=== PATIENT | male | born 1945 | race Caucasian/White ===

== ENCOUNTER 2018-03-02 17:46 | Emergency (ER) | payer OTHER ==
--- OUTSIDE RECORDS SUMMARY | 2018-03-02 17:54 | XMS REPORT | Clinical Summary ---
:1945 Author Organization [facility] Address [address] [place] [address] Care Team Providers Name Role Phone Neno Azar MD Primary Care Provider Allergies No Known Allergies Current Medications Prescription Sig. Disp. Refills Start Date End Date Status DENTA 5000 PLUS 1.1 APPLY THIN 0 04/02/2016 Active % cream RIBBON TO BRUSH AFTER BRUSHING BEFORE BEDTIME FOR 1 MIN. SPIT AND NO RINSING diazePAM (VALIUM) 5 TAKE 1 TABLET 1 04/02/2016 Active MG tablet BY MOUTH EVERY MORNING NEEDED aspirin (ECOTRIN) 81 Take 81 mg by Active MG enteric coated mouth daily. tablet meloxicam (MOBIC) Take 7.5 mg by 3 01/17/2017 Active 7.5 mg tablet mouth 2 (two) times a day with meals. montelukast Take 10 mg by 1 12/26/2016 Active (SINGULAIR) 10 mg mouth every tablet morning. metoprolol tartrate Take 1 tablet 180 tablet 3 03/26/2017 Active (LOPRESSOR) 25 mg (25 mg total) 8 tablet by mouth 2 (two) times a day. ELIQUIS 5 mg tablet Take 1 tablet 180 tablet 3 08/03/2017 Active (5 mg total) by mouth 2 (two) times a day. losartan-hydrochloro Take 1 tablet 90 tablet 3 10/26/2017 Active thiazide (HYZAAR) by mouth 9 50-12.5 mg per daily. tablet atorvastatin Take 1 tablet 90 tablet 3 12/24/2017 Active (LIPITOR) 10 MG (10 mg total) tabletIndications: by mouth Hyperlipidemia, daily. unspecified hyperlipidemia type ELIQUIS 5 mg tablet Take 5 mg by 3 04/15/2016 Discontinued mouth 2 (two) 8 times a day. atorvastatin Take 1 tablet 90 tablet 3 12/24/2016 Discontinued (LIPITOR) 10 MG (10 mg total) 8 tabletIndications: by mouth Hyperlipidemia, daily. unspecified hyperlipidemia type metoprolol tartrate Take 1 tablet 180 tablet 3 01/26/2017 Discontinued (LOPRESSOR) 25 mg (25 mg total) 7 tablet by mouth 2 (two) times a day. losartan-hydrochloro Take 1 tablet 90 tablet 3 01/26/2017 Discontinued thiazide (HYZAAR) by mouth 8 100-25 mg per tablet daily. ELIQUIS 5 mg tablet TAKE 1 TABLET 180 tablet 3 08/02/2017 Discontinued BY MOUTH TWICE 8 A DAY Active Problems Problem Noted Date Syncope and collapse 10/05/2017 Atrial fibrillation 08/03/2017 Coronary artery disease involving cheesh-na coronary artery of cheesh-na heart 08/03 without angina pectoris Claudication 08/03/2017 Bilateral carotid artery disease 01/26/2017 Essential hypertension 01/26/2017 Primary osteoarthritis of left hip 09/03/2016 Chronic midline low back pain without sciatica 09/03/2016 H/O total hip arthroplasty 09/03/2016 Transient cerebral ischemia 06/18/2016 Paroxysmal atrial fibrillation 06/18/2016 Encounters Date Type Specialty Care Team Description 12/23/2017 Refill Cardiology Jimmy Dudley, Med Refill 10/26/2017 Office Visit Cardiology Jimmy Dudley, Bilateral carotid artery disease (Primary Dx); Paroxysmal atrial fibrillation 10/19/2017 Orders Only Cardiology Cora Cerna, Atrial fibrillation, MA unspecified type (Primary Dx) 10/19/2017 Orders Only Cardiology Yareli Rebolledo Coronary artery disease involving cheesh-na coronary artery of cheesh-na heart without angina pectoris; Syncope and collapse; Bilateral carotid artery disease 10/13/2017 Telephone Cardiology Cora Cerna, Results MA 10/13/2017 Orders Only Procedural Cardiology Bruce Barnes, Coronary artery disease involving cheesh-na coronary artery of cheesh-na heart without angina pectoris; LUNA Syncope and collapse; Bilateral carotid artery disease 10/05/2017 Lab Lab Jimmy Dudley, Coronary artery disease involving cheesh-na coronary artery of cheesh-na heart without angina pectoris; Syncope and collapse; Bilateral carotid artery disease 10/05/2017 Office Visit Cardiology Jimmy Dudley, Syncope and collapse ( Primary Dx); Fainting spell; Coronary artery disease involving cheesh-na coronary artery of cheesh-na heart without angina pectoris; Bilateral carotid artery disease 08/03/2017 Office Visit Cardiology Jimmy Dudley, Atrial fibrillation, unspecified type (Primary Dx); CAD in cheesh-na artery; Claudication; PAD (peripheral artery disease); Bilateral carotid artery disease 08/02/2017 Refill Cardiology Jimmy Dudley, Med Refill 03/26/2017 Refill Cardiology Balwinder Boyer MA Med Refill after 03/01/2017 Family History Relation Name Status Comments Father Mother Social History Tobacco Use Types Packs/Day Years Used Date Never Smoker Smokeless Tobacco: Never Used Alcohol Use Drinks/Week oz/Week Comments No Sex Assigned at Date Recorded Not on file Last Filed Vital Signs Vital Sign Reading Time Taken Blood Pressure 116/70 10/26/2017 7:57 AM CDT Pulse 68 10/26/2017 7:57 AM CDT Temperature - - Respiratory Rate - - Oxygen Saturation - - Inhaled Oxygen Concentration - - Weight 93.9 kg (207 lb) 10/26/2017 7:57 AM CDT Height 172.7 cm (5' 8") 10/26/2017 7:57 AM CDT Body Mass Index 31.47 10/26/2017 7:57 AM CDT Plan of Treatment Date Type Specialty Care Team Description 04/12/2018 Appointment Procedural Cardiology Jimmy Dudley MD [address] [place] [address] [phone] 04/26/2018 Office Visit Cardiology Jimmy Dudley MD [address] [facility] [place] [address] [phone] Health Maintenance Due Date Last Done Comments COLON CANCER SCREENING 1996 SHINGRIX VACCINE (#1) 1996 ZOSTER VACCINE 2006 PNEUMOCOCCAL POLYSACCHARIDE VACCINE AGE 65 AND OVER 12/02/2011 PNEUMOCOCCAL-13 12/02/2011 INFLUENZA VACCINE 02/09/2018 Procedures Procedure Name Priority Date/Time Associated Diagnosis Comments ECHOCARDIOGRAM 2D Routine 10/21/2017 10:40 Atrial fibrillation, Results for this COMPLETE W MMODE AM CDT unspecified type procedure are in SPECTRAL COLOR DOPPLER the results (43645) section. CT HEAD W WO CONTRAST Routine 10/11/2017 8:52 Coronary artery Results for this AM CDT disease involving procedure are in cheesh-na coronary the results artery of cheesh-na section. heart without angina pectoris Syncope and collapse Bilateral carotid artery disease US CAROTID DUPLEX Routine 10/07/2017 4:55 Coronary artery Results for this BILATERAL PM CDT disease involving procedure are in cheesh-na coronary the results artery of cheesh-na section. heart without angina pectoris Syncope and collapse Bilateral carotid artery disease COPY RECEIVED FROM: Routine 10/05/2017 3:12 Results for this PM CDT procedure are in the results section. COPY(IES) SENT TO: Routine 10/05/2017 3:12 Results for this PM CDT procedure are in the results section. BASIC METABOLIC PANEL Routine 10/05/2017 3:12 Coronary artery Results for this PM CDT disease involving procedure are in cheesh-na coronary the results artery of cheesh-na section. heart without angina pectoris Syncope and collapse Bilateral carotid artery disease CV HOLTER MONITOR 48 Routine 10/05/2017 3:03 Coronary artery Results for this HOUR PM CDT disease involving procedure are in cheesh-na coronary the results artery of cheesh-na section. heart without angina pectoris Syncope and collapse Bilateral carotid artery disease ECG 12-LEAD Routine 10/05/2017 1:07 Fainting spell Results for this PM CDT procedure are in the results section. US DUPLEX ARTERIAL Routine 08/05/2017 1:52 Claudication Results for this LOWER EXTREMITY PM [facility] PAD (peripheral procedure are in BILATERAL artery disease) the results section. ECG 12-LEAD Routine 08/03/2017 11:19 Atrial fibrillation, Results for this AM [facility] unspecified type procedure are in CAD in cheesh-na artery the results section. US CAROTID DUPLEX Routine 06/22/2017 5:24 Bilateral carotid Results for this BILATERAL PM [facility] artery disease procedure are in Essential the results hypertension section. after 03/01/2017 Results Echocardiogram complete w contrast and 3D if needed (10/21/2017 10:40 AM) Narrative Performed At [facility] Echocardiography Report Pat.Name:ARTURO FORREST Yany.ID:[id number] St.Date: 10/21/2017 Refer.MD:JIMMY DUDLEY MD Exam Time: 10:56:00 AM Study Type:Routine Echo Height:68inWeight: 208lb BSA: 2.08 m2 DOBAge:1945,71Y Sex: MALEBP:133/73 HR:66 bpmSonogrphr: Minnie Carter RDCS, RVT Pat. Stat.:OutpatientRoom:[facility] Study Status:Final Echo Event ID:[id number] Order ID:[id number] Reason for Study:Atrial fibrillation History / Clinical:TIA, Atrial Fibrillation Procedures:2D Echo, Colorflow Doppler Race:Other SUMMARY: LV size is normal. LV EF is normal. FINDINGS: LV: LV size is normal. LV EF is normal. Overall wall motion is normal.Estimated EF is 55-59%. RV: RV size is normal. RV systolic function is normal. LA: LA size is normal. RA: RA size is normal. AO: Aortic root diameter is normal. ROSITA: No pericardial effusion. AV: No structural AV abnormalities noted. MV: No structural MV abnormalities noted. PV: No structural PV abnormalities noted. A trace of pulmonic regurgitation. TV: No structural TV abnormalities noted. A trace of tricuspid regurgitation Aragon: Hepatic vein pressure is normal, RA pressure < 5mmHg. Normal diastolicfunction. Other:Insufficient TR jet to estimate PA systolic pressure. MEASUREMENTS: 2D Parasternal Long [place]borne LVOT 1.8 cmLA Ds3.7 cm LVIDd4.2 cmIndex2 cm/m Ao An1.8 cm LVIDs2.7 cmAo Rtd 2.4 cm Index1.2 cm/m LV%fs 35.7 % LV Frog475.3 g(122-174) IVSd 1 cmRWT0.4 LVPWd0.9 cm LA Sng Plane LA Area 12.3 cm2(8.8-23.4) LA Vol25.3 ml Index12.2 ml/m LA LngAx 5 cm Signed 10/21/2017 10:45 AM Stefan Buckley MD Procedure Note Interface, Radiology Results In - 10/21/2017 10:46 AM CDT [facility] Echocardiography Report Pat.Name: ARTURO FORREST Pat.ID: [id number] St.Date: 10/21/2017 Refer.MD: JIMMY DUDLEY MD Exam Time: 10:56:00 AM Study Type:Routine Echo Height: 68in Weight: 208lb BSA: 2.08 m2 Age: 5 1945,71Y Sex: MALE BP: 133/73 HR: 66 bpm Sonogrphr: Minnie Carter RDCS, RVT Pat. Stat.:Outpatient Room: [facility] Study Status:Final Echo Event ID:[id number] Order ID: [id number] Reason for Study:Atrial fibrillation History / Clinical:TIA, Atrial Fibrillation Procedures:2D Echo, Colorflow Doppler Race: Other SUMMARY: LV size is normal. LV EF is normal. FINDINGS: LV: LV size is normal. LV EF is normal. Overall wall motion is normal. Estimated EF is 55-59%. RV: RV size is normal. RV systolic function is normal. LA: LA size is normal. RA: RA size is normal. AO: Aortic root diameter is normal. ROSITA: No pericardial effusion. AV: No structural AV abnormalities noted. MV: No structural MV abnormalities noted. PV: No structural PV abnormalities noted. A trace of pulmonic regurgitation. TV: No structural TV abnormalities noted. A trace of tricuspid regurgitation Aragon: Hepatic vein pressure is normal, RA pressure < 5mmHg. Normal diastolic function. Other: Insufficient TR jet to estimate PA systolic pressure. MEASUREMENTS: 2D Parasternal Long [place]borne LVOT 1.8 cm LA Ds 3.7 cm LVIDd 4.2 cm Index 2 cm/m Ao An 1.8 cm LVIDs 2.7 cm Ao Rtd 2.4 cm Index 1.2 cm/m LV%fs 35.7 % LV Mass 122.3 g (122-174) IVSd 1 cm RWT 0.4 LVPWd 0.9 cm LA Sng Plane LA Area 12.3 cm2 (8.8-23.4) LA Vol 25.3 ml Index 12.2 ml/m LA LngAx 5 cm Signed 10/21/2017 10:45 AM Stefan Buckley MD Performing Organization Address City/State/Zipcode Phone Number [facility] [address] [place] [address] CT Head W Wo Contrast (10/11/2017 8:52 AM) Narrative Performed At EXAMINATION:CT HEAD W WO CONTRAST [facility] CLINICAL HISTORY:I25.10 Atherosclerotic heart disease of cheesh-na coronary artery without angina pectoris, R55 Syncope and collapse, other COMPARISON:None. FINDINGS: Axial images were obtained before and after intravenous contrast infusion. CT scans are performed using radiation dose reduction techniques. Technical factors are evaluated and adjusted to ensure appropriate moderation of exposure. Automated dose management technology is applied to adjust radiation exposure while achieving a highly diagnostic quality image.. Nonenhanced images demonstrate mild ventricular and sulcal dilatation compatible with age-appropriate involutional changes. There is no definite acute edema or hemorrhage. There are no calcifications. After intravenous contrast infusion, there is visualization of a normal vascular enhancement pattern of the arterial and dural venous structures consistent with patency. There are no abnormal enhancing masses. Bone settings demonstrate the calvarium to be intact. IMPRESSION: Unremarkable examination. Mild age-appropriate involutional changes. [facility]-[id number] Procedure Note Interface, Radiology Results Incoming - 10/11/2017 10:24 AM CDT EXAMINATION: CT HEAD W WO CONTRAST CLINICAL HISTORY: I25.10 Atherosclerotic heart disease of cheesh-na coronary artery without angina pectoris, R55 Syncope and collapse, other COMPARISON: None. FINDINGS: Axial images were obtained before and after intravenous contrast infusion. CT scans are performed using radiation dose reduction techniques. Technical factors are evaluated and adjusted to ensure appropriate moderation of exposure. Automated dose management technology is applied to adjust radiation exposure while achieving a highly diagnostic quality image.. Nonenhanced images demonstrate mild ventricular and sulcal dilatation compatible with age-appropriate involutional changes. There is no definite acute edema or hemorrhage. There are no calcifications. After intravenous contrast infusion, there is visualization of a normal vascular enhancement pattern of the arterial and dural venous structures consistent with patency. There are no abnormal enhancing masses. Bone settings demonstrate the calvarium to be intact. IMPRESSION: Unremarkable examination. Mild age-appropriate involutional changes. [facility]-[id number] Performing Organization Address City/State/Zipcode Phone Number [facility] [address] [place] [address] carotid duplex (10/07/2017 4:55 PM)Only the most recent of2 resultswithin the time period is included. Narrative Performed At [facility] Carotid Artery Ultrasound Report Pat.Name:ARTURO FORREST Pat.ID:[id number] .Date: 10/07/2017 Refer.MD:JIMMY DUDLEY MD Exam Time: 4:05:00 PMStudy Type:Carotid Height:68inDOBAge: 1945,71Y Sex: MALE Sonogrphr: Minnie Carter RDMS, RDCS, RVT Pat. Stat.:OutpatientRoom:[facility] CPT - 4: 64112 Echo Event ID:[id number] Order ID:[id number] Reason for Study:Carotid artery stenosis History / Clinical:TIA, Atrial Fibrillation, Known carotid stenosis based on prior test Race:Other SUMMARY: CAROTID ARTERY SCAN RIGHT:There is smooth intimal lining in the common carotid artery. There is hard plaque noted in the bulb extending into the proximal internal and external carotid artery.A complex plaque of soft and hard plaque is visualized in the proximal internal carotid artery.A portion of the plaque appears to have a black echolucent core and a thin echogenic cap.Colorflow is disturbed with elevated velocities noted in the bulb and proximal internal carotid artery. Vertebral artery flow is antegrade. LEFT: There is smooth intimal lining in the common carotid artery. Velocities are elevated, but not hemodynamically significant. There is hard plaque noted in the bulb extending into the proximal internal and external carotid artery.Colorflow is mildly disturbed. Vertebral artery flow is antegrade. PHYSICIAN INTERPRETATION 1.50- 69% stenosis in the bulb and right internal carotid artery. Velocities have increased since the previous exam. 2.<50%stenosis in the bulb and left internal carotid artery. 3. <50% stenosis in the external carotid artery, bilaterally. 4. Non-hemodynamically significant stenosis left common carotid artery Carotid Findings:RightLeft Verteb.Flw AntegradeAntegrade Subclavian TriphasicTriphasic MEASUREMENTS: DOPPLER Right SCA Prox SCA Prox PSV 194 cm/s Right CCA Dist CCA Dist PSV 172 cm/sCCA Dist EDV35.3 cm/s Right CCA Mid CCA Mid CMX278 cm/sCCA Mid EDV 10.5 cm/s Right CCA Prox CCA Prox PSV 126 cm/sCCA Prox EDV19.6 cm/s Right Bulb Bulb PSV 122 cm/sBulb EDV27.5 cm/s Right ECA Prox ECA Prox PSV 142 cm/sECA Prox EDV15.2 cm/s Right ICA Dist ICA Dist PSV88.8 cm/Keira Dist EDV24.8 cm/s Right ICA Mid ICA Mid DPV795 cm/Keira Mid EDV 26.2 cm/s Right ICA Prox ICA Prox PSV 179 cm/Keira Prox EDV39.4 cm/s Right Vertebral Vertebral PSV 49 cm/sVertebral EDV0 cm/s Left SCA Prox SCA Prox PSV 198 cm/s Left CCA Dist CCA Dist PSV 116 cm/sCCA Dist EDV18.3 cm/s Left CCA Mid CCA Mid UCM448 cm/sCCA Mid EDV 20.6 cm/s Left CCA Prox CCA Prox PSV 152 cm/sCCA Prox EDV28.4 cm/s Left Bulb Bulb PSV 116 cm/sBulb EDV15.2 cm/s Left ECA Prox ECA Prox PSV 119 cm/sECA Prox EDV12.5 cm/s Left ICA Dist ICA Dist PSV82.9 cm/Keira Dist EDV26 cm/s Left ICA Mid ICA Mid OHI302 cm/Keira Mid EDV 19.2 cm/s Left ICA Prox ICA Prox PSV96.1 cm/Keira Prox EDV21.3 cm/s Left Vertebral Vertebral PSV 47.6 cm/sVertebral EDV 13.4 cm/s Right ICA/CCA Ratio ICA/CCA PSV1.7 Left ICA/CCA Ratio ICA/CCA PSV0.734 Signed 10/13/2017 03:39 PM Jimmy Dudley MD Procedure Note Interface, Radiology Results In - 10/13/2017 3:39 PM CDT [facility] Carotid Artery Ultrasound Report Pat.Name: ARTURO FORREST Pat.ID: [id number] .Date: 10/07/2017 Refer.MD: JIMMY DUDLEY MD Exam Time: 4:05:00 PM Study Type:Carotid Height: 68in Age: 5 1945,71Y Sex: MALE Sonogrphr: Minnie Carter RDMS, RDCS, RVT Pat. Stat.:Outpatient Room: [facility] CPT - 4: 80135 Echo Event ID:[id number] Order ID: [id number] Reason for Study:Carotid artery stenosis History / Clinical:TIA, Atrial Fibrillation, Known carotid stenosis based on prior test Race: Other SUMMARY: CAROTID ARTERY SCAN RIGHT: There is smooth intimal lining in the common carotid artery. There is hard plaque noted in the bulb extending into the proximal internal and external carotid artery. A complex plaque of soft and hard plaque is visualized in the proximal internal carotid artery. A portion of the plaque appears to have a black echolucent core and a thin echogenic cap. Colorflow is disturbed with elevated velocities noted in the bulb and proximal internal carotid artery. Vertebral artery flow is antegrade. LEFT: There is smooth intimal lining in the common carotid artery. Velocities are elevated, but not hemodynamically significant. There is hard plaque noted in the bulb extending into the proximal internal and external carotid artery. Colorflow is mildly disturbed. Vertebral artery flow is antegrade. PHYSICIAN INTERPRETATION 1. 50- 69% stenosis in the bulb and right internal carotid artery. Velocities have increased since the previous exam. 2. <50% stenosis in the bulb and left internal carotid artery. 3. <50% stenosis in the external carotid artery, bilaterally. 4. Non-hemodynamically significant stenosis left common carotid artery Carotid Findings: Right Left Verteb.Flw Antegrade Antegrade Subclavian Triphasic Triphasic MEASUREMENTS: DOPPLER Right SCA Prox SCA Prox PSV 194 cm/s Right CCA Dist CCA Dist PSV 172 cm/s CCA Dist EDV 35.3 cm/s Right CCA Mid CCA Mid PSV 105 cm/s CCA Mid EDV 10.5 cm/s Right CCA Prox CCA Prox PSV 126 cm/s CCA Prox EDV 19.6 cm/s Right Bulb Bulb PSV 122 cm/s Bulb EDV 27.5 cm/s Right ECA Prox ECA Prox PSV 142 cm/s ECA Prox EDV 15.2 cm/s Right ICA Dist ICA Dist PSV 88.8 cm/s ICA Dist EDV 24.8 cm/s Right ICA Mid ICA Mid PSV 147 cm/s ICA Mid EDV 26.2 cm/s Right ICA Prox ICA Prox PSV 179 cm/s ICA Prox EDV 39.4 cm/s Right Vertebral Vertebral PSV 49 cm/s Vertebral EDV 0 cm/s Left SCA Prox SCA Prox PSV 198 cm/s Left CCA Dist CCA Dist PSV 116 cm/s CCA Dist EDV 18.3 cm/s Left CCA Mid CCA Mid PSV 131 cm/s CCA Mid EDV 20.6 cm/s Left CCA Prox CCA Prox PSV 152 cm/s CCA Prox EDV 28.4 cm/s Left Bulb Bulb PSV 116 cm/s Bulb EDV 15.2 cm/s Left ECA Prox ECA Prox PSV 119 cm/s ECA Prox EDV 12.5 cm/s Left ICA Dist ICA Dist PSV 82.9 cm/s ICA Dist EDV 26 cm/s Left ICA Mid ICA Mid PSV 105 cm/s ICA Mid EDV 19.2 cm/s Left ICA Prox ICA Prox PSV 96.1 cm/s ICA Prox EDV 21.3 cm/s Left Vertebral Vertebral PSV 47.6 cm/s Vertebral EDV 13.4 cm/s Right ICA/CCA Ratio ICA/CCA PSV 1.7 Left ICA/CCA Ratio ICA/CCA PSV 0.734 Signed 10/13/2017 03:39 PM Jimmy Dudley MD Performing Organization Address City/[facility] Phone Number [facility] [address] [place] [address] COPY RECEIVED FROM: (10/05/2017 3:12 PM) Copy received from: [facility] Comment: [address] [facility] [address] [place] [address] Performing Organization Address City/[facility] Phone Number [facility] COPY(IES) SENT TO: (10/05/2017 3:12 PM) Copies/mL [facility] Comment: [address] [facility] [address] [place] [address] Performing Organization Address [facility] Phone Number [facility] Basic metabolic panel (10/05/2017 3:12 PM) Glucose 114 (H) 65 - 99 mg/dL [facility] Comment: [place] Fasting reference interval For someone without known diabetes, a glucose value between 100 and 125 mg/dL is consistent with prediabetes and should be confirmed with a follow-up test. BUN, whole blood 24 7 - 25 mg/dL [facility] [place] Creatinine 0.98 0.70 - 1.18 [facility] Comment: mg/dL [place] For patients >49 years of age, the reference limit for Creatinine is approximately 13% higher for people identified as -Albanian. EGFR Non-Afr. Albanian 78 > OR=60 [facility] mL/min/1.73m2 [place] EGFR 90 > OR=60 [facility] mL/min/1.73m2 [place] BUN/creatinine ratio NOT APPLICABLE 6 - 22 (calc) [facility] Sodium 139 135 - 146 mmol/L [facility] [place] Potassium 4.2 3.5 - 5.3 mmol/L [facility] [place] Chloride 101 98 - 110 mmol/L [facility] [place] CO2 26 20 - 31 mmol/L [facility] [place] Calcium 9.3 8.6 - 10.3 mg/dL [facility] [place] Specimen Blood Resulting Agency Comment Performing Organization Information: Site ID: [id number] Name: [facility] Address: [address] [place] [id number] Director: Martha Alonzo MD Performing Organization Address City/[facility] Phone Number [employer] [address] [address] Cv holter monitor 48 hour (10/05/2017 3:03 PM) Hookup Date [id number] [facility] MUSE Hookup Time [id number] [facility] MUSE Acquisition Duration [id number] [facility] MUSE # of Ventricular Beats in Runs 0 [facility] MUSE # OF LONGEST VENTRICULAR BEATS H MUSE # of Supraventricular Beats in 77 H MUSE Runs # of Longest Supraventricular 17 [facility] MUSE Beats Max Heart Rate 140 [facility] MUSE Min Heart Rate 51 [facility] MUSE Longest RR 1.703 [facility] MUSE Diagnosis -SInus rhythm with occasional H MUSE supraventricular beats.- Performing Organization Address City/[facility] Phone Number [facility] [address] [place] [address] ECG 12 lead (10/05/2017 1:07 PM)Only the most recent of2 resultswithin the time period is included. Ventricular rate 69 [facility]USE Atrial rate 69 [facility] GA interval 200 [facility] QRSD interval 84 [facility] QT interval 398 [facility] QTC interval 426 [facility] P axis 1 53 [facility] QRS axis 1 59 [facility] T wave axis 53 [facility] EKG impression Normal sinus rhythm-Normal ECG-In automated [facility] MUSE comparison with ECG of 03-AUG-2017 11:19,-Sinus rhythm has replaced Atrial fibrillation-QRS axis shifted right- Performing Organization Address City/State/Zipcode Phone Number [facility] MUSE [address] [place] [address] Pv duplex arterial lower extremity (08/05/2017 1:52 PM) Narrative Performed At [facility] Lower Extremity Arterial Report Pat.Name:ARTURO FORREST Pat.ID:[id number] .Date: 08/05/2017 Refer.MD:JIMMY DUDLEY MD Exam Time: 1:15:00 PMStudy Type:LE Arterial Height:68inDOBAge: 1945,71Y Sex: MALE Sonogrphr: Minnie Carter RDMS, EMANUELCS, RVT Pat. Stat.:Outpatient[facility] 4: [address] Echo Event ID:[id number] Order ID:[id number] Reason for Study:Claudication History / Clinical:TIA, Atrial Fibrillation, Known carotid stenosis based on prior test Procedures:Bilateral Race:Other SUMMARY: Duplex scan of the BILATERAL lower extremities was done. Color and pulse wave Doppler demonstrates no evidence of hemodynamically significant stenosis. FINDINGS:Duplex ultrasound was performed of the major arteries of the bilateral lower extremities.All vessels are patent and with triphasic Doppler flow and normal velocities.There are no areas of significantly increased velocity or luminal abnormalities. IMPRESSION:No evidence of hemodynamically significant arterial disease in the bilateral lower extremities. MEASUREMENTS: DOPPLER LONG LINE TEAMSTER Right LONG LINE TEAMSTER Angul56 deg Right Profunda Profunda PSV78.5 cm/sProfunda EDV 0 cm/s Profunda Right Profunda 60 deg Right SFA Dist SFA Dist PSV74.2 cm/sSFA Dist EDV1.35 cm/s Right SFA Mid SFA Mid PSV 72.2 cm/sSFA Mid EDV0 cm/s Right SFA Prox SFA Prox PSV81.6 cm/sSFA Prox EDV 0 cm/s Right Pop Dist Pop Dist PSV44 cm/sPop Dist EDV1.79 cm/s Right Pop Prox Pop Prox PSV50.1 cm/sPop Prox EDV1.22 cm/s Right SET AND EXHIBIT DESIGNER Prox SET AND EXHIBIT DESIGNER Prox PSV30.1 cm/sPTA Prox EDV 0.684 cm/s Right SET AND EXHIBIT DESIGNER Dist SET AND EXHIBIT DESIGNER Dist PSV46.4 cm/s Tibial Post Right Tibial Po1.22 cm/s Left Tibial Pos 0 cm/s Left Tibial Pos 0 cm/s Right SET AND EXHIBIT DESIGNER Mid SET AND EXHIBIT DESIGNER Mid PSV 51.3 cm/sPTA Mid EDV0 cm/s Right Peroneal Prox Peroneal Prox P35.4 cm/s Peroneal Right Peroneal0 cm/s Dors Pedis Right Dors Pedi42.8 cm/s Left Dors Pedis31.7 cm/s Right Dors Pedi 0 cm/s Left Dors Pedis 0 cm/s Right Dors Pedi60 degLeft Dors Pedis54 deg Left Profunda Profunda PSV89.4 cm/sProfunda EDV 0 cm/s Left SFA Dist SFA Dist PSV73.2 cm/sSFA Dist EDV2.99 cm/s Left SFA Mid SFA Mid PSV 68.8 cm/sSFA Mid EDV0 cm/s Left SFA Prox SFA Prox PSV86.7 cm/sSFA Prox EDV1.49 cm/s Left Pop Dist Pop Dist PSV42.4 cm/s Popliteal Left Popliteal 4.84 cm/s Left Popliteal0 cm/s Left Pop Prox Pop Prox PSV40.3 cm/s Left MELANIE Prox MELANIE Prox PSV23 cm/s Tibial Art Left Tibial Art 0 cm/s Left SET AND EXHIBIT DESIGNER Dist SET AND EXHIBIT DESIGNER Dist PSV60.2 cm/s Left SET AND EXHIBIT DESIGNER Mid SET AND EXHIBIT DESIGNER Mid PSV 60.8 cm/sPTA Mid EDV0 cm/s Left SET AND EXHIBIT DESIGNER Prox SET AND EXHIBIT DESIGNER Prox PSV55.9 cm/s Left Peroneal Dist Peroneal Dist P61.9 cm/s Peroneal Dist E 0 cm/s Signed 08/05/2017 04:21 PM Jimmy Dudley MD Procedure Note Interface, Radiology Results In - 08/05/2017 4:22 PM PCMH SPECIALIST [facility] Lower Extremity Arterial Report Pat.Name: ARTURO FORREST Pat.ID: [id number] St.Date: 08/05/2017 Refer.MD: JIMMY DUDLEY MD Exam Time: 1:15:00 PM Study Type:LE Arterial Height: 68in Age: 5 1945,71Y Sex: MALE Sonogrphr: Minnie Carter RDMS, RDCS, RVT Pat. Stat.:Outpatient Room: [facility] - 4: [id number] Echo Event ID:[id number] Order ID: [id number] Reason for Study:Claudication History / Clinical:TIA, Atrial Fibrillation, Known carotid stenosis based on prior test Procedures:Bilateral Race: Other SUMMARY: Duplex scan of the BILATERAL lower extremities was done. Color and pulse wave Doppler demonstrates no evidence of hemodynamically significant stenosis. FINDINGS: Duplex ultrasound was performed of the major arteries of the bilateral lower extremities. All vessels are patent and with triphasic Doppler flow and normal velocities. There are no areas of significantly increased velocity or luminal abnormalities. IMPRESSION: No evidence of hemodynamically significant arterial disease in the bilateral lower extremities. MEASUREMENTS: DOPPLER LONG LINE TEAMSTER Right LONG LINE TEAMSTER Angul 56 deg Right Profunda Profunda PSV 78.5 cm/s Profunda EDV 0 cm/s Profunda Right Profunda 60 deg Right SFA Dist SFA Dist PSV 74.2 cm/s SFA Dist EDV 1.35 cm/s Right SFA Mid SFA Mid PSV 72.2 cm/s SFA Mid EDV 0 cm/s Right SFA Prox SFA Prox PSV 81.6 cm/s SFA Prox EDV 0 cm/s Right Pop Dist Pop Dist PSV 44 cm/s Pop Dist EDV 1.79 cm/s Right Pop Prox Pop Prox PSV 50.1 cm/s Pop Prox EDV 1.22 cm/s Right SET AND EXHIBIT DESIGNER Prox SET AND EXHIBIT DESIGNER Prox PSV 30.1 cm/s SET AND EXHIBIT DESIGNER Prox EDV 0.684 cm/s Right SET AND EXHIBIT DESIGNER Dist SET AND EXHIBIT DESIGNER Dist PSV 46.4 cm/s Tibial Post Right Tibial Po 1.22 cm/s Left Tibial Pos 0 cm/s Left Tibial Pos 0 cm/s Right SET AND EXHIBIT DESIGNER Mid SET AND EXHIBIT DESIGNER Mid PSV 51.3 cm/s SET AND EXHIBIT DESIGNER Mid EDV 0 cm/s Right Peroneal Prox Peroneal Prox P 35.4 cm/s Peroneal Right Peroneal 0 cm/s Dors Pedis Right Dors Pedi 42.8 cm/s Left Dors Pedis 31.7 cm/s Right Dors Pedi 0 cm/s Left Dors Pedis 0 cm/s Right Dors Pedi 60 deg Left Dors Pedis 54 deg Left Profunda Profunda PSV 89.4 cm/s Profunda EDV 0 cm/s Left SFA Dist SFA Dist PSV 73.2 cm/s SFA Dist EDV 2.99 cm/s Left SFA Mid SFA Mid PSV 68.8 cm/s SFA Mid EDV 0 cm/s Left SFA Prox SFA Prox PSV 86.7 cm/s SFA Prox EDV 1.49 cm/s Left Pop Dist Pop Dist PSV 42.4 cm/s Popliteal Left Popliteal 4.84 cm/s Left Popliteal 0 cm/s Left Pop Prox Pop Prox PSV 40.3 cm/s Left MELANIE Prox MELANIE Prox PSV 23 cm/s Tibial Art Left Tibial Art 0 cm/s Left SET AND EXHIBIT DESIGNER Dist SET AND EXHIBIT DESIGNER Dist PSV 60.2 cm/s Left SET AND EXHIBIT DESIGNER Mid SET AND EXHIBIT DESIGNER Mid PSV 60.8 cm/s SET AND EXHIBIT DESIGNER Mid EDV 0 cm/s Left SET AND EXHIBIT DESIGNER Prox SET AND EXHIBIT DESIGNER Prox PSV 55.9 cm/s Left Peroneal Dist Peroneal Dist P 61.9 cm/s Peroneal Dist E 0 cm/s Signed 08/05/2017 04:21 PM Jimmy Dudley MD Performing Organization Address City/State[facility] Phone Number [facility] [id number] [place] [address] after 03/01/2017 Insurance Payer Benefit Plan / Group Subscriber ID Type Phone Address AETNA MEDICARE AETNA MEDICARE HMO/PPO [facility] xxxxxxxx HMO
[2018-03-02] MEDS ORDERED: LIDOCAINE 1% MPF 5 ML VIAL ONE (18:16)
[2018-03-02] MEDS ORDERED: TETANUS & DIPHTHERIA TOX,ADULT 0.5 ML VIAL ONE (18:17)
--- NOTE | 2018-03-02 18:46 | ER ---
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 Small laceration noted with small amount of controlled bleeding. Transition of care: patient was not received from another setting of care. Onset of symptoms. Risk Assessment: Do you want to hurt yourself or someone else? Patient reports no desire to harm self or others. Initial Sepsis Screen: Does the patient meet any 2 criteria? No. Patient's initial sepsis screen is negative. Does the patient have a suspected source of infection? No. Patient's initial sepsis screen is negative. Care prior to arrival: None. 17:53 Method Of Arrival: Ambulatory 17:53 Acuity: ESE 4 aj Triage Assessment: 17:56 General: Appears in no apparent distress. comfortable, Behavior is calm, cooperative, aj appropriate for age. Pain: Complains of pain in left thumbnail. Neuro: Level of Consciousness is awake, alert, obeys commands, Oriented to person, place, time, situation, Appropriate for age. Respiratory: Airway is patent Respiratory effort is even, unlabored, Respiratory pattern is regular, symmetrical. Derm: Skin is intact, is healthy with good turgor, Skin is pink, warm \T\ dry. normal. Injury Description: Laceration sustained to left thumbnail is clean, 0.5 to 2.5 cm long, was sustained 30-60 minutes ago. a small amount of bleeding noted at this time. Historical: - Allergies: 17:56 No Known Allergies; aj - Home Meds: 17:56 metoprolol tartrate 25 mg Oral tab 1 tab 2 times per day [Active]; atorvastatin 10 mg aj oral tab 1 tab once daily [Active]; Eliquis 5 mg oral tab 1 tab 2 times per day [Active]; losartan-hydrochlorothiazide 50-12.5 mg oral tab 1 tab once daily [Active]; montelukast 10 mg oral tab 1 tab once daily [Active]; aspirin 81 mg Oral TbEC 1 tab once daily [Active]; - PMHx: 17:56 Hypertension; Hyperlipidemia; Cancer; Atrial Fib; aj - PSHx: 17:56 hip; aj - Immunization history:: Adult Immunizations up to date. - Social history:: Smoking status: Patient/guardian denies using tobacco. - Ebola Screening: : Patient negative for fever greater than or equal to 101.5 degrees Fahrenheit, and additional compatible Ebola Virus Disease symptoms Patient denies exposure to infectious person Patient denies travel to an Ebola-affected area in the 21 days before illness onset No symptoms or risks identified at this time. Screenin:07 Abuse screen: Denies threats or abuse. Denies injuries from another. Nutritional hj screening: No deficits noted. Tuberculosis screening: No symptoms or risk factors identified. Fall Risk None identified. Assessment: 18:08 General: Appears in no apparent distress. uncomfortable, Behavior is calm, cooperative, hj appropriate for age. Pain: Complains of pain in left thumbnail. Neuro: Level of Consciousness is awake, alert, obeys commands, Oriented to person, place, time, situation, Appropriate for age. Cardiovascular: Capillary refill < 3 seconds Patient's skin is warm and dry. Respiratory: Airway is patent Respiratory effort is even, unlabored. GI: No signs and/or symptoms were reported involving the gastrointestinal system. : No signs and/or symptoms were reported regarding the genitourinary system. EENT: No signs and/or symptoms were reported regarding the EENT system. Derm: Wound noted left thumbnail. Musculoskeletal: No signs and/or symptoms reported regarding the musculoskeletal system. Injury Description: Laceration sustained to left thumbnail is clean, 0.5 to 2.5 cm long, not bleeding, was sustained 30-60 minutes ago. a small amount of bleeding noted at this time. Vital Signs: 17:56 BP 134 / 87; Pulse 85; Resp 16; Temp 97.4; Pulse Ox 95% on R/A; Weight 93.89 kg; Height aj 5 ft. 8 in. (172.72 cm); 18:45 BP 130 / 89; Pulse 84; Resp 17; Pulse Ox 95% on R/A; Pain 0/10; cc3 17:56 Body Mass Index 31.47 (93.89 kg, 172.72 cm) ED Course: 17:48 Patient arrived in ED. mr 17:48 Neno Azar MD is Private Physician. mr 17:54 Triage completed. aj 17:56 Arm band placed on left wrist. Patient placed in an exam room. aj 17:59 Kan Rivers NP is PHCP. pm1 17:59 Prem Mota MD is Attending Physician. pm1 18:02 Neptali Figueroa, DARA is Primary Nurse. hj 18:07 Patient has correct armband on for positive identification. Bed in low position. Call light in reach. Side rails up X 1. 18:45 Neno Azar MD is Referral Physician. pm1 19:00 No provider procedures requiring assistance completed. Patient did not have IV access cc3 during this emergency room visit. Administered Medications: 18:08 Drug: Tetanus-Diphtheria Toxoid Adult 0.5 ml {Case Coordinator: [employer]. Exp: 03/31/2019. Lot #: [id number]. } Route: IM; Site: right deltoid; 18:41 Drug: Lidocaine (1 %) 5 ml Volume: 5 ml; Route: Infiltration; Outcome: 18:46 Discharge ordered by MD. pm1 19:00 Discharged to home ambulatory, with family. cc3 19:00 Condition: stable 19:00 Discharge instructions given to patient, family, Instructed on discharge instructions, follow up and referral plans. wound care, Demonstrated understanding of instructions, follow-up care, wound care. 19:20 Patient left the ED. iw Signatures: Flores Juarez RN RN aj Rivera, Maria Kaylan Pascal RN RN Neptali Figueroa RN RN hj Marinas, Patrick, NP ROUSTABOUT SUPERVISOR pm1 Erin Hidalgo cc3
--- NOTE | 2018-03-02 18:46 | EDPHYS ---
Physician Documentation [facility] Name: Arturo Forrest Age: 72 yrs Sex: Male : 1945 Arrival Date: 03/02/2018 Time: 17:48 Bed 8 Private MD: Neno Azar T ED Physician Prem Mota HPI: 03/02 18:10 This 72 yrs old Male presents to ER via Ambulatory with complaints of Thumb pm1 laceration. 18:10 The patient has a laceration related to: cooking, from a knife, occurred at home, and pm1 patient takes eliquis The injury was accidental. The laceration(s) is(are) located on the tip of distal phalanx of left thumb. Onset: The symptoms/episode began/occurred just prior to arrival. Associated signs and symptoms: Pertinent positives: Patient unable to stop the bleeding, Pertinent negatives: numbness distal to injury, suspected foreign body. The patient has not recently seen a physician, the patient's primary care provider is Dr. Azar. Patient was cutting bread and accidentally cut tip of his left thumb. Patient takes eliquis and was unable to stop the bleeding with pressure and OTC adhesive skin repair. Historical: - Allergies: 17:56 No Known Allergies; aj - Home Meds: 17:56 metoprolol tartrate 25 mg Oral tab 1 tab 2 times per day [Active]; atorvastatin 10 mg aj oral tab 1 tab once daily [Active]; Eliquis 5 mg oral tab 1 tab 2 times per day [Active]; losartan-hydrochlorothiazide 50-12.5 mg oral tab 1 tab once daily [Active]; montelukast 10 mg oral tab 1 tab once daily [Active]; aspirin 81 mg Oral TbEC 1 tab once daily [Active]; - PMHx: 17:56 Hypertension; Hyperlipidemia; Cancer; Atrial Fib; aj - PSHx: 17:56 hip; aj - Immunization history:: Adult Immunizations up to date. - Social history:: Smoking status: Patient/guardian denies using tobacco. - Ebola Screening: : Patient negative for fever greater than or equal to 101.5 degrees Fahrenheit, and additional compatible Ebola Virus Disease symptoms Patient denies exposure to infectious person Patient denies travel to an Ebola-affected area in the 21 days before illness onset No symptoms or risks identified at this time. ROS: 18:10 Constitutional: Negative for fever, chills, and weight loss, Eyes: Negative for injury, pm1 pain, redness, and discharge, ENT: Negative for injury, pain, and discharge, Neck: Negative for injury, pain, and swelling, Cardiovascular: Negative for chest pain, palpitations, and edema, Respiratory: Negative for shortness of breath, cough, wheezing, and pleuritic chest pain, Abdomen/GI: Negative for abdominal pain, nausea, vomiting, diarrhea, and constipation, Back: Negative for injury and pain. 18:10 MS/extremity: Positive for of the left thumb, Negative for decreased range of motion, deformity. 18:10 Skin: Positive for laceration(s). Exam: 18:10 Constitutional: This is a well developed, well nourished patient who is awake, alert, pm1 and in no acute distress. Head/Face: Normocephalic, atraumatic. Eyes: Pupils equal round and reactive to light, extra-ocular motions intact. Lids and lashes normal. Conjunctiva and sclera are non-icteric and not injected. Cornea within normal limits. Periorbital areas with no swelling, redness, or edema. ENT: Nares patent. No nasal discharge, no septal abnormalities noted. Tympanic membranes are normal and external auditory canals are clear. Oropharynx with no redness, swelling, or masses, exudates, or evidence of obstruction, uvula midline. Mucous membranes moist. Neck: Trachea midline, no thyromegaly or masses palpated, and no cervical lymphadenopathy. Supple, full range of motion without nuchal rigidity, or vertebral point tenderness. No Meningismus. Chest/axilla: Normal chest wall appearance and motion. Nontender with no deformity. No lesions are appreciated. Cardiovascular: Regular rate and rhythm with a normal S1 and S2. No gallops, murmurs, or rubs. Normal PMI, no JVD. No pulse deficits. Respiratory: Lungs have equal breath sounds bilaterally, clear to auscultation and percussion. No rales, rhonchi or wheezes noted. No increased work of breathing, no retractions or nasal flaring. Abdomen/GI: Soft, non-tender, with normal bowel sounds. No distension or tympany. No guarding or rebound. No evidence of tenderness throughout. Back: No spinal tenderness. No costovertebral tenderness. Full range of motion. 18:10 Skin: Appearance: normal except for affected area, injury, laceration(s), the wound is pm1 approximately 1.5 cm(s), with a depth of 0.5 cm(s), of the left thumb. Vital Signs: 17:56 BP 134 / 87; Pulse 85; Resp 16; Temp 97.4; Pulse Ox 95% on R/A; Weight 93.89 kg; Height aj 5 ft. 8 in. (172.72 cm); 18:45 BP 130 / 89; Pulse 84; Resp 17; Pulse Ox 95% on R/A; Pain 0/10; cc3 17:56 Body Mass Index 31.47 (93.89 kg, 172.72 cm) aj Laceration: 18:45 Wound Repair of 1.5cm ( 0.6in ) subcutaneous laceration to left thumb. Linear shaped.. pm1 Distal neuro/vascular/tendon intact. Anesthesia: Digital block administered with 2 mls of 1% lidocaine. Wound prep: Extensive cleansing with betadine by nurse, Wound irrigation with saline by me, Wound explored extensively, Copious irrigation. Skin closed with 4 5-0 Prolene using simple sutures and sterile technique. Dressed with 4x4's. Patient tolerated well. MDM: 17:59 Patient medically screened. pm1 18:45 Data reviewed: vital signs. Data interpreted: Pulse oximetry: on room air is 95 %. pm1 Interpretation: normal. Counseling: I had a detailed discussion with the patient and/or guardian regarding: the historical points, exam findings, and any diagnostic results supporting the discharge/admit diagnosis, the need for outpatient follow up, to return to the emergency department if symptoms worsen or persist or if there are any questions or concerns that arise at home. 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 Exp: [employer] 03/31/2019. Lot #: [id number]. } Route: IM; Site: right deltoid; 18:41 Drug: Lidocaine (1 %) 5 ml Volume: 5 ml; Route: Infiltration; hj Disposition: 03/02/18 18:46 Discharged to Home. Impression: Laceration without foreign body of left thumb without damage to nail. - Condition is Stable. - Discharge Instructions: Laceration Care, Adult. - Medication Reconciliation Form, Thank You Letter, Antibiotic Education, Prescription Opioid Use form. - Follow up: Emergency Department; When: As needed; Reason: Worsening of condition. Follow up: Neno Azar MD; When: 10 - 14 days; Reason: Recheck today's complaints, Continuance of care, Re-evaluation by your physician. - Problem is new. - Symptoms have improved. Addendum: 03/06/2018 01:32 Co-signature as Attending Physician, Prem Mota MD. r n Signatures: Flores Juarez RN Kaylan Pineda RN RN iw Nieto, Roman, MD MD rn Joaquin, Henry, RN RN hj Marinas, Patrick, SOLITARIO MERCHANDISE PLANNING MANAGER pm1 Corrections: (The following items were deleted from the chart) 03/02 19:20 18:46 03/02/2018 18:46 Discharged to Home. Impression: Laceration without foreign body iw of left thumb without damage to nail. Condition is Stable. Forms are Medication Reconciliation Form, Thank You Letter, Antibiotic Education, Prescription Opioid Use. Follow up: Emergency Department; When: As needed; Reason: Worsening of condition. Follow up: Neno Azar; When: 10 - 14 days; Reason: Recheck today's complaints, Continuance of care, Re-evaluation by your physician. Problem is new. Symptoms have improved. pm1
[2018-03-02 19:25] VITALS: BP 134/87; TEMP 97.4; O2SAT 95
== END 2018-03-02 19:20 | disposition home or self-care (01) ==
LOC: ER 17:46
PROC: 0JQK0ZZ Repair Left Hand Subcutaneous Tissue and Fascia, Open Approach (ICD-10-PCS; principal; 2018-03-02)
DX: S61.012A Laceration without foreign body of left thumb without damage to nail, initial encounter (principal); W26.0XXA Contact with knife, initial encounter; Y93.G3 Activity, cooking and baking; Y92.009 Unspecified place in unspecified non-institutional (private) residence as the place of occurrence of the external cause; Z23 Encounter for immunization; Z79.01 Long term (current) use of anticoagulants; Z79.82 Long term (current) use of aspirin; I10 Essential (primary) hypertension; E78.5 Hyperlipidemia, unspecified; I48.91 Unspecified atrial fibrillation
CPT/HCPCS: 90714; 99283

== ENCOUNTER 2018-04-15 13:53 | Emergency (ER) | payer OTHER ==
--- OUTSIDE RECORDS SUMMARY | 2018-04-15 13:55 | XMS REPORT | Clinical Summary ---
:1945 Author Organization [facility] Address [address] [place] [address] Care Team Providers Name Role Phone Neno [...] (SINGULAIR) 10 mg mouth every tablet morning. ELIQUIS 5 mg tablet Take 1 tablet [...] by mouth Hyperlipidemia, daily. unspecified hyperlipidemia type losartan-hydrochloro Take 1 tablet 90 tablet 3 01/26/2017 Discontinued thiazide (HYZAAR) by mouth 8 100-25 mg per tablet daily. metoprolol tartrate Take 1 tablet 180 tablet 3 03/26/2017 (LOPRESSOR) 25 mg (25 mg total) 8 tablet by mouth 2 (two) times a day. ELIQUIS 5 mg tablet TAKE 1 TABLET 180 tablet 3 08/02/2017 Discontinued BY MOUTH TWICE 8 A DAY Active Problems Problem Noted Date Syncope and collapse 10/05/2017 Atrial fibrillation (HCC) 08/03/2017 Coronary artery disease involving [place] coronary artery of [place] heart 08/03 without angina pectoris Claudication (HCC) 08/03/2017 Bilateral carotid artery disease ([facility]) 01/26/2017 Essential hypertension 01/26/2017 Primary osteoarthritis of left hip 09/03/2016 Chronic midline low back pain without sciatica 09/03/2016 H/O total hip arthroplasty 09/03/2016 Transient cerebral ischemia 06/18/2016 Paroxysmal atrial fibrillation (HCC) 06/18/2016 Encounters Date Type Specialty Care Team Description 12/23/2017 Refill Cardiology Jimmy Dudley Med Refill 10/26/2017 Office Visit Cardiology Jimmy Dudley, Bilateral carotid artery disease (Primary Dx); Paroxysmal atrial fibrillation 10/19/2017 Orders Only Cardiology Cora Cerna, Atrial fibrillation, MA unspecified type (Primary Dx) 10/19/2017 Orders Only Cardiology Yareli Rebolledo Coronary artery disease involving [place] coronary artery of [place] heart without angina pectoris; Syncope and collapse; Bilateral carotid artery disease 10/13/2017 Telephone Cardiology Cora Cerna, Results MA 10/13/2017 Orders Only Procedural Cardiology Bruce Barnes, Coronary artery disease involving [place] coronary artery of [place] heart without angina pectoris; LUNA Syncope and collapse; Bilateral carotid artery disease 10/05/2017 Lab Lab Jimmy Dudley, Coronary artery disease involving [place] coronary artery of [place] heart without angina pectoris; Syncope and collapse; Bilateral carotid artery disease 10/05/2017 Office Visit Cardiology Jimmy Dudley, Syncope and collapse ( Primary Dx); Fainting spell; Coronary artery disease involving [place] coronary artery of [place] heart without angina pectoris; Bilateral carotid artery disease 08/03/2017 Office Visit Cardiology Jimmy Dudley, Atrial fibrillation, unspecified type (Primary Dx); CAD in [place] artery; Claudication; PAD (peripheral artery disease); Bilateral carotid artery disease 08/02/2017 Refill Cardiology Jimmy Dudley, Med Refill MD after 04/14/2017 Family History Relation Name Status Comments Father [...] Treatment Date Type Specialty Care Team Description 04/26/2018 Office Visit Cardiology Jimmy Dudley MD [address] [facility] [address] [place] [address] Health Maintenance Due Date Last Done Comments COLON CANCER SCREENING 1996 SHINGRIX VACCINE (#1) 1996 ZOSTER VACCINE 2006 PNEUMOCOCCAL POLYSACCHARIDE VACCINE AGE 65 AND OVER 12/02/2011 PNEUMOCOCCAL-13 12/02/2011 INFLUENZA VACCINE 02/09/2018 Procedures Procedure Name Priority Date/Time Associated Diagnosis Comments US CAROTID DUPLEX Routine 04/12/2018 10:06 Bilateral carotid Results for this BILATERAL AM CDT artery disease (HCC) procedure are in Paroxysmal atrial the results fibrillation (HCC) section. ECHOCARDIOGRAM 2D Routine 10/21/2017 10:40 Atrial fibrillation, Results for this COMPLETE W MMODE AM CDT unspecified type procedure are in SPECTRAL COLOR DOPPLER the results (57516) section. CT HEAD W WO CONTRAST Routine 10/11/2017 8:52 Coronary artery Results for this AM CDT disease involving procedure are in [place] coronary the results artery of [place] section. heart without angina pectoris Syncope and collapse Bilateral carotid artery disease US CAROTID DUPLEX Routine 10/07/2017 4:55 Coronary artery Results for this BILATERAL PM CDT disease involving procedure are in [place] coronary the results artery of [place] section. heart without angina pectoris Syncope and [...] PM CDT disease involving procedure are in [place] coronary the results artery of [place] section. heart without angina pectoris Syncope and collapse Bilateral carotid artery disease CV HOLTER MONITOR 48 Routine 10/05/2017 3:03 Coronary artery Results for this HOUR PM CDT disease involving procedure are in [place] coronary the results artery of [place] section. heart without angina pectoris Syncope and collapse Bilateral carotid artery disease ECG 12-LEAD Routine 10/05/2017 1:07 Fainting spell Results for this PM CDT procedure are in the results section. US DUPLEX ARTERIAL Routine 08/05/2017 1:52 Claudication Results for this LOWER EXTREMITY PM BOOKBINDER CHIEF PAD (peripheral procedure are in BILATERAL artery disease) the results section. ECG 12-LEAD Routine 08/03/2017 11:19 Atrial fibrillation, Results for this AM BOOKBINDER CHIEF unspecified type procedure are in CAD in [place] artery the results section. US CAROTID DUPLEX Routine 06/22/2017 5:24 Bilateral carotid Results for this BILATERAL PM BOOKBINDER CHIEF artery disease procedure are in Essential the results hypertension section. after 04/14/2017 Results Pv carotid duplex (04/12/2018 10:06 AM)Only the most recent of3 resultswithin the time period is included. Narrative Performed At [facility] Carotid Artery Ultrasound Report Pat.Name:ARTURO FORREST Pat.ID:[id number] St.Date: 04/12/2018 Refer.MD:JIMMY DUDLEY MD Exam Time: 10:06:00 AM Study Type:Carotid Height:68inDOBAge: 1945,72Y Sex: MALESonogrphr: Lawrence Sarah RVT Pat. Stat.:OutpatientRoom:[facility] TapeVol: Cn, CPT - 4: 74128 Echo Event ID:[id number] Order ID:[id number] Reason for Study:Yearly followup evaluation known history of moderate right and mild left carotid artery disease.Syncope in 09/2017. TIA in 2016 with transient left amaourosis fugax.History of AFIB and coronary artery disease. Procedures:Colorflow, Grayscale/2D, Pulsed wave Doppler Race: SUMMARY: PHYSICAL ASSESSMENT BloodPulsesCarotid Pressure Carotid TemporalBruit Right 148/80 +++ Left 144/78 ++0 CAROTID ARTERY SCAN RIGHT:Laminating soft plaque throughout the common carotid artery extending into the bulb, ostium of the internal and external carotid arteries with moderately elevated velocities in the bulb.Sonolucent soft plaque filling the lumen of the vertebral artery with absent Doppler signals. LEFT: Laminating soft plaque throughout the common carotid artery extending into the bulb and proximal external carotid artery.Soft and calcified plaque at the ostium of the internal carotid artery. Antegrade vertebral arterial flow. PRELIMINARY FINDINGS Persistent 50-69% stenosis in the right bulb and ostium of the internal carotid artery. Occlusion of the right vertebral artery. Less than 50% stenosis in the left bulb and ostium of the internal carotid artery. Less than 50% stenosis in the right distal common carotid artery, and bilateral external carotid artery. PHYSICIAN INTERPRETATION Bilateral carotid arterial Duplex exam demonstrates moderate (50-59%) right carotid artery disease and mild (<50%) left carotid artery disease with isolated occlusion of the right vertebral artery. Carotid Findings:RightLeft Verteb.Flw Absent Antegrade Subclavian TriphasicTriphasic MEASUREMENTS: DOPPLER Right CCA Dist CCA Dist PSV 104 cm/sCCA Dist EDV23.6 cm/s Right CCA Prox CCA Prox PSV98.3 cm/sCCA Prox EDV27.4 cm/s Right ICA Dist ICA Dist PSV92.6 cm/Keira Dist EDV36 cm/s Right ICA Mid ICA Mid PSV 98.3 cm/Keira Mid EDV 27.4 cm/s Right ICA Prox ICA Prox PSV 120 cm/Keira Prox EDV34.6 cm/s Bulb Bulb PSV 132 cm/sBulb EDV40.4 cm/s Right ECA Prox ECA Prox PSV 116 cm/sECA Prox EDV23.7 cm/s Left CCA Dist CCA Dist PSV93.3 cm/sCCA Dist EDV24.9 cm/s Left CCA Mid CCA Mid PSV 82.4 cm/sCCA Mid EDV 24.9 cm/s Left CCA Prox CCA Prox PSV 0 cm/sCCA Prox EDV 0 cm/s Left ICA Dist ICA Dist PSV82.3 cm/Keira Dist EDV23.4 cm/s Left ICA Mid ICA Mid PSV 89.5 cm/Keira Mid EDV 28.6 cm/s Left ICA Prox ICA Prox PSV72.1 cm/Keira Prox EDV18.7 cm/s Left Bulb Bulb PSV84.6 cm/sBulb EDV27.4 cm/s Left ECA Prox ECA Prox PSV88.3 cm/sECA Prox EDV18.7 cm/s Left Vertebral Vertebral PSV 50.3 cm/sVertebral EDV 13.4 cm/s Left SCA Mid SCA Mid NKV697 cm/sSCA Mid EDV0 cm/s Right CCA Mid CCA Mid PSV 98.2 cm/sCCA Mid EDV 27.4 cm/s Right SCA Prox SCA Prox PSV 187 cm/s Right ICA/CCA Ratio ICA/CCA PSV 1.22 Left ICA/CCA Ratio ICA/CCA PSV0.875 Right Vertebral Vertebral PSV0 cm/s Signed 04/13/2018 03:40 PM Jimmy Dudley MD Procedure Note Interface, Radiology Results In - 04/13/2018 3:50 PM CDT [facility] Carotid Artery Ultrasound Report Pat.Name: ARTURO FORREST Pat.ID: [id number] St.Date: 04/12/2018 Refer.MD: JIMMY DUDLEY MD Exam Time: 10:06:00 AM Study Type:Carotid Height: 68in Age: 5 1945,72Y Sex: MALE Sonogrphr: Lawrence Sarah, RVT Pat. Stat.:Outpatient Room: [facility] Vol: Cn, CPT - 4: 96344 Echo Event ID:[id number] Order ID: [id number] Reason for Study:Yearly followup evaluation known history of moderate right and mild left carotid artery disease. Syncope in 09/2017. TIA in 2016 with transient left amaourosis fugax. History of AFIB and coronary artery disease. Procedures:Colorflow, Grayscale/2D, Pulsed wave Doppler Race: SUMMARY: PHYSICAL ASSESSMENT Blood Pulses Carotid Pressure Carotid Temporal Bruit Right 148/80 + + + Left 144/78 + + 0 CAROTID ARTERY SCAN RIGHT: Laminating soft plaque throughout the common carotid artery extending into the bulb, ostium of the internal and external carotid arteries with moderately elevated velocities in the bulb. Sonolucent soft plaque filling the lumen of the vertebral artery with absent Doppler signals. LEFT: Laminating soft plaque throughout the common carotid artery extending into the bulb and proximal external carotid artery. Soft and calcified plaque at the ostium of the internal carotid artery. Antegrade vertebral arterial flow. PRELIMINARY FINDINGS Persistent 50-69% stenosis in the right bulb and ostium of the internal carotid artery. Occlusion of the right vertebral artery. Less than 50% stenosis in the left bulb and ostium of the internal carotid artery. Less than 50% stenosis in the right distal common carotid artery, and bilateral external carotid artery. PHYSICIAN INTERPRETATION Bilateral carotid arterial Duplex exam demonstrates moderate (50-59%) right carotid artery disease and mild (<50%) left carotid artery disease with isolated occlusion of the right vertebral artery. Carotid Findings: Right Left Verteb.Flw Absent Antegrade Subclavian Triphasic Triphasic MEASUREMENTS: DOPPLER Right CCA Dist CCA Dist PSV 104 cm/s CCA Dist EDV 23.6 cm/s Right CCA Prox CCA Prox PSV 98.3 cm/s CCA Prox EDV 27.4 cm/s Right ICA Dist ICA Dist PSV 92.6 cm/s ICA Dist EDV 36 cm/s Right ICA Mid ICA Mid PSV 98.3 cm/s ICA Mid EDV 27.4 cm/s Right ICA Prox ICA Prox PSV 120 cm/s ICA Prox EDV 34.6 cm/s Bulb Bulb PSV 132 cm/s Bulb EDV 40.4 cm/s Right ECA Prox ECA Prox PSV 116 cm/s ECA Prox EDV 23.7 cm/s Left CCA Dist CCA Dist PSV 93.3 cm/s CCA Dist EDV 24.9 cm/s Left CCA Mid CCA Mid PSV 82.4 cm/s CCA Mid EDV 24.9 cm/s Left CCA Prox CCA Prox PSV 0 cm/s CCA Prox EDV 0 cm/s Left ICA Dist ICA Dist PSV 82.3 cm/s ICA Dist EDV 23.4 cm/s Left ICA Mid ICA Mid PSV 89.5 cm/s ICA Mid EDV 28.6 cm/s Left ICA Prox ICA Prox PSV 72.1 cm/s ICA Prox EDV 18.7 cm/s Left Bulb Bulb PSV 84.6 cm/s Bulb EDV 27.4 cm/s Left ECA Prox ECA Prox PSV 88.3 cm/s ECA Prox EDV 18.7 cm/s Left Vertebral Vertebral PSV 50.3 cm/s Vertebral EDV 13.4 cm/s Left SCA Mid SCA Mid PSV 109 cm/s SCA Mid EDV 0 cm/s Right CCA Mid CCA Mid PSV 98.2 cm/s CCA Mid EDV 27.4 cm/s Right SCA Prox SCA Prox PSV 187 cm/s Right ICA/CCA Ratio ICA/CCA PSV 1.22 Left ICA/CCA Ratio ICA/CCA PSV 0.875 Right Vertebral Vertebral PSV 0 cm/s Signed 04/13/2018 03:40 PM Jimmy Dudley MD Performing Organization Address City/State/Zipcode Phone Number [facility] [address] [place] [address] Echocardiogram complete w contrast and 3D if needed (10/21/2017 10:40 AM) Narrative Performed At [facility] Echocardiography Report Pat.Name:ARTURO FORREST Pat.ID:[id number] .Date: 10/21/2017 Refer.MD:JIMMY DUDLEY MD Exam Time: 10:56:00 AM Study Type:Routine Echo Height:68inWeight: 208lb BSA: 2.08 m2 DOBAge:1945,71Y Sex: MALEBP:133/73 HR:66 bpmSonogrphr: Minnie Carter RDCS, RVT Pat. Stat.:OutpatientRoom:[facility] Study Status:Final Echo Event ID:[id number] Order ID:[id number] Reason for Study:Atrial fibrillation History / Clinical:TIA, [...] PA systolic pressure. MEASUREMENTS: 2D Parasternal [place] LVOT 1.8 cmLA Ds3.7 cm LVIDd4.2 cmIndex2 cm/m Ao An1.8 cm LVIDs2.7 cmAo Rtd 2.4 cm Index1.2 cm/m LV%fs 35.7 % LV Xcng619.3 g(122-174) IVSd 1 cmRWT0.4 LVPWd0.9 cm LA Sng Plane LA Area 12.3 cm2(8.8-23.4) LA Vol25.3 ml Index12.2 ml/m LA LngAx 5 cm Signed 10/21/2017 10:45 AM Stefan Buckley MD Procedure Note Interface, Radiology Results In - 10/21/2017 10:46 AM CDT [facility] Echocardiography Report Pat.Name: ARTURO FORREST Pat.ID: [id number] St.Date: 10/21/2017 Refer.MD: JIMMY DUDLEY MD Exam Time: 10:56:00 AM Study Type:Routine Echo Height: 68in Weight: 208lb BSA: 2.08 m2 Age: 5 1945,71Y Sex: MALE BP: 133/73 HR: 66 bpm Sonogrphr: Minnie Carter [facility], RVT Pat. Stat.:Outpatient Room: [facility] Study Status:Final Echo Event ID:[id number] Order ID: [id number] Reason for Study:Atrial fibrillation History / Clinical:TIA, [...] PA systolic pressure. MEASUREMENTS: 2D Parasternal [place] LVOT 1.8 cm LA Ds 3.7 cm [...] Performing Organization Address City/State/Zipcode Phone Number [facility] [address] [place] [address] CT Head W Wo Contrast (10/11/2017 8:52 AM) Narrative Performed At EXAMINATION:CT HEAD W WO CONTRAST [facility] CLINICAL HISTORY:I25.10 Atherosclerotic heart disease of [place] coronary artery without angina pectoris, R55 Syncope [...] IMPRESSION: Unremarkable examination. Mild age-appropriate involutional changes. [facility]-[id number] Procedure Note Hm Interface, Radiology Results Incoming - 10/11/2017 10:24 AM CDT EXAMINATION: CT HEAD W WO CONTRAST CLINICAL HISTORY: I25.10 Atherosclerotic heart disease of [place] coronary artery without angina pectoris, R55 Syncope [...] IMPRESSION: Unremarkable examination. Mild age-appropriate involutional changes. [facility]-[id number] Performing Organization Address City/[facility] Facilitycode Phone Number [facility] [address] [facility] [place] [address] COPY RECEIVED FROM: (10/05/2017 3:12 PM) Copy received from: [facility] Comment: [facility] [address] [address] [place] [address] Performing Organization Address City/State/Zipcode Phone Number [facility] COPY(IES) SENT TO: (10/05/2017 3:12 PM) Copies/mL [facility] Comment: [facility] [address] [facility] [address] [place] [address] Performing Organization Address [facility]/Zipcode Phone Number [facility] Basic metabolic panel (10/05/2017 3:12 PM) Glucose 114 (H) 65 - 99 mg/dL [facility] Comment: OUTLOOK Fasting reference interval For someone without known diabetes, a glucose value between 100 and 125 mg/dL is consistent with prediabetes and should be confirmed with a follow-up test. BUN, whole blood 24 7 - 25 mg/dL [facility] OUTLOOK Creatinine 0.98 0.70 - 1.18 [facility] Comment: mg/dL OUTLOOK For patients >49 years of age, the reference limit for Creatinine is approximately 13% higher for people identified as -Georgian. EGFR Non-Afr. Georgian 78 > OR=60 [facility] mL/min/1.73m2 OUTLOOK EGFR 90 > OR=60 [facility] mL/min/1.73m2 OUTLOOK BUN/creatinine ratio NOT APPLICABLE 6 - 22 (calc) [facility] OUTLOOK Sodium 139 135 - 146 mmol/L [facility] OUTLOOK Potassium 4.2 3.5 - 5.3 mmol/L [facility]LOOK Chloride 101 98 - 110 mmol/L [facility] OUTLOOK CO2 26 20 - 31 mmol/L [facility]LOOK Calcium 9.3 8.6 - 10.3 mg/dL [facility] OUTLOOK Specimen Blood Other Results Text Performing Organization Information: Site ID: [id number] Name: [facility] Address: [address] [place] [id number] Director: Martha Alonzo MD Performing Organization Address [facility] Facilitycode Phone Number [facility] [place] [phone] Cv holter monitor 48 hour (10/05/2017 3:03 PM) Hookup Date [id number] [facility] MUSE Hookup Time [id number] [facility] MUSE Acquisition Duration 203195 [facility] MUSE # of Ventricular Beats in Runs 0 [facility] MUSE # OF LONGEST VENTRICULAR BEATS [facility] MUSE # of Supraventricular Beats in 77 [facility] MUSE Runs # of Longest Supraventricular 17 [facility] MUSE Beats Max Heart Rate 140 [facility] MUSE Min Heart Rate 51 [facility] MUSE Longest RR 1.703 HM MUSE Diagnosis -SInus rhythm with occasional H MUSE supraventricular beats.- Performing Organization Address [facility] Facilitycofl Phone Number [facility] MUSE [address] [place] [address] ECG 12 lead (10/05/2017 1:07 PM)Only the most recent of2 resultswithin the time period is included. Ventricular rate 69 [facility]USE Atrial rate 69 [facility] MI interval 200 [facility] QRSD interval 84 [facility] QT interval 398 [facility] QTC interval 426 [facility] P axis 1 53 [facility] QRS axis 1 59 [facility] T wave axis 53 [facility]USE EKG impression Normal sinus rhythm-Normal ECG-In automated [facility] MUSE comparison with ECG of 03-AUG-2017 11:19,-Sinus rhythm has replaced Atrial fibrillation-QRS axis shifted right- Performing Organization Address [facility] Facilitycofl Phone Number [facility] MUSE [address] [place] [address] Pv duplex arterial lower extremity (08/05/2017 1:52 PM) Narrative Performed At [facility] Lower Extremity Arterial Report Pat.Name:ARTURO FORREST Pat.ID:[id number] St.Date: 08/05/2017 Refer.MD:JIMMY DUDLEY MD Exam Time: 1:15:00 PMStudy Type:LE Arterial Height:68inDOBAge: 1945,71Y Sex: MALE Sonogrphr: Minnie Carter RDMS, RDCS, RVT Pat. Stat.:OutpatientRoom:[facility] CPT - 4: 46524 Echo Event ID:[id number] Order ID:[id number] Reason for Study:Claudication History / Clinical:TIA, Atrial [...] in the bilateral lower extremities. MEASUREMENTS: DOPPLER NURSE HEAD Right NURSE HEAD Angul56 deg Right Profunda Profunda PSV78.5 cm/sProfunda [...] Prox PSV50.1 cm/sPop Prox EDV1.22 cm/s Right RENAL SOCIAL WORKER Prox RENAL SOCIAL WORKER Prox PSV30.1 cm/sPTA Prox EDV 0.684 cm/s Right RENAL SOCIAL WORKER Dist RENAL SOCIAL WORKER Dist PSV46.4 cm/s Tibial Post Right Tibial Po1.22 cm/s Left Tibial Pos 0 cm/s Left Tibial Pos 0 cm/s Right RENAL SOCIAL WORKER Mid RENAL SOCIAL WORKER Mid PSV 51.3 cm/sPTA Mid EDV0 cm/s [...] Art Left Tibial Art 0 cm/s Left RENAL SOCIAL WORKER Dist RENAL SOCIAL WORKER Dist PSV60.2 cm/s Left RENAL SOCIAL WORKER Mid RENAL SOCIAL WORKER Mid PSV 60.8 cm/sPTA Mid EDV0 cm/s Left RENAL SOCIAL WORKER Prox RENAL SOCIAL WORKER Prox PSV55.9 cm/s Left Peroneal Dist Peroneal Dist P61.9 cm/s Peroneal Dist E 0 cm/s Signed 08/05/2017 04:21 PM Jimmy Dudley MD Procedure Note Interface, Radiology Results In - 08/05/2017 4:22 PM BOOKBINDER CHIEF [facility] Lower Extremity Arterial Report Pat.Name: ARTURO FORREST Pat.ID: [id number] St.Date: 08/05/2017 Refer.MD: JIMMY DUDLEY MD Exam Time: 1:15:00 PM Study Type:LE Arterial Height: 68in Age: 5 1945,71Y Sex: MALE Sonogrphr: Minnie Carter RDMS, RDCS, RVT Pat. Stat.:Outpatient Room: [facility] CPT - 4: 31459 Echo Event ID:[id number] Order ID: [id number] Reason for Study:Claudication History / Clinical:TIA, Atrial [...] in the bilateral lower extremities. MEASUREMENTS: DOPPLER NURSE HEAD Right NURSE HEAD Angul 56 deg Right Profunda Profunda PSV [...] cm/s Pop Prox EDV 1.22 cm/s Right RENAL SOCIAL WORKER Prox RENAL SOCIAL WORKER Prox PSV 30.1 cm/s RENAL SOCIAL WORKER Prox EDV 0.684 cm/s Right RENAL SOCIAL WORKER Dist RENAL SOCIAL WORKER Dist PSV 46.4 cm/s Tibial Post Right Tibial Po 1.22 cm/s Left Tibial Pos 0 cm/s Left Tibial Pos 0 cm/s Right RENAL SOCIAL WORKER Mid RENAL SOCIAL WORKER Mid PSV 51.3 cm/s RENAL SOCIAL WORKER Mid EDV 0 cm/s Right Peroneal Prox [...] Art Left Tibial Art 0 cm/s Left RENAL SOCIAL WORKER Dist RENAL SOCIAL WORKER Dist PSV 60.2 cm/s Left RENAL SOCIAL WORKER Mid RENAL SOCIAL WORKER Mid PSV 60.8 cm/s RENAL SOCIAL WORKER Mid EDV 0 cm/s Left RENAL SOCIAL WORKER Prox RENAL SOCIAL WORKER Prox PSV 55.9 cm/s Left Peroneal Dist Peroneal Dist P 61.9 cm/s Peroneal Dist E 0 cm/s Signed 08/05/2017 04:21 PM Jimmy Dudley MD Performing Organization Address City/State/Zipcode Phone Number [facility] [address] [place] [address] after 04/14/2017 Insurance Payer Benefit Plan / Group Subscriber ID Type Phone Address [employer]ETNA MEDICARE AETNA MEDICARE HMO/PPO [facility] xxxxxxxx HMO
[2018-04-15] MEDS ORDERED: NA CHLORIDE 0.9% 500 ML ONE (14:42)
[2018-04-15 14:45] LABS: Absolute Lymphocytes (CBC) 1.4 K/uL (0.7-4.9); Absolute Monocytes 0.5 K/uL (0.1-1.3); Absolute Neutrophil 6.1 K/uL (1.8-8.0); Basophils % 0.7 % (0-1.3); Eosinophils % 0.8 % (0-4.4); Hematocrit 43.3 % (39.6-49.0); Lymphocytes % 17.2 % (15.3-44.8); MCH 32.6 pg (27.0-35.0); MCV 95.5 fL (80-100); MPV 8.6 fL (7.6-11.3); Monocytes % 6.6 % (3.3-12.3); RBC Red Blood Cell Count 4.53 M/uL (4.33-5.43)
--- NOTE | 2018-04-15 14:56 | RAD REPORT ---
EXAM DESCRIPTION: [place] Single View04/15/2018 2:47 pm CLINICAL HISTORY: Atrial fibrillation/palpitations COMPARISON: Not available FINDINGS: A 1 centimeter nodular opacity overlies the mid right lung The left lung appears clear of acute infiltrate. The heart is normal size IMPRESSION: A 1 centimeter nodular opacity overlying the right lung may represent a pulmonary nodule , less likely a bone island within the rib. An unenhanced CT chest is recommended
[2018-04-15 15:02] LABS: BUN Blood Urea Nitrogen 16 mg/dL (7-18); Bicarbonate 29 mmol/L (21-32); Glucose Level 127 mg/dL (74-106); Magnesium 2.4 mg/dL (1.8-2.4); NT PRO-BNP 2776 pg/mL (<125); Potassium 4.2 mmol/L (3.5-5.1); Sodium Level 141 mmol/L (136-145); Troponin (Emerg Dept Use Only) < 0.02 ng/mL (0.0-0.045)
--- NOTE | 2018-04-15 15:30 | EDPHYS ---
Physician Documentation [facility] Name: Arturo Forrest Age: 72 yrs Sex: Male : 1945 Arrival Date: 04/15/2018 Time: 13:57 Bed 25 Private MD: ED Physician Prem Mota HPI: 04/15 14:12 This 72 yrs old Male presents to ER via EMS with complaints of Near Syncope. rn 14:12 The patient has experienced near-syncope. Onset: The symptoms/episode began/occurred rn just prior to arrival. Duration: This was a single episode. Associated injury: The patient did not suffer any apparent associated injury. Current symptoms: Currently, the patient is not experiencing any symptoms. The patient has experienced similar episodes in the past. Reports hx of afib, on eliquis, has felt dizzy and weak for 2 days now, no chest pain, mild sob with exertion, stood up, had near syncopal episode, not sure if fully passed out, no injury, feels fine right now. States hasn't eaten anything today.. Historical: - Allergies: 14:02 No Known Allergies; kr2 - Home Meds: 14:02 aspirin 81 mg Oral TbEC 1 tab once daily [Active]; atorvastatin 10 mg Oral tab 1 tab kr2 once daily [Active]; Eliquis 5 mg Oral tab 1 tab 2 times per day [Active]; losartan-hydrochlorothiazide 50-12.5 mg Oral tab 1 tab once daily [Active]; metoprolol tartrate 25 mg Oral tab 1 tab 2 times per day [Active]; montelukast 10 mg Oral tab 1 tab once daily [Active]; - PMHx: 14:02 Atrial Fib; Cancer; Hyperlipidemia; Hypertension; kr2 - PSHx: 14:02 hip; kr2 - Immunization history:: Adult Immunizations up to date. - Social history:: Smoking status: Patient/guardian denies using tobacco. - Ebola Screening: : No symptoms or risks identified at this time. - Family history:: not pertinent. - Hospitalizations: : No recent hospitalization is reported. ROS: 14:12 Constitutional: Negative for fever, chills, and weight loss, Eyes: Negative for injury, rn pain, redness, and discharge, Neck: Negative for injury, pain, and swelling, Cardiovascular: Negative for chest pain, and edema, Respiratory: Negative for shortness of breath, cough, wheezing, and pleuritic chest pain, Abdomen/GI: Negative for abdominal pain, nausea, vomiting, diarrhea, and constipation, MS/Extremity: Negative for injury and deformity, Skin: Negative for injury, rash, and discoloration, Neuro: Negative for headache,numbness, tingling, and seizure. Exam: 14:12 Constitutional: This is a well developed, well nourished patient who is awake, alert, rn and in no acute distress. Head/Face: Normocephalic, atraumatic. Eyes: Pupils equal round and reactive to light, extra-ocular motions intact. Lids and lashes normal. Conjunctiva and sclera are non-icteric and not injected. Cornea within normal limits. Periorbital areas with no swelling, redness, or edema. Cardiovascular: regular rate, irregular rhythm, no murmur Respiratory: Lungs have equal breath sounds bilaterally, clear to auscultation and percussion. No rales, rhonchi or wheezes noted. No increased work of breathing, no retractions or nasal flaring. Abdomen/GI: soft, non-tender MS/ Extremity: Pulses equal, no cyanosis. Neurovascular intact. Full, normal range of motion. Equal circumference. Neuro: Awake and alert, GCS 15, oriented to person, place, time, and situation. Cranial nerves II-XII grossly intact. Motor strength 5/5 in all extremities. Sensory grossly intact. Cerebellar exam normal Vital Signs: 14:04 BP 123 / 76; Pulse 91; Resp 18; Temp 97.9; Pulse Ox 95% on R/A; Weight 93.89 kg; Height kr2 5 ft. 8 in. (172.72 cm); Pain 0/10; 14:40 BP 116 / 70; Pulse 86; Resp 17; Pulse Ox 96% on R/A; kr2 15:02 BP 125 / 76; Pulse 86; Resp 18; Pulse Ox 96% on R/A; mg2 14:04 Body Mass Index 31.47 (93.89 kg, 172.72 cm) kr2 MDM: 13:58 Patient medically screened. rn 15:25 Differential Diagnosis: cardiac arrhythmia, vasovagal episode, dehydration. Data rn reviewed: vital signs, nurses notes. 15:26 Counseling: I had a detailed discussion with the patient and/or guardian regarding: the rn historical points, exam findings, and any diagnostic results supporting the discharge/admit diagnosis, lab results, radiology results, the need for outpatient follow up, to return to the emergency department if symptoms worsen or persist or if there are any questions or concerns that arise at home. Response to treatment: the patient's symptoms have resolved after treatment, the patient's condition has returned to base line, the patient is now symptom free, patient is well hydrated. and as a result, I will discharge patient. Special discussion: I discussed with the patient/guardian in detail that at this point there is no indication for admission to the hospital. It is understood, however, that if the symptoms persist or worsen the patient needs to return immediately for re-evaluation. Based on the history and exam findings, there is no indication for further emergent testing or inpatient evaluation. I discussed with the patient/guardian the need to see the felt hat steamer for further evaluation of the symptoms. ED course: Pt back to baseline, did not require any medication for rate control while here, normal vitals, elevated BNP but no pulmonary edema on CXR, trop neg, no ischemia on ecg, will give small dose of lasix given mild GERARDO, and patient already called for appt with Dr. Rashid in 1 week. REturn precautions given and understood. Will defer lasix prescription to Dr. Rashid if needed.. 04/15 14:00 Order name: Basic Metabolic Panel; Complete Time: : rn 04/15 14:00 Order name: CBC with Diff; Complete Time: : rn 04/15 14:00 Order name: Magnesium; Complete Time: : rn 04/15 14:00 Order name: NT PRO-BNP; Complete Time: : rn 04/15 14:00 Order name: Troponin (emerg Dept Use Only); Complete Time: 15: rn 04/15 14:00 Order name: XRAY Chest (1 view); Complete Time: : rn 04/15 14:00 Order name: EKG; Complete Time: : rn 04/15 14:00 Order name: Cardiac monitoring; Complete Time: : rn 04/15 14:00 Order name: EKG - Nurse/Tech; Complete Time: : rn 04/15 14:00 Order name: IV Saline Lock; Complete Time: :04/15 14:00 Order name: Labs collected and sent; Complete Time: 14: rn 04/15 14:00 Order name: O2 Per Protocol; Complete Time: 14: rn 04/15 14:00 Order name: O2 Sat Monitoring; Complete Time: 14: rn Administered Medications: 14:39 Drug: NS 0.9% 500 ml Route: IV; Rate: bolus; Site: right antecubital; kr2 15:30 Follow up: Response: No adverse reaction; IV Status: Completed infusion kr2 15:35 Drug: Lasix 20 mg Route: IVP; Site: right antecubital; kr2 15:48 Follow up: Response: No adverse reaction kr2 Disposition: 04/15/18 15:30 Discharged to Home. Impression: Syncope and collapse, Unspecified atrial fibrillation. - Condition is Stable. - Discharge Instructions: Atrial Fibrillation, Near-Syncope. - Medication Reconciliation Form, Thank You Letter, Antibiotic Education, Prescription Opioid Use form. - Follow up: Private Physician; When: As needed; Reason: Recheck today's complaints, Re-evaluation by your physician. - Problem is new. - Symptoms have improved. Signatures: Dispatcher [employer] EDMS Prem Mota MD MD rn Reaves, Karey, RN RN kr2 Corrections: (The following items were deleted from the chart) 15:49 15:30 04/15/2018 15:30 Discharged to Home. Impression: Syncope and collapse; kr2 Unspecified atrial fibrillation. Condition is Stable. Forms are Medication Reconciliation Form, Thank You Letter, Antibiotic Education, Prescription Opioid Use. Follow up: Private Physician; When: As needed; Reason: Recheck today's complaints, Re-evaluation by your physician. Problem is new. Symptoms have improved. rn
--- NOTE | 2018-04-15 15:30 | ER ---
Nurse's Notes [facility] Name: Arturo Forrest Age: 72 yrs Sex: Male : 1945 Arrival Date: 04/15/2018 Time: 13:57 Bed 25 Private MD: Diagnosis: Syncope and collapse;Unspecified atrial fibrillation Presentation: 04/15 13:58 Presenting complaint: EMS states: patient complains of not feeling right all day, light kr2 headed and almost passed out today. History of Afib, currently taking Eliquis. Transition of care: patient was not received from another setting of care. Onset of symptoms was April 15, 2018. Risk Assessment: Do you want to hurt yourself or someone else? Patient reports no desire to harm self or others. Initial Sepsis Screen: Does the patient meet any 2 criteria? No. Patient's initial sepsis screen is negative. Does the patient have a suspected source of infection? No. Patient's initial sepsis screen is negative. Care prior to arrival: None. 13:58 Method Of Arrival: EMS: [facility] kr2 13:58 Acuity: ESE 3 kr2 Triage Assessment: 14:03 General: Appears in no apparent distress. comfortable, well groomed, well developed, kr2 well nourished, Behavior is calm, cooperative, appropriate for age. Pain: Denies pain. Cardiovascular: Heart tones S1 S2 Patient's skin is warm and dry. Rhythm is regular. Cardiovascular: Reports lightheadedness, Denies chest pain, palpitations. Respiratory: Airway is patent Respiratory effort is even, unlabored, Respiratory pattern is regular, symmetrical. 14:06 EENT: Oral mucosa is moist. Neuro: Level of Consciousness is awake, alert, obeys kr2 commands, Oriented to person, place, time, situation, Appropriate for age. GI: Abdomen is round non-distended. : Denies burning with urination. Derm: Skin is intact, with poor turgor Skin is dry, Skin is pale, pink, Skin temperature is warm. Musculoskeletal: Circulation, motion, and sensation intact. Historical: - Allergies: 14:02 No Known Allergies; kr2 - Home Meds: 14:02 aspirin 81 mg Oral TbEC 1 tab once daily [Active]; atorvastatin 10 mg Oral tab 1 tab kr2 once daily [Active]; Eliquis 5 mg Oral tab 1 tab 2 times per day [Active]; losartan-hydrochlorothiazide 50-12.5 mg Oral tab 1 tab once daily [Active]; metoprolol tartrate 25 mg Oral tab 1 tab 2 times per day [Active]; montelukast 10 mg Oral tab 1 tab once daily [Active]; - PMHx: 14:02 Atrial Fib; Cancer; Hyperlipidemia; Hypertension; kr2 - PSHx: 14:02 hip; kr2 - Immunization history:: Adult Immunizations up to date. - Social history:: Smoking status: Patient/guardian denies using tobacco. - Ebola Screening: : No symptoms or risks identified at this time. - Family history:: not pertinent. - Hospitalizations: : No recent hospitalization is reported. Screenin:05 Abuse screen: Denies threats or abuse. Denies injuries from another. Nutritional kr2 screening: No deficits noted. Tuberculosis screening: No symptoms or risk factors identified. Fall Risk Gait- Weak (10 pts.). Assessment: 14:00 Reassessment: See triage assessment. kr2 14:40 Reassessment: Patient appears in no apparent distress at this time. Patient and/or kr2 family updated on plan of care and expected duration. Pain level reassessed. Patient is alert, oriented x 3, equal unlabored respirations, skin warm/dry/pink. Patient denies pain at this time. Vital Signs: 14:04 BP 123 / 76; Pulse 91; Resp 18; Temp 97.9; Pulse Ox 95% on R/A; Weight 93.89 kg; Height kr2 5 ft. 8 in. (172.72 cm); Pain 0/10; 14:40 BP 116 / 70; Pulse 86; Resp 17; Pulse Ox 96% on R/A; kr2 15:02 BP 125 / 76; Pulse 86; Resp 18; Pulse Ox 96% on R/A; mg2 14:04 Body Mass Index 31.47 (93.89 kg, 172.72 cm) kr2 ED Course: 13:57 Patient arrived in ED. kr2 13:58 Prem Mota MD is Attending Physician. rn 14:00 Triage completed. kr2 14:02 EKG done, by echocardiograph technician. reviewed by Prem Mota MD. dt2 14:06 Arm band placed on left wrist. kr2 14:06 Patient has correct armband on for positive identification. Bed in low position. Call kr2 light in reach. Side rails up X2. Adult w/ patient. front desk monitor on. Pulse ox on. NIBP on. Door closed. Warm blanket given. Head of bed elevated. 14:09 Camille Contreras, RN is Primary Nurse. kr2 14:22 Initial lab(s) drawn, by me, sent to lab. Inserted saline lock: 22 gauge in right jb1 antecubital area, using aseptic technique. Blood collected. 14:47 XRAY Chest (1 view) In Process Unspecified. EDMS 15:49 No provider procedures requiring assistance completed. IV discontinued, intact, kr2 bleeding controlled, No redness/swelling at site. Pressure dressing applied. Administered Medications: 14:39 Drug: NS 0.9% 500 ml Route: IV; Rate: bolus; Site: right antecubital; kr2 15:30 Follow up: Response: No adverse reaction; IV Status: Completed infusion kr2 15:35 Drug: Lasix 20 mg Route: IVP; Site: right antecubital; kr2 15:48 Follow up: Response: No adverse reaction kr2 Outcome: 15:30 Discharge ordered by . rn 15:49 Discharged to home via wheelchair, with family. kr2 15:49 Condition: good 15:49 Discharge instructions given to patient, family, Instructed on discharge instructions, follow up and referral plans. Demonstrated understanding of instructions, follow-up care. 15:49 Patient left the ED. kr2 Signatures: Dispatcher [employer] EDMS MianMich [email or web address] Prem Mota MD MD rn Reaves, Karey RN RN kr2 Lanre Mendoza RN RN mg2 Torie Smith2 Corrections: (The following items were deleted from the chart) 15:04 15:02 Pulse 86bpm; Resp 18bpm; Pulse Ox 96% RA; mg2 mg2
[2018-04-15] MEDS ORDERED: FUROSEMIDE 20 MG/ 2ML VIAL ONE (15:35)
[2018-04-15 16:01] VITALS: TEMP 97.9
[2018-04-15 16:02] VITALS: O2SAT 96
[2018-04-15 16:03] VITALS: BP 125/76
--- NOTE | 2018-04-16 07:51 | EKG ---
Test Date: 2018-04-15 Test Time: 13:59:16 Plant Science Professor: SANDRA MEASUREMENT RESULTS: Intervals: Rate: 95 LA: QRSD: 82 QT: 364 QTc: 457 [place]: P: LA: QRS: 3 T: 63 INTERPRETIVE STATEMENTS: Atrial fibrillation Abnormal ECG Compared to ECG 03/06/2013 11:51:05 Sinus rhythm no longer present Left-axis deviation no longer present Electronically Signed On 04-16-18 07:48:53 CDT by Kuldeep Bolanos
== END 2018-04-15 15:49 | disposition home or self-care (01) ==
LOC: ER 13:53
DX: I48.91 Unspecified atrial fibrillation (principal); I10 Essential (primary) hypertension; E78.5 Hyperlipidemia, unspecified; Z79.01 Long term (current) use of anticoagulants; Z79.82 Long term (current) use of aspirin
CPT/HCPCS: 36415; 71045; 80048; 83735; 83880; 84484; 85025; 93005; 96361; 96374; 99285; J1940

== ENCOUNTER 2022-03-17 10:20 | Emergency (ER) | payer OTHER ==
--- OUTSIDE RECORDS SUMMARY | 2022-03-17 10:26 | XMS REPORT | Continuity of Care Document ---
:1945 Author Organization [facility] t Address [address] [place] [address] Care Team Providers Name Role Phone Neno Azar MD Primary Care Physician [phone] Jimmy Dudley MD Attending Clinician Provider, Unknown Attending Clinician Unavailable Cora Cerna MA Attending Clinician Unavailable Elizabeth Gonzales MD Attending Clinician Destinee Mederos RN Attending Clinician Unavailable Cece Alas NP Attending Clinician Emely Machado MD Attending Clinician Adelso GOODMAN, Zain HowellHJabari Attending Clinician Alexis Mandujano MD Attending Clinician Nia Mcdermott Attending Clinician Nicky Drake MA Attending Clinician Unavailable MD ZAIN DARDEN Attending Clinician Unavailable Scarlet Land RN Attending Clinician Unavailable Nia Lopez NP Attending Clinician Maricruz Serrato MD Attending Clinician JIMMY DUDLEY Admitting Clinician Unavailable ZAIN DARDEN Admitting Clinician Unavailable MD ZAIN DARDEN Admitting Clinician Unavailable Payers Payer Name Policy Type Policy Number Effective Date Expiration Date S ource Problems Condition Condition Condition Status Onset Resolution Last Treating Co mments Source Name Details Category Date Date Treatment Clinician Date Angina Angina Disease Active Overview: Method i pectoris pectoris [address] 00:00: g of this Hospita 00 note l might be different from the original. Added automatic ally from request for surgery [id number] SOB SOB Disease Active Methodi (shortness (shortness 8- st of breath) of breath) 00:00: Ho spita 00 l Edema of Edema of Disease Active Metho di both lower both lower 2 st extremitie extremitie 00:00: Ho spita s s 00 l Seizure 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M ethodi late late 08-07 st effect of effect of 00:00: Hosp lila cerebrovas cerebrovas 00 l cular cular accident accident (CVA) (CVA) S/P S/P Disease Active 2019-07 [facility]i [address] 2 [address] py py 00:00: Hospita 00 l Coronary Coronary Disease Active 2018-07 Metho di stent stent 2-10 st occlusion occlusion 00:00: Hosp lila 00 l Seizure Seizure Disease Active Methodi 724 st 00:00: Hospita 00 l Lung Lung Disease Active Methodi nodules nodules 7 st 00:00: Hospita 00 l Stented Stented Disease Active Methodi coronary coronary 5- st artery artery 00:00: Hospita 00 l Hyperlipid Hyperlipid Disease Active 2017-07 M ethodi emia LDL emia LDL 0-12 st goal <70 goal <70 00:00: Hospit a 00 l Syncope Syncope Disease Active Methodi [address] st 00:00: Hospita 00 l Atrial Atrial Disease Active Methodi fibrillati fibrillati 1 st on on 00:00: Hospita 00 l CAD in CAD in Disease Active [facility] [place] [facility] artery artery 00:00: Hospita 00 l Claudicati Claudicati Disease Active M ethodi on on 08-03 st 00:00: Hospita 00 l Bilateral Bilateral Disease Active [facility] carotid carotid 718 st artery artery 00:00: Hospita disease disease 00 l Essential Essential Disease Active [facility] hypertensi hypertensi 718 st on on 00:00: Hospita 00 l Primary Primary Disease Active Methodi osteoarthr osteoarthr 2-23 st itis of itis of 00:00: Hospita left hip left hip 00 l Chronic Chronic Disease Active Methodi midline midline 2-23 st low back low back 00:00: Hospit a pain pain 00 l without without sciatica sciatica H/O total H/O total Disease Active Met [facility] hip hip 2-23 st arthroplas arthroplas 00:00: Ho spita ty ty 00 l TIA TIA Disease Active 2015-07 Method[facility] (transient (transient 2-08 st ischemic ischemic 00:00: Hospit a attack) attack) 00 l Paroxysmal Paroxysmal Disease Active 2015-07 M ethodi atrial atrial 2-08 st fibrillati fibrillati 00:00: Ho spita on on 00 l Keratosis Keratosis Disease Active 2015-07 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 Family History Family Member Diagnosis Comments Start Date Stop Date Source Natural father Heart attack [facility] Natural father Stroke [facility] mother [facility] Paternal grandfather Heart attack [facility] Social History Social Habit Start Date Stop Date Quantity Comments Source Sex Assigned At [facility] Co ege of Medicine History of tobacco Current smoker [facility] use [facility] Alcohol intake 2022-03-13 2022-03-13 Current [facility] 00:00:00 00:00:00 non-drinker of Hospital alcohol (finding) Cigarettes smoked 2022-03-12 2022-03-[address] current (pack per 00:00:00 00:00:00 Hospita l day) - Reported Cigarette 2022-03-12 2022-03-12 Hindu pack-years 00:00:00 00:00:00 Hospital Tobacco use and 2022-03-12 2022-03-12 Smokeless tobacco [facility] exposure 00:00:00 00:00:00 non-user Hospital Tobacco Comment 2022-03-12 2022-03-12 quit 12 years ago [facility] 00:00:00 00:00:00 Hospital Alcohol Comment 2013-11-08 2013-11-08 socially [facility] Co llelidiae 00:00:00 00:00:00 of Medicine Smoking Status Start Date Stop Date Source Ex-smoker 2022-03-12 00:00:00 2022-03-12 00:00:00 [facility] Medications Ordered Filled Start Stop Current Ordering Indication Dosage Frequency Signature Comments Components Source Medication Medication Date Date Medication? Clinician (SIG) Name Name vit Yes 1{tbl} Q.5D Take 1 Methodi C/E/Zn/billie 9-[address] r/lutein/ze 10:42: mouth 2 Hos mook axan 24 (two) l (PRESERVISI times a ON AREDS-2 day. ORAL) diazePAM Yes 5mg Q6H Take 5 mg Meth vanessa (VALIUM) 5 -[address] MG tablet 10:42: every 6 Hospi ta 24 (six) l hours as needed for anxiety. albuterol Yes 2{puff} Q4H Inhale 2 M ethodi (PROAIR 9-[address] HFA) 90 10:42: every 4 Hospita mcg/actuati 24 (four) l on inhaler hours as needed for wheezing. acetaminoph Yes 800mg Take 800 M ethodi en (TYLENOL 9-[address] ORAL) 10:42: mouth as Hospita 24 needed. l dorzolamide Yes 1[drp] Q.5D Administer Methodi (TRUSOPT) 2 03-[address] % 10:42: both eyes Hospita ophthalmic 24 2 (two) l solution times a day. fluticasone Yes QD Inhale 1 Me th[facility] -umeclidin- 03-[address] vilanter 10:42: s once Hospita (Trelegy 24 daily. l Ellipta) 100-62.5-25 mcg blister with device powder for inhalation apixaban Yes 5mg Q.5D Take 1 Methodi (Eliquis) 5 9-02 tablet (5 st mg tablet 00:00: mg total) Hos mook 00 by mouth 2 l (two) times a day. furosemide Yes [id number] 40mg Q.5D Take 1 Method[facility] (LASIX) 40 03-13 tablet (40 st mg tablet 00:00: mg total) Hos mook 00 by mouth 2 l (two) times a day. aspirin 2021- No 81mg QD Take 1 [facility] (ECOTRIN) 03-13 tablet (81 st 81 MG 00:00: 00:00 mg total) Hospit a enteric 00 :00 by mouth l coated daily for tablet 120 doses. ticagrelor 2021- Yes 90mg Q.5D Take 1 Meth vanessa (BRILINTA) 03-12 tablet (90 st 90 mg 00:00: 05:59 mg total) Hospit a tablet 00 :00 by mouth 2 l (two) times a day for 240 doses. bevacizumab 2021- No Infuse Met hodi (AVASTIN) 03-[address] 25 mg/mL 10:53: 00:00 venous Hospit a chemo 05 :00 catheter. l injection metoprolol Yes TAKE 1 Metho di succinate 03-[address] XL 00:00: MOUTH Hospita (TOPROL-XL) 00 EVERY DAY l 50 mg 24 hr tablet losartan-hy 2022- Yes 1{tbl} QD Take 1 M ethodi drochloroth 02-[address] iazide 00:00: 04:59 mouth Hospita (Hyzaar) 00 :00 daily. l 100-12.5 mg per tablet Eliquis 5 2021- No TAKE 1 Metho di mg tablet 12-[address] 00:00: 00:00 MOUTH Hospita 00 :00 TWICE A l DAY levETIRAcet Yes TAKE 1 Meth vanessa am (KEPPRA) - TABLET BY st 500 MG 00:00: MOUTH Hospita tablet 00 TWICE A l DAY metoprolol 2021- No TAKE 1 Meth vanessa succinate 10-28- TABLET BY st XL 00:00: 00:00 MOUTH Hospita (TOPROL-XL) 00 :00 EVERY DAY l 50 mg 24 hr tablet potassium 2022- No [id number] 10meq QD Take 1 Methodi chloride 07-3020 tablet (10 st (KLOR-CON) 00:00: 05:59 mEq total) Hospita 10 MEQ CR 00 :00 by mouth l tablet daily. furosemide 2021- No [id number] 40mg QD Take 1 Methodi (LASIX) 40 07-30 tablet (40 st mg tablet 00:00: 00:00 mg total) Ho spita 00 :00 by mouth l daily. metoprolol 2021- No TAKE 1 Meth vanessa succinate 07-[address] XL 00:00: 00:00 MOUTH Hospita (TOPROL-XL) 00 :00 EVERY DAY l 50 mg 24 hr tablet metoprolol 2021- No TAKE 1 Meth vanessa succinate 07-[address] XL 00:00: 00:00 MOUTH Hospita (TOPROL-XL) 00 :00 EVERY DAY l 50 mg 24 hr tablet ezetimibe 2020-07 Yes [id number] TAKE 1 Me thodi (ZETIA) 10 2-[address] mg tablet 00:00: MOUTH Hospita 00 EVERY DAY l torsemide 2020-07- No 20mg Take 20 mg M ethodi (DEMADEX) 07-[address] 20 MG 10:37: 00:00 as needed. Hospi ta tablet 04 :00 l DULoxetine 2020-07- No 30mg QD Take 30 mg Methodi (CYMBALTA) 07-14- by mouth st 30 MG 14:48: 00:00 daily. Hospita capsule 36 :00 l metoprolol 2020-07- No TAKE 1 Meth vanessa succinate 014 -[address] XL 00:00: 00:00 MOUTH Hospita (TOPROL-XL) 00 :00 EVERY DAY l 50 mg 24 hr tablet penicillin 2020- No Method i v potassium 04-03 st (VEETID) 00:00: 00:00 Hospita 500 MG 00 :00 l tablet atorvastati Yes [id number] TAKE 1 Methodi n (LIPITOR) 9-[address] 80 MG 00:00: MOUTH Hospita tablet 00 EVERY DAY l baclofen No Methodi (LIORESAL) 03-[address] 10 MG 00:00: 00:00 Hospita tablet 00 :00 l apixaban 2021- No 5mg Q.5D Take 1 Method i (Eliquis) 5 02-06 05-23 tablet (5 st mg tablet 00:00: 00:00 mg total) Ho spita 00 :00 by mouth 2 l (two) times a day. metoprolol 2020- No TAKE 1 Meth vanessa succinate 01-27 10-[address] XL 00:00: 00:00 MOUTH Hospita (TOPROL-XL) 00 :00 EVERY DAY l 50 mg 24 hr tablet levETIRAcet 2021- No TAKE 1 Met hodi am (KEPPRA) 01-[address] 500 MG 00:00: 00:00 MOUTH Hospita tablet 00 :00 TWICE A l DAY clopidogreL 2020- No 75mg QD Take 1 Met hodi (PLAVIX) 75 08-12 tablet (75 s t mg tablet 00:00: 00:00 mg total) Ho spita 00 :00 by mouth l daily. ezetimibe 2019-07- No [id number] TAKE 1 M ethodi (ZETIA) 10 06-[address] mg tablet 00:00: 00:00 MOUTH Hospit a 00 :00 EVERY DAY l atorvastati 2020- No [id number] TAKE 1 Methodi n (LIPITOR) 04-[address] 80 MG 00:00: 00:00 MOUTH Hospita tablet 00 :00 EVERY DAY l mupirocin Yes [id number] Apply to [facility] (BACTROBAN) 03-17 aa [facility]ID [facility] 2 % 00:00: -TID for of ointment 00 4weeks. Medicin e montelukast Yes 10mg QD Take 10 mg Methodi (SINGULAIR) 6-[address] 10 mg 00:00: every Hospita tablet 00 morning. l No known No [facility] of Medicin e Immunizations Ordered Immunization Filled Immunization Date Status Commen ts Source Name Name MITCHEL GARCIAID-19 2020-07-24 Completed [facility] MRNA VACCINATION 00:00:00 Hospital Vital Signs Vital Name Observation Time Observation Value Comments Source Systolic blood 2019-03-17 13:57:00 143 mm[Hg] [facility] pressure Medicine Diastolic blood 2019-03-17 13:57:00 80 mm[Hg] [facility] pressure Medicine Heart rate 2019-03-17 13:57:00 77 /min [facility] Medicine Systolic blood 2019-03-17 13:57:00 143 mm[Hg] [facility] pressure Medicine Diastolic blood 2019-03-17 13:57:00 80 mm[Hg] [facility] pressure Medicine Heart rate 2019-03-17 13:57:00 77 /min [facility] Systolic blood 2019-03-08 14:16:00 135 mm[Hg] [facility] pressure Medicine Diastolic blood 2019-03-08 14:16:00 89 mm[Hg] [facility] pressure Medicine Heart rate 2019-03-08 14:16:00 76 /min [facility] Medicine Systolic blood 2019-03-08 14:16:00 135 mm[Hg] [facility] pressure Medicine Diastolic blood 2019-03-08 14:16:00 89 mm[Hg] [facility] pressure Medicine Heart rate 2019-03-08 14:16:00 76 /min [facility] Systolic blood 2022-03-13 13:09:00 170 mm[Hg] [facility] pressure Diastolic blood 2022-03-13 13:09:00 96 mm[Hg] [facility] pressure Heart rate 2022-03-13 13:08:00 87 /min [facility] Body temperature 2022-03-13 12:50:46 36.17 Hilda [facility] Oxygen saturation in 2022-03-13 12:50:46 97 /min [facility] Arterial blood by Pulse oximetry Body weight 2022-03-13 10:41:33 96.163 kg [facility] BMI 2022-03-13 10:41:33 32.23 kg/m2 [facility] Respiratory rate 2022-03-13 02:16:19 20 /min [facility] Body height 2022-03-12 15:11:00 172.7 cm [facility] Procedures Procedure Date / Time Performing Clinician Source Performed BASIC METABOLIC PANEL 2022-03-13 10:16:00 Douglas Rubio [facility] HC COMPLETE BLD COUNT 2022-03-13 10:16:00 Douglas Rubio [facility] W/AUTO DIFF ESTIMATED GFR 2022-03-13 10:16:00 Jimmy Dudley spital ECG 12-LEAD 2022-03-12 20:33:37 Jimmy Dudley spital CV SELECTIVE CORONARY 2022-03-12 20:15:53 Jimmy Dudley [facility] ANGIOGRAPHY ACTIVATED CLOTTING TIME 2022-03-12 19:10:00 [facility] WITH PLATELET AND 2022-03-06 17:43:00 Octavia Jimmy R. [facility] DIFFERENTIAL PROTHROMBIN TIME WITH INR 2022-03-06 17:43:00 Jimmy Dudley [facility] COMPREHENSIVE METABOLIC 2022-03-06 17:43:00 [facility] PANEL ECG 12-LEAD 2022-03-06 16:51:[address] CHEST W CONTRAST 2022-02-23 17:00:14 Elizabeth Gonzales [facility] POC CREATININE 2022-02-23 16:24:00 [facility] J[facility] ESTIMATED GFR 2022-02-23 16:24:00 Elizabeth Gonzales [facility] LIPID PANEL 2022-02-17 18:24:00 Jimmy Dudley spital AST (SGOT) 2022-02-17 18:24:00 [facility] spital THYROID STIMULATING 2022-02-17 18:24:00 [facility] HORMONE CT CHEST W CONTRAST 2021-09-03 17:27:51 Elizabeth Gonzales [facility] POC CREATININE 2021-09-03 17:14:00 Elizabeth Gonzales [facility] ESTIMATED GFR 2021-09-03 17:14:00 Elizabeth Gonzales [facility] US DUPLEX VENOUS LOWER 2021-08-13 20:44:50 [facility] EXTREMITY BILATERAL ECG 12-LEAD 2021-08-12 [facility]:45[facility] TTE COMPLETE, W CONTRAST, 2021-08-04 22:17:43 Jimmy Dudley [facility] W DOPPLER ([id number]) US CAROTID DUPLEX 2021-07-29 19:57:38 [facility] BILATERAL NM LUNG PERFUSION QUANT W 2021-06-24 19:12:07 Elizabeth Gonzales [facility] IMG FUNGUS CULTURE 2021-06-09 20:42:00 Zain Darden [facility] AFB CULTURE 2021-06-09 20:42:00 Zain Darden [facility] FUNGUS SMEAR 2021-06-09 20:42:00 Zain Darden [facility] AFB STAIN 2021-06-09 20:42:00 Zain Darden [facility] RESPIRATORY CULTURE 2021-06-09 20:42:00 Zain Darden [facility] CYTOLOGY 2021-06-09 20:36:00 Zain Darden [facility] (NON-GYNECOLOGICAL) REQUEST RI AN ELECTIVE 2021-06-09 20:15:09 Jony Ybarra [facility] ENDOTRACHEAL AIRWAY [place] CYTOLOGY 2021-06-09 20:15:00 Zain Darden [facility] (NON-GYNECOLOGICAL) REQUEST BRONCHOSCOPY, USING 2021-06-09 19:58:00 Zain Darden [facility] ELECTROMAGNETIC NAVIGATION ABO AND RH CONFIRMATION BY 2021-06-09 17:48:00 Zain Darden [facility] PROTOCOL SURGICAL PATHOLOGY REQUEST 2021-06-09 14:26:00 Zain Darden [facility] CT CHEST WO CONTRAST 2021-06-04 16:55:02 Zain Darden [facility] TYPE AND SCREEN 2021-06-04 16:28:00 Zain Darden [facility] PROTHROMBIN TIME WITH INR 2021-06-04 16:28:00 Zain Darden [facility] PARTIAL THROMBOPLASTIN 2021-06-04 16:28:00 Zain Darden [facility] TIME (PTT) COMPREHENSIVE METABOLIC 2021-06-04 16:28:00 Zain Darden [facility] PANEL HC COMPLETE BLD COUNT 2021-06-04 16:28:00 Zain Darden [facility] W/AUTO DIFF ESTIMATED GFR 2021-06-04 16:28:00 Zain Darden [facility] COVID-19 QUALITATIVE 2021-06-04 16:14:00 Zain Darden [facility] RT-PCR ECG 12-LEAD 2021-05-20 19:32:48 Jimmy Dudley [facility] spital PET CT SKULL BASE TO MID 2021-05-02 19:05:30 [facility] THIGH POC GLUCOSE 2021-05-02 15:51:00 [facility] CT CHEST W CONTRAST 2021-04-30 15:53:42 [facility] POC CREATININE 2021-04-30 15:39:00 [facility] ESTIMATED GFR 2021-04-30 15:39:00 [facility] Plan of Care Planned Activity Planned Date Details Comments Source Future Scheduled 2022-03-17 HEPATITIS B VACCINES [facility] Test 08:03:43 (1 of 3 - 3-dose Hospital series) [code = HEPATITIS B VACCINES (1 of 3 - 3-dose series)] Future Scheduled 2022-03-17 65+ PNEUMOCOCCAL Methodi st Test 08:03:43 VACCINE (1 - PCV) Hospital [code = 65+ PNEUMOCOCCAL VACCINE (1 - PCV)] Future Scheduled 2022-03-17 Hepatitis C [facility] Test 08:03:43 screening Hospital (procedure) [code = 432039948] Future Scheduled 2022-03-17 COLONOSCOPY [facility] Test 08:03:43 SCREENING [code = Hospital COLONOSCOPY SCREENING] Future Scheduled 2022-03-17 COVID-19 VACCINE (3 Meth odist Test 08:03:43 - Booster for Hospital Moderna series) [code = COVID-19 VACCINE (3 - Booster for Moderna series)] Future Scheduled 2022-03-17 INFLUENZA VACCINE Method ist Test 08:03:43 [code = INFLUENZA Hospital VACCINE] Future Scheduled 2022-03-17 SHINGLES VACCINES (2 [facility] Test 08:03:43 of 2) [code = Hospital SHINGLES VACCINES (2 of 2)] Future Scheduled RI TANGENTIAL BIOPSY Ordered: [facility] of Test SKIN SINGLE LESION 03/08/2019 Medicine [code = 93814] Future Scheduled RI DESTRUC Ordered: [facility] Bhakti ege of Test PREMALIGNANT,15+ 03/08/2019 Medicine LESIONS(05529) [code = 18684] Future Scheduled COLON CANCER [facility] ege of Test SCREENING: Medicine COLONOSCOPY [code = COLON CANCER SCREENING: COLONOSCOPY] Future Scheduled MEDICARE AWV [code = [facility] of Test MEDICARE AWV] Medicine Future Scheduled TETANUS SHOT (ADULT) [facility] of Test [code = TETANUS SHOT Medicin e (ADULT)] Future Scheduled HEPATITIS C [facility] Bhakti ege of Test SCREENING [code = Medicine HEPATITIS C SCREENING] Future Scheduled AAA Screen [code = [facility] of Test AAA Screen] Medicine Future Scheduled FALL SCREEN [code = [facility] of Test FALL SCREEN] Medicine Future Scheduled PNEUMOVAX >=65 [facility] Co llege of Test (PPSV23) [code = Medicine PNEUMOVAX >=65 (PPSV23)] Future Scheduled PREVNAR >= 65 [facility] Col lege of Test (PCV13) [code = Medicine PREVNAR >= 65 (PCV13)] Future Scheduled FLU VACCINE > 6 [facility] C ollege of Test MONTHS [code = FLU Medicine VACCINE > 6 MONTHS] Future Scheduled RI DESTRUC Ordered: [facility] Bhakti ege of Test PREMALIGNANT, FIRST 03/17/2019 Medicine LESION(05273) [code = 24111] Future Scheduled RI DESTR MALIG Ordered: [facility] Co llege of Test TRUNK,EXTREM 2.1-3 03/17/2019 Medicine CM [code = 62087] Future Scheduled COLON CANCER [facility] Bhakti ege of Test SCREENING: Medicine COLONOSCOPY [code = COLON CANCER SCREENING: COLONOSCOPY] Future Scheduled MEDICARE AWV [code = [facility] of Test MEDICARE AWV] Medicine Future Scheduled TETANUS SHOT (ADULT) [facility] of Test [code = TETANUS SHOT Medicin e (ADULT)] Future Scheduled HEPATITIS C [facility] Bhakti ege of Test SCREENING [code = Medicine HEPATITIS C SCREENING] Future Scheduled AAA Screen [code = [facility] of Test AAA Screen] Medicine Future Scheduled FALL SCREEN [code = [facility] of Test FALL SCREEN] Medicine Future Scheduled PNEUMOVAX >=65 [facility] Co llege of Test (PPSV23) [code = Medicine PNEUMOVAX >=65 (PPSV23)] Future Scheduled PREVNAR >= 65 [facility] Col lege of Test (PCV13) [code = Medicine PREVNAR >= 65 (PCV13)] Future Scheduled FLU VACCINE > 6 [facility] C ollege of Test MONTHS [code = FLU Medicine VACCINE > 6 MONTHS] Encounters Start End Encounter Admission Attending Care Care Encounter Source Date/Time Date/Time Type Type Clinicians Facility Department ID 2022-03-12 2022-03-13 Hospital Octavia, 1.2.840.1 [id number] Methodi 09:14:00 10:42:00 Encounter Jimmy Pena [id number] 3.430.2.7 Hospit a .3.476044 l .8 2022-03-12 2022-03-13 Outpatient [facility] [id number] [address] [place] 00:00:00 00:00:00 JIMMY [address] 2022-03-12 2022-03-12 Surgery Octavia, 1.2.840.1 [id number] Methodi 11:30:00 12:30:00 Jimmy Pena 63666.1.[address] 3.430.2.7 Hospit a .3.285080 l .8 2022-03-12 2022-03-12 Travel 1.2.840.1 1.2.211.203 [id number] Methodi 00:00:00 00:00:[address] 3.430.2.7 0.2.7.3.698 Ho spita .3.729409 084.8 l .8 2022-03-11 2022-03-11 Documentat Provider, 1.2.840.1 [id number] Methodi 00:00:00 00:00:00 ion Unknown [id number] 3.430.2.7 Hospit a .3.343501 l .8 2022-03-09 2022-03-09 Travel 1.2.840.1 1.2.007.641 [id number] Methodi 00:00:00 00:00:[address] 3.430.2.7 0.2.7.3.698 Ho spita .3.659922 084.8 l .8 2022-03-07 2022-03-07 Refill Octavia, 1.2.840.1 [id number] Methodi 00:00:00 00:00:00 [address].1.[address] 3.430.2.7 Hospit a .3.827053 l .8 2022-03-06 2022-03-06 Lab Octavia, 1.2.840.1 [id number] Methodi 13:10:00 13:15:00 [address]204.1.[address] 3.430.2.7 Hospit a .3.703490 l .8 2022-03-06 2022-03-06 Office Octavia, 1.2.840.1 [id number] Methodi 11:45:00 12:00:00 Visit Jimmy Pena 40190.1.[address] 3.430.2.7 Hospit a .3.058059 l .8 2022-03-06 2022-03-06 Orders Nehemiah, 1.2.840.1 [id number] Methodi 00:00:00 00:00:00 Only Cora 63351.1.[address] 3.430.2.7 Hospit a .3.891972 l .8 2022-03-06 2022-03-06 Travel 1.2.840.1 1.2.558.586 [id number] Methodi 00:00:00 00:00:[address] 3.430.2.7 0.2.7.3.698 Ho spita .3.593289 084.8 l .8 2022-03-06 2022-03-06 Outpatient [facility] [id number] [address] [place] 00:00:00 00:00:00 JIMMY [address] 2022-03-06 2022-03-06 Outpatient [facility] [id number] [address] [place] 00:00:00 00:00:00 JIMMY [address] 2022-02-24 [facility] Kala[facility] 1.2.840.1 [id number] Methodi 15:41:37 15:41:37 Encounter Destinee Mederos 30508.1.[address] 3.430.2.7 Hospit a .3.789486 l .8 2022-02-24 2022-02-24 Outpatient [facility] [id number] [address] [place] 00:00:00 00:00:00 ELIZABETH [address] 2022-02-23 2022-02-23 [facility], 1.2.840.1 [id number] Methodi 11:00:08 23:59:00 Encounter Elizabeth Bond 73949.1.[address] 3.430.2.7 Hospit a .3.503630 l .8 2022-02-23 2022-02-23 [facility] 1.2.840.1 1.2.365.478 [id number] Methodi 00:00:00 00:00:[address] 3.430.2.7 0.2.7.3.698 spita .3.803029 084.8 l .8 2022-02-23 2022-02-23 Outpatient [facility] [id number] [address] [place] 00:00:00 00:00:00 ELIZABETH [address] 2022-02-17 2022-02-17 [facility] Octavia, 1.2.840.1 [id number] Methodi 10:30:00 15:15:02 Visit Jimmy Pena 67512.1.[address] 3.430.2.7 Hospit a .3.337507 l .8 2022-02-17 2022-02-17 [facility], 1.2.840.1 [id number] Methodi 00:00:00 00:00:00 Only Jimmy BuschJabari 93186.1.[address] 3.430.2.7 Hospit a .3.725943 l .8 2022-02-17 2022-02-17 Travel 1.2.840.1 1.2.414.903 4043 168293 Methodi 00:00:00 00:00:[address] 3.430.2.7 0.2.7.3.698 Ho spita .3.425007 084.8 l .8 2022-02-17 2022-02-17 Outpatient [facility] [id number] [address] [place] 00:00:00 00:00:00 JIMMY [address] 2022-02-11 2022-02-11 Travel 1.2.840.1 1.2.603.329 0811 603361 Methodi 00:00:00 00:00:[address] 3.430.2.7 0.2.7.3.698 Ho spita .3.126600 084.8 l .8 2022-02-09 2022-02-10 [facility] 1.2.840.1 [id number] 21010 57772 Methodi 01:00:00 10:38:48 Encounter Elizabeth Bond 37771.1.[address] 3.430.2.7 Hospit a .3.805237 l .8 2022-02-09 2022-02-10 Outpatient [facility] [id number] [address] [place] 00:00:00 00:00:00 ELIZABETH [address] 2022-02-05 2022-02-05 Travel 1.2.840.1 1.2.451.945 3574 861793 Methodi 00:00:00 00:00:[address] 3.430.2.7 0.2.7.3.698 Ho spita .3.477921 084.8 l .8 2022-01-20 2022-01-20 Travel 1.2.840.1 1.2.723.309 5332 573209 Methodi 00:00:00 00:00:[address] 3.430.2.7 0.2.7.3.698 Ho spita .3.581585 084.8 l .8 2021-12-29 2021-12-29 Travel 1.2.840.1 1.2.205.103 4360 135137 Methodi 00:00:00 00:00:[address] 3.430.2.7 0.2.7.3.698 Ho spita .3.414467 084.8 l .8 2021-12-24 2021-12-24 Kai Alas, 1.2.840.1 [id number] 2099243 Methodi 00:00:00 00:00:00 Only Cece Ziegler 23150.1.[address] 3.430.2.7 Hospit a .3.124048 l .8 2021 2021 Naye Dudley 1.2.840.1 [id number] 650559 2034 Methodi 00:00:00 00:00:[address]ena [address]331.1.[address] 3.430.2.7 Hospit a .3.649266 l .8 2021-10-28 2021-10-28 Naye Dudley 1.2.840.1 [id number] 858184 3888 Methodi 00:00:00 00:00:00 Jimmy Pena [address]6471.1.[address] 3.430.2.7 Hospit a .3.440412 l .8 2021-10-28 2021-10-28 Emely Robin 1.2.840.1 [id number] Methodi 00:00:00 00:00:[address] 3.430.2.7 Hospit a .3.241295 l .8 2021-09-03 2021-09-03 [facility] 1.2.840.1 [id number] 60894 13206 Methodi 10:57:15 23:59:00 Encounter Elizabeth KalaJabari 69825.1.[address] 3.430.2.7 Hospit a .3.756683 l .8 2021-09-03 2021-09-03 Travel 1.2.840.1 1.2.935.894 7077 851765 Methodi 00:00:00 00:00:[address] 3.430.2.7 0.2.7.3.698 Ho spita .3.649557 084.8 l .8 2021-09-03 2021-09-03 [facility] [id number] [address] [place] 00:00:00 00:00:00 ELIZABETH Chavez1 [facility] 2021-08-13 2021-08-13 [facility] [id number] [address] [place] 00:00:00 00:00:00 JIMMY Wellington [facility] 2021-08-12 2021-08-12 Office Octavia, 1.2.840.1 [id number] 6394 Methodi 13:30:00 16:33:41 Visit Jimmy Pena 80153.1.[address] 3.430.2.7 Hospit a .3.506588 l .8 2021-08-12 2021-08-12 Travel 1.2.840.1 1.2.312.055 5941 061861 Methodi 00:00:00 00:00:[address] 3.430.2.7 0.2.7.3.698 Ho spita .3.969431 084.8 l .8 2021-08-12 2021-08-12 [facility] [id number] [address] [place] 00:00:00 00:00:00 JIMMY Vasquez [facility] 2021-08-04 2021-08-04 Travel 1.2.840.1 1.2.026.483 9183 132213 Methodi 00:00:00 00:00:[address] 3.430.2.7 0.2.7.3.698 Ho spita .3.651492 084.8 l .8 2021-08-04 2021-08-04 Outpatient [facility] [id number] [address] [place] 00:00:00 00:00:00 JIMMY [address] 2021-07-30 2021-07-30 Orders Nehemiah, 1.2.840.1 [id number] 906 [id number] Methodi 00:00:00 00:00:00 Only Cora 13597.1.[address] 3.430.2.7 Hospit a .3.079227 l .8 2021-07-29 2021-07-29 Travel 1.2.840.1 1.2.823.783 7903 496522 Methodi 00:00:00 00:00:[address] 3.430.2.7 0.2.7.3.698 Ho spita .3.884763 084.8 l .8 2021-07-29 2021-07-29 Outpatient [facility] [id number] [address] [place] 00:00:00 00:00:00 JIMMY [address] 2021-07-23 2021-07-23 Refill Octavia, 1.2.840.1 [id number] 230682 6838 Methodi 00:00:00 00:00:[address] 14567.1.[address] 3.430.2.7 Hospit a .3.199239 l .8 2021-07-21 2021-07-21 Refill Octavia, 1.2.840.1 [id number] 492539 8466 Methodi 00:00:00 00:00:[address]1.[address] 3.430.2.7 Hospit a .3.253628 l .8 2021-07-01 2021-07-01 Orders Bishop, 1.2.840.1 [id number] 2099 350297 Methodi 00:00:00 00:00:00 Only Cece Magañay 06175.1.[address] 3.430.2.7 Hospit a .3.081064 l .8 2021-06-26 2021-06-26 Travel 1.2.840.1 1.2.653.054 3047 243970 Methodi 00:00:00 00:00:[address] 3.430.2.7 0.2.7.3.698 Ho spita .3.712754 084.8 l .8 2021-06-24 2021-06-24 [facility], 1.2.840.1 [id number] 43718 31994 Methodi 12:03:19 23:59:00 Encounter Elizabeth Bond 24787.1.[address] 3.430.2.7 Hospit a .3.808989 l .8 2021-06-24 2021-06-24 [facility], 1.2.840.1 [id number] 90541 63526 Methodi 08:12:30 09:40:40 Encounter Elizabeth Bond 96034.1.[address] 3.430.2.7 Hospit a .3.502474 l .8 2021-06-24 2021-06-24 Travel 1.2.840.1 1.2.019.936 4949 714214 Methodi 00:00:00 00:00:[address] 3.430.2.7 0.2.7.3.698 Ho spita .3.817022 084.8 l .8 2021-06-24 2021-06-24 Outpatient [facility] [id number] [address] [place] 00:00:00 00:00:00 ELIZABETH [address] 2021-06-24 2021-06-24 Outpatient [facility] [id number] 9[address] [place] 00:00:00 00:00:00 ELIZABETH [address] 2021-06-17 2021-06-17 Telephone Darden, 1.2.840.1 [id number] 2100 051400 Methodi 00:00:00 00:00:[address] Zain [place] [address] 3.430.2.7 Hospit a .3.386412 l .8 2021-06-13 2021-06-13 Refill Emely Machado 1.2.840.1 [id number] 21 [id number] Methodi 00:00:00 00:00:[address] 3.430.2.7 Hospit a .3.722695 l .8 2021-06-11 2021-06-11 [facility] 1.2.840.1 [id number] 37940 98743 Methodi 01:00:00 23:59:00 Encounter Elizabeth Bond 80942.1.[address] 3.430.2.7 Hospit a .3.142291 l .8 2021-06-11 2021-06-11 [facility] [id number] [address] [place] 00:00:00 00:00:00 ELIZABETH Conteh [facility] 2021-06-09 2021-06-09 [facility], 1.2.840.1 [id number] 63414 48572 Methodi 10:20:00 16:45:00 Encounter Zain [place] [address]9650.1.[address] 3.430.2.7 Hospit a .3.806507 l .8 2021-06-09 2021-06-09 Surgery [facility] 1.2.840.1 [id number] 057512 2387 Methodi 13:40:00 15:55:00 Zain [place] [address]13.[address] 3.430.2.7 Hospit a .3.629681 l .8 2021-06-09 2021-06-09 Anesthesia Alexis Mandujano 1.2.840.1 [id number] 8 [id number] Methodi 13:57:00 15:03:00 Event Nia Mcdermott 51469.1.[address] 3.430.2.7 Hospit a .3.258576 l .8 2021-06-09 2021-06-09 Telephone Vidal 1.2.840.1 [id number] 949 [id number] Methodi 00:00:00 00:00:[address] 3.430.2.7 Hospit a .3.258618 l .8 2021-06-09 2021-06-09 Travel 1.2.840.1 1.2.177.308 1053 172233 Methodi 00:00:00 00:00:[address] 3.430.2.7 0.2.7.3.698 Ho spita .3.499498 084.8 l .8 2021-06-09 2021-06-09 Outpatient [facility] 433 [id number] [address] [place] 00:00:00 00:00:00 ZAIN [address] 2021-06-04 2021-06-04 [facility], 1.2.840.1 [id number] 41762 44652 Methodi 09:36:20 23:59:00 Encounter Ednick Y.H. 66310.1.[address] 3.430.2.7 Hospit a .3.861534 l .8 2021-06-04 2021-06-04 [facility], 1.2.840.1 [id number] 138642 9188 Methodi 11:00:00 11:05:00 Ednick Y[facility] 00205.1.[address] 3.430.2.7 Hospit a .3.488107 l .8 2021-06-04 2021-06-04 Travel 1.2.840.1 1.2.303.396 0848 011246 Methodi 00:00:00 00:00:[address] 3.430.2.7 0.2.7.3.698 Ho spita .3.167839 084.8 l .8 2021-06-04 2021-06-04 Outpatient [facility] [id number] [address] [place] 00:00:00 00:00:[address] ZAIN [address] 2021-06-04 2021-06-04 Outpatient [facility] [id number] [address] [place] 00:00:00 00:00:00 ZAIN [address] 2021-06-03 2021-06-03 [facility] Elizabeth Gonzales 1.2.840.1 86841 1011 [id number] Methodi 09:53:26 10:12:42 Encounter Scarlet Land 20082.1.[address] 3.430.2.7 Hospit a .3.574050 l .8 2021-06-03 2021-06-03 Hospital [facility], 1.2.840.1 [id number] 12554 50572 Methodi 01:00:00 09:52:00 Encounter Elizabeth Bond 04102.1.[address] 3.430.2.7 Hospit a .3.905844 l .8 2021-06-03 2021-06-03 Telephone [place], 1.2.840.1 [id number] 2100 225257 Methodi 00:00:00 00:00:[address] Beata 3.430.2.7 Hospit a .3.926948 l .8 2021-06-03 2021-06-03 Outpatient [facility] [id number] [address] [place] [address] 00:00:00 00:00:00 ELIZABETH [address] 2021-06-03 2021-06-03 Outpatient [facility] [id number] [address] [place] [address] 00:00:00 00:00:00 ELIZABETH [address] 2021-06-02 2021-06-02 Telephone [facility], 1.2.840.1 [id number] 2100 245046 Methodi 00:00:00 00:00:00 Elizabeth Bond 39267.1.[address] 3.430.2.7 Hospit a .3.196998 l .8 2021-05-23 2021-05-23 Travel 1.2.840.1 1.2.773.683 9635 864492 Methodi 00:00:00 00:00:[address] 3.430.2.7 0.2.7.3.698 Ho spita .3.147163 084.8 l .8 2021-05-20 2021-05-20 Office Dudley, 1.2.840.1 [id number] 214689 5239 Methodi 13:30:00 15:49:14 Visit Jimmy BuschJabari 32439.1.[address] 3.430.2.7 Hospit a .3.712709 l .8 2021-05-20 2021-05-20 Travel 1.2.840.1 1.2.253.409 8982 455449 Methodi 00:00:00 00:00:[address] 3.430.2.7 0.2.7.3.698 Ho spita .3.136965 084.8 l .8 2021-05-20 2021-05-20 Outpatient [facility] [id number] [address] [place] [address] 00:00:00 00:00:00 JIMMY [address] 2021-05-16 2021-05-16 Telephone Vidal, 1.2.840.1 [id number] 230 [id number] Methodi 00:00:00 00:00:[address] 3.430.2.7 Hospit a .3.559370 l .8 2021-05-15 2021-05-15 Office Darden, 1.2.840.1 [id number] 140479 2569 Methodi 10:15:00 11:50:54 Visit Zain HowellHJabari 82688.1.[address] 3.430.2.7 Hospit a .3.556472 l .8 2021-05-15 2021-05-15 Telephone Adelso, 1.2.840.0 [id number] 064 [id number] Methodi 00:00:00 00:00:00 Zain HowellHJabari [address]5769.1.[address] 3.430.2.7 Hospit a .3.312593 l .8 2021-05-15 2021-05-15 Travel 1.2.840.1 1.2.011.837 4475 732954 Methodi 00:00:00 00:00:[address] 3.430.2.7 0.2.7.3.698 Ho spita .3.374464 084.8 l .8 2021-05-15 2021-05-15 Outpatient [facility] [id number] [address] [place] 00:00:00 00:00:00 ZAIN [address] 2021-05-14 2021-05-14 Abstract Vidal, 1.2.840.1 [id number] 2099 484347 Methodi 00:00:00 00:00:[address] 3.430.2.7 Hospit a .3.066794 l .8 2021-05-02 2021-05-02 [facility] 1.2.840.1 [id number] 00093 Methodi 10:29:34 23:59:00 Encounter Elizabeth ArmendarizJabari 74956.1.[address] 3.430.2.7 Hospit a .3.419972 l .8 2021-05-02 2021-05-02 Travel 1.2.840.1 1.2.745.860 8195 982991 Methodi 00:00:00 00:00:[address] 3.430.2.7 0.2.7.3.698 Ho spita .3.133062 084.8 l .8 2021-05-02 2021-05-02 Outpatient [facility] [id number] [address] [place] 00:00:00 00:00:00 ELIZABETH [address] 2021-04-30 2021-04-30 [facility], 1.2.840.1 [id number] Methodi 10:22:18 23:59:00 Encounter Elizabeth ArmendarizJabari 86824.1.[address] 3.430.2.7 Hospit a .3.889919 l .8 2021-04-30 2021-04-30 Orders Bishop, 1.2.840.1 [id number] 2100 448952 Methodi 00:00:00 00:00:00 Only Cece Karlie 62440.1.[address] 3.430.2.7 Hospit a .3.085898 l .8 2021-04-30 2021-04-30 Travel 1.2.840.1 1.2.016.046 6754 845332 Methodi 00:00:00 00:00:[address] 3.430.2.7 0.2.7.3.698 Ho spita .3.495379 084.8 l .8 2021-04-30 2021-04-30 Outpatient RIYA, [facility] [id number] [address] [place] 00:00:00 00:00:00 ELIZABETH [address] 2021-04-24 2021-04-24 Refill Octavia 1.2.840.1 [id number] 411900 7998 Methodi 00:00:00 00:00:00 Jimmy Pena 69817.1.[address] 3.430.2.7 Hospit a .3.522033 l .8 2021-03-24 2021-03-24 Refill Emely Machado 1.2.840.1 [id number] 21 [id number] Methodi 00:00:00 00:00:[address] 3.430.2.7 Hospit a .3.573819 l .8 2020-11-05 2020-11-05 Outpatient RIYA, [facility] [id number] [address] [place] 00:00:00 00:00:00 ELIZABETH [address] 2020-11-05 2020-11-05 Outpatient RIYA, [facility] [id number] 137 [place] 00:00:00 00:00:00 ELIZABETH [address] 2020-10-21 2020-10-21 Outpatient RIYA, [facility] [id number] 7[address] [place] 00:00:00 00:00:00 ELIZABETH [address] 2020-08-07 2020-08-07 Outpatient EMELY MACHADO [facility] 917 [id number] [place] 00:00:00 00:00:[address] 2020-06-25 2020-06-25 [facility] [id number] 9[address] [place] 00:00:00 00:00:00 JIMMY [address] 2020-06-18 2020-06-18 [facility] [id number] 7[address] [place] 00:00:00 00:00:00 JIMMY [address] 2020-06-18 2020-06-18 Outpatient DUDLEY, [facility] [id number] [address] [place] 00:00:00 00:00:00 JIMMY [address] 2020-06-12 2020-06-12 Outpatient FARACH, [facility] [id number] [address] [place] 00:00:00 00:00:00 ELIZABETH [address] 2020-06-12 2020-06-12 Outpatient FARACH, [facility] [id number] [address] [place] 00:00:00 00:00:00 ELIZABETH [address] 2020-05-20 2020-05-20 Outpatient FARACH, [facility] [id number] 190 [place] 00:00:00 00:00:00 ELIZABETH [address] 2020-01-23 2020-01-23 Outpatient FARACH, [facility] [id number] [address] [place] 00:00:00 00:00:00 ELIZABETH [address] 2020-01-15 2020-01-15 Outpatient FARACH, [facility] [id number] 8[address] [place] 00:00:00 00:00:00 ELIZABETH [address] 2020-01-15 2020-01-15 Outpatient FARACH, [facility] [id number] 8[address] [place] 00:00:00 00:00:00 ELIZABETH [address] 2019-12-19 2019-12-19 Outpatient DUDLEY, [facility] [id number] [address] [place] 00:00:00 00:00:00 JIMMY [address] 2019-12-12 2019-12-12 Outpatient DUDLEY, [facility] [id number] [address] [place] 00:00:00 00:00:00 JIMMY [address] 2019-09-13 2019-09-13 Outpatient FARACH, [facility] [id number] 887 [place] 00:00:00 00:00:00 ELIZABETH [address] 2019-09-13 2019-09-13 Outpatient FARACH, [facility] [id number] [address] [place] 00:00:00 00:00:00 ELIZABETH [address] 2019-08-28 2019-08-28 Outpatient FARACH, [facility] [id number] 213 [place] 00:00:00 00:00:00 ELIZABETH [address] 2019-08-28 2019-08-28 Outpatient FARACH, [facility] [id number] [address] [place] 00:00:00 00:00:00 ELIZABETH 635 Method i 2019-05-17 2019-05-17 Outpatient RIYA [facility] [id number] [address] [place] 00:00:00 00:00:00 ELIZABETH 246 Method i 2019-05-17 2019-05-17 Outpatient RIYA [facility] [id number] 9[address] [place] 00:00:00 00:00:00 ELIZABETH 675 Method i 2019-05-17 2019-05-17 Outpatient RIYA [facility] [id number] [address] [place] 00:00:00 00:00:00 ELIZABETH 632 Method i 2019-03-17 2019-03-17 Office Maricruz Serrato 1.2.840.114 89512 [facility] 08:40:24 08:55:24 Visit Mandujano AMBULATOR 350.1.13.21 Y 0.2.7.2.686 [id number] [facility] 2019-03-17 2019-03-17 Office Maricruz Serrato 1.2.840.114 [id number] 145 [facility] 08:40:24 08:55:24 Visit Mandujano AMBULATOR 350.1.13.21 College Y 0.2.7.2.686 of [id number] Medi eb 300 e 2019-03-08 2019-03-08 Office AmaJagrutioneida DAVIS 1.2.840.114 [id number] 09:12:14 10:13:48 Visit Mandujano AMBULATOR 350.1.13.21 Y 0.2.7.2.686 [id number] [facility] 2019-03-08 2019-03-08 Office AmaJagrutioneida DAVIS 1.2.840.114 [id number] 699 [facility] 09:12:14 10:13:48 Visit Mandujano AMBULATOR 350.1.13.21 College Y 0.2.7.2.[id number] [facility] eb 300 e Results Test Description Test Time Test Comments Results Result Comments Source ECG 12 lead 2022-03-13 23:42:28 Test Item Value Reference Range Interpretation Comme nts Ventricular rate (test code = 253) Atrial rate (test code = 255) QRSD interval (test code = 260) QT interval (test code = 264) QTC interval (test code = 265) QRS axis 1 (test code = 268) T wave axis (test code = 270) EKG impression (test code = 273) Atrial fibrillation-Left axis deviation-Pulmonary disease pattern-Septal infarct , age undetermined-Abnormal ECG-In automated comparison with ECG of 06-MAR-2022 11:51,-No significant change was found- [facility] [id number] 19:18:00 Test Item Value Reference Range Interpretation Comments Activated clotting time See_Comment H Oper ator Name: (test code = 5298) Audie lawrence~Device ID: [id number] [Automated mess age] The system Vertical [employer] generated this result transmitted ref erence range: 96 - 152 sec. The reference r amalia was not used to interpret this result as normal/abnor mal. Lab Interpretation (test Abnormal code = 02141-3) [facility] [id number] 10:58:00 Test Item Value Reference Range Interpretation Comments Glucose (test code = 196 mg/dL 65-99 H Fastin g 2345-7) reference interval For someone without known diabetes, a glucosevalue >1 25 mg/dL indicates that they may havediabetes an d this should be confirmed with afollow-up test . BUN (test code = 27 mg/dL 7-25 H 3094-0) Creatinine (test 1.03 mg/dL 0.7-1.28 code = 2160-0) eGFR (test code = See_Comment The eGFR i s based 8257) on the CKD-EPI 2020 equation. To calculate the n ew eGFR from a previous Creatinine or Cystatin Cresul t, go to https://www.kid ne y.org/profderrickio na ls/kdoqi/gfr%5F ca lculator [Automated message] The system which generated this result transmitted reference range : > OR = 60 mL/min/1.73m2. The reference range was not used to interpr et this result as normal/abnormal . BUN/creatinine ratio See_Comment H [Autom ated (test code = 3097-3) message ] The system which generated this result transmitted reference range : 6 - 22 (calc). The reference range was not used to interpr et this result as normal/abnormal . Sodium (test code = 142 mmol/L 939-595 9891-2) Potassium (test code 4.1 mmol/L 3.5-5.3 = 2823-3) Chloride (test code 104 mmol/L 98-110 = 2075-0) CO2 (test code = 32 mmol/L 20-32 8-9) Calcium (test code = 8.8 mg/dL 8.6-10.3 76404-2) Protein (test code = 6.5 g/dL 6.1-8.1 2885-2) Albumin, S (test 3.9 g/dL 3.6-5.1 code = 1751-7) Globulin, total See_Comment [Automated (test code = message] The 80765-4) system which generated this result transmitted reference range : 1.9 - 3.7 g/dL (calc). The reference range was not used to interpret this result as normal/abnormal . Albumin/globulin See_Comment [Automated ratio (test code = message] The ) system which generated this result transmitted reference range : 1.0 - 2.5 (calc ). The reference range was not used to interpr et this result as normal/abnormal . Total bilirubin 0.7 mg/dL 0.2-1.2 (test code = 1974-) Alkaline phosphatase 124 U/L 35-144 (test code = 6768-6) AST (test code = 37 U/L 10-35 H 1920-8) ALT (test code = 41 U/L 9-46 1742-6) RAC (test code = Performing RAC) Organization Information: Site ID: RGA Name: [facility] Address: [address] [place] [id number] Director: Papa Hearn Lab Interpretation Abnormal (test code = 13343-9) [facility] with [id number] 10:58:00 Test Item Value Reference Range Interpretation Comments INR (test code = Reference R amalia 6301-6) 0.9-1.1Moderate -i ntensity Warfar in Therapy 2.0-3.0Higher-i nt ensity Warfarin Therapy 3.0-4. 0 Prothrombin time See_Comment For additio nal (test code = information, 5902-2) please refer tohttp://educat io n.[facility]/faq/FAQ10 4( This link is being provided for informational/e du cational purpos es only.) [Automat ed message] The system which generated this result transmitted reference range : 9.0 - 11.5 sec. The reference range was not used to interpr et this result as normal/abnormal . RAC (test code = Performing RAC) Organization Information: Site ID: RGA Name: [facility] Address: [address] [place] [id number] Director: Papa Hearn [facility] [id number] 16:28:00 Test Item Value Reference Range Interpretation Comments POC creatinine (test 1.0 mg/dl 0.7-1.2 Operato r Name: Zay code = 03034-7) Breannfranklyn ce ID: [id number] [facility] [id number] 11:03:00 Test Item Value Reference Range Interpretation Comments Cholesterol, total 125 mg/dL See_Comment [Automat ed (test code = 2093-3) message ] The system which generated this result transmitted reference range : <=200. The reference range was not used to interpret this result as normal/abnormal . HDL cholesterol 34 mg/dL See_Comment L [Automated (test code = 2085-9) message ] The system which generated this result transmitted reference range : > OR = 40. The reference range was not used to interpret this result as normal/abnormal . Triglycerides (test 126 mg/dL See_Comment [Automa rachel code = 2571-8) message] The system which generated this result transmitted reference range : <=150. The reference range was not used to interpret this result as normal/abnormal . LDL cholesterol mg/dL (calc) Reference ra nge: calculated (test <100 Desira ble code = 28047-1) range <100 m g/dL for primary prevention; <70 mg/dL for patients with C HD or diabetic patients with > or = 2 CHD risk factors. LDL-C is now calculated using the Perez calculation, which is a validated novel method providin g better accuracy than the Friedewald equation in the estimation of LDL-C. Rao S S et al. GREGORY. 2013;310(19): 6678-0326 (http://educati on .[employer] .com/faq/GBT307 ) Cholesterol/HDL See_Comment [Automated ratio (test code = message] The 9830-1) system which generated this result transmitted reference range : <5.0 (calc). Th e reference range was not used to interpret this result as normal/abnormal . Non-HDL cholesterol See_Comment For conchis ents with (test code = diabetes plus 1 97727-2) major ASCVD ris k factor, treatin g to a non-HDL-C goal of <100 mg/dL (LDL-C of <70 mg/dL) is considered a therapeutic option. [Automated message] The system which generated this result transmitted reference range : <130 mg/dL (calc). The reference range was not used to interpret this result as normal/abnormal . LOREN (test code = FASTING:NO LOREN) FASTING: NO RAC (test code = Performing RAC) Organization Information: Site ID: [facility] Name: [facility] Address: [address] [place] [address] Director: Papa Hearn [facility] Interpretation Abnormal (test code = 63997-7) [facility] AreaThyroid stimulating [id number] 11:03:00 Test Item Value Reference Range Interpretation Comments TSH (test See_Comment [Automated mes clarence] code = The system ic h 3016-3) generated this result transmit rachel reference range : 0.40 - 4.50 mIU /L. The reference r amalia was not used to interpret this result as normal/abnormal . LOREN (test FASTING:NO FASTING: code = LOREN) NO RAC (test Performing code = RAC) Organization Information: Site ID: [facility]: [facility] Address: [address] [place] [phone] Director: Papa Hearn [facility] AreaAST (SGOT)2022-02-18 11:03:00 Test Item Value Reference Range Interpretation Comments AST (test code = 27 U/L 1920-02) LOREN (test code = FASTING:NO FASTING: NO LOREN) RAC (test code = Performing Organization RAC) Information: Site ID: [facility] Address: [address] [place] [phone] Director: Papa Hearn [facility]AF[facility] [id number] 06:13:29 Test Item Value Reference Range Interpretation Comments AFB culture No growth Specimen isolate (test after 6 weeks InformationSp ecimen code = 543-9) of Source: Bronch ial alveolar incubation. lavageSpecimen Site: Lung: RIGHT UPPER LOB E BRONCHOALVEOLAR LAVAGE - Please add: Belen erobic and Aerobic Culture [facility] [id number] 06:15:29 Test Item Value Reference Range Interpretation Comments Fungus culture No growth Specimen isolate (test after 4 weeks InformationSp ecimen code = 1441) of Source: Bronchi al alveolar incubation. lavageSpecimen Site: Lung: RIGHT UPPER LOB E BRONCHOALVEOLAR LAVAGE - Please add: Belen erobic and Aerobic Culture [facility] [id number] 16:28:06 Test Item Value Reference Range Interpretation Comments Respiratory No growth Specimen culture isolate after 2 InformationS pecimen (test code = days. [place]: [place] [address]-5) alveolar lavage Specimen Site: Lung: RIG HT UPPER LOBE BRONCHOALV EOLAR LAVAGE - Please add: Anaerobic and A erobic Culture [facility] [id number] 00:07:40 Test Item Value Reference Range Interpretation Comments Case number (test code = [id number]) Surgical pathology See link below for report (test code = PDF Lab Report [id number]) Result status (test code This is Final Report = [id number]) for [id number] [facility] [id number] 21:00:30 Test Item Value Reference Range Interpretation Comments Fungus smear No fungi Specimen (test code = observed. InformationSpec imen Source: 1443) Bronchial alveo lar lavageSpecimen Site: Lung: RIGHT UPPER LOB E BRONCHOALVEOLAR LAVAGE - Please add: Belen erobic and Aerobic Culture [facility] (non-gynecological) [id number] 20:58:41 Test Item Value Reference Range Interpretation Comments Case number (test code = [id number]) Cytology See link below for (non-gynecological) PDF Lab Report report (test code = 1178) Result status (test code This is Final Report = [id number]) for [id number] [facility]AF[facility] [id number] 12:06:44 Test Item Value Reference Range Interpretation Comments AFB stain No acid fast Specimen (test code = bacilli (AFB) InformationSpe bin 676-7) seen. Source: Bronchi al alveolar lavageSpecimen Site: Lung: RIGHT UPPER LOB E BRONCHOALVEOLAR LAVAGE - Please add: Belen erobic and Aerobic Culture [facility] HospitalGram [id number] 17:31:26 Test Item Value Reference Range Interpretation Comments Gram stain No WBC's or Specimen isolate (test organisms seen. Information Specimen code = 1469) Source: Bronchi al alveolar lavage Specimen Site: Lung: RIG HT UPPER LOBE BRONCHOALV EOLAR LAVAGE - Please add: Anaerobic and A erobic Culture [facility] HospitalABO and Rh [id number] 18:40:00 Test Item Value Reference Range Interpretation Comments ABO grouping (test code = 883-9) O Rh type (test code = 15277-5) [facility]G [facility] [id number] 19:19:41 Test Item Value Reference Range Interpretation Comments Interpretation (test Negative results do code = 2825718) not preclude 2019-nCoV infection and should not be used as the sole basis for treatment or other patient management decisions. Negative results must be combined with clinical observations, patient history, and epidemiological information. COVID-19 qualitative Not-Detected Not-Detected RT-PCR result (test code = 09782-4) COVID-19 qualitative See link below for C ase Number: RT-PCR (test code = PDF Lab Report [id number]) [facility] HospitalType and [id number] 17:30:00 Test Item Value Reference Range Interpretation Comments ABO grouping (test code = 883-9) O Rh type (test code = 09409-6) NEG Antibody screen (gel) (test code = NEG 890-4) [facility] [Presence] in Respiratory specimen by RUDI with probe [id number] 13:19:30 Test Item Value Reference Range Interpretation Comments SARS-CoV-2 (COVID-19) RNA Not detected Not-Detected [Presence] in Respiratory specimen by RUDI with probe detection (test code = 96760-2) Whether patient is employed in a healthcare setting (test code = 83484-9) Whether the patient has symptoms related to condition of interest (test code = 77387-5) Patient was hospitalized because of this condition (test code = 70024-6) Whether the patient was admitted to intensive care unit (ICU) for condition of interest (test code = 07160-2) Whether patient resides in a congregate care setting (test code = 23470-0) POC [id number] 15:52:47 Test Item Value Reference Range Interpretation Comments POC glucose (test code = 115 mg/dL 65-99 H Ope rator Name: Anupam 43164-4) CarriDevice ID: [id number] able: No Action Neede d Lab Interpretation (test Abnormal code = 95983-5) [facility]
[2022-03-17 11:54] LABS: Absolute Lymphocytes (CBC) 1.3 K/uL (0.7-4.9); Hematocrit 46.3 % (39.6-49.0); MCV 94.8 fL (80-100); MPV 8.4 fL (7.6-11.3); RBC Red Blood Cell Count 4.88 M/uL (4.33-5.43)
[2022-03-17 12:04] LABS: Troponin High Sensitivity 25.6 pg/mL (<58.9)
--- NOTE | 2022-03-17 12:09 | RAD REPORT ---
EXAM DESCRIPTION: RAD - Chest Single View - 03/17/2022 11:54 am CLINICAL HISTORY: Syncope COMPARISON: Single-view chest November 2018, CT chest December 2018 TECHNIQUE: AP portable chest image was obtained 03/17/2022 11:54 am . FINDINGS: No failure or volume overload findings. Interstitial pattern is similar or less prominent than the 2019 study. Nodular focus in the mid right lung field detailed on the prior examinations is not identified. There is some focal scarring. It is possible the mass has been resected. No new or en larging lung parenchymal mass identifiable. Heart and vasculature are normal. No measurable pleural effusion and no pneumothorax. No acute bony abnormality seen. No acute aortic findings suspected. IMPRESSION: No acute cardiopulmonary process. The mass in the right mid lung field seen on the prior imaging may have been resected. The mass is no t identifiable on the current study.
[2022-03-17] MEDS ORDERED: NA CHLORIDE 0.9% 500 ML ONE ×2 (13:02→13:58)
--- NOTE | 2022-03-17 15:27 | ER ---
Nurse's Notes [facility] Name: Arturo Forrest Age: 76 yrs Sex: Male : 1945 Arrival Date: 03/17/2022 Time: 10:23 Bed 6 Private MD: Neno Azar T Diagnosis: Syncope;Dehydration Presentation: 03/17 10:50 Chief complaint: Patient states: I was sitting on the bathroom toilet and I felt short bm7 of breath and passed out and fell off the toilet. Coronavirus screen: At this time, the client does not indicate any symptoms associated with coronavirus-19. Ebola Screen: No symptoms or risks identified at this time. Initial Sepsis Screen: Does the patient meet any 2 criteria? No. Patient's initial sepsis screen is negative. Does the patient have a suspected source of infection? No. Patient's initial sepsis screen is negative. Risk Assessment: Do you want to hurt yourself or someone else? Patient reports no desire to harm self or others. Onset of symptoms was March 17, 2022. 10:50 Method Of Arrival: Ambulatory bm7 10:50 Acuity: ESE 2 bm7 Triage Assessment: 10:53 General: Appears in no apparent distress. comfortable, Behavior is calm, cooperative, bm7 appropriate for age. Pain: Denies pain. EENT: No deficits noted. No signs and/or symptoms were reported regarding the EENT system. Neuro: No deficits noted. Level of Consciousness is awake, alert, obeys commands, Speech is normal, Reports weakness. Cardiovascular: Chest pain is denied. Respiratory: Reports shortness of breath on exertion Breath sounds are clear bilaterally. Onset: The symptoms/episode began/occurred suddenly, the patient has mild shortness of breath. GI: No deficits noted. No signs and/or symptoms were reported involving the gastrointestinal system. : No deficits noted. No signs and/or symptoms were reported regarding the genitourinary system. Derm: No deficits noted. No signs and/or symptoms reported regarding the dermatologic system. Musculoskeletal: No deficits noted. No signs and/or symptoms reported regarding the musculoskeletal system. Historical: - Allergies: 10:53 No Known Allergies; bm7 - Home Meds: 10:53 aspirin 81 mg Oral TbEC 1 tab once daily [Active]; atorvastatin 10 mg Oral tab 1 tab bm7 once daily [Active]; Eliquis 5 mg Oral tab 1 tab 2 times per day [Active]; losartan-hydrochlorothiazide 50-12.5 mg Oral tab 1 tab once daily [Active]; metoprolol tartrate 25 mg Oral tab 1 tab 2 times per day [Active]; montelukast 10 mg Oral tab 1 tab once daily [Active]; - PMHx: 10:53 Atrial Fib; Cancer; Hyperlipidemia; Hypertension; bm7 - PSHx: 10:53 None; bm7 - Immunization history:: Adult Immunizations up to date. - Social history:: Smoking status: Patient denies any tobacco usage or history of. - Family history:: not pertinent. - Hospitalizations: : Patient was recently seen at. Screenin:30 Abuse screen: Denies threats or abuse. Denies injuries from another. Nutritional bp screening: No deficits noted. Tuberculosis screening: No symptoms or risk factors identified. Fall Risk None identified. Assessment: 11:30 General: SEE TRIAGE NOTE. bp 11:30 Respiratory: Airway is patent Respiratory effort is even, unlabored. iw 13:00 Reassessment: No changes from previously documented assessment. Patient and/or family bp updated on plan of care and expected duration. Pain level reassessed. Cardiovascular: Rhythm is sinus rhythm. 15:38 Reassessment: PT D/C AMBULATORY WITH FAMILY. bp Vital Signs: 10:50 BP 115 / 59; Pulse 88; Resp 16; Temp 97.7(TE); Pulse Ox 100% on R/A; Weight 92.53 kg bm7 (R); Height 5 ft. 8 in. (172.72 cm); Pain 0/10; 12:30 BP 91 / 70; Pulse 87; Resp 19; Pulse Ox 95% ; bp 13:24 BP 100 / 70; Pulse 84; Resp 17; Pulse Ox 100% ; bp 15:38 BP 107 / 68; Pulse 85; Resp 16; Pulse Ox 96% ; bp 10:50 Body Mass Index 31.02 (92.53 kg, 172.72 cm) bm7 ED Course: 10:23 Patient arrived in ED. mr 10:23 Neno Azar MD is Private Physician. mr 10:46 Prem Mota MD is Attending Physician. rn 10:53 Triage completed. bm7 10:53 Arm band placed on right wrist. EKG completed in triage. Results shown to MD. bm7 11:25 Kaylan Pascal, RN is Primary Nurse. iw 11:38 Initial lab(s) drawn, by me, sent to lab. Inserted saline lock: 20 gauge in right iw antecubital area, using aseptic technique. Blood collected. 12:30 Patient has correct armband on for positive identification. Bed in low position. Call bp light in reach. Side rails up X2. 15:38 No provider procedures requiring assistance completed. IV discontinued, intact, bp bleeding controlled, No redness/swelling at site. Pressure dressing applied. Administered Medications: 13:00 Drug: NS 0.9% 250 ml Route: IV; Rate: bolus; Site: right antecubital; bp 13:45 Follow up: IV Status: Completed infusion iw 13:53 Drug: NS 0.9% 250 ml Route: IV; Rate: calculated rate; Site: right antecubital; bp 14:40 Follow up: IV Status: Completed infusion iw Medication: 15:38 VIS not applicable for this client. bp Outcome: 15:26 Discharge ordered by . rn 15:38 Discharged to home ambulatory, with family. bp 15:38 Condition: stable 15:38 Discharge instructions given to patient, Instructed on discharge instructions, follow up and referral plans. 15:39 Patient left the ED. bp Signatures: Denisse Akers mr Kaylan Pascal, RN RN iw Prem Mota MD MD rn Peltier, Brian RN Shayla Stevenson RN RN bm7
--- NOTE | 2022-03-17 15:27 | EDPHYS ---
Physician Documentation [facility] Name: Arturo Forrest Age: 76 yrs Sex: Male : 1945 Arrival Date: 03/17/2022 Time: : Bed 6 Private MD: Neno Azar T ED Physician Prem Mota HPI: 03/17 11:21 This 76 yrs old Male presents to ER via Ambulatory with complaints of Passed Out Prior rn To Arrival, Breathing Difficulty. 11:21 The patient has experienced syncope. Onset: The symptoms/episode began/occurred just rn prior to arrival. Duration: This was a single episode. Context: occurred at home, occurred while the patient was standing. Associated injury: The patient did not suffer any apparent associated injury. Current symptoms: Currently, the patient is not experiencing any symptoms. The patient has not experienced similar symptoms in the past. The patient has been recently seen by a physician:. Pt reports got up from bed, used bathroom, finished, stood up and passed out. No preceding chest pain. Reports mild sob, but not new, "always sob". No current chest pain. No injuries from fall. Denies head injury. Reports did get cardiac stent placed last , but has been doing fine. + medication changes recently after stent, and states ahs been having to take half of his BP med because blood pressure already running low. . Historical: - Allergies: 10:53 No Known Allergies; bm7 - Home Meds: 10:53 aspirin 81 mg Oral TbEC 1 tab once daily [Active]; atorvastatin 10 mg Oral tab 1 tab bm7 once daily [Active]; Eliquis 5 mg Oral tab 1 tab 2 times per day [Active]; losartan-hydrochlorothiazide 50-12.5 mg Oral tab 1 tab once daily [Active]; metoprolol tartrate 25 mg Oral tab 1 tab 2 times per day [Active]; montelukast 10 mg Oral tab 1 tab once daily [Active]; - PMHx: 10:53 Atrial Fib; Cancer; Hyperlipidemia; Hypertension; bm7 - PSHx: 10:53 None; bm7 - Immunization history:: Adult Immunizations up to date. - Social history:: Smoking status: Patient denies any tobacco usage or history of. - Family history:: not pertinent. - Hospitalizations: : Patient was recently seen at. ROS: 11:21 Constitutional: Negative for fever, chills, and weight loss, Eyes: Negative for injury, rn pain, redness, and discharge, Neck: Negative for injury, pain, and swelling, Cardiovascular: Negative for chest pain, palpitations, and edema, Respiratory: Negative for cough, wheezing, and pleuritic chest pain, Abdomen/GI: Negative for abdominal pain, nausea, vomiting, diarrhea, and constipation, Back: Negative for injury and pain, MS/Extremity: Negative for injury and deformity, Skin: Negative for injury, rash, and discoloration, Neuro: Negative for headache, numbness, tingling, and seizure. Exam: 11:04 ECG was reviewed by the Attending Physician. rn 11:21 Constitutional: This is a well developed, well nourished patient who is awake, alert, rn and in no acute distress. Ambulatory to triage with walker, no assistance. Head/Face: Normocephalic, atraumatic. Eyes: Pupils equal round and reactive to light, extra-ocular motions intact. Lids and lashes normal. Conjunctiva and sclera are non-icteric and not injected. Cornea within normal limits. Periorbital areas with no swelling, redness, or edema. ENT: dry MM Neck: Trachea midline, no masses palpated, and no cervical lymphadenopathy. Supple, full range of motion without nuchal rigidity, or vertebral point tenderness. No Meningismus. Cardiovascular: Irregularly irregular, regular rate Respiratory: No increased work of breathing, no retractions or nasal flaring. Abdomen/GI: Soft, non-tender Back: No spinal tenderness. No costovertebral tenderness. Full range of motion. Skin: Warm, dry MS/ Extremity: Pulses equal, no cyanosis. Neurovascular intact. Full, normal range of motion. Equal circumference. Neuro: Awake and alert, GCS 15, oriented to person, place, time, and situation. Cranial nerves II-XII grossly intact. Motor strength 5/5 in all extremities. Sensory grossly intact. Cerebellar exam normal. Normal gait. Vital Signs: 10:50 BP 115 / 59; Pulse 88; Resp 16; Temp 97.7(TE); Pulse Ox 100% on R/A; Weight 92.53 kg bm7 (R); Height 5 ft. 8 in. (172.72 cm); Pain 0/10; 12:30 BP 91 / 70; Pulse 87; Resp 19; Pulse Ox 95% ; bp 13:24 BP 100 / 70; Pulse 84; Resp 17; Pulse Ox 100% ; bp 15:38 BP 107 / 68; Pulse 85; Resp 16; Pulse Ox 96% ; bp 10:50 Body Mass Index 31.02 (92.53 kg, 172.72 cm) bm7 MDM: 10:46 Patient medically screened. rn 15:24 Differential Diagnosis: cardiac arrhythmia, emotional response, idiopathic syncope, rn vasovagal episode, PE, COVID. Data reviewed: vital signs, nurses notes, lab test result(s), EKG, radiologic studies, plain films, and as a result, I will discharge patient. Counseling: I had a detailed discussion with the patient and/or guardian regarding: the historical points, exam findings, and any diagnostic results supporting the discharge/admit diagnosis, lab results, radiology results, the need for outpatient follow up, to return to the emergency department if symptoms worsen or persist or if there are any questions or concerns that arise at home. Response to treatment: the patient's symptoms have markedly improved after treatment, and as a result, I will discharge patient. Special discussion: I discussed with the patient/guardian in detail that at this point there is no indication for admission to the hospital. It is understood, however, that if the symptoms persist or worsen the patient needs to return immediately for re-evaluation. Based on the history and exam findings, there is no indication for further emergent testing or inpatient evaluation. I discussed with the patient/guardian the need to see the military pay clerk for further evaluation of the symptoms. I discussed with the patient/guardian the need to see the primary care provider for further evaluation of the symptoms. ED course: Pt back to baseline, ambulatory, stable vitals, might have viral/COVID illness, clear CXR, states prefers to get home test and does not want to be tested here. Trop neg, and never had chest pain. Will dc home with military pay clerk f/u and given return precautions. . 03/17 11:56 Order name: CBC with Automated Diff; Complete Time: 12:42 EDMS 03/17 10:59 Order name: XRAY Chest (1 view) rn 03/17 11:57 Order name: D-Dimer; Complete Time: 12:42 EDMT 03/17 12:04 Order name: Basic Metabolic Panel; Complete Time: 12:42 EDMS 03/17 12:04 Order name: Troponin High Sensitivity; Complete Time: 12:42 EDMS 03/17 12:09 Order name: RAD; Complete Time: 12:42 EDMS 03/17 10:59 Order name: EKG; Complete Time: 20:07 rn 03/17 10:59 Order name: Cardiac monitoring; Complete Time: 11:41 rn 03/17 10:59 Order name: EKG - Nurse/Tech; Complete Time: 11:41 rn 03/17 10:59 Order name: IV Saline Lock; Complete Time: 11:41 rn 03/17 10:59 Order name: Labs collected and sent; Complete Time: 11:41 rn 03/17 10:59 Order name: O2 Per Protocol; Complete Time: 11: rn 03/17 10:59 Order name: O2 Sat Monitoring; Complete Time: 11:40 rn EC:04 Rate is 82 beats/min. Rhythm is irregularly irregular. QRS [place] is Normal. QRS interval rn is normal. QT interval is normal. No Q waves. T waves are Normal. No ST changes noted. Clinical impression: Atrial Fibrillation. Interpreted by me. Reviewed by me. Administered Medications: 13:00 Drug: NS 0.9% 250 ml Route: IV; Rate: bolus; Site: right antecubital; bp 13:45 Follow up: IV Status: Completed infusion iw 13:53 Drug: NS 0.9% 250 ml Route: IV; Rate: calculated rate; Site: right antecubital; bp 14:40 Follow up: IV Status: Completed infusion iw Disposition Summary: 03/17/22 15:26 Discharge Ordered Location: Home rn Problem: new rn Symptoms: have improved rn Condition: Stable rn Diagnosis - Syncope rn - Dehydration rn Followup: rn - With: Private Physician - When: As needed - Reason: Recheck today's complaints, Re-evaluation by your physician Discharge Instructions: - Discharge Summary Sheet rn - Dehydration, Adult rn - Syncope rn Forms: - Medication Reconciliation Form rn - Thank You Letter rn - Antibiotic criminal defense attorney - Prescription Opioid Use rn Signatures: Dispatcher [employer] Prem Bhat MD MD rn Peltier, Brian, RN RN bp Shayla Steele, RN RN [id number] Kaylan Pascal RN iw
[2022-03-17 16:13] VITALS: TEMP 97.7
[2022-03-17 16:19] VITALS: BP 107/68; O2SAT 96
--- NOTE | 2022-03-18 12:50 | EKG ---
Test Date: 2022-03-17 Test Time: 10:56:47 Satellite Installer: [place] MEASUREMENT RESULTS: Intervals: Rate: 82 DC: QRSD: 90 QT: 392 QTc: 457 [place]: P: DC: QRS: 121 T: 58 INTERPRETIVE STATEMENTS: Atrial fibrillation Right axis deviation Anterior infarct, age undetermined Abnormal ECG Compared to ECG 04/15/2018 13:59:16 Right-axis deviation now present Myocardial infarct finding now present Electronically Signed On 03-18-22 12:49:30 CDT by Graham Betancourt
== END 2022-03-17 15:39 | disposition home or self-care (01) ==
LOC: ER 10:20
DX: R55 Syncope and collapse (principal); E86.0 Dehydration; I10 Essential (primary) hypertension; I48.91 Unspecified atrial fibrillation; Z79.01 Long term (current) use of anticoagulants; Z79.82 Long term (current) use of aspirin
CPT/HCPCS: 96365; 93005; 85025; 80048; 36415; 85379; 84484; 71045; 99284; 96366; J7040 ×2

== ENCOUNTER 2022-11-03 11:50 | Emergency (ER) | payer OTHER ==
--- OUTSIDE RECORDS SUMMARY | 2022-11-03 11:57 | XMS REPORT | Continuity of Care Document ---
:[address] [facility] t Address [address] [facility] [address] [place] [address] Care Team Providers Name Role Phone Neno Azar MD Primary Care Physician [phone] Mehran Dudley MD Attending Clinician Emely Machado MD Attending Clinician Elizabeth Gonzales MD Attending Clinician Ira Scott RN Attending Clinician Unavailable Provider, Unknown Attending Clinician Unavailable Cora Cerna MA Attending Clinician Unavailable Destinee Mederos RN Attending Clinician Unavailable Cece Alas NP Attending Clinician Adelso GOODMAN, Zain HowellH. Attending Clinician Alexis Mandujano MD Attending Clinician Nia Mcdermott Attending Clinician Nicky Drake MA Attending Clinician Unavailable MD ZAIN DARDENHJabari Attending Clinician Unavailable Scarlet Land RN Attending Clinician Unavailable Nia Lopez NP Attending Clinician Maricruz Serrato MD Attending Clinician MEHRAN DUDLEY Admitting Clinician Unavailable ZAIN DARDEN Admitting [...] Added automatic ally from request for surgery [id number] SOB SOB Disease Active [facility] (shortness (shortness 8-09 st of breath) of breath) 00:00: Ho spita 00 l Edema of Edema of Disease Active Metho di both lower both lower 2 st extremitie extremitie 00:00: Ho spita s s 00 l Seizure 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[facility] 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 00:00: Hosp lila cerebrovas cerebrovas 00 l cular cular accident accident (CVA) (CVA) S/P S/P Disease Active 2019-07 [facility] radiothera radiothera 2- st py py 00:00: Hospita 00 l [...] CAD in CAD in Disease Active [facility] [place] 1-23 st artery artery 00:00: Hospita 00 l [...] 00 l Keratosis Keratosis Disease Active 2015-07 [facility] seborrheic seborrheic 2-06 Co llege a a 00:00: of 00 Medicin e 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 Family History Family Member Diagnosis Comments Start Date Stop Date Source Natural father Heart attack [facility] Natural father Stroke [facility] mother [facility] Paternal grandfather Heart attack [facility] Social History Social Habit Start Date Stop Date Quantity Comments Source Gender identity 2020-08-07 Identifies as male M ethodist 09:16:27 gender (finding) Hospital Sexual orientation 2020-08-07 Heterosexual Meth odist 09:16:27 (finding) Hospital Sex Assigned At [facility] of Medicine History of tobacco Cigarette Smoker [facility] use Hospital Alcohol intake 2022-07-07 2022-07-07 Current non-drinker M ethodist 00:00:00 00:00:00 of alcohol Hospital (finding) History of Social 2022-07-07 2022-07-[address] function 00:00:00 00:00:00 Hospital Cigarettes smoked 2022-03-12 2022-03-[address] current (pack per 00:00:00 00:00:00 Hospita l day) - Reported Cigarette 2022-03-12 2022-03-12 [facility] pack-years 00:00:00 00:00:00 Hospital Tobacco Comment 2022-03-12 2022-03-12 quit 12 years ago [facility] 00:00:00 00:00:00 Hospital Tobacco use and 2022-03-12 2022-03-12 Smokeless tobacco [facility] exposure 00:00:00 00:00:00 non-user Hospital Alcohol Comment 2013-11-08 2013-11-08 socially [facility] llege 00:00:00 00:00:00 of Medicine Smoking Status Start Date Stop Date Source Ex-smoker 2022-03-12 00:00:00 2022-03-12 00:00:00 [facility] Medications Ordered Filled Start Stop Current Ordering Indication Dosage Frequency Signature Comments Components Source Medication Medication Date Date Medication? Clinician (SIG) Name Name metoprolol Yes TAKE 1 Metho di succinate 3-[address] XL 00:00: MOUTH [facility]ospita (TOPROL-XL) 00 EVERY DAY l 50 mg 24 hr tablet Klor-Con 10 Yes [id number] TAKE 1 [facility] 10 mEq CR 1-[address] tablet 00:00: MOUTH Hospita 00 EVERY DAY l Klor-Con 10 Yes [id number] TAKE 1 [facility] 10 mEq CR 1-[address] tablet 00:00: MOUTH Hospita 00 EVERY DAY l vit 2021-07 Yes 1{tbl} Q.5D Take 1 [facility] C/E/Zn/billie 2-[address] r/lutein/ze 08:38: mouth 2 Hos mook axan 15 (two) l (PRESERVISI times a ON AREDS-2 day. ORAL) diazePAM 2021-07 Yes 5mg Q6H Take 5 mg Meth vanessa (VALIUM) 5 2-[address] MG tablet 08:38: every 6 Hospi ta 15 (six) l hours as needed for anxiety. albuterol 2021-07 Yes 2{puff} Q4H Inhale 2 M ethodi (PROAIR 2-[address] HFA) 90 08:38: every 4 Hospita mcg/actuati 15 (four) l on inhaler hours as needed for wheezing. acetaminoph 2021-07 Yes 800mg Take 800 M ethodi en (TYLENOL 2-[address] ORAL) 08:38: mouth as Hospita 15 needed. l dorzolamide 2021-07 Yes 1[drp] Q.5D Administer [facility] (TRUSOPT) 2 2-[address] % 08:38: both eyes Hospita ophthalmic 15 2 (two) l solution times a day. fluticasone 2021-07 Yes QD Inhale 1 Me thodi -umeclidin- 2-[address] vilanter 08:38: s once Hospita (Trelegy 15 daily. l Ellipta) 100-62.5-25 mcg blister with device powder for inhalation vit 2021-07 Yes 1{tbl} Q.5D Take 1 [facility] C/E/Zn/billie 2-[address] r/lutein/ze 08:38: mouth 2 Hos mook axan 15 (two) l (PRESERVISI times a ON AREDS-2 day. ORAL) diazePAM 2021-07 Yes 5mg Q6H Take 5 mg Meth vanessa (VALIUM) 5 2-[address] MG tablet 08:38: every 6 Hospi ta 15 (six) l hours as needed for anxiety. albuterol 2021-07 Yes 2{puff} Q4H Inhale 2 M ethodi (PROAIR 2-[address] HFA) 90 08:38: every 4 Hospita mcg/actuati 15 (four) l on inhaler hours as needed for wheezing. acetaminoph 2021-07 Yes 800mg Take 800 M ethodi en (TYLENOL 2-[address] ORAL) 08:38: mouth as Hospita 15 needed. l dorzolamide 2021-07 Yes 1[drp] Q.5D Administer [facility] (TRUSOPT) 2 2-[address] % 08:38: both eyes Hospita ophthalmic 15 2 (two) l solution times a day. fluticasone 2021-07 Yes QD Inhale 1 Me thodi -umeclidin- 2-[address] vilanter 08:38: s once Hospita (Trelegy 15 daily. l Ellipta) 100-62.5-25 mcg blister with device powder for inhalation vit 2021-07 Yes 1{tbl} Q.5D Take 1 [facility] C/E/Zn/billie 2-[address] r/lutein/ze 08:38: mouth 2 Hos mook axan 15 (two) l (PRESERVISI times a ON AREDS-2 day. ORAL) diazePAM 2021-07 Yes 5mg Q6H Take 5 mg Meth vanessa (VALIUM) 5 2-[address] MG tablet 08:38: every 6 Hospi ta 15 (six) l hours as needed for anxiety. albuterol 2021-07 Yes 2{puff} Q4H Inhale 2 M ethodi (PROAIR 2-[address] HFA) 90 08:38: every 4 Hospita mcg/actuati 15 (four) l on inhaler hours as needed for wheezing. acetaminoph 2021-07 Yes 800mg Take 800 M ethodi en (TYLENOL 2-[address] ORAL) 08:38: mouth as Hospita 15 needed. l dorzolamide 2021-07 Yes 1[drp] Q.5D Administer [facility] (TRUSOPT) 2 2-[address] % 08:38: both eyes Hospita ophthalmic 15 2 (two) l solution times a day. fluticasone 2021-07 Yes QD Inhale 1 Me thodi -umeclidin- 2-[address] vilanter 08:38: s once Hospita (Trelegy 15 daily. l Ellipta) 100-62.5-25 mcg blister with device powder for inhalation vit 2021-07 Yes 1{tbl} Q.5D Take 1 [facility] C/E/Zn/billie 2-[address] r/lutein/ze 08:38: mouth 2 Hos mook axan 15 (two) l (PRESERVISI times a ON AREDS-2 day. ORAL) diazePAM 2021-07 Yes 5mg Q6H Take 5 mg Meth vanessa (VALIUM) 5 2-[address] MG tablet 08:38: every 6 Hospi ta 15 (six) l hours as needed for anxiety. albuterol 2021-07 Yes 2{puff} Q4H Inhale 2 M ethodi (PROAIR 2-[address] HFA) 90 08:38: every 4 Hospita mcg/actuati 15 (four) l on inhaler hours as needed for wheezing. acetaminoph 2021-07 Yes 800mg Take 800 M ethodi en (TYLENOL 2-[address] ORAL) 08:38: mouth as Hospita 15 needed. l dorzolamide 2021-07 Yes 1[drp] Q.5D Administer [facility] (TRUSOPT) 2 2-[address] % 08:38: both eyes Hospita ophthalmic 15 2 (two) l solution times a day. fluticasone 2021-07 Yes QD Inhale 1 Me thodi -umeclidin- 2-[address] vilanter 08:38: s once Hospita (Trelegy 15 daily. l Ellipta) 100-62.5-25 mcg blister with device powder for inhalation vit 2021-07 Yes 1{tbl} Q.5D Take 1 [facility] C/E/Zn/billie 2-[address] r/lutein/ze 08:38: mouth 2 Hos mook axan 15 (two) l (PRESERVISI times a ON AREDS-2 day. ORAL) diazePAM 2021-07 Yes 5mg Q6H Take 5 mg Meth vanessa (VALIUM) 5 2-[address] MG tablet 08:38: every 6 Hospi ta 15 (six) l hours as needed for anxiety. albuterol 2021-07 Yes 2{puff} Q4H Inhale 2 M [facility]i (PROAIR 2-[address] HFA) 90 08:38: every 4 Hospita mcg/actuati 15 (four) l on inhaler hours as needed for wheezing. acetaminoph 2021-07 Yes 800mg Take 800 M ethodi en (TYLENOL 2-[address] ORAL) 08:38: mouth as Hospita 15 needed. l dorzolamide 2021-07 Yes 1[drp] Q.5D Administer [facility] (TRUSOPT) 2 2-[address] % 08:38: both eyes Hospita ophthalmic 15 2 (two) l solution times a day. fluticasone 2021-07 Yes QD Inhale 1 Me thodi -umeclidin- 2-[address] vilanter 08:38: s once Hospita (Trelegy 15 daily. l Ellipta) 100-62.5-25 mcg blister with device powder for inhalation vit 2021-07 Yes 1{tbl} Q.5D Take 1 [facility] C/E/Zn/billie 2-[address] r/lutein/ze 08:38: mouth 2 Hos mook axan 15 (two) l (PRESERVISI times a ON AREDS-2 day. ORAL) diazePAM 2021-07 Yes 5mg Q6H Take 5 mg Meth vanessa (VALIUM) 5 2-[address] MG tablet 08:38: every 6 Hospi ta 15 (six) l hours as needed for anxiety. albuterol 2021-07 Yes 2{puff} Q4H Inhale 2 M ethodi (PROAIR 2-[address] HFA) 90 08:38: every 4 Hospita mcg/actuati 15 (four) l on inhaler hours as needed for wheezing. acetaminoph 2021-07 Yes 800mg Take 800 M ethodi en (TYLENOL 2-[address] ORAL) 08:38: mouth as Hospita 15 needed. l dorzolamide 2021-07 Yes 1[drp] Q.5D Administer [facility] (TRUSOPT) 2 2-[address] % 08:38: both eyes Hospita ophthalmic 15 2 (two) l solution times a day. fluticasone 2021-07 Yes QD Inhale 1 Me thodi -umeclidin- 2-[address] vilanter 08:38: s once Hospita (Trelegy 15 daily. l Ellipta) 100-62.5-25 mcg blister with device powder for inhalation ezetimibe 2021-07 Yes [id number] TAKE 1 [facility] (ZETIA) 10 2-[address] mg tablet 00:00: MOUTH Hospita 00 EVERY DAY l ezetimibe 2021-07 Yes [id number] TAKE 1 [facility] (ZETIA) 10 2-[address] mg tablet 00:00: MOUTH [facility]ospita 00 EVERY DAY l ezetimibe 2021-07 Yes [id number] TAKE 1 [facility] (ZETIA) 10 2-[address] mg tablet 00:00: MOUTH Hospita 00 EVERY DAY l ezetimibe 2021-07 Yes [id number] TAKE 1 [facility] (ZETIA) 10 2-[address] mg tablet 00:00: MOUTH Hospita 00 EVERY DAY l ezetimibe 2021-07 Yes [id number] TAKE 1 [facility] (ZETIA) 10 2-[address] mg tablet 00:00: MOUTH Hospita 00 EVERY DAY l ezetimibe 2021-07 Yes [id number] TAKE 1 [facility] (ZETIA) 10 2-[address] mg tablet 00:00: MOUTH Hospita 00 EVERY DAY l metoprolol 2021-07 Yes TAKE 1 Metho di succinate 1-[address] XL 00:00: MOUTH Hospita (TOPROL-XL) 00 EVERY DAY l 50 mg 24 hr tablet metoprolol 2021-07 Yes TAKE 1 Metho di succinate 1-[address] XL 00:00: MOUTH Hospita (TOPROL-XL) 00 EVERY DAY l 50 mg 24 hr tablet metoprolol 2021-07 Yes TAKE 1 Metho di succinate 1-[address] XL 00:00: MOUTH Hospita (TOPROL-XL) 00 EVERY DAY l 50 mg 24 hr tablet metoprolol 2021-07 Yes TAKE 1 Metho di succinate 1-[address] XL 00:00: MOUTH Hospita (TOPROL-XL) 00 EVERY DAY l 50 mg 24 hr tablet metoprolol 2021-07 Yes TAKE 1 Metho di succinate 1-[address] XL 00:00: MOUTH Hospita (TOPROL-XL) 00 EVERY DAY l 50 mg 24 hr tablet metoprolol 2021-07- No TAKE 1 Meth vanessa succinate 1-29 03-[address] XL 00:00: 00:00 MOUTH Hospita (TOPROL-XL) 00 :00 EVERY DAY l 50 mg 24 hr tablet atorvastati 0 Yes [id number] TAKE 1 [facility] n (LIPITOR) 9-[address] 80 MG 00:00: MOUTH Hospita tablet 00 EVERY DAY l atorvastati 2021-0 Yes [id number] TAKE 1 [facility] n (LIPITOR) 9-[address] 80 MG 00:00: MOUTH Hospita tablet 00 EVERY DAY l atorvastati 2021-0 Yes [id number] TAKE 1 [facility] n (LIPITOR) 9-[address] 80 MG 00:00: MOUTH [facility]ospita tablet 00 EVERY DAY l atorvastati Yes [id number] TAKE 1 [facility] n (LIPITOR) 9-[address] 80 MG 00:00: MOUTH [facility]ospita tablet 00 EVERY DAY l atorvastati Yes [id number] TAKE 1 [facility] n (LIPITOR) 9-[address] 80 MG 00:00: MOUTH Hospita tablet 00 EVERY DAY l atorvastati Yes [id number] TAKE 1 [facility] n (LIPITOR) 9-[address] 80 MG 00:00: MOUTH Hospita tablet 00 EVERY DAY l vit 0 Yes 1{tbl} Q.5D Take 1 [facility] C/E/Zn/billie 9-[address] r/lutein/ze 10:42: mouth 2 Hos mook axan 24 (two) l (PRESERVISI times a ON AREDS-2 day. ORAL) diazePAM Yes 5mg Q6H Take 5 mg Meth vanessa (VALIUM) [address] MG tablet 10:42: every [...] Yes QD Inhale 1 [facility] -umeclidin- [address] vilanter 10:42: s once Hospita (Trelegy 24 daily. l Ellipta) 100-62.5-25 mcg blister with device powder for inhalation apixaban Yes 5mg Q.5D Take 1 [facility] (Eliquis) 5 -02 tablet (5 st mg tablet 00:00: mg total) Hos mook 00 by mouth 2 l (two) times a day. furosemide 2022-0 Yes [id number] 40mg Q.5D Take 1 [facility] (LASIX) 40 9-02 tablet (40 st mg tablet 00:00: mg total) Hos mook 00 by mouth 2 l (two) times a day. apixaban 2022-0 Yes 5mg Q.5D Take 1 [facility] (Eliquis) 5 9-02 tablet (5 st mg tablet 00:00: mg total) Hos mook 00 by mouth 2 l (two) times a day. furosemide 2022-0 Yes [id number] 40mg Q.5D Take 1 [facility] (LASIX) 40 9-02 tablet (40 st mg tablet 00:00: mg total) Hos mook 00 by mouth 2 l (two) times a day. apixaban 2022-0 Yes 5mg Q.5D Take 1 [facility] (Eliquis) 5 9-02 tablet (5 st mg tablet 00:00: mg total) Hos mook 00 by mouth 2 l (two) times a day. furosemide 2022-0 Yes [id number] 40mg Q.5D Take 1 [facility] (LASIX) 40 9-02 tablet (40 st mg tablet 00:00: mg total) Hos mook 00 by mouth 2 l (two) times a day. apixaban 2022-0 Yes 5mg Q.5D Take 1 [facility] (Eliquis) 5 9-02 tablet (5 st mg tablet 00:00: mg total) Hos mook 00 by mouth 2 l (two) times a day. furosemide 2022-0 Yes [id number] 40mg Q.5D Take 1 [facility] (LASIX) 40 9-02 tablet (40 st mg tablet 00:00: mg total) Hos mook 00 by mouth 2 l (two) times a day. apixaban 2022-0 Yes 5mg Q.5D Take 1 [facility] (Eliquis) 5 9-02 tablet (5 st mg tablet 00:00: mg total) Hos mook 00 by mouth 2 l (two) times a day. furosemide 2022-0 Yes [id number] 40mg Q.5D Take 1 [facility] (LASIX) 40 9-02 tablet (40 st mg tablet 00:00: mg total) Hos mook 00 by mouth 2 l (two) times a day. apixaban 2022-0 Yes 5mg Q.5D Take 1 [facility] (Eliquis) 5 - tablet (5 st mg tablet 00:00: mg total) Hos mook 00 by mouth 2 l (two) times a day. furosemide 2022-0 Yes [id number] 40mg Q.5D Take 1 [facility] (LASIX) 40 03-13 tablet (40 st mg tablet 00:00: mg total) Hos mook 00 by mouth 2 l (two) times a day. apixaban 2022-0 Yes 5mg Q.5D Take 1 [facility] (Eliquis) 5 03-13 tablet (5 st mg tablet 00:00: mg total) Hos mook 00 by mouth 2 l (two) times a day. furosemide 2022-0 Yes [id number] 40mg Q.5D Take 1 [facility] (LASIX) 40 03-13 tablet (40 st mg tablet 00:00: mg total) Hos mook 00 by mouth 2 l (two) times a day. aspirin 2021-0 2022- No 81mg QD Take 1 [facility] (ECOTRIN) 03-13 tablet (81 st 81 MG 00:00: 00:00 mg total) Hospit [facility] enter[facility] 00 :00 by mouth l coated daily for tablet 120 doses. aspirin 2021-0 2022- No 81mg QD Take 1 [facility] (ECOTRIN) 03-13 tablet (81 st 81 MG 00:00: 00:00 mg total) Hospit a enteric 00 :00 by mouth l coated daily for tablet 120 doses. aspirin 2021-0 2- No 81mg QD Take 1 [facility] (ECOTRIN) 03-13 tablet (81 st 81 MG 00:00: 00:00 mg total) Hospit a enteric 00 :00 by mouth l coated daily for tablet 120 doses. aspirin 2021-0 2022- No 81mg QD Take 1 [facility] (ECOTRIN) 03-13 tablet (81 st 81 MG 00:00: 00:00 mg total) Hospit a enteric 00 :00 by mouth l coated daily for tablet 120 doses. aspirin 2021-0 2022- No 81mg QD Take 1 [facility] (ECOTRIN) 03-13 tablet (81 st 81 MG 00:00: 00:00 mg total) Hospit a enteric 00 :00 by mouth l coated daily for tablet 120 doses. aspirin 2-0 2022- No 81mg QD Take 1 [facility] (ECOTRIN) 03-13 tablet (81 st 81 MG 00:00: 00:00 mg total) Hospit a enteric 00 :00 by mouth l coated daily for tablet 120 doses. aspirin 2022-0 2022- No 81mg QD Take 1 [facility] (ECOTRIN) 03-13 tablet (81 st 81 MG 00:00: 00:00 mg total) Hospit a enteric 00 :00 by mouth l coated daily for tablet 120 doses. ticagrelor 2022-0 2022- No 90mg Q.5D Take 1 Meth vanessa (BRILINTA) 03-12 tablet (90 st 90 mg 00:00: 05:59 mg total) Hospit a tablet 00 :00 by mouth 2 l (two) times a day for 240 doses. ticagrelor 2022-0 2022- No 90mg Q.5D Take 1 Meth vanessa (BRILINTA) 03-12 tablet (90 st 90 mg 00:00: 05:59 mg total) Hospit a tablet 00 :00 by mouth 2 l (two) times a day for 240 doses. ticagrelor 2-0 2022- No 90mg Q.5D Take 1 Meth vanessa (BRILINTA) 03-12 tablet (90 st 90 mg 00:00: 05:59 mg total) Hospit a tablet 00 :00 by mouth 2 l (two) times a day for 240 doses. ticagrelor 2022-0 2022- No 90mg Q.5D Take 1 Meth vanessa (BRILINTA) 03-12 tablet (90 st 90 mg 00:00: 05:59 mg total) Hospit a tablet 00 :00 by mouth 2 l (two) times a day for 240 doses. ticagrelor 2022-0 2022- No 90mg Q.5D Take 1 Meth vanessa (BRILINTA) 03-12 tablet (90 st 90 mg 00:00: 05:59 mg total) Hospit a tablet 00 :00 by mouth 2 l (two) times a day for 240 doses. ticagrelor 2022-0 2022- No 90mg Q.5D Take 1 Meth vanessa (BRILINTA) 03-12 tablet (90 st 90 mg 00:00: 05:59 mg total) Hospit a tablet 00 :00 by mouth 2 l (two) times a day for 240 doses. ticagrelor 2021- No 90mg Q.5D Take 1 Meth vanessa (BRILINTA) 03-12 tablet (90 st 90 mg 00:00: 05:59 mg total) Hospit a tablet 00 :00 by mouth 2 l (two) times a day for 240 doses. bevacizumab 2021- No Infuse [facility] (AVASTIN) 03-[address] 25 mg/mL 10:53: 00:00 venous Hospit a chemo 05 :00 catheter. l injection bevacizumab 2021- No Infuse [facility] (AVASTIN) 03-[address] 25 mg/mL 10:53: 00:00 venous Hospit a chemo 05 :00 catheter. l injection bevacizumab 2021- No Infuse [facility] (AVASTIN) 03-[address] 25 mg/mL 10:53: 00:00 venous Hospit a chemo 05 :00 catheter. l injection bevacizumab 2021- No Infuse [facility] (AVASTIN) 03-[address] 25 mg/mL 10:53: 00:00 venous Hospit a chemo 05 :00 catheter. l injection bevacizumab 2021- No Infuse [facility] (AVASTIN) 03-[address] 25 mg/mL 10:53: 00:00 venous Hospit a chemo 05 :00 catheter. l injection bevacizumab 2021- No Infuse [facility] (AVASTIN) 03-[address] 25 mg/mL 10:53: 00:00 venous Hospit a chemo 05 :00 catheter. l injection bevacizumab 2021- No Infuse [facility] (AVASTIN) 03-[address] 25 mg/mL 10:53: 00:00 venous Hospit a chemo 05 :00 catheter. l injection metoprolol Yes TAKE 1 [facility]o di succinate 03-[address] XL 00:00: MOUTH [facility]ospita (TOPROL-XL) 00 EVERY DAY l 50 mg 24 hr tablet metoprolol 2021- No TAKE 1 Meth vanessa succinate 03-[address] XL 00:00: 00:00 MOUTH [facility]ospita (TOPROL-XL) 00 :00 EVERY DAY l 50 mg 24 hr tablet metoprolol 2021- No TAKE 1 Meth vanessa succinate 03-[address] XL 00:00: 00:00 MOUTH [facility]ospita (TOPROL-XL) 00 :00 EVERY DAY l 50 mg 24 hr tablet metoprolol 2021- No TAKE 1 Meth vanessa succinate 03-[address] XL 00:00: 00:00 MOUTH [facility]ospita (TOPROL-XL) 00 :00 EVERY DAY l 50 mg 24 hr tablet metoprolol 2021- No TAKE 1 Meth vanessa succinate 03-[address] XL 00:00: 00:00 MOUTH [facility]ospita (TOPROL-XL) 00 :00 EVERY DAY l 50 mg 24 hr tablet metoprolol 2021- No TAKE 1 Meth vanessa succinate 03-[address] XL 00:00: 00:00 MOUTH [facility]ospita (TOPROL-XL) 00 :00 EVERY DAY l 50 mg 24 hr tablet metoprolol 2021- No TAKE 1 Meth vanessa succinate 03-[address] XL 00:00: 00:00 MOUTH [facility]ospita (TOPROL-XL) 00 :00 EVERY DAY l 50 mg 24 hr tablet losartan-hy 0 2022- No 1{tbl} QD Take 1 M [facility]i drochloroth 02-[address] iazide 00:00: 04:59 mouth Hospita (Hyzaar) 00 :00 daily. l 100-12.5 mg per tablet losartan-hy 2021- No 1{tbl} QD Take 1 M [facility]i drochloroth 02-[address] iazide 00:00: 00:00 mouth Hospita (Hyzaar) 00 :00 daily. l 100-12.5 mg per tablet losartan-hy 2021-2021- No 1{tbl} QD Take 1 M [facility]i drochloroth 02-[address] iazide 00:00: 00:00 mouth Hospita (Hyzaar) 00 :00 daily. l 100-12.5 mg per tablet losartan-2021- No 1{tbl} QD Take 1 [facility] (Hyzaar) 00 :00 daily. l 100-12.5 mg per tablet losartan-2021- No 1{tbl} QD Take 1 M [facility]i drochloroth 02-17 tablet by [facility] 00:00: 00:00 mouth Hospita (Hyzaar) 00 :00 daily. l 100-12.5 mg per tablet losartan-2021- No 1{tbl} QD Take 1 M [facility]i drochloroth 02-17 tablet by [facility] 00:00: 00:00 mouth Hospita (Hyzaar) 00 :00 daily. l 100-12.5 mg per tablet losartan-2021- No 1{tbl} QD Take 1 M [facility]i drochloroth 02-17 tablet by [facility] 00:00: 00:00 mouth Hospita (Hyzaar) 00 :00 daily. l 100-12.5 mg per tablet Eliquis 5 2021- No TAKE 1 [facility] di mg tablet 12-[address] 00:00: 00:00 MOUTH [facility]ospita 00 :00 TWICE A l DAY Eliquis 5 2021-2021- No TAKE 1 [facility] di mg tablet 12-[address] 00:00: 00:00 MOUTH [facility] 00 :00 TWICE A l DAY Eliquis 5 2021-2021- No TAKE 1 [facility] di mg tablet 12-[address] 00:00: 00:00 MOUTH [facility]ospita 00 :00 TWICE A l DAY Eliquis 5 2021-2021- No TAKE 1 [facility] di mg tablet 12-[address] 00:00: 00:00 MOUTH [facility]ospita 00 :00 TWICE A l DAY Eliquis 5 2021-2021- No TAKE 1 [facility] di mg tablet 12-[address] 00:00: 00:00 MOUTH [facility]ospita 00 :00 TWICE A l DAY Eliquis 5 0 2021- No TAKE 1 [facility] di mg tablet 12-[address] 00:00: 00:00 MOUTH [facility]ospita 00 :00 TWICE A l DAY Eliquis 5 2021-0 2021- No TAKE 1 [facility] di mg tablet 12-[address] 00:00: 00:00 MOUTH [facility]ospita 00 :00 TWICE A l DAY levETIRAcet 0 Yes TAKE 1 Meth vanessa am (KEPPRA) 4-[address] 500 MG 00:00: MOUTH [facility]ospita tablet 00 TWICE A l DAY levETIRAcet 0 Yes TAKE 1 Meth vanessa am (KEPPRA) 4-[address] 500 MG 00:00: MOUTH [facility]ospita tablet 00 TWICE A l DAY levETIRAcet 0 Yes TAKE 1 Meth vanessa am (KEPPRA) 4-[address] 500 MG 00:00: MOUTH [facility]ospita tablet 00 TWICE A l DAY levETIRAcet 0 Yes TAKE 1 Meth vanessa am (KEPPRA) 4-[address] 500 MG 00:00: MOUTH [facility]ospita tablet 00 TWICE A l DAY levETIRAcet 0 Yes TAKE 1 Meth vanessa am (KEPPRA) 4-[address] 500 MG 00:00: MOUTH [facility]ospita tablet 00 TWICE A l DAY levETIRAcet 0 Yes TAKE 1 Meth vanessa am (KEPPRA) 4-[address] 500 MG 00:00: MOUTH [facility]ospita tablet 00 TWICE A l DAY levETIRAcet 0 Yes TAKE 1 Meth vanessa am (KEPPRA) 4-[address] 500 MG 00:00: MOUTH [facility]ospita tablet 00 TWICE A l DAY metoprolol 0 2021- No TAKE 1 Meth vanessa succinate -03-[address] XL 00:00: 00:00 MOUTH [facility]ospita (TOPROL-XL) 00 :00 EVERY DAY l 50 mg 24 hr tablet metoprolol 0 2021- No TAKE 1 Meth vanessa succinate 10-28- TABLET BY st XL 00:00: 00:00 MOUTH [facility]ospita (TOPROL-XL) 00 :00 EVERY DAY l 50 mg 24 hr tablet metoprolol 2021- No TAKE 1 Meth vanessa succinate 10-[address] XL 00:00: 00:00 MOUTH [facility]ospita (TOPROL-XL) 00 :00 EVERY DAY l 50 mg 24 hr tablet metoprolol 2021- No TAKE 1 Meth vanessa succinate 10-[address] XL 00:00: 00:00 MOUTH [facility]ospita (TOPROL-XL) 00 :00 EVERY DAY l 50 mg 24 hr tablet metoprolol 2021- No TAKE 1 Meth vanessa succinate 10-[address] [facility] 00:00: 00:[facility] (TOPROL-[facility]) 00 :00 EVERY DAY l 50 mg 24 hr tablet metoprolol 2021- No TAKE 1 Meth vanessa succinate 10-[address] [facility] 00:00: 00:[facility] (TOPROL-[facility]) 00 :00 EVERY DAY l 50 mg 24 hr tablet metoprolol 2021- No TAKE 1 Meth vanessa succinate 10-[address] [facility] 00:00: 00:00 [facility] (TOPROL-XL) 00 :00 EVERY DAY l 50 mg 24 hr tablet potassium 2022- No [id number] 10meq QD Take 1 [facility] chloride 07-30 tablet (10 st (KLOR-CON) 00:00: 05:59 mEq total) [facility] 10 MEQ CR 00 :00 by mouth l tablet daily. potassium 2022- No [id number] 10meq QD Take 1 [facility] chloride 07-30 tablet (10 st (KLOR-CON) 00:00: 05:59 mEq total) [facility] 10 MEQ CR 00 :00 by mouth l tablet daily. potassium 2021-2022- No [id number] 10meq QD Take 1 [facility] chloride 07-30- tablet (10 st (KLOR-CON) 00:00: 05:59 mEq total) [facility] 10 MEQ CR 00 :00 by mouth l tablet daily. potassium 2021-2022- No [id number] 10meq QD Take 1 [facility] chloride 07-30- tablet (10 st (KLOR-CON) 00:00: 05:59 mEq total) Hospita 10 MEQ CR 00 :00 by mouth l tablet daily. potassium No [id number] 10meq QD Take 1 [facility] chloride 07-30 tablet (10 st (KLOR-CON) 00:00: 05:59 mEq total) Hospita 10 MEQ CR 00 :00 by mouth l tablet daily. potassium No [id number] 10meq QD Take 1 [facility] chloride 07-30 tablet (10 st (KLOR-CON) 00:00: 00:00 mEq total) Hospita 10 MEQ CR 00 :00 by mouth l tablet daily. potassium No [id number] 10meq QD Take 1 [facility] chloride 07-30 tablet (10 st (KLOR-CON) 00:00: 00:00 mEq total) Hospita 10 MEQ CR 00 :00 by mouth l tablet daily. furosemide No [id number] 40mg QD Take 1 [facility] (LASIX) 40 07-30 tablet (40 st mg tablet 00:00: 00:00 mg total) Ho spita 00 :00 by mouth l daily. furosemide No [id number] 40mg QD Take 1 [facility] (LASIX) 40 07-30 tablet (40 st mg tablet 00:00: 00:00 mg total) Ho spita 00 :00 by mouth l daily. furosemide No [id number] 40mg QD Take 1 [facility] (LASIX) 40 07-30 tablet (40 st mg tablet 00:00: 00:00 mg total) Ho spita 00 :00 by mouth l daily. furosemide No [id number] 40mg QD Take 1 [facility] (LASIX) 40 07-30 tablet (40 st mg tablet 00:00: 00:00 mg total) Ho spita 00 :00 by mouth l daily. furosemide No [id number] 40mg QD Take 1 [facility] (LASIX) 40 07-30 tablet (40 st mg tablet 00:00: 00:00 mg total) Ho spita 00 :00 by mouth l daily. furosemide 2021- No [id number] 40mg QD Take 1 [facility] (LASIX) 40 07-30 tablet (40 st mg tablet 00:00: 00:00 mg total) Ho spita 00 :00 by mouth l daily. furosemide 2021- No [id number] 40mg QD Take 1 [facility] (LASIX) 40 [...] mg 24 hr tablet ezetimibe 2020-07 Yes [id number] TAKE 1 Me thodi (ZETIA) 10 2-[address] mg tablet 00:00: MOUTH Hospita 00 EVERY DAY l ezetimibe 2020-07- No [id number] TAKE 1 M ethodi (ZETIA) 10 2 12-[address] mg tablet 00:00: 00:00 MOUTH Hospit a 00 :00 EVERY DAY l ezetimibe 2020-07- No [id number] TAKE 1 M ethodi (ZETIA) 10 2 12-[address] mg tablet 00:00: 00:00 MOUTH Hospit a 00 :00 EVERY DAY l ezetimibe 2020-07- No [id number] TAKE 1 M ethodi (ZETIA) 10 2- 12-[address] mg tablet 00:00: 00:00 MOUTH Hospit a 00 :00 EVERY DAY l ezetimibe 2020-07- No [id number] TAKE 1 M ethodi (ZETIA) 10 2- 12-[address] mg tablet 00:00: 00:00 MOUTH Hospit a 00 :00 EVERY DAY l ezetimibe 2020-07- No [id number] TAKE 1 M ethodi (ZETIA) 10 2- 12-[address] mg tablet 00:00: 00:00 MOUTH Hospit a 00 :00 EVERY DAY l ezetimibe 2020-07- No [id number] TAKE 1 M ethodi (ZETIA) 10 2- 12-[address] mg tablet 00:00: 00:00 MOUTH Hospit a 00 :00 EVERY DAY l torsemide 2020-07- No 20mg Take 20 mg M ethodi (DEMADEX) 07-[address] 20 MG 10:37: 00:00 as needed. Hospi ta tablet 04 :00 l DULoxetine 2020-07- No 30mg QD Take 30 mg [facility] (CYMBALTA) 07-[address] 30 MG 14:48: 00:00 daily. Hospita capsule 36 :00 l metoprolol 2020-07- No TAKE 1 Meth vanessa succinate 0-14 -[address] XL 00:00: 00:00 MOUTH [facility]ospita (TOPROL-XL) 00 :00 EVERY DAY l 50 mg 24 hr tablet metoprolol 2020-07- No TAKE 1 Meth vanessa succinate 0-14 -[address] XL 00:00: 00:00 MOUTH [facility]ospita (TOPROL-XL) 00 :00 EVERY DAY l 50 mg 24 hr tablet metoprolol 2020-07- No TAKE 1 Meth vanessa succinate 0-14 -[address] XL 00:00: 00:00 MOUTH [facility]ospita (TOPROL-XL) 00 :00 EVERY DAY l 50 mg 24 hr tablet metoprolol 2020-07- No TAKE 1 Meth vanessa succinate 0-14 -[address] XL 00:00: 00:00 MOUTH [facility]ospita (TOPROL-XL) 00 :00 EVERY DAY l 50 mg 24 hr tablet penicillin 2020- No Method i v potassium 04-03 st (VEETID) 00:00: 00:00 Hospita 500 MG 00 :00 l tablet atorvastati Yes [id number] TAKE 1 [facility] n (LIPITOR) 03-[address] 80 MG 00:00: MOUTH [facility]ospita tablet 00 EVERY DAY l atorvastati 2021- No [id number] TAKE 1 [facility] (LIPITOR) 03-24 09-[address] 80 MG 00:00: 00:00 MOUTH [facility]ospita tablet 00 :00 EVERY DAY l atorvastati 2021- No [id number] TAKE 1 [facility] n (LIPITOR) 03-[address] 80 MG 00:00: 00:00 MOUTH [facility]ospita tablet 00 :00 EVERY DAY l atorvastati 2021- No [id number] TAKE 1 [facility] n (LIPITOR) 03-[address] 80 MG 00:00: 00:00 MOUTH [facility]ospita tablet 00 :00 EVERY DAY l atorvastati 2020-2021- No [id number] TAKE 1 [facility] n (LIPITOR) 03-[address] 80 MG 00:00: 00:00 MOUTH [facility]ospita tablet 00 :00 EVERY DAY l atorvastati 2021- No [id number] TAKE 1 [facility] n (LIPITOR) 03-[address] 80 MG 00:00: 00:00 MOUTH [facility]ospita tablet 00 :00 EVERY DAY l atorvastati 2021- No [id number] TAKE 1 [facility] n (LIPITOR) 03-[address] 80 MG 00:00: 00:00 MOUTH [facility]ospita tablet 00 :00 EVERY DAY l baclofen 2020- No [facility] (LIORESAL) 03-[address] 10 MG 00:00: 00:00 Hospita tablet 00 :00 l apixaban 2021- No 5mg Q.5D Take 1 Method i (Eliquis) 5 02-06 05-23 tablet (5 st mg tablet 00:00: 00:00 mg total) Ho spita 00 :00 by mouth 2 l (two) times a day. apixaban 2021- No 5mg Q.5D Take 1 [facility] (Eliquis) 5 02-06 05-23 tablet (5 st mg tablet 00:00: 00:00 mg total) Ho spita 00 :00 by mouth 2 l (two) times a day. apixaban 2021- No 5mg Q.5D Take 1 [facility] (Eliquis) 5 02-06 05-23 tablet (5 st mg tablet 00:00: 00:00 mg total) Ho spita 00 :00 by mouth 2 l (two) times a day. apixaban 2021- No 5mg Q.5D Take 1 Method [facility] (Eliquis) 5 02-06 05-23 tablet (5 st mg tablet 00:00: 00:00 mg total) Ho spita 00 :00 by mouth 2 l (two) times a day. apixaban 2021- No 5mg Q.5D Take 1 [facility] (Eliquis) 5 02-06 05-23 tablet (5 st mg tablet 00:00: 00:00 mg total) Ho spita 00 :00 by mouth 2 l (two) times a day. apixaban 2021- No 5mg Q.5D Take 1 [facility] (Eliquis) 5 02-06 05- tablet (5 st mg tablet 00:00: 00:00 mg total) Ho spita 00 :00 by mouth 2 l (two) times a day. apixaban 2021- No 5mg Q.5D Take 1 [facility] (Eliquis) 5 02-06 tablet (5 st mg tablet 00:00: 00:00 [...] tablet 00 :00 TWICE A l DAY levETIRAcet 2021- No TAKE 1 Met hodi am (KEPPRA) 01-[address] 500 MG 00:00: 00:00 MOUTH Hospita tablet 00 :00 TWICE A l DAY levETIRAcet 2021- No TAKE 1 Met hodi am (KEPPRA) 01-[address] 500 MG 00:00: 00:00 MOUTH Hospita tablet 00 :00 TWICE A l DAY levETIRAcet 2021- No TAKE 1 Met hodi am (KEPPRA) 01-[address] 500 MG 00:00: 00:00 MOUTH Hospita tablet 00 :00 TWICE A l DAY levETIRAcet 2021- No TAKE 1 Met hodi am (KEPPRA) 01-[address] 500 MG 00:00: 00:00 MOUTH Hospita tablet 00 :00 TWICE A l DAY levETIRAcet 2021- No TAKE 1 Met [facility]odi am (KEPPRA) 01-[address] 500 MG 00:00: 00:00 MOUTH Hospita tablet 00 :00 TWICE A l DAY clopidogreL 2020- No 75mg QD Take 1 Met hodi (PLAVIX) 75 08-12 tablet (75 s t mg tablet 00:00: 00:00 mg total) Ho spita 00 :00 by mouth l daily. ezetimibe 2019-07- No [id number] TAKE 1 M ethodi (ZETIA) 10 0-[address] mg tablet 00:00: 00:00 MOUTH Hospit a 00 :00 EVERY DAY l atorvastati 2020- No [id number] TAKE 1 [facility] n (LIPITOR) 04-[address] 80 MG 00:00: 00:00 MOUTH Hospita tablet 00 :00 EVERY DAY l mupirocin Yes [id number] Apply to [facility] (BACTROBAN) 03-17 aa [facility] 2 % 00:00: -TID for of ointment 00 4weeks. Medicin e montelukast 2016- Yes 10mg QD Take 10 mg [facility] (SINGULAIR) 6-[address] 10 mg 00:00: every Hospita tablet 00 morning. l montelukast 2016- Yes 10mg QD Take 10 mg [facility] (SINGULAIR) 6-[address] 10 mg 00:00: every Hospita tablet 00 morning. l montelukast 2017-0 Yes 10mg QD Take 10 mg [facility] (SINGULAIR) 6-[address] 10 mg 00:00: every Hospita tablet 00 morning. l montelukast 2016- Yes 10mg QD Take 10 mg [facility] (SINGULAIR) 6-[address] 10 mg 00:00: every Hospita tablet 00 morning. l montelukast 2017-0 Yes 10mg QD Take 10 mg [facility] (SINGULAIR) 6-[address] 10 mg 00:00: every Hospita tablet 00 morning. l montelukast 2017-0 Yes 10mg QD Take 10 mg [facility] (SINGULAIR) 6-[address] 10 mg 00:00: every Hospita tablet 00 morning. l montelukast 2017-0 Yes 10mg QD Take 10 mg [facility] (SINGULAIR) 6-[address] 10 mg 00:00: every Hospita tablet 00 morning. l No known No [facility] Medicin e Immunizations Ordered Immunization Filled Immunization Date Status Commen ts Source Name Name [facility] PATRICKJudah 2020-07-24 Completed [facility] 00:00:00 [facility] PATRICKJudah 2020-07-24 Completed Method[facility] t MRNA VACCINATION 00:00:00 [facility] PATRICKJudah 2020-07-24 Completed Method[facility] t MRNA VACCINATION 00:00:00 [facility] PATRICKJudah 2020-07-24 Completed Method[facility] t MRNA VACCINATION 00:00:00 [facility] PATRICKJudha 2020-07-24 Completed [facility] M[facility] VACCIN[facility] 00:00:00 Hospital Vital Signs Vital Name Observation Time Observation Value Comments Source Systolic blood 2019-03-17 13:57:00 143 mm[Hg] [facility] pressure Medicine Diastolic blood 2019-03-17 13:57:00 80 mm[Hg] [facility] Medicine Heart rate 2019-03-17 13:57:00 77 /min [facility] Systolic blood 2019-03-17 13:57:00 143 mm[Hg] [facility] Medicine Diastolic blood 2019-03-17 13:57:00 80 mm[Hg] [facility] Medicine Heart rate 2019-03-17 13:57:00 77 /min [facility] Systolic blood 2019-03-08 14:16:00 135 mm[Hg] [facility] pressure Medicine Diastolic blood 2019-03-08 14:16:00 89 mm[Hg] [facility] Medicine Heart rate 2019-03-08 14:16:00 76 /min [facility] Systolic blood 2019-03-08 14:16:00 135 mm[Hg] [facility] Medicine Diastolic blood 2019-03-08 14:16:00 89 mm[Hg] [facility] Medicine Heart rate 2019-03-08 14:16:00 76 /min [facility] Systolic blood 2022-06-23 17:22:00 140 mm[Hg] [facility] pressure Diastolic blood 2022-06-23 17:22:00 78 mm[Hg] [facility] pressure Heart rate 2022-06-23 17:22:00 86 /min [facility] Body height 2022-06-23 17:22:00 172.7 cm [facility] Body weight 2022-06-23 17:22:00 94.802 kg [facility] BMI 2022-06-23 17:22:00 31.78 kg/m2 [facility] Systolic blood 2022-03-13 13:09:00 170 mm[Hg] [facility] pressure Diastolic blood 2022-03-13 13:09:00 96 mm[Hg] [facility] pressure Heart rate 2022-03-13 13:08:00 87 /min [facility] Body temperature 2022-03-13 12:50:46 36.17 Hilda [facility] Oxygen saturation in 2022-03-13 12:50:46 97 /min [facility] Arterial blood by Pulse oximetry Body weight 2022-03-13 10:41:33 96.163 kg [facility] BMI 2022-03-13 10:41:33 32.23 kg/m2 [facility] Respiratory rate 2022-03-13 02:16:19 20 /min [facility] Body height 2022-03-12 15:11:00 172.7 cm [facility] Procedures Procedure Date / Time Performing Clinician Source Performed PET CT SKULL BASE TO MID 2022-06-10 19:25:40 Elizabeth Gonzales [facility] THIGH POC GLUCOSE 2022-06-10 [facility] BASIC METABOLIC PANEL 2022-03-13 10:16:00 Joanne, Douglas [facility] CBC WITH PLATELET AND 2022-03-13 10:16:00 Douglas Rubio [facility] DIFFERENTIAL ESTIMATED GFR 2022-03-13 10:16:00 Mehran Dudley Ho spital ECG 12-LEAD 2022-03-12 20:33:37 Mehran Dudley spital CV PCI STENT 2022-03-12 20:15:53 Mehran Dudley spital ACTIVATED CLOTTING TIME 2022-03-12 19:10:00 Mehran Dudley [facility] CBC WITH PLATELET AND 2022-03-06 17:43:00 Mehran Dudley [facility] DIFFERENTIAL CBC WITH PLATELET AND 2022-03-06 17:43:00 Mehran Dudley [facility] DIFFERENTIAL PROTHROMBIN TIME WITH INR 2022-03-06 17:43:00 Mehran Dudley [facility] COMPREHENSIVE METABOLIC 2022-03-06 17:43:00 Mehran Dudley [facility] PANEL ECG 12-LEAD 2022-03-06 16:51:[address] CHEST W CONTRAST 2022-02-23 17:00:14 Elizabeth Gonzales [facility] POC CREATININE 2022-02-23 16:24:00 Elizabeth Gonzales [facility] ESTIMATED GFR 2022-02-23 16:24:00 Elizabeth Gonzales [facility] LIPID PANEL 2022-02-17 18:24:00 Mehran Dudley spital AST (SGOT) 2022-02-17 18:24:00 Mehran Dudley spital THYROID STIMULATING 2022-02-17 18:24:00 Mehran Dudley [facility] HORMONE CT CHEST W CONTRAST 2021-09-03 17:27:51 Elizabeth Gonzales [facility] POC CREATININE 2021-09-03 17:14:00 Elizabeth Gonzales [facility] ESTIMATED GFR 2021-09-03 17:14:00 Elizabeth Gonzales [facility] US DUPLEX VENOUS LOWER 2021-08-13 20:44:50 Dudley, Mehran [facility] EXTREMITY BILATERAL ECG 12-LEAD 2021-08-12 19:45:28 [facility] spital TTE COMPLETE, W CONTRAST, 2021-08-04 22:17:43 Mehran Dudley [facility] W DOPPLER ([id number]) US CAROTID DUPLEX 2021-07-29 19:57:38 [facility] BILATERAL NM LUNG PERFUSION QUANT W 2021-06-24 19:12:07 Elizabeth Gonzales [facility] IMG FUNGUS CULTURE 2021-06-09 20:42:00 Zain Darden [facility] AFB CULTURE 2021-06-09 20:42:00 Zain Darden [facility] GRAM STAIN 2021-06-09 20:42:00 Zain Darden [facility] AFB STAIN 2021-06-09 20:42:00 Zain Darden [facility] RESPIRATORY CULTURE 2021-06-09 20:42:00 Zain Darden [facility] CYTOLOGY 2021-06-09 20:36:00 Zain Darden [facility] (NON-GYNECOLOGICAL) REQUEST [place] AN ELECTIVE 2021-06-09 20:15:09 Jony Ybarra [facility] ENDOTRACHEAL AIRWAY [place] CYTOLOGY 2021-06-09 20:15:00 Zain Darden [facility] (NON-GYNECOLOGICAL) REQUEST BRONCHOSCOPY, USING 2021-06-09 19:58:00 Zain Darden [facility] ELECTROMAGNETIC NAVIGATION ABO AND RH CONFIRMATION BY 2021-06-09 17:48:00 Zain Darden [facility] PROTOCOL SURGICAL PATHOLOGY REQUEST 2021-06-09 14:26:00 Zain Darden [facility] CT CHEST WO CONTRAST 2021-06-04 16:55:02 Zain Darden [facility] TYPE AND SCREEN 2021-06-04 16:28:00 Zain Darden [facility] PROTHROMBIN TIME WITH INR 2021-06-04 16:28:00 Zain Darden [facility] PARTIAL THROMBOPLASTIN 2021-06-04 16:28:00 Zain Darden [facility] TIME (PTT) COMPREHENSIVE METABOLIC 2021-06-04 16:28:00 Zain Darden [facility] PANEL HC COMPLETE BLD COUNT 2021-06-04 16:28:00 Zain Darden [facility] W/AUTO DIFF ESTIMATED GFR 2021-06-04 16:28:00 Zain Darden [facility] COVID-19 QUALITATIVE 2021-06-04 16:14:00 Zain Darden [facility] RT-PCR ECG 12-LEAD 2021-05-20 19:32:48 Mehran Dudley [facility] spital PET CT SKULL BASE TO MID 2021-05-02 19:05:30 [facility] THIGH POC GLUCOSE 2021-05-02 15:51:00 [facility] CHEST W CONTRAST 2021-04-30 [facility]53[facility] POC CREATININE 2021-04-30 15:39:00 [facility] ESTIMATED GFR 2021-04-30 15:39:00 [facility] Plan of Care Planned Activity Planned Date Details Comments Source Future Scheduled 2022-11-03 65+ PNEUMOCOCCAL [facility] Test 11:16:05 VACCINE (1 - PCV) [facility] [code = 65+ PNEUMOCOCCAL VACCINE (1 - PCV)] Future Scheduled 2022-11-03 Hepatitis C [facility] 11:16:05 screening Hospital (procedure) [code = 626976275] Future Scheduled 2022-11-03 COLONOSCOPY [facility] 11:16:05 SCREENING [code = Hospital COLONOSCOPY SCREENING] Future Scheduled 2022-11-03 SHINGLES VACCINES (2 [facility] Test 11:16:05 of 2) [code = Hospital SHINGLES VACCINES (2 of 2)] Future Scheduled 2022-11-03 INFLUENZA VACCINE Method ist Test 11:16:05 [code = INFLUENZA Hospital VACCINE] Future Scheduled 2022-07-27 65+ PNEUMOCOCCAL [facility] Test 15:04:48 VACCINE (1 - PCV) Hospital [code = 65+ PNEUMOCOCCAL VACCINE (1 - PCV)] Future Scheduled 2022-07-27 Hepatitis C [facility] 15:04:48 screening Hospital (procedure) [code = [id number]] Future Scheduled 2022-07-27 COLONOSCOPY [facility] 15:04:48 SCREENING [code = Hospital COLONOSCOPY SCREENING] Future Scheduled 2022-07-27 SHINGLES VACCINES (2 Met [facility] Test 15:04:48 of 2) [code = Hospital SHINGLES VACCINES (2 of 2)] Future Scheduled 2022-07-22 65+ PNEUMOCOCCAL [facility] Test 11:25:44 VACCINE (1 - PCV) Hospital [code = 65+ PNEUMOCOCCAL VACCINE (1 - PCV)] Future Scheduled 2022-07-22 Hepatitis C [facility] 11:25:44 screening Hospital (procedure) [code = 980886600] Future Scheduled 2022-07-22 COLONOSCOPY [facility] 11:25:44 SCREENING [code = Hospital COLONOSCOPY SCREENING] Future Scheduled 2022-07-22 SHINGLES VACCINES (2 [facility] Test 11:25:44 of 2) [code = Hospital SHINGLES VACCINES (2 of 2)] Future Scheduled 2022-07-14 65+ PNEUMOCOCCAL [facility] Test 10:56:47 VACCINE (1 - PCV) Hospital [code = 65+ PNEUMOCOCCAL VACCINE (1 - PCV)] Future Scheduled 2022-07-14 Hepatitis C [facility] 10:56:47 screening Hospital (procedure) [code = 871841651] Future Scheduled 2022-07-14 COLONOSCOPY [facility] 10:56:47 SCREENING [code = Hospital COLONOSCOPY SCREENING] Future Scheduled 2022-07-14 SHINGLES VACCINES (2 [facility] Test 10:56:47 of 2) [code = Hospital SHINGLES VACCINES (2 of 2)] Future Scheduled 2022-07-14 65+ PNEUMOCOCCAL [facility] Test 10:56:47 VACCINE (1 - PCV) Hospital [code = 65+ PNEUMOCOCCAL VACCINE (1 - PCV)] Future Scheduled 2022-07-14 Hepatitis C [facility] 10:56:47 screening Hospital (procedure) [code = 296935871] Future Scheduled 2022-07-14 COLONOSCOPY [facility] 10:56:47 SCREENING [code = Hospital COLONOSCOPY SCREENING] Future Scheduled 2022-07-14 SHINGLES VACCINES (2 [facility] Test 10:56:47 of 2) [code = Hospital SHINGLES VACCINES (2 of 2)] Future Scheduled 2022-07-14 65+ PNEUMOCOCCAL [facility] Test 10:56:47 VACCINE (1 - PCV) Hospital [code = 65+ PNEUMOCOCCAL VACCINE (1 - PCV)] Future Scheduled 2022-07-14 Hepatitis C [facility] 10:56:47 screening Hospital (procedure) [code = [id number]] Future Scheduled 2022-07-14 COLONOSCOPY [facility] 10:56:47 SCREENING [code = Hospital COLONOSCOPY SCREENING] Future Scheduled 2022-07-14 SHINGLES VACCINES (2 [facility] Test 10:56:47 of 2) [code = Hospital SHINGLES VACCINES (2 of 2)] Future Scheduled 2022-03-17 HEPATITIS B VACCINES [facility] Test 08:03:43 (1 of 3 - 3-dose Hospital series) [code = HEPATITIS B VACCINES (1 of 3 - 3-dose series)] Future Scheduled 2022-03-17 65+ PNEUMOCOCCAL [facility] Test 08:03:43 VACCINE (1 - PCV) Hospital [code = 65+ PNEUMOCOCCAL VACCINE (1 - PCV)] Future Scheduled 2022-03-17 Hepatitis C [facility] 08:03:43 screening Hospital (procedure) [code = [id number]] Future Scheduled 2022-03-17 COLONOSCOPY [facility] 08:03:43 SCREENING [code = Hospital COLONOSCOPY [...] SHINGLES VACCINES (2 of 2)] Future Scheduled [place] TANGENTIAL BIOPSY Ordered: [facility] SKIN SINGLE LESION 03/08/2019 Medicine [code = 50993] Future Scheduled [place] DESTRUC Ordered: [facility] ege of Test PREMALIGNANT,15+ 03/08/2019 Medicine LESIONS(35819) [code = 28493] Future Scheduled COLON CANCER [facility] ege of Test SCREENING: Medicine COLONOSCOPY [code = COLON CANCER SCREENING: COLONOSCOPY] Future Scheduled MEDICARE AWV [code = [facility] MEDICARE AWV] Medicine Future Scheduled TETANUS SHOT (ADULT) [facility] of Test [code = TETANUS SHOT Medicin e (ADULT)] Future Scheduled HEPATITIS C [facility] Bhakti ege of Test SCREENING [code = Medicine HEPATITIS C SCREENING] Future Scheduled AAA Screen [code = [facility] College of Test AAA Screen] Medicine Future Scheduled FALL SCREEN [code = [facility] or College of Test FALL SCREEN] Medicine Future Scheduled PNEUMOVAX >=65 [facility] Co llege of Test (PPSV23) [code = Medicine PNEUMOVAX >=65 (PPSV23)] Future Scheduled PREVNAR >= 65 [facility] Col lege of Test (PCV13) [code = Medicine PREVNAR >= 65 (PCV13)] Future Scheduled FLU VACCINE > 6 [facility] C ollege of Test MONTHS [code = FLU Medicine VACCINE > 6 MONTHS] Future Scheduled [place] DESTRUC Ordered: [facility] ege of Test PREMALIGNANT, FIRST 03/17/2019 Medicine LESION(80112) [code = 49852] Future Scheduled [place] DESTR MALIG Ordered: [facility] llege of Test TRUNK,EXTREM 2.1-3 03/17/2019 Medicine CM [code = 96685] Future Scheduled COLON CANCER [facility] ege of Test SCREENING: Medicine COLONOSCOPY [code = COLON CANCER SCREENING: COLONOSCOPY] Future Scheduled MEDICARE AWV [code = [facility] of Test MEDICARE AWV] Medicine Future Scheduled TETANUS SHOT (ADULT) [facility] of Test [code = TETANUS SHOT Medicin e (ADULT)] Future Scheduled HEPATITIS C [facility] Bhakti ege of Test SCREENING [code = Medicine HEPATITIS C SCREENING] Future Scheduled AAA Screen [code = [facility] College of Test AAA Screen] Medicine Future Scheduled FALL SCREEN [code = [facility] or College of Test FALL SCREEN] Medicine Future Scheduled PNEUMOVAX >=65 [facility] Co llege of Test (PPSV23) [code = Medicine PNEUMOVAX >=65 (PPSV23)] Future Scheduled PREVNAR >= 65 [facility] Col lege of Test (PCV13) [code = Medicine PREVNAR >= 65 (PCV13)] Future Scheduled FLU VACCINE > 6 [facility] C ollege of Test MONTHS [code = FLU Medicine VACCINE > 6 MONTHS] Encounters Start End Encounter Admission Attending Care Care Encounter Source Date/Time Date/Time Type Type Clinicians Facility Department ID 2022-09-07 2022-09-07 Naye Dudley 1.2.840.1 [id number] Methodi 00:00:00 00:00:[address] Meh[address] 3.430.2.7 Hospit a .3.682681 l .8 2022-08-28 2022-08-28 Refill Octavia, 1.2.840.1 [id number] Methodi 00:00:00 00:00:00 Meh[address] 3.430.2.7 Hospit a .3.048880 l .8 2022-08-21 2022-08-21 Refill Cj Emely 1.2.840.1 [id number] Methodi 00:00:00 00:00:[address] 3.430.2.7 Hospit a .3.654242 l .8 2022-08-21 2022-08-21 Refill CjEmely 1.2.840.1 [id number] Methodi 00:00:00 00:00:[address] 3.430.2.7 Hospit a .3.642354 l .8 2022-08-06 2022-08-06 Travel 1.2.840.1 [id number] Methodi 00:00:00 00:00:[address] 3.430.2.7 0.2.7.3.698 Ho spita .3.770000 084.8 l .8 2022-07-27 2022-07-27 Refill Octavia, 1.2.840.1 [id number] Methodi 00:00:00 00:00:00 Mehran [address] 3.430.2.7 Hospit a .3.605131 l .8 2022-07-27 2022-07-27 Refill Octavia, 1.2.840.1 [id number] Methodi 00:00:00 00:00:00 Meh[address] 3.430.2.7 Hospit a .3.749596 l .8 2022-07-07 2022-07-07 Hospital Elizabeth Gonzales 1.2.840.1 [id number] Methodi 08:30:00 09:32:33 Encounter Ira Scott 19089.1.[address] 3.430.2.7 Hospit a .3.241876 l .8 2022-07-07 2022-07-07 Hospital [facility], 1.2.840.1 [id number] [place] 00:00:00 00:00:00 Encounter ELIZABETH 58911.1.1 [address] .3.758089 .8 2022-06-23 2022-06-23 Office Octavia, 1.2.840.1 [id number] Methodi 11:20:00 15:49:15 Visit Mehran NarayanJabari 09334.1.[address] 3.430.2.7 Hospit a .3.254547 l .8 2022-06-23 2022-06-23 Office Octavia, 1.2.840.1 [id number] 726010 3840 Methodi 11:20:00 15:49:15 Visit Mehran R. 17501.1.[address] 3.430.2.7 Hospit a .3.571825 l .8 2022-06-23 2022-06-23 Travel 1.2.840.1 1.2.210.769 8660 235001 Methodi 00:00:00 00:00:[address] 3.430.2.7 0.2.7.3.698 Ho spita .3.917689 084.8 l .8 2022-06-23 2022-06-23 Travel 1.2.840.1 1.2.450.100 5127 796173 Methodi 00:00:00 00:00:[address] 3.430.2.7 0.2.7.3.698 Ho spita .3.285780 084.8 l .8 2022-06-21 2022-06-21 Emely Robin 1.2.840.1 [id number] Methodi 00:00:00 00:00:[address] 3.430.2.7 Hospit a .3.509275 l .8 2022-06-21 2022-06-21 [facility] Emely Machado 1.2.840.1 [id number] Methodi 00:00:00 00:00:[address] 3.430.2.7 Hospit a .3.716380 l .8 2022-06-16 2022-06-17 [facility] 1.2.840.1 [id number] 82873 61429 Methodi 14:59:42 08:32:05 Encounter Elizabeth ArmendarizJabari 66148.1.[address] 3.430.2.7 Hospit a .3.369640 l .8 2022-06-16 2022-06-17 [facility] 1.2.840.1 [id number] 60370 90502 [place] 00:00:00 00:00:00 Encounter ELIZABETH 78088.1.1 [address].7 [address] .3.323634 .8 2022-06-16 2022-06-16 Travel 1.2.840.1 1.2.923.749 0992 308699 Methodi 00:00:00 00:00:[address] 3.430.2.7 0.2.7.3.698 Ho spita .3.432471 084.8 l .8 2022-06-16 2022-06-16 Travel 1.2.840.1 1.2.963.953 6069 670854 Methodi 00:00:00 00:00:[address] 3.430.2.7 0.2.7.3.698 Ho spita .3.849728 084.8 l .8 2022-06-10 2022-06-10 [facility], 1.2.840.1 [id number] 91133 71218 Methodi 10:43:14 23:59:00 Encounter Elizabeth Bond 06176.1.[address] 3.430.2.7 Hospit a .3.553988 l .8 2022-06-10 2022-06-10 [facility], 1.2.840.1 [id number] 21185 Methodi 10:43:14 23:59:00 Encounter Elizabeth Bond 13524.1.[address] 3.430.2.7 Hospit a .3.374320 l .8 2022-06-10 2022-06-10 Travel 1.2.840.1 1.2.865.755 5145 237668 Methodi 00:00:00 00:00:[address] 3.430.2.7 0.2.7.3.698 Ho spita .3.329346 084.8 l .8 2022-06-10 2022-06-10 Travel 1.2.840.1 1.2.815.341 8836 970622 Methodi 00:00:00 00:00:[address] 3.430.2.7 0.2.7.3.698 Ho spita .3.175797 084.8 l .8 2022-06-04 2022-06-04 Naye Dudley, 1.2.840.1 [id number] 323014 4462 Methodi 00:00:00 00:00:00 [address] 3.430.2.7 Hospit a .3.877489 l .8 2022-06-04 2022-06-04 Naye Dudley, 1.2.840.1 [id number] 673577 7527 Methodi 00:00:00 00:00:[address]013[address] 3.430.2.7 Hospit a .3.479903 l .8 2022-03-24 2022-03-24 Office Dudley, 1.2.840.1 [id number] 373575 8809 Methodi 11:00:00 11:10:00 Visit Mehran Pena 40435.1.[address] 3.430.2.7 Hospit a .3.163408 l .8 2022-03-24 2022-03-24 Office [place], 1.2.840.1 [id number] 932781 7996 Methodi 11:00:00 11:10:00 Visit Mehran Pena 22065.1.[address] 3.430.2.7 Hospit a .3.217912 l .8 2022-03-24 2022-03-24 Travel 1.2.840.1 1.2.308.674 2098 869089 Methodi 00:00:00 00:00:[address] 3.430.2.7 0.2.7.3.698 Ho spita .3.309105 084.8 l .8 2022-03-24 2022-03-24 Travel 1.2.840.1 1.2.071.124 1617 444716 Methodi 00:00:00 00:00:[address] 3.430.2.7 0.2.7.3.698 Ho spita .3.345088 084.8 l .8 2022-03-23 2022-03-23 Emely Robin 1.2.840.1 [id number] Methodi 00:00:00 00:00:[address] 3.430.2.7 Hospit a .3.975021 l .8 2022-03-23 2022-03-23 Emely Robin 1.2.840.1 [id number] Methodi 00:00:00 00:00:[address] 3.430.2.7 Hospit a .3.458995 l .8 2022-03-12 2022-03-13 [facility], 1.2.840.1 [id number] 62 Methodi 09:14:00 10:42:00 Encounter Mehran R. 40255.1.[address] 3.430.2.7 Hospit a .3.881524 l .8 2022-03-12 2022-03-13 [facility], 1.2.840.1 [id number] 62 Methodi 09:14:00 10:42:00 Encounter Mehran R. 93806.1.[address] 3.430.2.7 Hospit a .3.266249 l .8 2022-03-12 2022-03-12 Surgery [facility], 1.2.840.1 [id number] 614695 1894 Methodi 11:30:00 12:30:[address] 3.430.2.7 Hospit a .3.455649 l .8 2022-03-12 2022-03-12 [facility], 1.2.840.1 [id number] 213043 7438 Methodi 11:30:00 12:30:[address] 3.430.2.7 Hospit a .3.868569 l .8 2022-03-12 2022-03-12 Travel 1.2.840.1 1.2.418.104 5487 060498 Methodi 00:00:00 00:00:[address] 3.430.2.7 0.2.7.3.698 Ho spita .3.748094 084.8 l .8 2022-03-12 2022-03-12 Travel 1.2.840.1 1.2.319.127 1545 360140 Methodi 00:00:00 00:00:[address] 3.430.2.7 0.2.7.3.698 Ho spita .3.557684 084.8 l .8 2022-03-11 2022-03-11 Documentat Provider, 1.2.840.1 [id number] 2 [id number] Methodi 00:00:00 00:00:00 ion Unknown 19613.1.[address] 3.430.2.7 Hospit a .3.284156 l .8 2022-03-11 2022-03-11 Documentat Provider, 1.2.840.1 [id number] 2 [id number] Methodi 00:00:00 00:00:00 ion Unknown 50210.1.[address] 3.430.2.7 Hospit a .3.931836 l .8 2022-03-09 2022-03-09 Travel 1.2.840.1 1.2.092.098 7111 585947 Methodi 00:00:00 00:00:[address] 3.430.2.7 0.2.7.3.698 Ho spita .3.768316 084.8 l .8 2022-03-09 2022-03-09 Travel 1.2.840.1 1.2.833.166 3861 124838 Methodi 00:00:00 00:00:[address] 3.430.2.7 0.2.7.3.698 Ho spita .3.539307 084.8 l .8 2022-03-07 2022-03-07 Refill Octavia, 1.2.840.1 [id number] 471315 4897 Methodi 00:00:00 00:00:00 Meh[address] Pena [address]32.1.[address] 3.430.2.7 Hospit a .3.562379 l .8 2022-03-07 2022-03-07 Naye Dudley, 1.2.840.1 [id number] 216422 6114 Methodi 00:00:00 00:00:00 [address] Pena [address]18.1.[address] 3.430.2.7 Hospit a .3.181446 l .8 2022-03-06 2022-03-06 Paul Dudley 1.2.840.1 [id number] 686858 5364 Methodi 13:10:00 13:15:[address] 3.430.2.7 Hospit a .3.189133 l .8 2022-03-06 2022-03-06 Lab [place], 1.2.840.1 [id number] 710539 9837 Methodi 13:10:00 13:15:00 [address] 3.430.2.7 Hospit a .3.620891 l .8 2022-03-06 2022-03-06 Office Dudley, 1.2.840.1 [id number] 689479 3869 Methodi 11:45:00 12:00:00 Visit Mehran R. 87378.1.[address] 3.430.2.7 Hospit a .3.246344 l .8 2022-03-06 2022-03-06 Office [place], 1.2.840.1 [id number] 990922 9874 Methodi 11:45:00 12:00:00 Visit Mehran R. 41184.1.[address] 3.430.2.7 Hospit a .3.604899 l .8 2022-03-06 2022-03-06 Orders Nehemiah, 1.2.840.1 [id number] 480 2201377 Methodi 00:00:00 00:00:00 Only Cora 76731.1.[address] 3.430.2.7 Hospit a .3.604218 l .8 2022-03-06 2022-03-06 Travel 1.2.840.1 1.2.684.873 1824 986113 Methodi 00:00:00 00:00:[address] 3.430.2.7 0.2.7.3.698 Ho spita .3.878305 084.8 l .8 2022-03-06 2022-03-06 Orders Nehemiah, 1.2.840.1 489719434 691 3957897 Methodi 00:00:00 00:00:00 Only Cora 04886.1.[address] 3.430.2.7 Hospit a .3.399677 l .8 2022-03-06 2022-03-06 Travel 1.2.840.1 1.2.014.185 1673 965168 Methodi 00:00:00 00:00:[address] 3.430.2.7 0.2.7.3.698 Ho spita .3.580483 084.8 l .8 2022-02-24 2022-02-24 [facility] 1.2.840.1 59856 1011 [id number] Methodi 15:41:37 16:23:27 Encounter Destinee Mederos 58768.1.[address] 3.430.2.7 Hospit a .3.401156 l .8 2022-02-24 [facility]22-02-24 [facility] 40676 1011 3832532034 Methodi 15:41:37 16:23:27 Encounter Destinee Mederos 40618.1.[address] 3.430.2.7 Hospit a .3.242077 l .8 2022-02-23 2022-02-23 [facility], 1.2.840.1 [id number] 50013 Methodi 11:00:08 23:59:00 Encounter Elizabeth Bond 19571.1.[address] 3.430.2.7 Hospit a .3.241409 l .8 2022-02-23 2022-02-23 [facility], 1.2.840.1 423151354 21001 16734 Methodi 11:00:08 23:59:00 Encounter Elizabeth Bond 04057.1.[address] 3.430.2.7 Hospit a .3.251486 l .8 2022-02-23 2022-02-23 Travel 1.2.840.1 1.2.008.560 9401 418798 Methodi 00:00:00 00:00:[address] 3.430.2.7 0.2.7.3.698 Ho spita .3.025544 084.8 l .8 2022-02-23 2022-02-23 Travel 1.2.840.1 1.2.705.417 6828 820897 Methodi 00:00:00 00:00:[address] 3.430.2.7 0.2.7.3.698 Ho spita .3.255763 084.8 l .8 2022-02-17 2022-02-17 Office [place], 1.2.840.1 091219591 615133 7322 Methodi 10:30:00 15:15:02 Visit Mehran Pena 18487.1.[address] 3.430.2.7 Hospit a .3.445714 l .8 2022-02-17 2022-02-17 Office [place], 1.2.840.1 [id number] 270139 9826 Methodi 10:30:00 15:15:02 Visit Mehran Pena 15339.1.[address] 3.430.2.7 Hospit a .3.018268 l .8 2022-02-17 2022-02-17 [facility] [place], 1.2.840.1 [id number] 825001 6742 Methodi 00:00:00 00:00:00 Only Mehran Busch. 41192.1.[address] 3.430.2.7 Hospit a .3.530602 l .8 2022-02-17 2022-02-17 Travel 1.2.840.1 1.2.280.972 2836 712306 Methodi 00:00:00 00:00:[address] 3.430.2.7 0.2.7.3.698 Ho spita .3.753162 084.8 l .8 2022-02-17 2022-02-17 [facility] [place], 1.2.840.1 [id number] 424162 9163 Methodi 00:00:00 00:00:00 Only Mehran R. 43857.1.[address] 3.430.2.7 Hospit a .3.359751 l .8 2022-02-17 2022-02-17 Travel 1.2.840.1 1.2.327.860 4342 406032 Methodi 00:00:00 00:00:[address] 3.430.2.7 0.2.7.3.698 Ho spita .3.025123 084.8 l .8 2022-02-11 2022-02-11 Travel 1.2.840.1 1.2.920.631 5681 027641 Methodi 00:00:00 00:00:[address] 3.430.2.7 0.2.7.3.698 Ho spita .3.960107 084.8 l .8 2022-02-11 2022-02-11 Travel 1.2.840.1 1.2.177.474 4571 184093 Methodi 00:00:00 00:00:[address] 3.430.2.7 0.2.7.3.698 Ho spita .3.326905 084.8 l .8 2022-02-09 2022-02-10 [facility] 1.2.840.1 [id number] 63 Methodi 01:00:00 10:38:48 Encounter Elizabeth Armendariz. 19303.1.[address] 3.430.2.7 Hospit a .3.947386 l .8 2022-02-09 2022-02-10 [facility] 1.2.840.1 96100899963 Methodi 01:00:00 10:38:48 Encounter Elizabeth M. 78541.1.[address] 3.430.2.7 Hospit a .3.829124 l .8 2022-02-05 2022-02-05 Travel 1.2.840.1 1.2.907.155 6456 761504 Methodi 00:00:00 00:00:[address] 3.430.2.7 0.2.7.3.698 Ho spita .3.640821 084.8 l .8 2022-02-05 2022-02-05 Travel 1.2.840.1 1.2.279.592 3513 621434 Methodi 00:00:00 00:00:[address] 3.430.2.7 0.2.7.3.698 Ho spita .3.904861 084.8 l .8 2022-01-20 2022-01-20 Travel 1.2.840.1 1.2.195.013 1746 663910 Methodi 00:00:00 00:00:[address] 3.430.2.7 0.2.7.3.698 Ho spita .3.586433 084.8 l .8 2022-01-20 2022-01-20 Travel 1.2.840.1 1.2.662.021 5972 413919 Methodi 00:00:00 00:00:[address] 3.430.2.7 0.2.7.3.698 Ho spita .3.273195 084.8 l .8 2021-12-29 2021-12-29 Travel 1.2.840.1 1.2.178.245 5422 216770 Methodi 00:00:00 00:00:[address] 3.430.2.7 0.2.7.3.698 Ho spita .3.175705 084.8 l .8 2021-12-29 2021-12-29 Travel 1.2.840.1 1.2.898.533 0063 327977 Methodi 00:00:00 00:00:[address] 3.430.2.7 0.2.7.3.698 Ho spita .3.463514 084.8 l .8 2021-12-24 2021-12-24 Orders Bishop, 1.2.840.1 [id number] 2100 276783 Methodi 00:00:00 00:00:00 Only Cece Ziegler 69793.1.[address] 3.430.2.7 Hospit a .3.711979 l .8 2021-12-24 2021-12-24 Kai Alas, 1.2.840.1 [id number] 2099 563022 Methodi 00:00:00 00:00:00 Only Cece Ziegler 33726.1.[address] 3.430.2.7 Hospit a .3.747618 l .8 2021 2021 Naye Dudley 1.2.840.1 [id number] 035071 9576 Methodi 00:00:00 00:00:00 [address]ena [address]179.1.[address] 3.430.2.7 Hospit a .3.691907 l .8 2021 2021 Naye Dudley 1.2.840.1 [id number] 477128 9231 Methodi 00:00:00 00:00:00 Mehran Pena 00569.1.[address] 3.430.2.7 Hospit a .3.334654 l .8 2021-10-28 2021-10-28 Naye Dudley 1.2.840.1 [id number] 512423 7496 Methodi 00:00:00 00:00:00 [address]ena [address].1.[address] 3.430.2.7 Hospit a .3.354398 l .8 2021-10-28 2021-10-28 Emely Robin 1.2.840.1 [id number] 21 82812048 Methodi 00:00:00 00:00:[address] 3.430.2.7 Hospit a .3.143172 l .8 2021-09-03 2021-09-03 [facility] Riya 1.2.840.1 [id number] 88212 65354 Methodi 10:57:15 23:59:00 China Bond 78161.1.[address] 3.430.2.7 Hospit a .3.556277 l .8 2021-09-03 2021-09-03 Travel 1.2.840.1 1.2.343.761 0161 124416 Methodi 00:00:00 00:00:[address] 3.430.2.7 0.2.7.3.698 Ho spita .3.691742 084.8 l .8 2021-08-13 2021-08-13 Outpatient [facility] [id number] 224 [place] 00:00:00 00:00:00 MEHRAN [address] 2021-08-12 2021-08-12 Shaggy Dud[place], 1.2.840.1 [id number] 196266 3513 Methodi 13:30:00 16:33:41 Visit Mehran Pena 31554.1.[address] 3.430.2.7 Hospit a .3.860537 l .8 2021-08-12 2021-08-12 Travel 1.2.840.1 1.2.509.230 4939 974046 Methodi 00:00:00 00:00:[address] 3.430.2.7 0.2.7.3.698 Ho spita .3.305688 084.8 l .8 2021-08-04 2021-08-04 Travel 1.2.840.1 1.2.295.238 9432 072144 Methodi 00:00:00 00:00:[address] 3.430.2.7 0.2.7.3.698 Ho spita .3.970539 084.8 l .8 2021-08-04 2021-08-04 Outpatient [facility] [id number] 286 [place] 00:00:00 00:00:[address] MEHRAN [address] 2021-07-30 2021-07-30 Kai Cerna, 1.2.840.1 [id number] 254 4128220 Methodi 00:00:00 00:00:00 Only Cora 28764.1.[address] 3.430.2.7 Hospit a .3.698243 l .8 2021-07-29 2021-07-29 Travel 1.2.840.1 1.2.994.951 2948 892608 Methodi 00:00:00 00:00:[address] 3.430.2.7 0.2.7.3.698 Ho spita .3.147185 084.8 l .8 2021-07-29 2021-07-29 [facility] [id number] 547 [place] 00:00:00 00:00:00 MEHRAN [address] 2021-07-23 2021-07-23 Naye Dudley, 1.2.840.1 [id number] 651284 3523 Methodi 00:00:00 00:00:00 Mehran Pena [address]48.1.[address] 3.430.2.7 Hospit a .3.733330 l .8 2021-07-21 2021-07-21 Naye Dudley, 1.2.840.1 [id number] 907723 7766 Methodi 00:00:00 00:00:00 Mehran Pena 60162.1.[address] 3.430.2.7 Hospit a .3.002415 l .8 2021-07-01 2021-07-01 [facility], 1.2.840.1 [id number] 2099 485282 Methodi 00:00:00 00:00:00 Only Cece Ziegler 42978.1.[address] 3.430.2.7 Hospit a .3.513145 l .8 2021-06-26 2021-06-26 Travel 1.2.840.1 1.2.506.039 8152 969550 Methodi 00:00:00 00:00:[address] 3.430.2.7 0.2.7.3.698 Ho spita .3.048124 084.8 l .8 2021-06-24 2021-06-24 [facility], 1.2.840.1 [id number] 08081 Methodi 12:03:19 23:59:00 Encounter Elizabeth ArmendarizJabari 09187.1.[address] 3.430.2.7 Hospit a .3.232058 l .8 2021-06-24 2021-06-24 [facility], 1.2.840.1 [id number] 97101 63244 Methodi 08:12:30 09:40:40 Encounter Elizabeth KalaJabari 45015.1.[address] 3.430.2.7 Hospit a .3.792004 l .8 2021-06-24 2021-06-24 Travel 1.2.840.1 1.2.596.427 9057 928563 Methodi 00:00:00 00:00:[address] 3.430.2.7 0.2.7.3.698 Ho spita .3.583151 084.8 l .8 2021-06-17 2021-06-17 [facility] 1.2.840.1 [id number] 2100 000340 Methodi 00:00:00 00:00:00 Zain West 83264.1.[address] 3.430.2.7 Hospit a .3.438117 l .8 2021-06-13 2021[facility]06-[facility] Machado 1.2.840.1 [id number] 21 [id number] Methodi 00:00:00 00:00:[address] 3.430.2.7 Hospit a .3.305008 l .8 2021-06-11 2021-06-11 [facility], 1.2.840.1 [id number] 66900 95376 Methodi 01:00:00 23:59:00 Encounter Elizabeth KalaJabari 56170.1.[address] 3.430.2.7 Hospit a .3.280002 l .8 2021-06-09 2021-06-09 [facility], 1.2.840.1 [id number] 89555 78326 Methodi 10:20:00 16:45:00 Encounter Zain West 02790.1.[address] 3.430.2.7 Hospit a .3.599520 l .8 2021-06-09 2021-06-09 Surgery [facility], 1.2.840.1 [id number] 160234 3180 Methodi 13:40:00 15:55:00 Zain West [address]72.1.[address] 3.430.2.7 Hospit a .3.670005 l .8 2021-06-09 2021-06-09 Anesthesia [facility] [place] 1.2.840.1 [id number] 8 [id number] Methodi 13:57:00 15:03:00 Event Nia Mcdermott 10340.1.[address] 3.430.2.7 Hospit a .3.808258 l .8 2021-06-09 2021-06-09 Telephone Vidal, 1.2.840.1 [id number] 522 5070351 Methodi 00:00:00 00:00:[address] 3.430.2.7 Hospit a .3.095163 l .8 2021-06-09 2021-06-09 Travel 1.2.840.1 1.2.612.539 6493 577715 Methodi 00:00:00 00:00:[address] 3.430.2.7 0.2.7.3.698 spita .3.125412 084.8 l .8 2021-06-04 2021-06-04 [facility], 1.2.840.1 [id number] 89916 12286 Methodi 09:36:20 23:59:00 Encounter Zain West 56656.1.[address] 3.430.2.7 Hospit a .3.377042 l .8 2021-06-04 2021-06-04 [facility], 1.2.840.1 [id number] 086359 8308 Methodi 11:00:00 11:05:00 Zain West 53769.1.[address] 3.430.2.7 Hospit a .3.423253 l .8 2021-06-04 2021-06-04 Travel 1.2.840.1 1.2.592.900 6900 088508 Methodi 00:00:00 00:00:[address] 3.430.2.7 0.2.7.3.698 Ho spita .3.397114 084.8 l .8 2021-06-03 2021-06-03 [facility] Elizabeth Gonzales 1.2.840.1 61347 1011 [id number] Methodi 09:53:26 10:12:42 Encounter [place] 67689.1.[address] 3.430.2.7 Hospit a .3.813051 l .8 2021-06-03 2021-06-03 [facility], 1.2.840.1 [id number] 04925 57849 Methodi 01:00:00 09:52:00 Encounter Elizabeth Bond 04388.1.[address] 3.430.2.7 Hospit a .3.451863 l .8 2021-06-03 2021-06-03 Telephone [place], 1.2.840.1 [id number] 2099 366093 Methodi 00:00:00 00:00:[address] Beata 3.430.2.7 Hospit a .3.868411 l .8 2021-06-02 2021-06-02 Telephone [facility], 1.2.840.1 [id number] 2099438 Methodi 00:00:00 00:00:00 Elizabeth Bond 34933.1.[address] 3.430.2.7 Hospit a .3.696620 l .8 2021-05-23 2021-05-23 Travel 1.2.840.1 1.2.878.372 8962 754514 Methodi 00:00:00 00:00:[address] 3.430.2.7 0.2.7.3.698 Ho spita .3.665210 084.8 l .8 2021-05-20 2021-05-20 Office [place], 1.2.840.1 [id number] 384369 9551 Methodi 13:30:00 15:49:14 Visit Mehran Pena 58464.1.[address] 3.430.2.7 Hospit a .3.460094 l .8 2021-05-20 2021-05-20 Travel 1.2.840.1 1.2.984.396 6710 123646 Methodi 00:00:00 00:00:[address] 3.430.2.7 0.2.7.3.698 Ho spita .3.443018 084.8 l .8 2021-05-16 2021-05-16 Telephone Vidal, 1.2.840.1 [id number] 102 [id number] Methodi 00:00:00 00:00:[address] 3.430.2.7 Hospit a .3.219716 l .8 2021-05-15 2021-05-15 Office Adelso, 1.2.840.1 [id number] 3682 Methodi 10:15:00 11:50:54 Visit Zain West 76369.1.[address] 3.430.2.7 Hospit a .3.663297 l .8 2021-05-15 2021-05-15 Telephone Adelso, 1.2.840.6 [id number] 692 [id number] Methodi 00:00:00 00:00:00 Zain West [address].1.[address] 3.430.2.7 Hospit a .3.721952 l .8 2021-05-15 2021-05-15 Travel 1.2.840.1 1.2.576.327 6376 230512 Methodi 00:00:00 00:00:[address] 3.430.2.7 0.2.7.3.698 Ho spita .3.809205 084.8 l .8 2021-05-14 2021-05-14 Abstract Vidal, 1.2.840.1 [id number] 2099 236695 Methodi 00:00:00 00:00:[address] 3.430.2.7 Hospit a .3.424646 l .8 2021-05-02 2021-05-02 [facility], 1.2.840.1 [id number] Methodi 10:29:34 23:59:00 Encounter Elizabeth Bond 60233.1.[address] 3.430.2.7 Hospit a .3.999878 l .8 2021-05-02 2021-05-02 Travel 1.2.840.1 1.2.346.822 0951 345465 Methodi 00:00:00 00:00:[address] 3.430.2.7 0.2.7.3.698 Ho spita .3.048496 084.8 l .8 2021-04-30 2021-04-30 [facility], 1.2.840.1 [id number] 450 Methodi 10:22:18 23:59:00 China Bond 15535.1.[address] 3.430.2.7 Hospit a .3.877186 l .8 2021-04-30 2021-04-30 [facility], 1.2.840.1 [id number] 2100 471884 Methodi 00:00:00 00:00:00 Only Cece Ziegler 73821.1.[address] 3.430.2.7 Hospit a .3.420802 l .8 2021-04-30 2021-04-30 Travel 1.2.840.1 1.2.833.261 9478 319175 Methodi 00:00:00 00:00:[address] 3.430.2.7 0.2.7.3.698 Ho spita .3.270409 084.8 l .8 2021-04-24 2021-04-24 Naye Dudley, 1.2.840.1 [id number] 3227 Methodi 00:00:00 00:00:00 Mehran Pena 90623.1.[address] 3.430.2.7 Hospit a .3.626842 l .8 2021-03-24 2021-03-24 RefEmely Etienne 1.2.840.1 [id number] 21 [id number] Methodi 00:00:00 00:00:[address] 3.430.2.7 Hospit a .3.268474 l .8 2020-11-05 2020-11-05 Outpatient RIYA, [facility] [id number] [address] [place] 00:00:00 00:00:00 ELIZABETH [address] 2020-11-05 2020-11-05 Outpatient RIYA, [facility] [id number] 137 [place] 00:00:00 00:00:00 ELIZABETH [address] 2020-10-21 2020-10-21 Outpatient RIYA, [facility] [id number] 752 [place] 00:00:00 00:00:00 ELIZABETH [address] 2020-08-07 2020-08-07 Outpatient EMELY MACHADO [facility] 032 [id number] [place] 00:00:00 00:00:[address] 2020-06-25 2020-06-25 Outpatient DUDLEY, [facility] [id number] 994 [place] 00:00:00 00:00:00 MEHRAN [address] 2020-06-18 2020-06-18 Outpatient DUDLEY, [facility] [id number] 765 [place] 00:00:00 00:00:00 MEHRAN [address] 2020-06-18 2020-06-18 Outpatient DUDLEY, [facility] [id number] 528 [place] 00:00:00 00:00:00 MEHRAN [address] 2020-06-12 2020-06-12 Outpatient RIYA, [facility] [id number] 179 [place] 00:00:00 00:00:00 ELIZABETH [address] 2020-06-12 2020-06-12 Outpatient RIYA, [facility] [id number] 179 [place] 00:00:00 00:00:00 ELIZABETH [address] 2020-05-20 2020-05-20 Outpatient FARACH, [facility] [id number] 190 [place] 00:00:00 00:00:00 ELIZABETH [address] 2020-01-23 2020-01-23 Outpatient FARACH, [facility] [id number] 190 [place] 00:00:00 00:00:00 ELIZABETH [address] 2020-01-15 2020-01-15 Outpatient FARACH, [facility] [id number] 897 [place] 00:00:00 00:00:00 ELIZABETH [address] 2020-01-15 2020-01-15 Outpatient FARACH, [facility] [id number] 894 [place] 00:00:00 00:00:00 ELIZABETH [address] 2019-12-19 2019-12-19 Outpatient DUDLEY, [facility] [id number] 608 [place] 00:00:00 00:00:00 MEHRAN [address] 2019-12-12 2019-12-12 Outpatient DUDLEY, [facility] [id number] 467 [place] 00:00:00 00:00:00 MEHRAN [address] 2019-09-13 2019-09-13 Outpatient FARACH, [facility] [id number] 887 [place] 00:00:00 00:00:00 ELIZABETH [address] 2019-09-13 2019-09-13 Outpatient FARACH, [facility] [id number] 497 [place] 00:00:00 00:00:00 ELIZABETH [address] 2019-08-28 2019-08-28 Outpatient FARACH, [facility] [id number] 213 [place] 00:00:00 00:00:00 ELIZABETH [address] 2019-08-28 2019-08-28 Outpatient FARACH, [facility] [id number] 212 [place] 00:00:00 00:00:00 ELIZABETH [address] 2019-05-17 2019-05-17 Outpatient FARACH, [facility] [id number] 065 [place] 00:00:00 00:00:00 ELIZABETH [address] 2019-05-17 2019-05-17 Outpatient FARACH, [facility] [id number] 993 [place] 00:00:00 00:00:00 ELIZABETH [address] 2019-05-17 2019-05-17 Outpatient FARACH, [facility] [id number] 993 [place] 00:00:00 00:00:00 ELIZABETH [address] 2019-03-17 2019-03-17 Office Mraicruz Serrato BCM 1.2.840.114 91141 [facility] 08:40:24 08:55:24 Visit Mand[place]ano AMBULATOR 350.1.13.21 Y 0.2.7.2.686 [id number] 300 2019-03-17 2019-03-17 Office Maricruz Serrato BCM 1.2.840.[address] [place] [address] 08:40:24 08:55:24 Visit Mandujano AMBULATOR 350.1.13.21 College Y 0.2.7.2.686 of [id number] Medi eb 300 e 2019-03-08 2019-03-08 Office Maricruz Serrato 1.2.840.114 24148 699 09:12:14 10:13:48 Visit Mandujano AMBULATOR 350.1.13.21 Y 0.2.7.2.686 [id number] 300 2019-03-08 2019-03-08 Office Maricruz Serrato BCM 1.2.840.[address] [place] [address] 09:12:14 10:13:48 Visit Mandujano AMBULATOR 350.1.13.21 College Y 0.2.7.2.686 of [id number] [facility] eb 300 e Results Test Description Test Time Test Comments Results Result Comments Source POC glucose 2022-06-10 16:52:00 Test Item Value Reference Range Interpretation Comme nts POC glucose (test code = 142 mg/dL 65-99 H Ope rator Name: Rigoberto Ailin [id number]) ID: [id number] hartable: No Action Needed Lab Interpretation (test code = Abnormal 20648-3) [facility] [id number] 16:52:00 Test Item Value Reference Range Interpretation Comments POC glucose (test code 142 mg/dL 65-99 H Opera tor Name: Rigoberto = [id number]) Ailin ID : [id number] able: No Action Neede d Lab Interpretation Abnormal (test code = 67971-7) [facility] [id number] 16:52:00 Test Item Value Reference Range Interpretation Comments POC glucose (test code 142 mg/dL 65-99 H Opera tor Name: [facility] = [id number]) BlaineDevice ID : [id number] able: No Action Neede d Lab Interpretation Abnormal (test code = 53545-2) [facility]2022-[facility]-30 16:52:00 Test Item Value Reference Range Interpretation Comments POC glucose (test code 142 mg/dL 65-99 H Opera tor Name: [facility] = [id number]) BlaineDevice ID : [id number] able: No Action Neede d Lab Interpretation Abnormal (test code = 75151-9) [facility]2022-11-30 16:52:00 Test Item Value Reference Range Interpretation Comments POC glucose (test code 142 mg/dL 65-99 H Opera tor Name: [facility] = [id number]) BlaineDevice ID : [id number] able: No Action Neede d Lab Interpretation Abnormal (test code = 96890-9) [facility]2022-11-30 16:52:00 Test Item Value Reference Range Interpretation Comments POC glucose (test code 142 mg/dL 65-99 H Opera tor Name: [facility] = 31256-3) BlaineDevice ID : [id number] able: No Action Neede d Lab Interpretation Abnormal (test code = 70393-2) [address]2022-09-02 23:42:28 Test Item Value Reference Range Interpretation Comments Ventricular rate (test code = 253) Atrial rate (test code = 255) QRSD interval (test code = 260) QT interval (test code = 264) QTC interval (test code = 265) QRS axis 1 (test code = 268) T wave axis (test code = 270) EKG impression (test Atrial code = 273) fibrillation-Left axis deviation-Pulmonary disease pattern-Septal infarct , age undetermined-Abnormal ECG-In automated comparison with ECG of 06-MAR-2022 11:51,-No significant change was found- [address]2022-09-02 23:42:28 Test Item Value Reference Range Interpretation Comments Ventricular rate (test code = 253) Atrial rate (test code = 255) QRSD interval (test code = 260) QT interval (test code = 264) QTC interval (test code = 265) QRS axis 1 (test code = 268) T wave axis (test code = 270) EKG impression (test Atrial code = 273) fibrillation-Left axis deviation-Pulmonary disease pattern-Septal infarct , age undetermined-Abnormal ECG-In automated comparison with ECG of 06-MAR-2022 11:51,-No significant change was found- [address]2022-09-02 23:42:28 Test Item Value Reference Range Interpretation Comments Ventricular rate (test code = 253) Atrial rate (test code = 255) QRSD interval (test code = 260) QT interval (test code = 264) QTC interval (test code = 265) QRS axis 1 (test code = 268) T wave axis (test code = 270) EKG impression (test Atrial code = 273) fibrillation-Left axis deviation-Pulmonary disease pattern-Septal infarct , age undetermined-Abnormal ECG-In automated comparison with ECG of 06-MAR-2022 11:51,-No significant change was found- [address]2022-09-02 23:42:28 Test Item Value Reference Range Interpretation Comments Ventricular rate (test code = 253) Atrial rate (test code = 255) QRSD interval (test code = 260) QT interval (test code = 264) QTC interval (test code = 265) QRS axis 1 (test code = 268) T wave axis (test code = 270) EKG impression (test Atrial code = 273) fibrillation-Left axis deviation-Pulmonary disease pattern-Septal infarct , age undetermined-Abnormal ECG-In automated comparison with ECG of 06-MAR-2022 11:51,-No significant change was found- [address]2022-09-02 23:42:28 Test Item Value Reference Range Interpretation Comments Ventricular rate (test code = 253) Atrial rate (test code = 255) QRSD interval (test code = 260) QT interval (test code = 264) QTC interval (test code = 265) QRS axis 1 (test code = 268) T wave axis (test code = 270) EKG impression (test Atrial code = 273) fibrillation-Left axis deviation-Pulmonary disease pattern-Septal infarct , age undetermined-Abnormal ECG-In automated comparison with ECG of 06-MAR-2022 11:51,-No significant change was found- [place] [address] [id number] 23:42:28 Test Item Value Reference Range Interpretation Comments Ventricular rate (test code = 253) Atrial rate (test code = 255) QRSD interval (test code = 260) QT interval (test code = 264) QTC interval (test code = 265) QRS axis 1 (test code = 268) T wave axis (test code = 270) EKG impression (test Atrial code = 273) fibrillation-Left axis deviation-Pulmonary disease pattern-Septal infarct , age undetermined-Abnormal ECG-In automated comparison with ECG of 06-MAR-2022 11:51,-No significant change was found- [address]2022-09-02 23:42:28 Test Item Value Reference Range Interpretation Comments Ventricular rate (test 80 code = 253) Atrial rate (test code 35 = 255) QRSD interval (test 84 code = 260) QT interval (test code 398 = 264) QTC interval (test 459 code = 265) QRS axis 1 (test code -60 = 268) T wave axis (test code 52 = 270) EKG impression (test Atrial code = 273) fibrillation-Left axis deviation-Pulmonary disease pattern-Septal infarct , age undetermined-Abnormal ECG-In automated comparison with ECG of 06-MAR-2022 11:51,-No significant change was found- [facility] [id number] 19:18:00 Test Item Value Reference Range Interpretation Comments Activated clotting time See_Comment H Oper ator Name: (test code = 5298) Badescu B ianca~Device ID: [id number] [Automated mess age] The system ParaEngine h generated this result transmitted ref erence range: 96 - 152 sec. The reference r amalia was not used to interpret this result as normal/abnor mal. Lab Interpretation (test Abnormal code = 12885-2) [facility] [id number] 19:18:00 Test Item Value Reference Range Interpretation Comments Activated clotting time See_Comment H Oper ator Name: (test code = 5298) Badescu B ianca~Device ID: [id number] [Automated mess age] The system Quartics generated this result transmitted ref erence range: 96 - 152 sec. The reference r amalia was not used to interpret this result as normal/abnor mal. Lab Interpretation (test Abnormal code = 05956-0) [facility] [id number] 19:18:00 Test Item Value Reference Range Interpretation Comments Activated clotting time See_Comment H Oper ator Name: (test code = 5298) Badescu B ianca~Device ID: [id number] [Automated mess age] The system Quartics generated this result transmitted ref erence range: 96 - 152 sec. The reference r amalia was not used to interpret this result as normal/abnor mal. Lab Interpretation (test Abnormal code = 85944-0) [facility] [id number] 19:18:00 Test Item Value Reference Range Interpretation Comments Activated clotting time See_Comment H Oper ator Name: (test code = 5298) Badescu B ianca~Device ID: [id number] [Automated mess age] The system Quartics generated this result transmitted ref erence range: 96 - 152 sec. The reference r amalia was not used to interpret this result as normal/abnor mal. Lab Interpretation (test Abnormal code = 40959-6) [facility] [id number] 19:18:00 Test Item Value Reference Range Interpretation Comments Activated clotting time See_Comment H Oper ator Name: (test code = 5298) Badescu B ianca~Device ID: [id number] [Automated mess age] The system ParaEngine h generated this result transmitted ref erence range: 96 - 152 sec. The reference r amalia was not used to interpret this result as normal/abnor mal. Lab Interpretation (test Abnormal code = 59056-8) [facility] [id number] 19:18:00 Test Item Value Reference Range Interpretation Comments Activated clotting time See_Comment H Oper ator Name: (test code = 5298) Audie Manjarrez ianca~Device ID: [id number] [Automated mess age] The system Quartics generated this result transmitted ref erence range: 96 - 152 sec. The reference r amalia was not used to interpret this result as normal/abnor mal. Lab Interpretation (test Abnormal code = 39261-4) [facility] [id number] 19:18:00 Test Item Value Reference Range Interpretation Comments Activated clotting time 475 See_Comment H Oper ator Name: (test code = 5298) Audie Manjarrez ianca~Device ID: [id number] [Automated mess age] The system Quartics generated this result transmitted ref erence range: 96 - 152 sec. The reference r amalia was not used to interpret this result as normal/abnor mal. Lab Interpretation (test Abnormal code = 36696-2) [facility] [id number] 10:58:00 Test Item Value Reference Range Interpretation [...] Cystatin Cresul t, go to https://www.kid ne y.org/gaby schmidt/kdoqi/gfr%5F ca lculator [Automated message] The system which [...] . Sodium (test code = 142 mmol/L 257-833 5884-2) Potassium (test code 4.1 mmol/L 3.5-5.3 = 2823-3) Chloride (test code 104 mmol/L 98-110 = 2075-0) CO2 (test code = 32 mmol/L 20-32 8-9) Calcium (test code = 8.8 mg/dL 8.6-10.3 83465-8) Protein (test code = 6.5 g/dL 6.1-8.1 2885-2) Albumin, S (test 3.9 g/dL 3.6-5.1 code = 1751-7) Globulin, total See_Comment [Automated (test code = message] The 74696-9) system which generated this result transmitted reference range : 1.9 - 3.7 g/dL (calc). The reference range was not used to interpret this result as normal/abnormal . Albumin/globulin See_Comment [Automated ratio (test code = message] The 1759-0) system which generated this result transmitted reference range : 1.0 - 2.5 (calc ). The reference range was not used to interpr et this result as normal/abnormal . Total bilirubin 0.7 mg/dL 0.2-1.2 (test code = 1974-2) Alkaline phosphatase 124 U/L 35-144 (test code = 6768-6) AST (test code = 37 U/L 10-35 H 1920-8) ALT (test code = 41 U/L 9-46 1742-6) RAC (test code = Performing RAC) Organization Information: Site ID: RGA Name: [facility] Lab Address: [address] [place] [phone] Director: Papa Hearn Lab Interpretation Abnormal (test code = 29852-6) [facility] with [id number] 10:58:00 Test Item Value Reference Range Interpretation Comments INR (test code = Reference R amalia 6301-6) 0.9-1.1Moderate -i ntensity Warfar in Therapy 2.0-3.0Higher-i nt ensity Warfarin Therapy 3.0-4.0 Prothrombin time See_Comment For additio nal (test code = information, 5902-2) please refer tohttp://educat io n.Cynnydiagnost ecomom/faq/FAQ10 4( This link is being provided for informational/e du cational purpos es only.) [Automat ed message] The system which generated this result transmitted reference range : 9.0 - 11.5 sec. The reference range was not used to interpr et this result as normal/abnormal . RAC (test code = Performing RAC) Organization Information: Site ID: RGA [facility] Address: [address] [place] [phone] Director: Papa Hearn [facility] [id number] 10:58:00 Test Item Value Reference Range Interpretation Comments Glucose (test code = 196 mg/dL 65-99 H Fastin g 2345-7) reference interval For someone without known diabetes, a glucosevalue >1 25 mg/dL indicates that they may havediabetes an d this should be confirmed with afollow-up test . BUN (test code = 27 mg/dL 7-25 H 3094-0) Creatinine (test 1.03 mg/dL 0.70-1.28 code = 2160-0) eGFR (test code = See_Comment The eGFR i s based 8257) on the CKD-EPI 2020 equation. To calculate the n ew eGFR from a previous Creatinine or Cystatin Cresul t, go to https://www.kid ne y.org/professio na ls/kdoqi/gfr%5F ca lculator [Automated message] The [...] . Sodium (test code = 142 mmol/L 867-537 5698-2) Potassium (test code 4.1 mmol/L 3.5-5.3 = 2823-3) Chloride (test code 104 mmol/L 98-110 = 2075-0) CO2 (test code = 32 mmol/L 20-32 2027-9) Calcium (test code = 8.8 mg/dL 8.6-10.3 68794-3) Protein (test code = 6.5 g/dL 6.1-8.1 2885-2) Albumin, S (test 3.9 g/dL 3.6-5.1 code = 1751-7) Globulin, total See_Comment [Automated (test code = message] The 66741-9) system which generated this result transmitted reference [...] RAC) Organization Information: Site ID: RGA Name: [facility] Lab Address: [address] [place] [phone] Director: Papa Hearn Lab Interpretation Abnormal (test code = 72530-9) [facility] with [id number] 10:58:00 Test Item Value Reference Range Interpretation Comments INR (test code = Reference Narayan holland 6301-6) 0.9-1.1Moderate -i ntensity Warfar in Therapy 2.0-3.0Higher-i nt ensity Warfarin Therapy 3.0-4.0 Prothrombin time See_Comment For additio nal (test code = information, 5902-2) please refer tohttp://educat io n.questdiagnost Catarizm.com/faq/FAQ10 4( This link is being provided for informational/e du cational purpos es only.) [Automat ed message] The system which generated this result transmitted reference range : 9.0 - 11.5 sec. The reference range was not used to interpr et this result as normal/abnormal . RAC (test code = Performing RAC) Organization Information: Site ID: HARDY [facility] Address: [address] [place] [phone] Director: Papa Hearn [facility] [id number] 10:58:00 Test Item Value Reference Range Interpretation Comments Glucose (test code = 196 mg/dL 65-99 H Fastin g 2345-7) reference interval For someone without known diabetes, a glucosevalue >1 25 mg/dL indicates that they may havediabetes an d this should be confirmed with afollow-up test . BUN (test code = 27 mg/dL 7-25 H 3094-0) Creatinine (test 1.03 mg/dL 0.70-1.28 code = 2160-0) eGFR (test code = See_Comment The eGFR i s based 8257) on the CKD-EPI 2020 equation. To calculate the n ew eGFR from a previous Creatinine or Cystatin Cresul t, go to https://www.kid ne y.org/professio na ls/kdoqi/gfr%5F ca lculator [Automated message] The [...] . Sodium (test code = 142 mmol/L 975-363 0865-2) Potassium (test code 4.1 mmol/L 3.5-5.3 = 2823-3) Chloride (test code 104 mmol/L 98-110 = 2075-0) CO2 (test code = 32 mmol/L 20-32 2027-9) Calcium (test code = 8.8 mg/dL 8.6-10.3 81427-4) Protein (test code = 6.5 g/dL 6.1-8.1 2885-2) Albumin, S (test 3.9 g/dL 3.6-5.1 code = 1751-7) Globulin, total See_Comment [Automated (test code = message] The 47025-3) system which generated this result transmitted reference [...] ALT (test code = 41 U/L 9-46 1741-6) RAC (test code = Performing RAC) Organization Information: Site ID: RGA Name: [facility] Lab Address: [address] [place] [phone] Director: Papa Hearn Lab Interpretation Abnormal (test code = 65682-7) [facility] with [id number] 10:58:00 Test Item Value Reference Range Interpretation Comments INR (test code = Reference R amalia 6301-6) 0.9-1.1Moderate -i ntensity Warfar in Therapy 2.0-3.0Higher-i nt ensity Warfarin Therapy 3.0-4.0 Prothrombin time See_Comment For additio nal (test code = information, 5902-2) please refer tohttp://educat io n.Cynnydiagnost ecomom/faq/FAQ10 4( This link is being provided for informational/e du cational purpos es only.) [Automat ed message] The system which generated this result transmitted reference range : 9.0 - 11.5 sec. The reference range was not used to interpr et this result as normal/abnormal . RAC (test code = Performing RAC) Organization Information: Site ID: HARDY [facility] Address: [address] [place] [phone] Director: Papa Hearn [facility] [id number] 10:58:00 Test Item Value Reference Range Interpretation Comments Glucose (test code = 196 mg/dL 65-99 H Fastin g 2345-7) reference interval For someone without known diabetes, a glucosevalue >1 25 mg/dL indicates that they may havediabetes an d this should be confirmed with afollow-up test . BUN (test code = 27 mg/dL 7-25 H 3094-0) Creatinine (test 1.03 mg/dL 0.70-1.28 code = 2160-0) eGFR (test code = See_Comment The eGFR i s based 8257) on the CKD-EPI 2020 equation. To calculate the n ew eGFR from a previous Creatinine or Cystatin Cresul t, go to https://www.kid ne y.org/professio na ls/kdoqi/gfr%5F ca lculator [Automated message] The [...] . Sodium (test code = 142 mmol/L 451-626 4301-2) Potassium (test code 4.1 mmol/L 3.5-5.3 = 2823-3) Chloride (test code 104 mmol/L 98-110 = 2075-0) CO2 (test code = 32 mmol/L 20-32 2027-) Calcium (test code = 8.8 mg/dL 8.6-10.3 67781-9) Protein (test code = 6.5 g/dL 6.1-8.1 2885-2) Albumin, S (test 3.9 g/dL 3.6-5.1 code = 1751-7) Globulin, total See_Comment [Automated (test code = message] The 74780-7) system which generated this result transmitted reference range : 1.9 - 3.7 g/dL (calc). The reference range was not used to interpret this result as normal/abnormal . Albumin/globulin See_Comment [Automated ratio (test code = message] The 1759-0) system which generated this result transmitted reference range : 1.0 - 2.5 (calc ). The reference range was not used to interpr et this result as normal/abnormal . Total bilirubin 0.7 mg/dL 0.2-1.2 (test code = 1974-2) Alkaline phosphatase 124 U/L 35-144 (test code = 6768-6) AST (test code = 37 U/L 10-35 H 1920-8) ALT (test code = 41 U/L 9-46 1742-6) RAC (test code = Performing RAC) Organization Information: Site ID: [facility] Name: [facility] Lab Address: [address] [place] [phone] Director: Papa Hearn Lab Interpretation Abnormal (test code = 83696-0) [facility] with [id number] 10:58:00 Test Item Value Reference Range Interpretation Comments INR (test code = Reference R amalia 6301-6) 0.9-1.1Moderate -i ntensity Warfar in Therapy 2.0-3.0Higher-i nt ensity Warfarin Therapy 3.0-4.0 Prothrombin time See_Comment For additio nal (test code = information, 5902-2) please refer tohttp://educat io n.[employer]/faq/FAQ10 4( This link is being provided for informational/e du cational purpos es only.) [Automat ed message] The system which generated this result transmitted reference range : 9.0 - 11.5 sec. The reference range was not used to interpr et this result as normal/abnormal . RAC (test code = Performing RAC) Organization Information: Site ID: [facility] Name[facility] Address: [address] [place] [phone] Director: Papa Hearn [facility] [id number] 10:58:00 Test Item Value Reference Range Interpretation Comments Glucose (test code = 196 mg/dL 65-99 H Fastin g 2345-7) reference interval For someone without known diabetes, a glucosevalue >1 25 mg/dL indicates that they may havediabetes an d this should be confirmed with afollow-up test . BUN (test code = 27 mg/dL 7-25 H 3094-0) Creatinine (test 1.03 mg/dL 0.70-1.28 code = 2160-0) eGFR (test code = See_Comment The eGFR i s based 8257) on the CKD-EPI 2020 equation. To calculate the n ew eGFR from a previous Creatinine or Cystatin Cresul t, go to https://www.kid ne y.org/professio na brayan/kdoqi/gfr%5F ca lculator [Automated message] The system which [...] . Sodium (test code = 142 mmol/L 288-317 9198-2) Potassium (test code 4.1 mmol/L 3.5-5.3 = 2823-3) Chloride (test code 104 mmol/L 98-110 = 2075-0) CO2 (test code = 32 mmol/L 20-32 2027-9) Calcium (test code = 8.8 mg/dL 8.6-10.3 32682-8) Protein (test code = 6.5 g/dL 6.1-8.1 2885-2) Albumin, S (test 3.9 g/dL 3.6-5.1 code = 1751-7) Globulin, total See_Comment [Automated (test code = message] The 30533-6) system which generated this result transmitted reference range : 1.9 - 3.7 g/dL (calc). The reference range was not used to interpret this result as normal/abnormal . Albumin/globulin See_Comment [Automated ratio (test code = message] The 1759-0) system which generated this result transmitted reference range : 1.0 - 2.5 (calc ). The reference range was not used to interpr et this result as normal/abnormal . Total bilirubin 0.7 mg/dL 0.2-1.2 (test code = 1975-2) Alkaline phosphatase 124 U/L 35-144 (test code = 6768-6) AST (test code = 37 U/L 10-35 H 1920-8) ALT (test code = 41 U/L 9-46 1742-6) RAC (test code = Performing RAC) Organization Information: Site ID: MADANA Name[facility] Lab Address: [address] [place] [phone] Director: Papa Hearn Lab Interpretation Abnormal (test code = 74031-1) [facility] with [id number] 10:58:00 Test Item Value Reference Range Interpretation Comments INR (test code = Reference R amalia 6301-6) 0.9-1.1Moderate -i ntensity Warfar in Therapy 2.0-3.0Higher-i nt ensity Warfarin Therapy 3.0-4.0 Prothrombin time See_Comment For additio nal (test code = information, 5902-2) please refer tohttp://educat io n.[employer]/faq/FAQ10 4( This link is being provided for informational/e du cational purpos es only.) [Automat ed message] The system which generated this result transmitted reference range : 9.0 - 11.5 sec. The reference range was not used to interpr et this result as normal/abnormal . RAC (test code = Performing RAC) Organization Information: Site ID: RGA [facility] Address: [address] [place] [phone] Director: Papa Hearn [facility] [id number] 10:58:00 Test Item Value Reference Range Interpretation Comments Glucose (test code = 196 mg/dL 65-99 H Fastin g 2345-7) reference interval For someone without known diabetes, a glucosevalue >1 25 mg/dL indicates that they may havediabetes an d this should be confirmed with afollow-up test . BUN (test code = 27 mg/dL 7-25 H 3094-0) Creatinine (test 1.03 mg/dL 0.70-1.28 code = 2160-0) eGFR (test code = See_Comment The eGFR i s based 8257) on the CKD-EPI 2020 equation. To calculate the n ew eGFR from a previous Creatinine or Cystatin Cresul t, go to https://www.kid ne y.org/professio na ls/kdoqi/gfr%5F ca lculator [Automated message] The [...] . Sodium (test code = 142 mmol/L 452-777 1039-2) Potassium (test code 4.1 mmol/L 3.5-5.3 = 2823-3) Chloride (test code 104 mmol/L 98-110 = 2075-0) CO2 (test code = 32 mmol/L 20-32 2027-9) Calcium (test code = 8.8 mg/dL 8.6-10.3 33806-8) Protein (test code = 6.5 g/dL 6.1-8.1 2885-2) Albumin, S (test 3.9 g/dL 3.6-5.1 code = 1751-7) Globulin, total See_Comment [Automated (test code = message] The 49426-2) system which generated this result transmitted reference range : 1.9 - 3.7 g/dL (calc). The reference range was not used to interpret this result as normal/abnormal . Albumin/globulin See_Comment [Automated ratio (test code = message] The 277-0) system which generated this result transmitted reference range : 1.0 - 2.5 (calc ). The reference range was not used to interpr et this result as normal/abnormal . Total bilirubin 0.7 mg/dL 0.2-1.2 (test code = 1975-2) Alkaline phosphatase 124 U/L 35-144 (test code = 6768-6) AST (test code = 37 U/L 10-35 H 1920-8) ALT (test code = 41 U/L 9-46 1742-6) RAC (test code = Performing RAC) Organization Information: Site ID: [facility] Name[facility] Lab Address: [address] [place] [address] Director: Papa Hearn Lab Interpretation Abnormal (test code = 64774-9) [facility] with [id number] 10:58:00 Test Item Value Reference Range Interpretation Comments INR (test code = Reference R amalia 6301-6) 0.9-1.1Moderate -i ntensity Warfar in Therapy 2.0-3.0Higher-i nt ensity Warfarin Therapy 3.0-4.0 Prothrombin time See_Comment For additio nal (test code = information, 5902-2) please refer tohttp://educat io n.[employer]/faq/FAQ10 4( This link is being provided for informational/e du cational purpos es only.) [Automat ed message] The system which generated this result transmitted reference range : 9.0 - 11.5 sec. The reference range was not used to interpr et this result as normal/abnormal . RAC (test code = Performing RAC) Organization Information: Site ID: [facility] Address: [address] [place] [address] Director: Papa Hearn [facility] [id number] 10:58:00 Test Item Value Reference Range Interpretation Comments Glucose (test code = 196 mg/dL 65-99 H Fastin g 9310-7) reference interval For someone without known diabetes, a glucosevalue >1 25 mg/dL indicates that they may havediabetes an d this should be confirmed with afollow-up test . BUN (test code = 27 mg/dL 7-25 H 3094-0) Creatinine (test 1.03 mg/dL 0.70-1.28 code = 2160-0) eGFR (test code = 76 See_Comment The eGFR i s based 8257) on the CKD-EPI 2020 equation. To calculate the n ew eGFR from a previous Creatinine or Cystatin Cresul t, go to https://www.kid ne y.org/professio na ls/kdoqi/gfr%5F ca lculator [Automated message] The system which generated this result transmitted reference range : > OR = 60 mL/min/1.73m2. The reference range was not used to interpr et this result as normal/abnormal . BUN/creatinine ratio 26 See_Comment H [Autom ated (test code = 3097-3) message ] The system which generated this result transmitted reference range : 6 - 22 (calc). The reference range was not used to interpr et this result as normal/abnormal . Sodium (test code = 142 mmol/L 288-862 8753-2) Potassium (test code 4.1 mmol/L 3.5-5.3 = 2823-3) Chloride (test code 104 mmol/L 98-110 = 2075-0) CO2 (test code = 32 mmol/L 20-32 2027-) Calcium (test code = 8.8 mg/dL 8.6-10.3 33141-7) Protein (test code = 6.5 g/dL 6.1-8.1 2885-2) Albumin, S (test 3.9 g/dL 3.6-5.1 code = 1751-7) Globulin, total 2.6 See_Comment [Automated (test code = message] The 10108-8) system which generated this result transmitted reference range : 1.9 - 3.7 g/dL (calc). The reference range was not used to interpret this result as normal/abnormal . Albumin/globulin 1.5 See_Comment [Automated ratio (test code = message] The ) system which generated this result transmitted reference range : 1.0 - 2.5 (calc ). The reference range was not used to interpr et this result as normal/abnormal . Total bilirubin 0.7 mg/dL 0.2-1.2 (test code = 1974-2) Alkaline phosphatase 124 U/L 35-144 (test code = 6768-6) AST (test code = 37 U/L 10-35 H 1920-8) ALT (test code = 41 U/L 9-46 1742-6) RAC (test code = Performing RAC) Organization Information: Site ID: A [facility]: [facility] Address: [address] [place] [address] Director: Papa Hearn Lab Interpretation Abnormal (test code = 23427-1) [facility] with [id number] 10:58:00 Test Item Value Reference Range Interpretation Comments INR (test code = 1.1 Reference R amalia 6301-6) 0.9-1.1Moderate -i ntensity Warfar in Therapy 2.0-3.0Higher-i nt ensity Warfarin Therapy 3.0-4.0 Prothrombin time 11.5 See_Comment For additio nal (test code = information, 5902-2) please refer tohttp://educat io n.Cynnydiagnost ecomom/faq/FAQ10 4( This link is being provided for informational/e du cational purpos es only.) [Automat ed message] The system which generated this result transmitted reference range : 9.0 - 11.5 sec. The reference range was not used to interpr et this result as normal/abnormal . RAC (test code = Performing RAC) Organization Information: Site ID: [facility] Name: [facility] Address: [address] [place] [address] Director: Papa Hearn [facility] grpcujcmuu1161-90-35 16:28:00 Test Item Value Reference Range Interpretation Comments POC creatinine (test 1.0 mg/dl 0.7-1.2 Operato r Name: Collazo code = 19789-8) Annie ce ID: [id number] [facility] eessxhuvdz8875-32-35 16:28:00 Test Item Value Reference Range Interpretation Comments POC creatinine (test 1.0 mg/dl 0.7-1.2 Operato r Name: Collazo code = 09933-3) Annie ce ID: [id number] [facility] eqycezzjcs6877-42-65 16:28:00 Test Item Value Reference Range Interpretation Comments POC creatinine (test 1.0 mg/dl 0.7-1.2 Operato r Name: Collazo code = 29471-4) Annie ce ID: [id number] [facility] ueqkdnwuop3510-83-86 16:28:00 Test Item Value Reference Range Interpretation Comments POC creatinine (test 1.0 mg/dl 0.7-1.2 Operato r Name: Collazo code = 00309-1) Annie ce ID: [id number] [facility]2022-08-15 16:28:00 Test Item Value Reference Range Interpretation Comments POC creatinine (test 1.0 mg/dl 0.7-1.2 Operato r Name: Collazo code = 37053-1) Annie ce ID: [id number] [facility] rmvbbsugmz6508-24-12 16:28:00 Test Item Value Reference Range Interpretation Comments POC creatinine (test 1.0 mg/dl 0.7-1.2 Operato r Name: Collazo code = 72870-7) Annie ce ID: [id number] [facility] ioaagmyjla4783-90-69 16:28:00 Test Item Value Reference Range Interpretation Comments POC creatinine (test 1.0 mg/dl 0.7-1.2 Operato r Name: Collazo code = 12440-2) Annie ce ID: [id number] [facility] [id number] 11:03:00 Test Item Value Reference Range Interpretation [...] calculated (test <100 Desira ble code = 26369-1) range <100 m g/dL for primary prevention; <70 mg/dL for patients with C HD or diabetic patients with > or = 2 CHD risk factors. LDL-C is now calculated using the Perez calculation, which is a validated novel method providin g better accuracy than the Friedewald equation in the estimation of LDL-C. Rao S S et al. GREGORY. 2013;310(19): 8827-8915 (http://educati on .Socialware .com/faq/OPR336 ) Cholesterol/HDL See_Comment [Automated ratio (test code = message] The 9830-1) system which generated this result transmitted reference range : <5.0 (calc). Th e reference range was not used to interpret this result as normal/abnormal . Non-HDL cholesterol See_Comment For conchis ents with (test code = diabetes plus 1 14031-1) major ASCVD ris k factor, treatin g [...] = Performing RAC) Organization Information: Site ID: [facility] Name: [facility] Lab Address: [address] [place] [address] Director: Papa Hearn Lab Interpretation Abnormal (test code = 45348-6) [facility] HospitalThy[facility] stimulating [id number] 11:03:00 Test Item Value Reference Range Interpretation [...] code = RAC) Organization Information: Site ID: [facility] Name: [facility] Address: [address] [place], [place] [id number] Director: [facility]AST [facility]2022-02-18 11:03:00 Test Item Value Reference Range Interpretation Comments AST (test code = 27 U/L 1919-8) LOREN (test code = FASTING:NO FASTING: NO LOREN) RAC (test code = Performing Organization RAC) Information: Site ID: RGA Name: [facility] Lab Address: [address] [place] [address] Director: Gary Candice [facility]Lipid bblry7552-78-79 11:03:00 Test Item Value Reference Range Interpretation [...] calculated (test <100 Desira ble code = 20216-6) range <100 m g/dL for primary prevention; <70 mg/dL for patients with C HD or diabetic patients with > or = 2 CHD risk factors. LDL-C is now calculated using the Rao-Tg calculation, which is a validated novel method providin g better accuracy than the Friedewald equation in the estimation of LDL-C. Rao S S et al. GREGORY. 2013;310(19): 5209-2865 (http://educati on .QuestDiagnosti QuVIS .com/faq/BAH143 ) Cholesterol/HDL See_Comment [Automated ratio (test code = message] The 9830-1) system which generated this result transmitted reference range : <5.0 (calc). Th e reference range was not used to interpret this result as normal/abnormal . Non-HDL cholesterol See_Comment For conchis ents with (test code = diabetes plus 1 56331-2) major ASCVD ris k factor, treatin g [...] = Performing RAC) Organization Information: Site ID: [facility] Name: [facility] Lab Address: [address] [place] [address] Director: Papa Hearn Lab Interpretation Abnormal (test code = 34963-3) [facility] HospitalThy[facility] stimulating ourfkgl8803-40-14 11:03:00 Test Item Value Reference Range Interpretation Comments TSH (test See_Comment [Automated mes clarence] code = The system [facility] h 3016-3) generated this result transmit rachel reference range : 0.40 - 4.50 mIU /L. The reference r amalia was not used to interpret this result as normal/abnormal . LOREN (test FASTING:NO FASTING: code = LOREN) NO RAC (test Performing code = RAC) Organization Information: Site ID: [facility] Name[facility] Address: [address] [place] [address] Director: Papa Hearn [facility]2022-02-18 11:03:00 Test Item Value Reference Range Interpretation Comments AST (test code = 27 U/L 1920-02) LOREN (test code = FASTING:NO FASTING: NO LOREN) RAC (test code = Performing Organization RAC) Information: Site ID: [facility] Name: [facility] Address: [address] [place] [address] Director: Papa Hearn [facility] Hospital[facility] [id number] 11:03:00 Test Item Value Reference Range Interpretation [...] calculated (test <100 Desira ble code = 43773-6) range <100 m g/dL for primary prevention; <70 mg/dL for patients with C HD or diabetic patients with > or = 2 CHD risk factors. LDL-C is now calculated using the Perez calculation, which is a validated novel method providin g better accuracy than the Friedewald equation in the estimation of LDL-C. Rao S S et al. GREGORY. 2013;310(19): 9230-8424 (http://educati on .EvedDiagnosti QuVIS .com/faq/PYB362 ) Cholesterol/HDL See_Comment [Automated ratio (test code = message] The 9830-1) system which generated this result transmitted reference range : <5.0 (calc). Th e reference range was not used to interpret this result as normal/abnormal . Non-HDL cholesterol See_Comment For conchis ents with (test code = diabetes plus 1 84236-0) major ASCVD ris k factor, treatin g [...] RAC) Organization Information: Site ID: RGA [facility]: [facility] Address: [address] [place] [address] Director: Papa Hearn Lab Interpretation Abnormal (test code = 05073-6) [facility] edybovy9561-31-22 11:03:00 Test Item Value Reference Range Interpretation [...] code = RAC) Organization Information: Site ID: RGA [facility] Address: [address] [place] [address] Director: [facility]2022-02-18 11:03:00 Test Item Value Reference Range Interpretation Comments AST (test code = 27 U/L 1920-02) LOREN (test code = FASTING:NO FASTING: NO LOREN) RAC (test code = Performing Organization RAC) Information: Site ID: RGA [facility] Address: [address] [place] [address] Director: [facility] CenterLipid xeiop2858-66-02 11:03:00 Test Item Value Reference Range Interpretation [...] calculated (test <100 Desira ble code = 63553-3) range <100 m g/dL for primary prevention; <70 mg/dL for patients with C HD or diabetic patients with > or = 2 CHD risk factors. LDL-C is now calculated using the Rao-Mas calculation, which is a validated novel method providin g better accuracy than the Friedewald equation in the estimation of LDL-C. Rao S S et al. GREGORY. 2013;310(19): 6285-2494 (http://educati on .EvedDiagnosti QuVIS .com/faq/LCC518 ) Cholesterol/HDL See_Comment [Automated ratio (test code = message] The 9830-1) system which generated this result transmitted reference range : <5.0 (calc). Th e reference range was not used to interpret this result as normal/abnormal . Non-HDL cholesterol See_Comment For conchis ents with (test code = diabetes plus 1 93598-8) major ASCVD ris k factor, treatin g [...] = Performing RAC) Organization Information: Site ID: [facility] Name: [facility] Address: [address] [place] [address] Director: Papa Hearn Lab Interpretation Abnormal (test code = 88273-6) [facility] HospitalThy[facility] stimulating [id number] 11:03:00 Test Item Value Reference Range Interpretation [...] code = RAC) Organization Information: Site ID: [facility] Name: [facility] Address: [address] [place] [address] Director: Papa Hearn [facility]2022-02-18 11:03:00 Test Item Value Reference Range Interpretation Comments AST (test code = 27 U/L 1920-02) LOREN (test code = FASTING:NO FASTING: NO LOREN) RAC (test code = Performing Organization RAC) Information: Site ID: RGA [facility] Address: [address] [place] [phone] Director: Papa Scott [facility] CenterLipid [id number] 11:03:00 Test Item Value Reference Range Interpretation [...] calculated (test <100 Desira ble code = 98044-9) range <100 m g/dL for primary prevention; <70 mg/dL for patients with C HD or diabetic patients with > or = 2 CHD risk factors. LDL-C is now calculated using the Rao-Tg calculation, which is a validated novel method providin g better accuracy than the Friedewald equation in the estimation of LDL-C. Rao S S et al. GREGORY. 2013;310(19): 3296-2761 (http://educati on .QuestDiagnosti QuVIS .com/faq/LOD921 ) Cholesterol/HDL See_Comment [Automated ratio (test code = message] The 9830-1) system which generated this result transmitted reference range : <5.0 (calc). Th e reference range was not used to interpret this result as normal/abnormal . Non-HDL cholesterol See_Comment For conchis ents with (test code = diabetes plus 1 30590-9) major ASCVD ris k factor, treatin g [...] = Performing RAC) Organization Information: Site ID: [facility] Name: [facility] Address: [address] [place] [address] Director: Papa Hearn Lab Interpretation Abnormal (test code = 76950-5) [facility] HospitalTh[facility] stimulating sazrvnu3837-07-22 11:03:00 Test Item Value Reference Range Interpretation [...] code = RAC) Organization Information: Site ID: [facility] Name: [facility] Address: [address] [place] [address] Director: Papa Hearn [facility]2022-[facility]-18 11:03:00 Test Item Value Reference Range Interpretation Comments AST (test code = 27 U/L 1920-02) LOREN (test code = FASTING:NO FASTING: NO LOREN) RAC (test code = Performing Organization RAC) Information: Site ID: [facility] Name: [facility] Address: [address] [place] [address] Director: [facility]Val[facility] CenterLipid [id number] 11:03:00 Test Item Value Reference Range Interpretation Comments Cholesterol, total 125 mg/dL See_Comment [Automat ed (test code = 2092-) message ] The system which generated this result transmitted reference range : <=200. The reference range was not used to interpret this result as normal/abnormal . HDL cholesterol 34 mg/dL See_Comment L [Automated (test code = 2084-9) message ] The system which generated this [...] calculated (test <100 Desira ble code = 73259-9) range <100 m g/dL for primary prevention; <70 mg/dL for patients with C HD or diabetic patients with > or = 2 CHD risk factors. LDL-C is now calculated using the Perez calculation, which is a validated novel method providin g better accuracy than the Friedewald equation in the estimation of LDL-C. Rao S S et al. GREGORY. 2013;310(19): 4867-7307 (http://educati on .EvedDiagnosti QuVIS .com/faq/WSW830 ) Cholesterol/HDL See_Comment [Automated ratio (test code = message] The 9830-1) system which generated this result transmitted reference range : <5.0 (calc). Th e reference range was not used to interpret this result as normal/abnormal . Non-HDL cholesterol See_Comment For conchis ents with (test code = diabetes plus 1 18831-6) major ASCVD ris k factor, treatin g [...] RAC) Organization Information: Site ID: RGA Name: [facility] Address: [address] [place] [address] Director: Papa Hearn Lab Interpretation Abnormal (test code = 05124-1) [facility] HospitalTh[facility] stimulating szzpjra2457-22-38 11:03:00 Test Item Value Reference Range Interpretation [...] code = RAC) Organization Information: Site ID: [facility] Address: [address] [place] [address] Director: [facility]2022-[facility]-18 11:03:00 Test Item Value Reference Range Interpretation Comments AST (test code = 27 U/L 1920-02) LOREN (test code = FASTING:NO FASTING: NO LOREN) RAC (test code = Performing Organization RAC) Information: Site ID: [facility] Name: [facility] Address: [address] [place] [address] Director: [facility] CenterLipid [id number] 11:03:00 Test Item Value Reference Range Interpretation Comments Cholesterol, total 125 mg/dL <=200 (test code = 2093-3) HDL cholesterol 34 mg/dL See_Comment L [Automated (test code = 2084-9) message ] The system which generated this result transmitted reference range : > OR = 40. The reference range was not used to interpret this result as normal/abnormal . Triglycerides (test 126 mg/dL <=150 code = 2571-8) LDL cholesterol 70 mg/dL (calc) Reference ra nge: calculated (test <100 Desira ble code = 67093-3) range <100 m g/dL for primary prevention; <70 mg/dL for patients with C HD or diabetic patients with > or = 2 CHD risk factors. LDL-C is now calculated using the Rao-Tg calculation, which is a validated novel method providin g better accuracy than the Friedewald equation in the estimation of LDL-C. Rao S S et al. GREGORY. 2013;310(19): 6052-3245 (http://educati on .EvedDiagnosti QuVIS .com/faq/URY754 ) Cholesterol/HDL 3.7 See_Comment [Automated ratio (test code = message] The 9830-1) system which generated this result transmitted reference range : <5.0 (calc). Th e reference range was not used to interpret this result as normal/abnormal . Non-HDL cholesterol 91 See_Comment For conchis ents with (test code = diabetes plus 1 80404-9) major ASCVD ris k factor, treatin g [...] = Performing RAC) Organization Information: Site ID: [facility] Address: [address] [place] [address] Director: Papa Hearn Lab Interpretation Abnormal (test code = 65707-4) [facility]Th[facility] stimulating tvbwsqn0692-00-93 11:03:00 Test Item Value Reference Range Interpretation Comments TSH (test 2.81 See_Comment [Automated mes clarence] code = The system ic h 3016-3) generated this result transmit rachel reference range : 0.40 - 4.50 mIU /L. The reference r amalia was not used to interpret this result as normal/abnormal . LOREN (test FASTING:NO FASTING: code = LOREN) NO RAC (test Performing code = RAC) Organization Information: Site ID: [facility] Address: [address] [place] [address] Director: Papa Hearn [facility]2022-02-18 11:03:00 Test Item Value Reference Range Interpretation Comments AST (test code = 27 U/L 1920-02) LOREN (test code = FASTING:NO FASTING: NO LOREN) RAC (test code = Performing Organization RAC) Information: Site ID: [facility] Address: [address] [place] [address] Director: Papa Hearn [facility] HospitalAFB qsjwysq3056-28-68 06:13:29 Test Item Value Reference Range Interpretation Comments AFB culture No growth Specimen isolate (test after 6 weeks InformationSp ecimen code = 543-9) of Source: Bronch ial alveolar incubation. lavageSpecimen Site: Lung: RIGHT UPPER LOB E BRONCHOALVEOLAR LAVAGE - Please add: Belen erobic and Aerobic Culture [facility] gyjbbtf7111-26-98 06:15:29 Test Item Value Reference Range Interpretation Comments Fungus culture No growth Specimen isolate (test after 4 weeks InformationSp ecimen code = 1441) of Source: Bronchi al alveolar incubation. lavageSpecimen Site: Lung: RIGHT UPPER LOB E BRONCHOALVEOLAR LAVAGE - Please add: Belen erobic and Aerobic Culture [facility] HospitalRespiratory rehpibv2369-06-19 16:28:06 Test Item Value Reference Range Interpretation Comments Respiratory No growth Specimen culture isolate after 2 InformationS pecimen (test code = days. Source: Bronchi al 71891-6) alveolar lavage Specimen Site: Lung: RIG HT UPPER LOBE BRONCHOALV EOLAR LAVAGE - Please add: Anaerobic and A erobic Culture [facility] HospitalS[facility] pathology zejigjz5106-02-65 00:07:40 Test Item Value Reference Range Interpretation Comments Case number (test code = [id number]) Surgical pathology See link below for report (test code = PDF Lab Report 2735) Result status (test code This is Final Report = [id number]) for [id number] [facility] HospitalFungus cdrsu3498-28-62 21:00:30 Test Item Value Reference Range Interpretation Comments Fungus smear No fungi Specimen (test code = observed. InformationSpec imen Source: 1443) Bronchial alveo lar lavageSpecimen Site: Lung: RIGHT UPPER LOB E BRONCHOALVEOLAR LAVAGE - Please add: Belen erobic and Aerobic Culture [facility] HospitalCytology (non-gynecological) qafhtks0180-86-26 20:58:41 Test Item Value Reference Range Interpretation Comments Case number (test code = [id number]) Cytology See link below for (non-gynecological) PDF Lab Report report (test code = 1178) Result status (test code This is Final Report = [id number]) for [id number] [facility] HospitalAFB snyye3583-56-24 12:06:44 Test Item Value Reference Range Interpretation Comments AFB stain No acid fast Specimen (test code = bacilli (AFB) InformationSpe cimen 676-7) seen. Source: Bronchi al alveolar lavageSpecimen Site: Lung: RIGHT UPPER LOB E BRONCHOALVEOLAR LAVAGE - Please add: Belen erobic and Aerobic Culture [facility] HospitalGram [id number] 17:31:26 Test Item Value Reference Range Interpretation Comments Gram stain No WBC's or Specimen isolate (test organisms seen. Information Specimen code = 1469) Source: Bronchi al alveolar lavage Specimen Site: Lung: RIG HT UPPER LOBE BRONCHOALV EOLAR LAVAGE - Please add: Anaerobic and A erobic Culture [facility]AB[facility] and Rh khxidzvleowl9568-86-51 18:40:00 Test Item Value Reference Range Interpretation Comments ABO grouping (test code = 883-9) O Rh type (test code = 85073-3) NEG [facility] HospitalCOVID-19 qualitative [id number] 19:19:41 Test Item Value Reference Range Interpretation Comments Interpretation (test Negative results do code = 9375113) not preclude 2019-nCoV infection and should not be used as the sole basis for treatment or other patient management decisions. Negative results must be combined with clinical observations, patient history, and epidemiological information. COVID-19 qualitative Not-Detected Not-Detected RT-PCR result (test code = 75996-0) COVID-19 qualitative See link below for C ase Number: RT-PCR (test code = PDF Lab Report [id number]) [facility] HospitalType and [id number] 17:30:00 Test Item Value Reference Range Interpretation Comments ABO grouping (test code = 883-9) O Rh type (test code = 65388-9) NEG Antibody screen (gel) (test code = NEG 890-4) [facility] [Presence] in Respiratory specimen by RUDI with probe lxdxpcshf6948-09-58 13:19:30 Test Item Value Reference Range Interpretation Comments SARS-CoV-2 (COVID-19) RNA Not detected Not-Detected [Presence] in Respiratory specimen by RUDI with probe detection (test code = 74949-0) Whether patient is employed in a healthcare setting (test code = 25019-8) Whether the patient has symptoms related to condition of interest (test code = 18701-6) Patient was hospitalized because of this condition (test code = 14660-8) Whether the patient was admitted to intensive care unit (ICU) for condition of interest (test code = 75028-0) Whether patient resides in a congregate care setting (test code = 96287-6) [facility]2021-10-22 15:52:47 Test Item Value Reference Range Interpretation Comments POC glucose (test code = 115 mg/dL 65-99 H Ope rator Name: Anupam [id number]) Roya ID: [id number] able: No Action Neede d Lab Interpretation (test Abnormal code = 69077-2) [facility]
--- NOTE | 2022-11-03 13:09 | RAD REPORT ---
EXAM DESCRIPTION: RAD - Chest Single View - 11/03/2022 1:01 pm CLINICAL HISTORY: Cough;SOB Chest pain. COMPARISON: <Comparisons> FINDINGS: Portable technique limits examination quality. Emphysematous lung contreras are seen. There is hazy opacity in the left base in the medial right lung b ase suspicious for developing infiltrate/pneumonia. The heart is upper limit normal in size. No displ aced fractures.
[2022-11-03 14:30] LABS: Hematocrit 42.7 % (39.6-49.0); Lymphocytes % 10.3 % (15.3-44.8); MCV 96.6 fL (80-100); MPV 8.9 fL (7.6-11.3); RBC Red Blood Cell Count 4.42 M/uL (4.33-5.43)
[2022-11-03 14:45] LABS: Potassium 4.3 mEq/L (3.5-5.1); Troponin High Sensitivity 10.9 pg/mL (<58.9)
--- NOTE | 2022-11-03 15:29 | EDPHYS ---
Physician Documentation [facility] Name: Arturo Forrest Age: 76 yrs Sex: Male : 1945 Arrival Date: 11/03/2022 Time: 11:50 Bed IW2 Private MD: Neno Azar T ED Physician Yfn Heath HPI: 11/03 12:20 This 76 yrs old Male presents to ER via Ambulatory with complaints of Cough, Breathing ms3 Difficulty. 18:50 76-year-old male with past medical history of atrial fibrillation, hyperlipidemia ms3 presents for cough, shortness of breath, low oxygen saturation at home x1 week. Patient states he has chest pain with coughing. Patient denies pain currently. Patient endorses chills.. Historical: - Allergies: 12:14 No Known Allergies; ap3 - Home Meds: 12:14 metoprolol tartrate 50 mg oral tablet [Active]; Eliquis 5 mg Oral tab 1 tab 2 times per ap3 day [Active]; atorvastatin 80 mg oral tablet [Active]; dorzolamide ophthalmic (eye) [Active]; Trelegy Ellipta inhalation [Active]; furosemide 40 mg Oral tablet every morning [Active]; Klor-Con 10 10 mEq Oral tablet, extended release daily [Active]; diazepam 5 mg Oral tablet as needed [Active]; - PMHx: 12:14 Atrial Fib; Cancer; Hyperlipidemia; Hypertension; ap3 - Immunization history:: Client reports receiving the 2nd dose of the Covid vaccine, Pneumococcal vaccine is up to date. - Social history:: Smoking status: Patient denies any tobacco usage or history of. ROS: 18:50 Constitutional: Negative for fever, and chills. Neck: Negative for injury, pain, and ms3 swelling. 18:50 Abdomen/GI: Negative for abdominal pain, nausea, vomiting, diarrhea, and constipation, MS/Extremity: Negative for injury and deformity, Skin: Negative for injury, rash, and discoloration. 18:50 Cardiovascular: Positive for Pain with cough. 18:50 Respiratory: Positive for cough. 18:50 All other systems are negative. Exam: 18:09 ECG was reviewed by the Attending Physician. ms3 18:50 Constitutional: This is a well developed, well nourished patient who is awake, alert, ms3 and in no acute distress. Head/Face: Normocephalic, atraumatic. Neck: Trachea midline, no cervical lymphadenopathy. Supple, full range of motion without nuchal rigidity, or vertebral point tenderness. No Meningismus. Chest/axilla: Normal chest wall appearance and motion. Nontender with no deformity. Respiratory: Lungs have equal breath sounds bilaterally, clear to auscultation and percussion. No rales, rhonchi or wheezes noted. No increased work of breathing, no retractions or nasal flaring. Abdomen/GI: Soft, non-tender, with normal bowel sounds. No distension or tympany. No guarding or rebound. No evidence of tenderness throughout. Skin: Warm, dry with normal turgor. Normal color with no rashes, no lesions, and no evidence of cellulitis. MS/ Extremity: Pulses equal, no cyanosis. Neurovascular intact. Full, normal range of motion. 18:50 Cardiovascular: Rate: normal, Rhythm: irregularly irregular, Pulses: no pulse deficits are appreciated. Vital Signs: 12:13 BP 142 / 100; Pulse 99; Resp 19; Temp 98.9; Pulse Ox 95% on R/A; Weight 93.44 kg; ap3 15:59 BP 169 / 95; Pulse 89; Resp 16; Pulse Ox 100% ; mb9 MDM: 12:20 Patient medically screened. ms3 18:50 Differential Diagnosis: Bronchitis Influenza Upper Respiratory Infection Viral Syndrome ms3 Pneumonia. Data reviewed: vital signs, nurses notes, lab test result(s), EKG, radiologic studies, and as a result, I will discharge patient. I considered the following discharge prescriptions or medication management in the emergency department Medications were administered in the Emergency Department. See MAR. Independent interpretation of the following test(s) in the Emergency Department EKG: See my EKG interpretation above. Historians other than the Patient: Spouse/Significant Other: Patient's . Counseling: I had a detailed discussion with the patient and/or guardian regarding: the historical points, exam findings, and any diagnostic results supporting the discharge/admit diagnosis, lab results, radiology results, the need for outpatient follow up, to return to the emergency department if symptoms worsen or persist or if there are any questions or concerns that arise at home. ED course: Discussed labs, chest x-ray, EKG with patient and his . Patient to follow-up with his primary care physician in 2 to 3 days. Patient understands and agrees with plan. All questions were answered. Return precautions discussed include worsening symptoms, or any other concern. 11/03 12:08 Order name: Basic Metabolic Panel; Complete Time: 14:49 ms3 11/03 12:08 Order name: CBC with Diff; Complete Time: 14:49 ms3 11/03 12:08 Order name: NT PRO-BNP; Complete Time: 14:49 ms3 11/03 12:08 Order name: Troponin HS; Complete Time: 14:49 ms3 11/03 12:08 Order name: XRAY Chest (1 view); Complete Time: 13:14 ms3 11/03 12:08 Order name: EKG; Complete Time: 12:09 ms3 11/03 12:08 Order name: Cardiac monitoring; Complete Time: 15:50 ms3 11/03 12:08 Order name: EKG - Nurse/Tech; Complete Time: 14:15 ms3 11/03 12:08 Order name: IV Saline Lock; Complete Time: 14:15 ms3 11/03 12:08 Order name: Labs collected and sent; Complete Time: 14:15 ms3 11/03 12:08 Order name: O2 Per Protocol; Complete Time: 15:50 ms3 11/03 12:08 Order name: O2 Sat Monitoring; Complete Time: 15:50 ms3 EC:09 Rate is 88 beats/min. Rhythm is irregularly irregular. QRS [place] is Normal. QRS interval ms3 is normal. Clinical impression: Atrial Fibrillation. Interpreted by me. Reviewed by me. Administered Medications: 15:45 Drug: Doxycycline PO 100 mg Route: PO; mb9 Disposition Summary: 11/03/22 15:28 Discharge Ordered Location: Home ms3 Condition: Stable ms3 Diagnosis - Other pneumonia, unspecified organism ms3 - Elevated BNP ms3 - Essential (primary) hypertension ms3 Followup: ms3 - With: Neno Azar MD - When: 1 - 2 days - Reason: Recheck today's complaints Discharge Instructions: - Discharge Summary Sheet ms3 - Community-Acquired Pneumonia, Adult ms3 Forms: - Medication Reconciliation Form ms3 - Thank You Letter ms3 - Antibiotic Education ms3 - Prescription Opioid Use ms3 Prescriptions: - Doxycycline Hyclate 100 mg Oral Tablet - take 1 tablet by ORAL route every 12 hours; 20 tablet; Refills: 0, Product ms3 Selection Permitted Signatures: Dispatcher [employer] Flores Galarza RN RN ap3 Yfn Heath DO DO ms3 Denisse Lema, RN RN mb9
--- NOTE | 2022-11-03 15:29 | ER ---
Nurse's Notes [facility] Name: Arturo Forrest Age: 76 yrs Sex: Male : 1945 Arrival Date: 11/03/2022 Time: 11:50 Bed IW2 Private MD: Neno Azar T Diagnosis: Other pneumonia, unspecified organism;Elevated BNP;Essential (primary) hypertension Presentation: 11/03 12:13 Chief complaint: Patient states: he has had a cough for a week, and increased shortness ap3 of breath during this time period. patient states he doesn't monitor his oxygen at home, but when he called his PCP this morning they had him check it and it was 87% on room air. Patient's SpO2 in triage is 95% on room air at this time. Coronavirus screen: At this time, the client does not indicate any symptoms associated with coronavirus-19. Ebola Screen: No symptoms or risks identified at this time. Initial Sepsis Screen: Does the patient meet any 2 criteria? No. Patient's initial sepsis screen is negative. Does the patient have a suspected source of infection? No. Patient's initial sepsis screen is negative. Risk Assessment: Do you want to hurt yourself or someone else? Patient reports no desire to harm self or others. Onset of symptoms was October 27, 2022. 12:13 Method Of Arrival: Ambulatory ap3 12:13 Acuity: ESE 3 ap3 Triage Assessment: 12:18 General: Appears in no apparent distress. Behavior is calm, cooperative, appropriate ap3 for age. Pain: Denies pain. Neuro: Level of Consciousness is awake, alert, obeys commands, Oriented to person, place, time, situation. Cardiovascular: Patient's skin is warm and dry. Respiratory: Reports shortness of breath on exertion Airway is patent Respiratory effort is even, unlabored, Respiratory pattern is regular, symmetrical, Onset: The symptoms/episode began/occurred over the last week, the patient has mild shortness of breath. Historical: - Allergies: 12:14 No Known Allergies; ap3 - Home Meds: 12:14 metoprolol tartrate 50 mg oral tablet [Active]; Eliquis 5 mg Oral tab 1 tab 2 times per ap3 day [Active]; atorvastatin 80 mg oral tablet [Active]; dorzolamide ophthalmic (eye) [Active]; Trelegy Ellipta inhalation [Active]; furosemide 40 mg Oral tablet every morning [Active]; Klor-Con 10 10 mEq Oral tablet, extended release daily [Active]; diazepam 5 mg Oral tablet as needed [Active]; - PMHx: 12:14 Atrial Fib; Cancer; Hyperlipidemia; Hypertension; ap3 - Immunization history:: Client reports receiving the 2nd dose of the Covid vaccine, Pneumococcal vaccine is up to date. - Social history:: Smoking status: Patient denies any tobacco usage or history of. Screenin:19 Abuse screen: Denies threats or abuse. Nutritional screening: No deficits noted. ap3 Tuberculosis screening: No symptoms or risk factors identified. Assessment: 13:30 General: Appears comfortable, Behavior is calm, cooperative. Pain: Denies pain. Neuro: mb9 Level of Consciousness is awake, alert, obeys commands, Oriented to person, place, time, situation, Appropriate for age. Cardiovascular: Patient's skin is warm and dry. Rhythm is regular. Respiratory: Reports cough that is non-productive, Airway is patent Respiratory effort is even, unlabored, Respiratory pattern is regular, symmetrical, Breath sounds are clear bilaterally. Derm: Skin is pink, warm \T\ dry. Musculoskeletal: Range of motion: intact in all extremities. 16:01 Reassessment: No changes from previously documented assessment. Patient and/or family mb9 updated on plan of care and expected duration. Pain level reassessed. Patient is alert, oriented x 3, equal unlabored respirations, skin warm/dry/pink. Vital Signs: 12:13 BP 142 / 100; Pulse 99; Resp 19; Temp 98.9; Pulse Ox 95% on R/A; Weight 93.44 kg; ap3 15:59 BP 169 / 95; Pulse 89; Resp 16; Pulse Ox 100% ; mb9 ED Course: 11:51 Patient arrived in ED. rg4 11:51 Neno Azar MD is Private Physician. rg4 11:54 Yfn Heath DO is Attending Physician. ms3 12:14 Triage completed. ap3 12:19 Arm band placed on right wrist. ap3 13:02 XRAY Chest (1 view) In Process Unspecified. EDMS 14:15 Inserted saline lock: 22 gauge in left hand, using aseptic technique. mb9 14:15 EKG done, by ED staff, reviewed by Yfn Heath DO. mb9 14:15 Basic Metabolic Panel Sent. mb9 14:15 CBC with Diff Sent. mb9 14:15 NT PRO-BNP Sent. mb9 14:15 Troponin HS Sent. mb9 15:28 Neno Azar MD is Referral Physician. ms3 16:02 No provider procedures requiring assistance completed. IV discontinued. IV mb9 discontinued, intact, bleeding controlled, No redness/swelling at site. Pressure dressing applied. Administered Medications: 15:45 Drug: Doxycycline PO 100 mg Route: PO; mb9 Medication: 16:01 VIS not applicable for this client. mb9 Outcome: 15:28 Discharge ordered by . ms3 16:01 Discharged to home ambulatory. mb9 16:01 Condition: stable 16:01 Discharge instructions given to patient, Instructed on discharge instructions, follow up and referral plans. Demonstrated understanding of instructions, follow-up care, medications, Prescriptions given X 1. 16:02 Patient left the ED. mb9 Signatures: Dispatcher [employer] EDMS Marcia Easley rg4 Flores Lopez RN RN ap3 Yfn Heath DO DO ms3 Denisse Lema, RN RN mb9
[2022-11-03] MEDS ORDERED: DOXYCYCLINE 100 MG CAP PO ONE (15:58)
[2022-11-03 16:43] VITALS: TEMP 98.9
[2022-11-03 16:49] VITALS: BP 169/95; O2SAT 100
--- NOTE | 2022-11-04 16:48 | EKG ---
Test Date: 2022-11-03 Test Time: 14:10:35 [employer] Income: [employer] MEASUREMENT RESULTS: Intervals: Rate: 88 [place]: QRSD: 76 QT: 378 QTc: 457 [place]: P: [place]: QRS: -60 T: 66 INTERPRETIVE STATEMENTS: Atrial fibrillation Left axis deviation Septal infarct, age undetermined Abnormal ECG Compared to ECG 03/17/2022 10:56:47 Left-axis deviation now present Right-axis deviation no longer present Myocardial infarct finding still present Electronically Signed On 11-04-22 16:46:33 CDT by Graham Betancourt
== END 2022-11-03 16:02 | disposition home or self-care (01) ==
LOC: ER 11:50
DX: J18.8 Other pneumonia, unspecified organism (principal); I10 Essential (primary) hypertension; R79.89 Other specified abnormal findings of blood chemistry; E78.5 Hyperlipidemia, unspecified; I48.91 Unspecified atrial fibrillation; Z79.01 Long term (current) use of anticoagulants
CPT/HCPCS: 36415; 71045; 80048; 83880; 84484; 85025; 93005; 99284

== ENCOUNTER 2023-01-21 12:38 | Emergency (ER) | payer OTHER ==
--- OUTSIDE RECORDS SUMMARY | 2023-01-21 12:46 | XMS REPORT | Continuity of Care Document ---
:1945 Author Organization [facility] t Address [address] [place] [address] [address] [place] [address] Care Team Providers Name Role Phone Neno Azar MD Primary Care Physician [phone] Elizabeth Gonzales MD Attending Clinician Mehran Dudley MD Attending Clinician Emely Corona MD Attending Clinician Ira Scott RN Attending Clinician Unavailable Provider, Unknown Attending Clinician Unavailable Cora Cerna MA Attending Clinician Unavailable Destinee Mederos RN Attending Clinician Unavailable Cece Alas NP Attending Clinician Adelso GOODMAN, Deepak West Attending Clinician Alexis Mandujano MD Attending Clinician Nia Mcdermott Attending Clinician Nicky Drake MA Attending Clinician Unavailable MD DEEPAK DARDEN Attending Clinician Unavailable Scarlet Land RN Attending Clinician Unavailable Nia Lopez NP Attending Clinician Maricruz Serrato MD Attending Clinician MEHRAN DUDLEY Admitting Clinician Unavailable DEEPAK DARDEN Admitting Clinician Unavailable MD DEEPAK DARDEN Admitting Clinician Unavailable Payers Payer Name [...] Added automatic ally from request for surgery [id number] SOB SOB Disease Active Methodi (shortness (shortness [...] CAD in CAD in Disease Active [facility] campo campo 1-23 st artery artery 00:00: Hospita 00 [...] 00:00: Ho spita on on 00 l Allergies, Adverse Reactions, Alerts This patient has no known allergies or adverse reactions. Family History Family Member Diagnosis Comments Start Date Stop Date Source Natural father Heart attack [facility] Natural father Stroke [facility] mother [facility] Paternal grandfather Heart attack [facility] Social History Social Habit Start Date Stop Date Quantity Comments Source Gender identity 2020-08-07 Identifies as male M ethodist 09:16:27 gender (finding) Hospital Sexual orientation 2020-08-07 Heterosexual Meth odist 09:16:27 (finding) Hospital History of tobacco Cigarette Smoker [facility] Alcohol intake 2022-07-07 2022-07-07 Current non-drinker M ethodist 00:00:00 00:00:00 of alcohol Hospital (finding) History of Social 2022-07-07 2022-07-[address] function 00:00:00 00:00:00 Hospital Cigarettes smoked 2022-03-12 2022-03-[address] current (pack per 00:00:00 00:00:00 Hospita l day) - Reported Cigarette 2022-03-12 2022-03-12 [facility] pack-years 00:00:00 00:00:00 [facility] Tobacco Comment 2022-03-12 2022-03-12 quit 12 years ago Il thodist 00:00:00 00:00:00 Hospital Tobacco use and 2022-03-12 2022-03-12 [facility] non-user Hospital Sex Ass[birth year] At [birth year] M [facility] 00:00:00 00:00:00 Hospital Smoking Status Start Date Stop Date Source Ex-smoker 2022-03-12 00:00:00 2022-03-12 00:00:00 Method t [facility] Medications Ordered Filled Start Stop Current Ordering Indication Dosage Frequency Signature Comments Components Source Medication Medication Date Date Medication? Clinician (SIG) Name Name diazePAM Yes 5mg Q6H Take 1 Methodi (VALIUM) 5 6-13 tablet (5 st MG tablet 11:41: mg total) Hos mook 41 by mouth l every 6 (six) hours as needed for anxiety. albuterol Yes 2{puff} Q4H Inhale 2 M ethodi (PROAIR 6-[address] HFA) 90 11:41: every 4 Hospita mcg/actuati 41 (four) l on inhaler hours as needed for wheezing. acetaminoph Yes 800mg Take 800 M ethodi en (TYLENOL 6-[address] ORAL) 11:41: mouth as Hospita 41 needed. l dorzolamide Yes 1[drp] Q.5D Administer Methodi (TRUSOPT) 2 6-[address] % 11:41: both eyes Hospita ophthalmic 41 2 (two) l solution times a day. fluticasone Yes QD Inhale 1 Me thodi -umeclidin- 6-[address] vilanter 11:41: s once Hospita (Trelegy 41 daily. l Ellipta) 100-62.5-25 mcg blister with device powder for inhalation metoprolol Yes TAKE ONE Met hodi succinate 5-[address] XL 00:00: MOUTH Hospita (TOPROL-XL) 00 DAILY l 50 mg 24 hr tablet levETIRAcet Yes 500mg Q.5D Take 1 Met hodi am (KEPPRA) 5-[address] 500 MG 00:00: (500 mg Hospita tablet 00 total) by l mouth 2 (two) times a day. ezetimibe Yes [id number] 10mg QD Take 1 Me thodi (ZETIA) 10 5-08 tablet (10 st mg tablet 00:00: mg total) Hos mook 00 by mouth l daily. metoprolol Yes TAKE 1 Metho di succinate 3-[address] XL 00:00: MOUTH Hospita (TOPROL-XL) 00 EVERY DAY l 50 mg 24 hr tablet metoprolol 2022- No TAKE 1 Meth vanessa succinate 3-03 05-[address] XL 00:00: 00:00 MOUTH Hospita (TOPROL-XL) 00 :00 EVERY DAY l 50 mg 24 hr tablet Klor-Con 10 Yes [id number] TAKE 1 Methodi 10 mEq CR 1-[address] tablet 00:00: MOUTH Hospita 00 EVERY DAY l Klor-Con 10 Yes [id number] TAKE 1 [facility] 10 mEq CR 1-[address] tablet 00:00: MOUTH Hospita 00 EVERY DAY l Klor-Con 10 Yes [id number] TAKE 1 [facility] 10 mEq CR 1-[address] tablet 00:00: MOUTH Hospita 00 EVERY DAY l vit 2021-07 Yes 1{tbl} Q.5D Take 1 [facility] C/E/Zn/billie 2-[address] r/lutein/ze 08:38: mouth 2 Hos mook axan 15 (two) l (PRESERVISI times a ON AREDS-2 day. ORAL) vit 2021-07 Yes 1{tbl} Q.5D Take 1 [...] device powder for inhalation ezetimibe 2021-07 Yes [id number] TAKE 1 Me thodi (ZETIA) 10 2-[address] mg tablet 00:00: MOUTH Hospita 00 EVERY DAY l ezetimibe 2021-07 Yes [id number] TAKE 1 Me [facility] (ZETIA) 10 2-[address] mg tablet 00:00: MOUTH Hospita 00 EVERY DAY l ezetimibe 2021-07 Yes [id number] TAKE 1 Me thodi (ZETIA) 10 2-[address] mg tablet 00:00: MOUTH Hospita 00 EVERY DAY l ezetimibe 2021-07 Yes [id number] TAKE 1 [facility] (ZETIA) 10 2-[address] mg tablet 00:00: MOUTH Hospita 00 EVERY DAY l ezetimibe 2021-07 Yes [id number] TAKE 1 Me [facility]odi (ZETIA) 10 2-[address] mg tablet 00:00: MOUTH [facility]ospita 00 EVERY DAY l ezetimibe 2021-07 Yes [id number] TAKE 1 Me [facility] (ZETIA) 10 2-[address] mg tablet 00:00: MOUTH Hospita 00 EVERY DAY l ezetimibe 2021-07- No [id number] TAKE 1 M ethodi (ZETIA) 10 2-12 05-[address] mg tablet 00:00: 00:00 MOUTH Hospit a 00 :00 EVERY DAY l metoprolol 2021-07 Yes TAKE [...] mg 24 hr tablet atorvastati 0 Yes [id number] TAKE 1 Methodi n (LIPITOR) 9-[address] 80 MG 00:00: MOUTH Hospita tablet 00 EVERY DAY l atorvastati 0 Yes [id number] TAKE 1 Methodi n (LIPITOR) 9-[address] 80 MG 00:00: MOUTH Hospita tablet 00 EVERY DAY l atorvastati 0 Yes [id number] TAKE 1 Methodi n (LIPITOR) 9-[address] 80 MG 00:00: MOUTH Hospita tablet 00 EVERY DAY l atorvastati 0 Yes [id number] TAKE 1 Methodi n (LIPITOR) 9-[address] 80 MG 00:00: MOUTH [facility]ospita tablet 00 EVERY DAY l atorvastati 0 Yes [id number] TAKE 1 Methodi n (LIPITOR) 9-[address] 80 MG 00:00: MOUTH Hospita tablet 00 EVERY DAY l atorvastati 0 Yes [id number] TAKE 1 [facility] n (LIPITOR) 9-[address] 80 MG 00:00: MOUTH Hospita tablet 00 EVERY DAY l atorvastati 0 Yes [id number] TAKE 1 [facility] n (LIPITOR) 9-[address] 80 MG 00:00: MOUTH Hospita tablet 00 EVERY DAY l vit Yes 1{tbl} Q.5D Take 1 [facility] C/E/Zn/billie 03-[address] r/lutein/ze 10:42: mouth 2 [...] (two) l solution times a day. fluticasone 2022-0 Yes QD Inhale 1 Me thodi -umeclidin- 9-[address] vilanter 10:42: s once Hospita (Trelegy 24 daily. l Ellipta) 100-62.5-25 mcg blister with device powder for inhalation apixaban 2022-0 Yes 5mg Q.5D Take 1 [facility] (Eliquis) 5 9-02 tablet (5 st mg tablet 00:00: mg total) Hos mook 00 by mouth 2 l (two) times a day. furosemide 2022-0 Yes [id number] 40mg Q.5D Take 1 [facility] (LASIX) 40 9-02 tablet (40 st mg tablet 00:00: mg total) Hos mook 00 by mouth 2 l (two) times a day. apixaban 2022-0 Yes 5mg Q.5D Take 1 [facility] (Eliquis) 5 9-02 tablet (5 st mg tablet 00:00: mg total) Hos mook 00 by mouth 2 l (two) times a day. furosemide 2022-0 Yes [id number] 40mg Q.5D Take 1 [facility] (LASIX) 40 9-02 tablet (40 st mg tablet 00:00: mg total) Hos mook 00 by mouth 2 l (two) times a day. apixaban 2022-0 Yes 5mg Q.5D Take 1 [facility] (Eliquis) 5 9-02 tablet (5 st mg tablet 00:00: mg total) Hos mook 00 by mouth 2 l (two) times a day. furosemide 2022-0 Yes [id number] 40mg Q.5D Take 1 [facility] (LASIX) 40 9-02 tablet (40 st mg tablet 00:00: mg total) Hos mook 00 by mouth 2 l (two) times a day. apixaban 2022-0 Yes 5mg Q.5D Take 1 [facility] (Eliquis) 5 9-02 tablet (5 st mg tablet 00:00: mg total) Hos mook 00 by mouth 2 l (two) times a day. furosemide 2022-0 Yes [id number] 40mg Q.5D Take 1 [facility] (LASIX) 40 9-02 tablet (40 st mg tablet 00:00: mg total) Hos mook 00 by mouth 2 l (two) times a day. apixaban 2-0 Yes 5mg Q.5D Take 1 [facility] (Eliquis) 5 9-02 tablet (5 st mg tablet 00:00: mg total) Hos mook 00 by mouth 2 l (two) times a day. furosemide 2-0 Yes [id number] 40mg Q.5D Take 1 [facility] (LASIX) 40 9-02 tablet (40 st mg tablet 00:00: mg total) Hos mook 00 by mouth 2 l (two) times a day. apixaban 2-0 Yes 5mg Q.5D Take 1 [facility] (Eliquis) 5 9-02 tablet (5 st mg tablet 00:00: mg total) Hos mook 00 by mouth 2 l (two) times a day. furosemide 2021-0 Yes [id number] 40mg Q.5D Take 1 [facility] (LASIX) 40 9-02 tablet (40 st mg tablet 00:00: mg total) Hos mook 00 by mouth 2 l (two) times a day. apixaban 2021-0 Yes 5mg Q.5D Take 1 [facility] (Eliquis) 5 -02 tablet (5 st mg tablet 00:00: mg total) Hos mook 00 by mouth 2 l (two) times a day. furosemide 2021-0 Yes [id number] 40mg Q.5D Take 1 [facility] (LASIX) 40 9-02 tablet (40 st mg tablet 00:00: mg total) Hos mook 00 by mouth 2 l (two) times a day. apixaban 2-0 Yes 5mg Q.5D Take 1 [facility] (Eliquis) 5 9-02 tablet (5 st mg tablet 00:00: mg total) Hos mook 00 by mouth 2 l (two) times a day. furosemide 2021-0 Yes [id number] 40mg Q.5D Take 1 [facility] (LASIX) 40 9-02 tablet (40 st mg tablet 00:00: mg total) Hos mook 00 by mouth 2 l (two) times a day. aspirin 2021-0 2021- No 81mg QD Take 1 [facility] (ECOTRIN) 03-13- tablet (81 st 81 MG 00:00: 00:00 mg total) Hospit a enteric 00 :00 by mouth l coated daily for tablet 120 doses. aspirin 2021-0 2021- No 81mg QD Take 1 [facility] (ECOTRIN) 03-13 tablet (81 st 81 MG 00:00: 00:00 mg total) Hospit a enteric 00 :00 by mouth l coated daily for tablet 120 doses. aspirin 2021-0 2021- No 81mg QD Take 1 [facility] (ECOTRIN) 03-13 tablet (81 st 81 MG 00:00: 00:00 mg total) Hospit a enteric 00 :00 by mouth l coated daily for tablet 120 doses. aspirin 2021-0 2021- No 81mg QD Take 1 [facility] (ECOTRIN) 03-13 tablet (81 st 81 MG 00:00: 00:00 mg total) Hospit a enteric 00 :00 by mouth l coated daily for tablet 120 doses. aspirin 2021-0 2021- No 81mg QD Take 1 [facility] (ECOTRIN) 03-13 tablet (81 st 81 MG 00:00: 00:00 mg total) Hospit a enteric 00 :00 by mouth l coated daily for tablet 120 doses. aspirin 2021-0 2021- No 81mg QD Take 1 [facility] (ECOTRIN) 03-13 tablet (81 st 81 MG 00:00: 00:00 mg total) Hospit a enteric 00 :00 by mouth l coated daily for tablet 120 doses. aspirin 2021-0 2021- No 81mg QD Take 1 [facility] (ECOTRIN) 03-13 tablet (81 st 81 MG 00:00: 00:00 mg total) Hospit a enteric 00 :00 by mouth l coated daily for tablet 120 doses. aspirin 2021-0 2021- No 81mg QD Take 1 [facility] (ECOTRIN) 03-13 tablet (81 st 81 MG 00:00: 00:00 mg total) Hospit a enteric 00 :00 by mouth l coated daily for tablet 120 doses. ticagrelor 2021-0 2021- No 90mg Q.5D Take 1 Meth vanessa (BRILINTA) 03-12 tablet (90 st 90 mg 00:00: 05:59 mg total) Hospit a tablet 00 :00 by mouth 2 l (two) times a day for 240 doses. ticagrelor 2021-0 2021- No 90mg Q.5D Take 1 Meth [...] a day for 240 doses. ticagrelor 2-0 2- No 90mg Q.5D Take 1 Meth vanessa [...] times a day for 240 doses. ticagrelor 2021-0 2- No 90mg Q.5D Take 1 Meth vanessa [...] times a day for 240 doses. bevacizumab 2021-0 2021- No Infuse Met hodi (AVASTIN) 03-11 [...] metoprolol Yes TAKE 1 Metho di succinate 8- TABLET BY st XL 00:00: MOUTH Hospita (TOPROL-XL) 00 EVERY DAY l 50 mg 24 hr tablet metoprolol 2021- No TAKE 1 Meth vanessa succinate 03-09- TABLET BY st XL 00:00: 00:00 MOUTH Hospita (TOPROL-XL) 00 :00 EVERY DAY l 50 mg 24 hr tablet metoprolol 0 2021- No TAKE 1 Meth vanessa succinate 03-09- TABLET BY st XL 00:00: 00:00 MOUTH [...] 50 mg 24 hr tablet losartan-hy 2022- No 1{tbl} QD Take 1 M ethodi drochloroth 02-[address] iazide 00:00: 04:59 mouth Hospita (Hyzaar) 00 :00 daily. l 100-12.5 mg per tablet losartan-hy 2021-0 2021- No 1{tbl} QD Take 1 M ethodi drochloroth 02-[address] iazide 00:00: 00:00 mouth Hospita (Hyzaar) 00 :00 daily. l 100-12.5 mg per tablet losartan-hy 2021-0 2021- No 1{tbl} QD Take 1 M ethodi drochloroth 02-[address] iazide 00:00: 00:00 mouth Hospita (Hyzaar) 00 :00 daily. l 100-12.5 mg per tablet losartan-hy 2021-2021- No 1{tbl} QD Take 1 [facility] 02[facility] [facility]ospita (zaga) 00 :00 daily. l 100-12.5 mg per tablet losartan-2021- No 1{tbl} QD Take 1 M ethodi drochloroth 02-[address] iazid 00:00: 00:00 mouth Hospita (zaga) 00 :00 daily. l 100-12.5 mg per tablet losartan-2021- No 1{tbl} QD Take 1 [facility] drochloroth 02-[address] [facility] mouth Hospita (zaga) 00 :00 daily. l 100-12.5 mg per tablet losartan-2021- No 1{tbl} QD Take 1 M ethodi drochloroth 02-[address] iazid 00:00: 00:00 mouth Hospita ([facility]) 00 :00 daily. l 100-12.5 mg per tablet losartan-2021- No 1{tbl} QD Take 1 M [facility]i drochloroth 02-[address] [facility] mouth Hospita (zaga) 00 :00 daily. l 100-12.5 mg per tablet Eliquis 5 2021-0 2021- No TAKE 1 [...] :00 TWICE A l DAY Eliquis 5 2022-0 2021- No TAKE 1 Metho di mg tablet 12-[address] 00:00: 00:00 MOUTH Hospita 00 :00 TWICE A l DAY Eliquis 5 2021- No TAKE 1 Metho di mg tablet 12-[address] 00:00: 00:00 MOUTH Hospita 00 :00 TWICE A l DAY Eliquis 5 2021- No TAKE 1 Metho di mg tablet 12-[address] 00:00: 00:00 MOUTH [facility]ospita 00 :00 TWICE A l DAY Eliquis 5 2021- No TAKE 1 Metho di mg tablet 12-[address] 00:00: 00:00 MOUTH Hospita 00 :00 TWICE A l DAY levETIRAcet Yes TAKE 1 Meth vanessa am (KEPPRA) 4-[address] 500 MG 00:00: MOUTH Hospita tablet 00 TWICE A l DAY levETIRAcet Yes TAKE 1 Meth vanessa am (KEPPRA) 4-[address] 500 MG 00:00: MOUTH Hospita tablet 00 TWICE A l DAY levETIRAcet Yes TAKE 1 Meth vanessa am (KEPPRA) 4-[address] 500 MG 00:00: MOUTH [facility]ospita tablet 00 TWICE A l DAY levETIRAcet Yes TAKE 1 Meth vanessa am (KEPPRA) 4-[address] 500 MG 00:00: MOUTH [facility]ospita tablet 00 TWICE A l DAY levETIRAcet Yes TAKE 1 Meth vanessa am (KEPPRA) 4-[address] 500 MG 00:00: MOUTH Hospita tablet 00 TWICE A l DAY levETIRAcet Yes TAKE 1 Meth vanessa am (KEPPRA) 4-[address] 500 MG 00:00: MOUTH Hospita tablet 00 TWICE A l DAY levETIRAcet Yes TAKE 1 Meth vanessa am (KEPPRA) 4-[address] 500 MG 00:00: MOUTH Hospita tablet 00 TWICE A l DAY levETIRAcet 0 2022- No TAKE 1 Met hodi am (KEPPRA) 4-19 05-[address] 500 MG 00:00: 00:00 MOUTH Hospita tablet 00 :00 TWICE A l DAY metoprolol 2021- No [...] l 50 mg 24 hr tablet potassium 2021-0 2022- No [id number] 10meq QD Take 1 [facility] chloride 07-30 tablet (10 st (KLOR-CON) 00:00: 05:59 mEq total) Hospita 10 MEQ CR 00 :00 by mouth l tablet daily. potassium No [id number] 10meq QD Take 1 [facility] chloride 07-30 tablet (10 st (KLOR-CON) 00:00: 05:59 mEq total) Hospita 10 MEQ CR 00 :00 by mouth l tablet daily. potassium 2022- No [id number] 10meq QD Take 1 [facility] chloride 07-30 tablet (10 st (KLOR-CON) 00:00: 05:59 mEq total) Hospita 10 MEQ CR 00 :00 by mouth l tablet daily. potassium 2022- No [id number] 10meq QD Take 1 [facility] chloride 07-30 tablet (10 st (KLOR-CON) 00:00: 05:59 mEq total) Hospita 10 MEQ CR 00 :00 by mouth l tablet daily. potassium 2022- No [id number] 10meq QD Take 1 [facility] chloride 07-30 tablet (10 st (KLOR-CON) 00:00: 05:59 mEq total) Hospita 10 MEQ CR 00 :00 by mouth l tablet daily. potassium 2022- No [id number] 10meq QD Take 1 [facility] chloride 07-30 tablet (10 st (KLOR-CON) 00:00: 00:00 mEq total) Hospita 10 MEQ CR 00 :00 by mouth l tablet daily. potassium No [id number] 10meq QD Take 1 [facility] chloride 07-30 tablet (10 st (KLOR-CON) 00:00: 00:00 mEq total) Hospita 10 MEQ CR 00 :00 by mouth l tablet daily. potassium No [id number] 10meq QD Take 1 [facility] chloride 07-30 tablet (10 st (KLOR-CON) 00:00: 00:00 mEq total) Hospita 10 MEQ CR 00 :00 by mouth l tablet daily. furosemide 2021- No [id number] 40mg QD Take 1 [facility] (LASIX) 40 07-30 tablet (40 st mg tablet 00:00: 00:00 mg total) Ho spita 00 :00 by mouth l daily. furosemide No [id number] 40mg QD Take 1 [facility] (LASIX) 40 07-30 tablet (40 st mg tablet 00:00: 00:00 mg total) Ho spita 00 :00 by mouth l daily. furosemide No [id number] 40mg QD Take 1 [facility] (LASIX) 40 07-30 tablet (40 st mg tablet 00:00: 00:00 mg total) Ho spita 00 :00 by mouth l daily. furosemide No [id number] 40mg QD Take 1 [facility] (LASIX) 40 07-30 tablet (40 st mg tablet 00:00: 00:00 mg total) Ho spita 00 :00 by mouth l daily. furosemide No [id number] 40mg QD Take 1 [facility] (LASIX) 40 07-30 tablet (40 st mg tablet 00:00: 00:00 mg total) Ho spita 00 :00 by mouth l daily. furosemide No [id number] 40mg QD Take 1 [facility] (LASIX) 40 07-30 tablet (40 st mg tablet 00:00: 00:00 mg total) Ho spita 00 :00 by mouth l daily. furosemide No [id number] 40mg QD Take 1 [facility] (LASIX) 40 07-30 tablet (40 st mg tablet 00:00: 00:00 mg total) Ho spita 00 :00 by mouth l daily. furosemide No [id number] 40mg QD Take 1 [facility] (LASIX) 40 [...] l 50 mg 24 hr tablet metoprolol 2021-2021- No TAKE 1 Meth vanessa succinate 07-[address] XL 00:00: 00:00 MOUTH Hospita (TOPROL-XL) 00 :00 EVERY DAY l 50 mg 24 hr tablet metoprolol 2021-2021- No TAKE 1 Meth vanessa succinate 07-23 [...] l 50 mg 24 hr tablet metoprolol 2021-0 2021- No TAKE 1 Meth vanessa succinate 07-[address] XL 00:00: 00:00 MOUTH Hospita (TOPROL-XL) 00 :00 EVERY DAY l 50 mg 24 hr tablet metoprolol 0 2021- No TAKE 1 Meth vanessa succinate 07-[address] XL 00:00: 00:00 MOUTH Hospita (TOPROL-XL) 00 :00 EVERY DAY l 50 mg 24 hr tablet metoprolol 2021-0 2021- No TAKE 1 Meth vanessa succinate -07-[address] XL 00:00: 00:00 MOUTH Hospita (TOPROL-XL) 00 :00 EVERY DAY l 50 mg 24 hr tablet metoprolol 2021-0 2021- No TAKE 1 Meth vanessa succinate -07-[address] XL 00:00: 00:00 MOUTH Hospita (TOPROL-XL) 00 :00 EVERY DAY l 50 mg 24 hr tablet ezetimibe 2020-1 Yes [id number] TAKE 1 [facility] (ZETIA) 10 2-[address] mg tablet 00:00: MOUTH Hospita 00 EVERY DAY l ezetimibe 2020-07- No [id number] TAKE 1 M ethodi (ZETIA) 10 2- 12-[address] mg tablet 00:00: 00:00 MOUTH Hospit a 00 :00 EVERY DAY l ezetimibe 2020-07- No [id number] TAKE 1 M ethodi (ZETIA) 10 2- 12-[address] mg tablet 00:00: 00:00 MOUTH Hospit a 00 :00 EVERY DAY l ezetimibe 2020-07- No [id number] TAKE 1 M ethodi (ZETIA) 10 2 12-[address] mg tablet 00:00: 00:00 MOUTH Hospit a 00 :00 EVERY DAY l ezetimibe 2020-07- No [id number] TAKE 1 M ethodi (ZETIA) 10 08-14 12-[address] mg tablet 00:00: 00:00 MOUTH Hospit a 00 :00 EVERY DAY l ezetimibe 2020-07- No [id number] TAKE 1 M ethodi (ZETIA) 10 08-14 12-[address] mg tablet 00:00: 00:00 MOUTH Hospit a 00 :00 EVERY DAY l ezetimibe 2020-07- No [id number] TAKE 1 M ethodi (ZETIA) 10 2 12-[address] mg tablet 00:00: 00:00 MOUTH Hospit a 00 :00 EVERY DAY l ezetimibe 2020-07- No [id number] TAKE 1 M ethodi (ZETIA) 10 08-14 12-[address] mg tablet 00:00: [...] No TAKE 1 Meth vanessa succinate 0-14 01-[address] XL 00:00: 00:00 MOUTH Hospita (TOPROL-XL) 00 :00 EVERY DAY l 50 mg 24 hr tablet metoprolol 2020-07- No TAKE 1 Meth vanessa succinate 0-14 -[address] XL 00:00: 00:00 MOUTH Hospita (TOPROL-XL) 00 :00 EVERY DAY l 50 mg 24 hr tablet metoprolol 2020-07- No TAKE 1 Meth vanessa succinate 0-14 - TABLET BY st XL 00:00: 00:00 MOUTH Hospita (TOPROL-XL) 00 :00 EVERY DAY l 50 mg 24 hr tablet metoprolol 2020-07- No TAKE 1 Meth vanessa succinate 0-14 - TABLET BY st XL 00:00: 00:00 MOUTH Hospita (TOPROL-XL) 00 :00 EVERY DAY l 50 mg 24 hr tablet penicillin 2020- No Method i v potassium 04-03 st (VEETID) 00:00: 00:00 Hospita 500 MG 00 :00 l tablet atorvastati Yes [id number] TAKE 1 Methodi n (LIPITOR) 03-[address] 80 MG 00:00: MOUTH Hospita tablet 00 EVERY DAY l atorvastati 2021- No [id number] TAKE 1 [facility] n (LIPITOR) 03-[address] 80 MG 00:00: 00:00 MOUTH Hospita tablet 00 :00 EVERY DAY l atorvastati 2021- No [id number] TAKE 1 [facility] n (LIPITOR) 03-[address] 80 MG 00:00: 00:00 MOUTH Hospita tablet 00 :00 EVERY DAY l atorvastati 2021- No [id number] TAKE 1 [facility] n (LIPITOR) 03-[address] 80 MG 00:00: 00:00 MOUTH Hospita tablet 00 :00 EVERY DAY l atorvastati 2021- No [id number] TAKE 1 [facility] n (LIPITOR) 03-[address] 80 MG 00:00: 00:00 MOUTH Hospita tablet 00 :00 EVERY DAY l atorvastati 2021- No [id number] TAKE 1 [facility] n (LIPITOR) 03-[address] 80 MG 00:00: 00:00 MOUTH Hospita tablet 00 :00 EVERY DAY l atorvastati 2021- No [id number] TAKE 1 [facility] n (LIPITOR) 03-[address] 80 MG 00:00: 00:00 MOUTH Hospita tablet 00 :00 EVERY DAY l atorvastati 2021- No [id number] TAKE 1 [facility] n (LIPITOR) 03-[address] 80 MG 00:00: 00:00 MOUTH Hospita tablet 00 :00 EVERY DAY l baclofen 2020- No Method[facility] (LIORESAL) 03-20 st 10 MG 00:00: 00:00 Hospita tablet 00 :00 l apixaban 2021- No 5mg Q.5D Take 1 Method i (Eliquis) 5 02-06 05-23 tablet (5 st mg tablet 00:00: 00:00 mg total) Ho spita 00 :00 by mouth 2 l (two) times a day. apixaban 2021- No 5mg Q.5D Take 1 Method i (Eliquis) 5 - 05-23 tablet (5 st mg tablet 00:00: 00:00 mg total) Ho spita 00 :00 by mouth 2 l (two) times a day. apixaban 2021- No 5mg Q.5D Take 1 Method i (Eliquis) 5 02-06 05-23 tablet (5 st mg tablet 00:00: 00:00 mg total) Ho spita 00 :00 by mouth 2 l (two) times a day. apixaban 0 2- No 5mg Q.5D Take 1 Method i (Eliquis) 5 7- 05-23 tablet (5 st mg tablet 00:00: 00:00 mg total) Ho spita 00 :00 by mouth 2 l (two) times a day. apixaban 2021- No 5mg Q.5D Take 1 Method i (Eliquis) 5 7- 05-23 tablet (5 st mg tablet 00:00: 00:00 mg total) Ho spita 00 :00 by mouth 2 l (two) times a day. apixaban 2021- No 5mg Q.5D Take 1 Method i (Eliquis) 5 02-06- tablet (5 st mg tablet 00:00: 00:00 mg total) Ho spita 00 :00 by mouth 2 l (two) times a day. apixaban 2021- No 5mg Q.5D Take 1 Method i (Eliquis) 5 02-06 tablet (5 st mg tablet 00:00: 00:00 mg total) Ho spita 00 :00 by mouth 2 l (two) times a day. metoprolol 2020- No TAKE 1 Meth vanessa succinate 01-[address] XL 00:00: 00:00 MOUTH [...] by mouth l daily. ezetimibe 2019-07- No [id number] TAKE 1 M ethodi (ZETIA) 10 0 12- TABLET BY st mg tablet 00:00: 00:00 MOUTH Hospit a 00 :00 EVERY DAY l atorvastati 2020- No [id number] TAKE 1 Method[facility] n (LIPITOR) 04-[address] 80 MG 00:00: 00:00 MOUTH Hospita tablet 00 :00 EVERY DAY l montelukast 2016-0 Yes 10mg QD Take 10 mg Methodi [...] 00:00: every Hospita tablet 00 morning. l Immunizations Ordered Immunization Filled Immunization Date Status Commen ts Source Name Name [facility] 2020-07[facility]24 [facility]:00[facility]00 [facility]24 [facility] 00:00:00 [facility] 2020-07-24 [facility] Hospital Vital Signs Vital Name Observation Time Observation Value Comments Source Systolic blood 2022-12-22 16:41:00 127 mm[Hg] [facility] Diastolic blood 2022-12-22 16:41:00 68 mm[facility]Hg[facility] Heart rate 2022-12-22 16:41:00 92 /min [facility] Body height 2022-12-22 16:41:00 172.7 cm [facility] Body weight 2022-12-22 16:41:00 94[facility]348 [facility] [facility] BMI 2022-12-22 16:41:00 31.63 kg/m2 [facility] Systolic blood 2022-06-23 17:22:00 140 mm[Hg] [facility] pressure Diastolic blood 2022-06-23 17:22:00 78 mm[Hg] [facility] pressure Heart rate 2022-06-23 17:22:00 86 /min [facility] Body height 2022-06-23 17:22:00 172.7 cm [facility] Body weight 2022-06-23 17:22:00 94.802 kg [facility] BMI 2022-06-23 17:22:00 31.78 kg/m2 [facility] Systolic blood 2022-03-13 13:09:00 170 mm[Hg] [facility] pressure Diastolic blood 2022-03-13 13:09:00 96 mm[Hg] [facility] pressure Heart rate 2022-03-13 13:08:00 87 /min [facility] Body temperature 2022-03-13 12:50:46 36.17 Hilda [facility] Oxygen saturation in 2022-03-13 12:50:46 97 /min [facility] Arterial blood by Pulse oximetry Body weight 2022-03-13 10:41:33 96.163 kg [facility] BMI 2022-03-13 10:41:33 32.23 kg/m2 [facility] Respiratory rate 2022-03-13 02:16:19 20 /min [facility] Body height 2022-03-12 15:11:00 172.7 cm [facility] Procedures Procedure Date / Time Performing Clinician Source Performed CT CHEST W CONTRAST 2023-01-11 16:28:58 [facility] CREATININE 2023-01-11 16:02:00 [facility] ESTIMATED GFR 2023-01-11 16:02:00 [facility] US CAROTID DUPLEX 2022-12-15 17:00:00 [facility] BILATERAL LIPID PANEL 2022 15:06:00 [facility] Mehranosmin Scott spital AST (SGOT) 2022 15:06:00 [facility] THYROID STIMULATING 2022 15:06:00 [facility] HORMONE PET CT SKULL BASE TO MID 2022-06-10 19:25:40 [facility] POC GLUCOSE 2022-06-10 16:51:00 [facility] BASIC METABOLIC PANEL 2022-03-13 10:16:00 Douglas Rubio [facility] CBC WITH PLATELET AND 2022-03-13 10:16:00 Douglas Rubio [facility] DIFFERENTIAL ESTIMATED GFR 2022-03-13 10:16:00 Octavia Mehranosmin Scott Ho spital ECG 12-LEAD 2022-03-12 20:33:37 Mehran Dudley spital CV PCI STENT 2022-03-12 20:15:53 Mehran Dudley spital ACTIVATED CLOTTING TIME 2022-03-12 19:10:00 DudleyMehran [facility] CBC WITH PLATELET AND 2022-03-06 17:43[facility] DIFFERENTIAL PROTHROMBIN TIME WITH INR 2022-03-06 17:43:00 [facility]ENSIVE METABOLIC 2022-03-06 17:43:00 [facility] PANEL CBC WITH PLATELET AND 2022-03-06 17:43:00 [facility] DIFFERENTIAL ECG 12-LEAD 2022-03-06 16:51:[address] CHEST W CONTRAST 2022-02-23 17:00:[address] [facility] POC CREATININE 2022-02-23 16:24:[address] [facility] 2022-02-23 16:24:00 [facility] LIPID PANEL 2022-02-17 18:24:00 Mehran Dudley spital AST (SGOT) 2022-02-17 18:24:00 [facility] THYROID STIMULATING 2022-02-17 18:24:00 [facility] HORMONE CT CHEST W CONTRAST 2021-09-03 17:27:51 Elizabeth Gonzales [facility] POC CREATININE 2021-09-03 17:14:00 [facility] ESTIMATED GFR 2021-09-03 17:14:00 [facility] US DUPLEX VENOUS LOWER 2021-08-13 20:44:50 Mehran Dudley [facility] EXTREMITY BILATERAL ECG 12-LEAD 2021-08-12 19:45:28 Mehran Dudley spital TTE COMPLETE, W CONTRAST, 2021-08-04 22:17:43 [facility] W DOPPLER ([id number]) US CAROTID DUPLEX 2021-07-29 19:57:38 Mehran Dudley [facility] BILATERAL NM LUNG PERFUSION QUANT W 2021-06-24 19:12:07 Elizabeth Gonzales [facility] IMG FUNGUS CULTURE 2021-06-09 20:42:00 Deepak Darden [facility] AFB CULTURE 2021-06-09 20:42:00 Deepak Darden [facility] GRAM STAIN 2021-06-09 20:42:00 Deepak Darden [facility] AFB STAIN 2021-06-09 20:42:00 Deepak Darden [facility] RESPIRATORY CULTURE 2021-06-09 20:42:00 Deepak Darden [facility] CYTOLOGY 2021-06-09 20:36:00 Deepak Darden [facility] (NON-GYNECOLOGICAL) REQUEST ID AN ELECTIVE 2021-06-09 20:15:09 Jony Ybarra [facility] ENDOTRACHEAL AIRWAY [place] CYTOLOGY 2021-06-09 20:15:00 Deepak Darden [facility] (NON-GYNECOLOGICAL) REQUEST BRONCHOSCOPY, USING 2021-06-09 19:58:00 Deepak Darden [facility] ELECTROMAGNETIC NAVIGATION ABO AND RH CONFIRMATION BY 2021-06-09 17:48:00 Deepak Darden [facility] PROTOCOL SURGICAL PATHOLOGY REQUEST 2021-06-09 14:26:00 Deepak Darden [facility] CT CHEST WO CONTRAST 2021-06-04 16:55:02 Deepak Darden [facility] TYPE AND SCREEN 2021-06-04 16:28:00 Deepak Darden [facility] PROTHROMBIN TIME WITH INR 2021-06-04 16:28:00 Deepak Darden [facility] PARTIAL THROMBOPLASTIN 2021-06-04 16:28:00 Deepak Darden [facility] TIME (PTT) COMPREHENSIVE METABOLIC 2021-06-04 16:28:00 Deepak Darden [facility] PANEL HC COMPLETE BLD COUNT 2021-06-04 16:28:00 Deepak Darden [facility] W/AUTO DIFF ESTIMATED GFR 2021-06-04 16:28:00 Deepak Darden [facility] COVID-19 QUALITATIVE 2021-06-04 16:14:00 Deepak Darden [facility] RT-PCR ECG 12-LEAD 2021-05-20 19:32:48 Mehran Dudley [facility] spital PET CT SKULL BASE TO MID 2021-05-02 19:05:30 Elizabeth Gonzales [facility] THIGH POC GLUCOSE 2021-05-02 15:51:[address] [facility] CT CHEST W CONTRAST 2021-04-30 15:53:42 [facility] POC CREATININE 2021-04-30 15:39:00 [facility] ESTIMATED GFR 2021-04-30 15:39:[address] [facility] Plan of Care Planned Activity Planned Date Details Comments Source Future Scheduled 2023-01-21 65+ PNEUMOCOCCAL [facility] Test 12:41:27 VACCINE (1 - PCV) [code = 65+ PNEUMOCOCCAL VACCINE (1 - PCV)] Future Scheduled 2023-01-21 Hepatitis C screening [facility] Test 12:41:27 (procedure) [code = 890136249] Future Scheduled 2023-01-21 COVID-19 VACCINE (4 - [facility] Test 12:41:27 Moderna series) [code = COVID-19 VACCINE (4 - Moderna series)] Future Scheduled 2023-01-21 INFLUENZA VACCINE Method [facility] Test 12:41:27 [code = INFLUENZA VACCINE] Future Scheduled 2022-11-03 65+ PNEUMOCOCCAL [facility] Test 11:16:05 VACCINE (1 - PCV) [code = 65+ PNEUMOCOCCAL VACCINE (1 - PCV)] Future Scheduled 2022-11-03 Hepatitis C screening [facility] Test 11:16:05 (procedure) [code = 627365243] Future Scheduled 2022-11-03 COLONOSCOPY SCREENING [facility] Test 11:16:05 [code = COLONOSCOPY SCREENING] Future Scheduled 2022-11-03 SHINGLES VACCINES (2 [facility] Test 11:16:05 of 2) [code = SHINGLES VACCINES (2 of 2)] Future Scheduled 2022-11-03 INFLUENZA VACCINE Method [facility] Test 11:16:05 [code = INFLUENZA VACCINE] Future Scheduled 2022-07-27 65+ [facility]UMOCOCCAL [facility] Test 15:04:48 VACCINE (1 - PCV) [code = 65+ PNEUMOCOCCAL VACCINE (1 - PCV)] Future Scheduled 2022-07-27 Hepatitis C screening [facility] Test 15:04:48 (procedure) [code = 549990449] Future Scheduled 2022-07-27 COLONOSCOPY SCREENING [facility] Test 15:04:48 [code = COLONOSCOPY SCREENING] Future Scheduled 2022-07-27 SHINGLES VACCINES (2 [facility] Test 15:04:48 of 2) [code = SHINGLES VACCINES (2 of 2)] Future Scheduled 2022-07-22 65+ PNEUMOCOCCAL [facility] Test 11:25:44 VACCINE (1 - PCV) [code = 65+ PNEUMOCOCCAL VACCINE (1 - PCV)] Future Scheduled 2022-07-22 Hepatitis C screening [facility] Test 11:25:44 (procedure) [code = 386180910] Future Scheduled 2022-07-22 COLONOSCOPY SCREENING [facility] Test 11:25:44 [code = COLONOSCOPY SCREENING] Future Scheduled 2022-07-22 SHINGLES VACCINES (2 [facility] Test 11:25:44 of 2) [code = SHINGLES VACCINES (2 of 2)] Future Scheduled 2022-07-14 65+ PNEUMOCOCCAL [facility] Test 10:56:47 VACCINE (1 - PCV) [code = 65+ PNEUMOCOCCAL VACCINE (1 - PCV)] Future Scheduled 2022-07-14 Hepatitis C screening [facility] Test 10:56:47 (procedure) [code = 953559717] Future Scheduled 2022-07-14 COLONOSCOPY SCREENING [facility] Test 10:56:47 [code = COLONOSCOPY SCREENING] Future Scheduled 2022-07-14 SHINGLES VACCINES (2 [facility] Test 10:56:47 of 2) [code = SHINGLES VACCINES (2 of 2)] Future Scheduled 2022-07-14 65+ PNEUMOCOCCAL [facility] Test 10:56:47 VACCINE (1 - PCV) [code = 65+ PNEUMOCOCCAL VACCINE (1 - PCV)] Future Scheduled 2022-07-14 Hepatitis C screening Me [facility] Test 10:56:47 (procedure) [code = 134278126] Future Scheduled 2022-07-14 COLONOSCOPY SCREENING [facility] Test 10:56:47 [code = COLONOSCOPY SCREENING] Future Scheduled 2022-07-14 SHINGLES VACCINES (2 Met [facility] Test 10:56:47 of 2) [code = SHINGLES VACCINES (2 of 2)] Future Scheduled 2022-07-14 65+ [facility] 10:56:47 VACCINE (1 - PCV) [code = 65+ PNEUMOCOCCAL VACCINE (1 - PCV)] Future Scheduled 2022-07-14 Hepatitis C screening [facility] Test 10:56:47 (procedure) [code = 390099783] Future Scheduled 2022-07-14 COLONOSCOPY SCREENING [facility] Test 10:56:47 [code = COLONOSCOPY SCREENING] Future Scheduled 2022-07-14 SHINGLES VACCINES (2 [facility] Test 10:56:47 of 2) [code = SHINGLES VACCINES (2 of 2)] Future Scheduled 2022-03-17 HEPATITIS B VACCINES [facility] Test 08:03:43 (1 of 3 - 3-dose series) [code = HEPATITIS B VACCINES (1 of 3 - 3-dose series)] Future Scheduled 2022-03-17 65+ PNEUMOCOCCAL [facility] Test 08:03:43 VACCINE (1 - PCV) [code = 65+ PNEUMOCOCCAL VACCINE (1 - PCV)] Future Scheduled 2022-03-17 Hepatitis C screening [facility] Test 08:03:43 (procedure) [code = 653043041] Future Scheduled 2022-03-17 COLONOSCOPY SCREENING [facility] Test 08:03:43 [code = COLONOSCOPY SCREENING] Future Scheduled 2022-03-17 COVID-19 VACCINE (3 - Me [facility] Test 08:03:43 Booster for Moderna series) [code = COVID-19 VACCINE (3 - Booster for Moderna series)] Future Scheduled 2022-03-17 INFLUENZA VACCINE Method [facility] Test 08:03:43 [code = INFLUENZA VACCINE] Future Scheduled 2022-03-17 SHINGLES VACCINES (2 [facility] Test 08:03:43 of 2) [code = SHINGLES VACCINES (2 of 2)] Encounters Start End Encounter Admission Attending Care Care Encounter Source Date/Time Date/Time Type Type Clinicians Facility Department ID 2023-01-11 2023-01-11 [facility] 1.2.840.1 [id number] Methodi 10:45:03 23:59:00 Encounter Elizabeth Bond 90782.1.[address] 3.430.2.7 Hospit a .3.318340 l .8 2023-01-11 2023-01-11 Outpatient [facility] [id number] [place] 00:00:00 00:00:00 ELIZABETH [address] 2022-12-22 2022-12-22 Office Octavia, 1.2.840.1 [id number] 1760 Methodi 11:00:00 15:42:27 Visit Mehran Pena 25117.1.[address] 3.430.2.7 Hospit a .3.364842 l .8 2022-12-22 2022-12-22 Outpatient [facility] [id number] [address] [place] [address] 00:00:00 00:00:[address]HRAN [address] 2022-12-22 2022-12-22 Travel 1.2.840.1 1.2.417.649 3538 [id number] Methodi 00:00:00 00:00:[address] 3.430.2.7 0.2.7.3.698 Ho spita .3.345739 084.8 l .8 2022-12-15 2022-12-15 [facility]patient [facility] [id number] [address] [place] [address] 00:00:00 00:00:00 MEHRAN [address] 2022-12-15 2022-12-15 Travel 1.2.840.1 1.2.494.701 0355 [id number] Methodi 00:00:00 00:00:[address] 3.430.2.7 0.2.7.3.698 Ho spita .3.118895 084.8 l .8 2022-12-07 2022-12-07 Refill Octavia 1.2.840.1 [id number] 8457 Methodi 00:00:00 00:00:00 [address] 3.430.2.7 Hospit a .3.965443 l .8 2022 2022 Kai Dudley, 1.2.840.1 [id number] 0334 Methodi 00:00:00 00:00:00 Only Mehran R. 95773.1.[address] 3.430.2.7 Hospit a .3.631594 l .8 2022-11-16 2022-11-16 Refill Emely Corona 1.2.840.1 [id number] 21 [id number] Methodi 00:00:00 00:00:[address] 3.430.2.7 Hospit a .3.738027 l .8 2022-09-07 2022-09-07 Refill Octavia, 1.2.840.1 [id number] 9544 Methodi 00:00:00 00:00:[address] 3.430.2.7 Hospit a .3.815266 l .8 2022-09-07 2022-09-07 Refill Octavia, 1.2.840.1 [id number] 6348 Methodi 00:00:00 00:00:[address] 3.430.2.7 Hospit a .3.950079 l .8 2022-08-28 2022-08-28 Refill Octavia, 1.2.840.1 [id number] 8037 Methodi 00:00:00 00:00:[address] 3.430.2.7 Hospit a .3.404058 l .8 2022-08-28 2022-08-28 Refill Octavia 1.2.840.1 [id number] 1737 Methodi 00:00:00 00:00:[address] 3.430.2.7 Hospit a .3.025373 l .8 2022-08-21 2022-08-21 Refill VolEmely serna 1.2.840.1 [id number] 21 [id number] Methodi 00:00:00 00:00:[address] 3.430.2.7 Hospit a .3.608593 l .8 2022-08-21 2022-08-21 Refill Emely Corona 1.2.840.1 [id number] Methodi 00:00:00 00:00:[address] 3.430.2.7 Hospit a .3.768964 l .8 2022-08-21 2022-08-21 Refill Emely Corona 1.2.840.1 [id number] Methodi 00:00:00 00:00:[address] 3.430.2.7 Hospit a .3.264353 l .8 2022-08-21 2022-08-21 Refill Emely Corona 1.2.840.1 [id number] Methodi 00:00:00 00:00:[address] 3.430.2.7 Hospit a .3.780453 l .8 2022-08-06 2022-08-06 Travel 1.2.840.1 1.2.862.272 8138 [id number] Methodi 00:00:00 00:00:[address] 3.430.2.7 0.2.7.3.698 Ho spita .3.782973 084.8 l .8 2022-08-06 2022-08-06 Travel 1.2.840.1 1.2.994.321 2738 293494 Methodi 00:00:00 00:00:[address] 3.430.2.7 0.2.7.3.698 Ho spita .3.578740 084.8 l .8 2022-07-27 2022-07-27 Refill Octavia, 1.2.840.1 [id number] 6542 Methodi 00:00:00 00:00:[address] 3.430.2.7 Hospit a .3.349383 l .8 2022-07-27 2022-07-27 Refill Octavia, 1.2.840.1 [id number] 4916 Methodi 00:00:00 00:00:[address] 3.430.2.7 Hospit a .3.780799 l .8 2022-07-07 2022-07-07 [facility] 1.2.840.1 [id number] [id number] Methodi 08:30:00 09:32:33 Encounter Ira Scott 50630.1.[address] 3.430.2.7 Hospit a .3.574410 l .8 2022-07-07 2022-07-07 [facility] 1.2.840.1 83971 1011 [id number] Methodi 08:30:00 09:32:33 Encounter Ira Scott 16111.1.[address] 3.430.2.7 Hospit a .3.779822 l .8 2022-06-23 2022-06-23 Office Octavia, 1.2.840.1 [id number] 4929 Methodi 11:20:00 15:49:15 Visit Mehran Pena 65297.1.[address] 3.430.2.7 Hospit a .3.742871 l .8 2022-06-23 2022-06-23 Office Octavia, 1.2.840.1 [id number] 2265 Methodi 11:20:00 15:49:15 Visit Mehran RJabari 55972.1.[address] 3.430.2.7 Hospit a .3.503123 l .8 2022-06-23 2022-06-23 Travel 1.2.840.1 1.2.129.755 0568 [id number] Methodi 00:00:00 00:00:[address] 3.430.2.7 0.2.7.3.698 Ho spita .3.490893 084.8 l .8 2022-06-23 2022-06-23 Travel 1.2.840.1 1.2.006.924 6114 [id number] Methodi 00:00:00 00:00:[address] 3.430.2.7 0.2.7.3.698 Ho spita .3.441986 084.8 l .8 2022-06-21 2022-06-21 RefEmely Etienne 1.2.840.1 [id number] Methodi 00:00:00 00:00:[address] 3.430.2.7 Hospit a .3.916543 l .8 2022-06-21 2022-06-21 [facility] Corona 1.2.840.1 [id number] Methodi 00:00:00 00:00:[address] 3.430.2.7 Hospit a .3.284974 l .8 2022-06-16 2022-06-17 [facility] 1.2.840.1 [id number] 71778 Methodi 14:59:42 08:32:05 Encounter Elizabeth ArmendarizJabari 60847.1.[address] 3.430.2.7 Hospit a .3.671673 l .8 2022-06-16 2022-06-17 [facility] 1.2.840.1 [id number] 96078 Methodi 14:59:42 08:32:05 Encounter Elizabeth KalaJabari 77015.1.[address] 3.430.2.7 Hospit a .3.752808 l .8 2022-06-16 2022-06-16 Travel 1.2.840.1 1.2.253.217 6385 [id number] Methodi 00:00:00 00:00:[address] 3.430.2.7 0.2.7.3.698 Ho spita .3.390404 084.8 l .8 2022-06-16 2022-06-16 Travel 1.2.840.1 1.2.193.959 2174 [id number] Methodi 00:00:00 00:00:[address] 3.430.2.7 0.2.7.3.698 Ho spita .3.468567 084.8 l .8 2022-06-10 2022-06-10 [facility] 1.2.840.1 [id number] 02789 Methodi 10:43:14 23:59:00 Encounter Elizabeth Bond 48751.1.[address] 3.430.2.7 Hospit a .3.531766 l .8 2022-06-10 2022-06-10 [facility] 1.2.840.1 [id number] 45752 Methodi 10:43:14 23:59:00 Encounter Elizabeth Bond 47362.1.[address] 3.430.2.7 Hospit a .3.664736 l .8 2022-06-10 2022-06-10 Travel 1.2.840.1 1.2.970.304 7733 [id number] Methodi 00:00:00 00:00:[address] 3.430.2.7 0.2.7.3.698 Ho spita .3.300713 084.8 l .8 2022-06-10 2022-06-10 Travel 1.2.840.1 1.2.670.478 4883 695534 Methodi 00:00:00 00:00:[address] 3.430.2.7 0.2.7.3.698 Ho spita .3.625038 084.8 l .8 2022-06-04 2022-06-04 Naye Dudley, 1.2.840.1 [id number] 7565 Methodi 00:00:00 00:00:00 [address] 3.430.2.7 Hospit a .3.931898 l .8 2022-06-04 2022-06-04 Refill Dudley, 1.2.840.1 [id number] 7576 Methodi 00:00:00 00:00:[address] 3.430.2.7 Hospit a .3.468505 l .8 2022-03-24 2022-03-24 Office Dudley, 1.2.840.1 [id number] 5056 Methodi 11:00:00 11:10:00 Visit Mehran Busch. 37368.1.[address] 3.430.2.7 Hospit a .3.649268 l .8 2022-03-24 2022-03-24 Office Dudley, 1.2.840.1 [id number] 9410 Methodi 11:00:00 11:10:00 Visit Mehran Busch. 01830.1.[address] 3.430.2.7 Hospit a .3.844703 l .8 2022-03-24 2022-03-24 Travel 1.2.840.1 1.2.865.017 4239 [id number] Methodi 00:00:00 00:00:[address] 3.430.2.7 0.2.7.3.698 Ho spita .3.010313 084.8 l .8 2022-03-24 2022-03-24 Travel 1.2.840.1 1.2.306.361 4775 212103 Methodi 00:00:00 00:00:[address] 3.430.2.7 0.2.7.3.698 Ho spita .3.400162 084.8 l .8 2022-03-23 2022-03-23 Refill Emely Corona 1.2.840.1 [id number] Methodi 00:00:00 00:00:[address] 3.430.2.7 Hospit a .3.877158 l .8 2022-03-23 2022-03-23 Emely Robin 1.2.840.1 [id number] 21 [id number] Methodi 00:00:00 00:00:[address] 3.430.2.7 Hospit a .3.844328 l .8 2022-03-12 2022-03-13 [facility], 1.2.840.1 [id number] Methodi 09:14:00 10:42:00 Encounter Mehran R. 81731.1.[address] 3.430.2.7 Hospit a .3.923130 l .8 2022-03-12 2022-03-13 [facility] 1.2.840.1 [id number] Methodi 09:14:00 10:42:00 Encounter Mehran R. 50840.1.[address] 3.430.2.7 Hospit a .3.539777 l .8 2022-03-12 2022-03-12 [facility], 1.2.840.1 [id number] 6942 Methodi 11:30:00 12:30:00 [address] 3.430.2.7 Hospit a .3.598065 l .8 2022-03-12 2022-03-12 [facility] 1.2.840.1 [id number] 4104 Methodi 11:30:00 12:30:00 [address] 3.430.2.7 Hospit a .3.691166 l .8 2022-03-12 2022-03-12 [facility] 1.2.840.1 1.2.742.879 8306 [id number] Methodi 00:00:00 00:00:[address] 3.430.2.7 0.2.7.3.698 Ho spita .3.810035 084.8 l .8 2022-03-12 2022-03-12 Travel 1.2.840.1 1.2.440.063 4644 [id number] Methodi 00:00:00 00:00:[address] 3.430.2.7 0.2.7.3.698 Ho spita .3.476434 084.8 l .8 2022-03-11 2022-03-11 Documentat Provider, 1.2.840.1 [id number] 2 [id number] Methodi 00:00:00 00:00:00 ion Unknown 16325.1.[address] 3.430.2.7 Hospit a .3.799557 l .8 2022-03-11 2022-03-11 Documentat Provider, 1.2.840.1 [id number] 2 [id number] Methodi 00:00:00 00:00:00 ion Unknown 13658.1.[address] 3.430.2.7 Hospit a .3.990070 l .8 2022-03-09 2022-03-09 Travel 1.2.840.1 1.2.055.258 4514 524600 Methodi 00:00:00 00:00:[address] 3.430.2.7 0.2.7.3.698 Ho spita .3.655475 084.8 l .8 2022-03-09 2022-03-09 Travel 1.2.840.1 1.2.518.453 8981 132244 Methodi 00:00:00 00:00:[address] 3.430.2.7 0.2.7.3.698 Ho spita .3.384846 084.8 l .8 2022-03-07 2022-03-07 Refill Dudley, 1.2.840.1 [id number] 167462 1094 Methodi 00:00:00 00:00:00 Mehran Pena [address]90.1.[address] 3.430.2.7 Hospit a .3.402304 l .8 2022-03-07 2022-03-07 Refill Dudley, 1.2.840.1 [id number] 919513 2813 Methodi 00:00:00 00:00:00 [address] 3.430.2.7 Hospit a .3.143410 l .8 2022-03-06 2022-03-06 Lab Octavia, 1.2.840.1 891250888 577689 7538 Methodi 13:10:00 13:15:00 Meh[address] 3.430.2.7 Hospit a .3.839953 l .8 2022-03-06 2022-03-06 Lab Octavia, 1.2.840.1 835903195 283345 3400 Methodi 13:10:00 13:15:00 [address] 3.430.2.7 Hospit a .3.597388 l .8 2022-03-06 2022-03-06 Office Dudley, 1.2.840.1 865004897 333420 8243 Methodi 11:45:00 12:00:00 Visit Mehran R. 98306.1.[address] 3.430.2.7 Hospit a .3.342244 l .8 2022-03-06 2022-03-06 Office Octavia, 1.2.840.1 683820503 950266 8783 Methodi 11:45:00 12:00:00 Visit Mehran R. 77888.1.[address] 3.430.2.7 Hospit a .3.424084 l .8 2022-03-06 2022-03-06 Orders Nehemiah, 1.2.840.1 [id number] 764 9745266 Methodi 00:00:00 00:00:00 Only Cora 95718.1.[address] 3.430.2.7 Hospit a .3.271904 l .8 2022-03-06 2022-03-06 Travel 1.2.840.1 1.2.903.060 9481 001141 Methodi 00:00:00 00:00:[address] 3.430.2.7 0.2.7.3.698 Ho spita .3.175185 084.8 l .8 2022-03-06 2022-03-06 Orders Nehemiah, 1.2.840.1 567705305 455 5778568 Methodi 00:00:00 00:00:00 Only Cora 23003.1.[address] 3.430.2.7 Hospit a .3.784832 l .8 2022-03-06 2022-03-06 Travel 1.2.840.1 1.2.991.383 3382 616696 Methodi 00:00:00 00:00:[address] 3.430.2.7 0.2.7.3.698 Ho spita .3.238093 084.8 l .8 2022-02-24 [facility]02-[facility] 22857 1011 1251540294 Methodi 15:41:37 16:23:27 Encounter Destinee Mederos 26676.1.[address] 3.430.2.7 Hospit a .3.171972 l .8 2022-02-24 2022-02-24 [facility] . 1.2.840.1 83487 1011 [id number] Methodi 15:41:37 16:23:27 Encounter Destinee Mederos 85748.1.[address] 3.430.2.7 Hospit a .3.908869 l .8 2022-02-23 2022-02-23 [facility], 1.2.840.1 [id number] 48488 Methodi 11:00:08 23:59:00 Encounter Elizabeth Bond 09755.1.[address] 3.430.2.7 Hospit a .3.049565 l .8 2022-02-23 2022-02-23 [facility], 1.2.840.1 [id number] 73355 Methodi 11:00:08 23:59:00 China Bond 54631.1.[address] 3.430.2.7 Hospit a .3.224510 l .8 2022-02-23 2022-02-23 Travel 1.2.840.1 1.2.655.689 3628 131282 Methodi 00:00:00 00:00:[address] 3.430.2.7 0.2.7.3.698 Ho spita .3.516839 084.8 l .8 2022-02-23 2022-02-23 Travel 1.2.840.1 1.2.381.350 5151 621521 Methodi 00:00:00 00:00:[address] 3.430.2.7 0.2.7.3.698 Ho spita .3.247114 084.8 l .8 2022-02-17 2022-02-17 Office [place], 1.2.840.1 [id number] 0643 Methodi 10:30:00 15:15:02 Visit Mehran NarayanJabari 27298.1.[address] 3.430.2.7 Hospit a .3.734115 l .8 2022-02-17 2022-02-17 Office Octavia, 1.2.840.1 [id number] 593044 9809 Methodi 10:30:00 15:15:02 Visit Mehran Pena 92292.1.[address] 3.430.2.7 Hospit a .3.896962 l .8 2022-02-17 2022-02-17 [facility] [place], 1.2.840.1 [id number] 5458 Methodi 00:00:00 00:00:00 Only Mehran NarayanJabari 44261.1.[address] 3.430.2.7 Hospit a .3.293613 l .8 2022-02-17 2022-02-17 Travel 1.2.840.1 1.2.568.442 1738 548978 Methodi 00:00:00 00:00:[address] 3.430.2.7 0.2.7.3.698 Ho spita .3.392198 084.8 l .8 2022-02-17 2022-02-17 [facility], 1.2.840.1 [id number] 986050 5405 Methodi 00:00:00 00:00:00 Only Mehran Pena 74912.1.[address] 3.430.2.7 Hospit a .3.265486 l .8 2022-02-17 2022-02-17 Travel 1.2.840.1 1.2.962.373 2927 583867 Methodi 00:00:00 00:00:[address] 3.430.2.7 0.2.7.3.698 Ho spita .3.029150 084.8 l .8 2022-02-11 2022-02-11 Travel 1.2.840.1 1.2.939.900 2581 906112 Methodi 00:00:00 00:00:[address] 3.430.2.7 0.2.7.3.698 Ho spita .3.471337 084.8 l .8 2022-02-11 2022-02-11 Travel 1.2.840.1 1.2.817.590 2594 883606 Methodi 00:00:00 00:00:[address] 3.430.2.7 0.2.7.3.698 Ho spita .3.039544 084.8 l .8 2022-02-09 2022-02-10 [facility], 1.2.840.1 [id number] 18882 53808 Methodi 01:00:00 10:38:48 China Elizabeth Bond 28065.1.[address] 3.430.2.7 Hospit a .3.581376 l .8 2022-02-09 2022-02-10 [facility] 1.2.840.1 [id number] 44754 30193 Methodi 01:00:00 10:38:48 China Bond 36602.1.[address] 3.430.2.7 Hospit a .3.717916 l .8 2022-02-05 2022-02-05 Travel 1.2.840.1 1.2.995.804 2949 439842 Methodi 00:00:00 00:00:[address] 3.430.2.7 0.2.7.3.698 Ho spita .3.355454 084.8 l .8 2022-02-05 2022-02-05 Travel 1.2.840.1 1.2.705.478 0291 350854 Methodi 00:00:00 00:00:[address] 3.430.2.7 0.2.7.3.698 Ho spita .3.307748 084.8 l .8 2022-01-20 2022-01-20 Travel 1.2.840.1 1.2.278.890 4197 910291 Methodi 00:00:00 00:00:[address] 3.430.2.7 0.2.7.3.698 Ho spita .3.793136 084.8 l .8 2021-12-29 2021-12-29 Travel 1.2.840.1 1.2.937.337 5877 054771 Methodi 00:00:00 00:00:[address] 3.430.2.7 0.2.7.3.698 Ho spita .3.553370 084.8 l .8 2021-12-24 2021-12-24 Orders Bishop, 1.2.840.1 [id number] 2099 901548 Methodi 00:00:00 00:00:00 Only Cece Ziegler 76603.1.[address] 3.430.2.7 Hospit a .3.963211 l .8 2021 2021 Refill Octavia, 1.2.840.1 [id number] 408407 5102 Methodi 00:00:00 00:00:00 Mehran Pena [address]2628.1.[address] 3.430.2.7 Hospit a .3.272409 l .8 2021-10-28 2021-10-28 Refill Octavia 1.2.840.1 [id number] 591186 3268 Methodi 00:00:00 00:00:00 Mehran Pena 28538.1.[address] 3.430.2.7 Hospit a .3.182653 l .8 2021-10-28 2021-10-28 Refill Emely Corona 1.2.840.1 [id number] 21 [id number] Methodi 00:00:00 00:00:[address] 3.430.2.7 Hospit a .3.976362 l .8 2021-09-03 2021-09-03 [facility] 1.2.840.1 [id number] 92043 79036 Methodi 10:57:15 23:59:00 China Bond 14477.1.[address] 3.430.2.7 Hospit a .3.161540 l .8 2021-09-03 2021-09-03 Travel 1.2.840.1 1.2.515.238 9725 592386 Methodi 00:00:00 00:00:[address] 3.430.2.7 0.2.7.3.698 spita .3.707486 084.8 l .8 2021-08-13 2021-08-13 [facility] [id number] [address] [place] 00:00:00 00:00:00 MEHRAN [address] 2021-08-12 2021-08-12 Office Octavia 1.2.840.1 [id number] 1047 Methodi 13:30:00 16:33:41 Visit Mehran Lizarraga50.1.[address] 3.430.2.7 Hospit a .3.096244 l .8 2021-08-12 2021-08-12 Travel 1.2.840.1 1.2.015.003 1399 650370 Methodi 00:00:00 00:00:[address] 3.430.2.7 0.2.7.3.698 Ho spita .3.965679 084.8 l .8 2021-08-04 2021-08-04 Travel 1.2.840.1 1.2.751.043 4359 125389 Methodi 00:00:00 00:00:[address] 3.430.2.7 0.2.7.3.698 Ho spita .3.501985 084.8 l .8 2021-08-04 2021-08-04 Outpatient [facility] [id number] [address] [place] 00:00:00 00:00:00 MEHRAN [address] 2021-07-30 2021-07-30 Kai Cerna, 1.2.840.1 [id number] 941 6447713 Methodi 00:00:00 00:00:00 Only Coar 32354.1.[address] 3.430.2.7 Hospit a .3.273163 l .8 2021-07-29 2021-07-29 Travel 1.2.840.1 1.2.746.884 1910 369200 Methodi 00:00:00 00:00:[address] 3.430.2.7 0.2.7.3.698 Ho spita .3.144732 084.8 l .8 2021-07-29 2021-07-29 Outpatient [facility] [id number] 547 [place] 00:00:00 00:00:00 MEHRAN [address] 2021-07-23 2021-07-23 Refill Octavia, 1.2.840.1 [id number] 867752 1130 Methodi 00:00:00 00:00:[address] 43585[address]1.[address] 3.430.2.7 Hospit a .3.682766 l .8 2021-07-21 2021-07-21 Naey Dud[place], 1.2.840.1 [id number] 801582 3207 Methodi 00:00:00 00:00:00 Mehran Pena 60127.1.[address] 3.430.2.7 Hospit a .3.201608 l .8 2021-07-01 2021-07-01 Kai Alas, 1.2.840.1 [id number] 2099 135206 Methodi 00:00:00 00:00:00 Only Cece Ziegler 06311.1.[address] 3.430.2.7 Hospit a .3.856890 l .8 2021-06-26 2021-06-26 Travel 1.2.840.1 1.2.737.873 8664 563139 Methodi 00:00:00 00:00:[address] 3.430.2.7 0.2.7.3.698 Ho spita .3.981924 084.8 l .8 2021-06-24 2021-06-24 [facility], 1.2.840.1 [id number] 85105 Methodi 12:03:19 23:59:00 Encounter Elizabeth Bond 32015.1.[address] 3.430.2.7 Hospit a .3.170722 l .8 2021-06-24 2021-06-24 [facility], 1.2.840.1 [id number] 01312 Methodi 08:12:30 09:40:40 Encounter Elizabeth Bond 46965.1.[address] 3.430.2.7 Hospit a .3.410012 l .8 2021-06-24 2021-06-24 Travel 1.2.840.1 1.2.195.772 6820 499684 Methodi 00:00:00 00:00:[address] 3.430.2.7 0.2.7.3.698 Ho spita .3.305022 084.8 l .8 2021-06-17 2021-06-17 Telephone Adelso, 1.2.840.1 [id number] 2100 769413 Methodi 00:00:00 00:00:[address] Deepak West [address]80.1.[address] 3.430.2.7 Hospit a .3.849197 l .8 2021-06-13 2021-06-13 Refill Emely Corona 1.2.840.1 [id number] [id number] Methodi 00:00:00 00:00:[address] 3.430.2.7 Hospit a .3.653093 l .8 2021-06-11 2021-06-11 [facility], 1.2.840.1 [id number] 39045 18927 Methodi 01:00:00 23:59:00 Encounter Elizabeth Bond 28200.1.[address] 3.430.2.7 Hospit a .3.342636 l .8 2021-06-09 2021-06-09 [facility], 1.2.840.1 [id number] 60190 07433 Methodi 10:20:00 16:45:00 Encounter Deepak West 96232.1.[address] 3.430.2.7 Hospit a .3.756711 l .8 2021-06-09 2021-06-09 Surgery [facility], 1.2.840.1 [id number] 170563 7476 Methodi 13:40:00 15:55:00 Deepak West [address]67.1.[address] 3.430.2.7 Hospit a .3.514536 l .8 2021-06-09 2021-06-09 Anesthesia Alexis Mandujano 1.2.840.1 [id number] 8 [id number] Methodi 13:57:00 15:03:00 Event Nia Mcdermott 06286.1.[address] 3.430.2.7 Hospit a .3.089206 l .8 2021-06-09 2021-06-09 Telephone Vidal, 1.2.840.1 [id number] 340 0301945 Methodi 00:00:00 00:00:[address] 3.430.2.7 Hospit a .3.840203 l .8 2021-06-09 2021-06-09 Travel 1.2.840.1 1.2.479.673 6918 735525 Methodi 00:00:00 00:00:[address] 3.430.2.7 0.2.7.3.698 Ho spita .3.262604 084.8 l .8 2021-06-04 2021-06-04 [facility], 1.2.840.1 [id number] 11805 36237 Methodi 09:36:20 23:59:00 Encounter Deepak Calvillo. 20490.1.[address] 3.430.2.7 Hospit a .3.878347 l .8 2021-06-04 2021-06-04 [facility], 1.2.840.1 [id number] 726347 4749 Methodi 11:00:00 11:05:00 Deepak Diaz.H. [address]6416.1.[address] 3.430.2.7 Hospit a .3.491667 l .8 2021-06-04 2021-06-04 Travel 1.2.840.1 1.2.697.028 6736 487723 Methodi 00:00:00 00:00:[address] 3.430.2.7 0.2.7.3.698 Ho spita .3.956024 084.8 l .8 2021-06-03 2021-06-03 [facility] Elizabeth Gonzales 1.2.840.1 35397 1011 [id number] Methodi 09:53:26 10:12:42 Scarlet Walsh 03247.1.[address] 3.430.2.7 Hospit a .3.177009 l .8 2021-06-03 2021-06-03 [facility] Riya, 1.2.840.1 [id number] 27317 16810 Methodi 01:00:00 09:52:00 Encounter Elizabeth Bond 75871.1.[address] 3.430.2.7 Hospit a .3.505143 l .8 2021-06-03 2021-06-03 Telephone [place], 1.2.840.1 [id number] 2099 955572 Methodi 00:00:00 00:00:[address] Beata 3.430.2.7 Hospit a .3.271099 l .8 2021-06-02 2021-06-02 Telephone Riya, 1.2.840.1 [id number] 2100 590510 Methodi 00:00:00 00:00:00 Elizabeth Bond 97860.1.[address] 3.430.2.7 Hospit a .3.780805 l .8 2021-05-23 2021-05-23 Travel 1.2.840.1 1.2.320.042 8742 403358 Methodi 00:00:00 00:00:[address] 3.430.2.7 0.2.7.3.698 Ho spita .3.641573 084.8 l .8 2021-05-20 2021-05-20 Office [place], 1.2.840.1 [id number] 856981 7621 Methodi 13:30:00 15:49:14 Visit Mehran Pena 08315.1.[address] 3.430.2.7 Hospit a .3.646048 l .8 2021-05-20 2021-05-20 Travel 1.2.840.1 1.2.627.075 1666 230433 Methodi 00:00:00 00:00:[address] 3.430.2.7 0.2.7.3.698 Ho spita .3.118209 084.8 l .8 2021-05-16 2021-05-16 Telephone Vidal, 1.2.840.1 [id number] 379 [id number] Methodi 00:00:00 00:00:[address] 3.430.2.7 Hospit a .3.480043 l .8 2021-05-15 2021-05-15 Office Darden, 1.2.840.1 [id number] 835352 2898 Methodi 10:15:00 11:50:54 Visit Deepak Calvillo. 73098.1.[address] 3.430.2.7 Hospit a .3.700450 l .8 2021-05-15 2021-05-15 Telephone [place], 1.2.840.4 [id number] 218 [id number] Methodi 00:00:00 00:00:00 [address] 3.430.2.7 Hospit a .3.962735 l .8 2021-05-15 2021-05-15 Travel 1.2.840.1 1.2.235.589 6878 885606 Methodi 00:00:00 00:00:[address] 3.430.2.7 0.2.7.3.698 spita .3.448922 084.8 l .8 2021-05-14 2021-05-14 Abstract [facility], 1.2.840.1 [id number] 2099 618719 Methodi 00:00:00 00:00:[address] 3.430.2.7 Hospit a .3.312348 l .8 2021-05-02 2021-05-02 [facility] 1.2.840.1 [id number] 17330 46992 Methodi 10:29:34 23:59:00 China Elizabeth ArmendarizJabari 98557.1.[address] 3.430.2.7 Hospit a .3.369719 l .8 2021-05-02 2021-05-02 Travel 1.2.840.1 1.2.881.275 7378 306814 Methodi 00:00:00 00:00:[address] 3.430.2.7 0.2.7.3.698 Ho spita .3.487375 084.8 l .8 2021-04-30 2021-04-30 [facility], 1.2.840.1 [id number] 87174 06471 Methodi 10:22:18 23:59:00 Encounter Elizabeth Bond 31576.1.[address] 3.430.2.7 Hospit a .3.368666 l .8 2021-04-30 2021-04-30 [facility], 1.2.840.1 [id number] 2099 156968 Methodi 00:00:00 00:00:00 Only Cece Ziegler 96712.1.[address] 3.430.2.7 Hospit a .3.385597 l .8 2021-04-30 2021-04-30 [facility] 1.2.840.1 1.2.132.380 1807 217826 Methodi 00:00:00 00:00:[address] 3.430.2.7 0.2.7.3.698 Ho spita .3.836661 084.8 l .8 2021-04-24 2021-04-24 Naye Dudley 1.2.840.1 [id number] 696862 9451 Methodi 00:00:00 00:00:00 Mehran [address]ena 23410.1.[address] 3.430.2.7 Hospit a .3.246526 l .8 2021-03-24 2021-03-24 Emely Robin 1.2.840.1 [id number] 21 [id number] Methodi 00:00:00 00:00:[address] 3.430.2.7 Hospit a .3.713055 l .8 2020-11-05 2020-11-05 Outpatient [facility] [id number] [address] [place] 00:00:00 00:00:00 ELIZABETH [address] 2020-11-05 2020-11-05 Outpatient [facility] [id number] 137 [place] 00:00:00 00:00:00 ELIZABETH [address] 2020-10-21 2020-10-21 Outpatient FARACH, [facility] [id number] 752 [place] 00:00:00 00:00:00 ELIZABETH [address] 2020-08-07 2020-08-07 Outpatient VOLMAYRA, EMELY [facility] 404 [id number] [place] 00:00:00 00:00:[address] 2020-06-25 2020-06-25 Outpatient DUDLEY, [facility] [id number] 994 [place] 00:00:00 00:00:00 MEHRAN [address] 2020-06-18 2020-06-18 Outpatient DUDLEY, [facility] [id number] 765 [place] 00:00:00 00:00:00 MEHRAN [address] 2020-06-18 2020-06-18 Outpatient DUDLEY, [facility] [id number] 528 [place] 00:00:00 00:00:00 MEHRAN [address] 2020-06-12 2020-06-12 Outpatient FARACH, [facility] [id number] 179 [place] 00:00:00 00:00:00 ELIZABETH [address] 2020-06-12 2020-06-12 Outpatient FARACH, [facility] [id number] 179 [place] 00:00:00 00:00:00 ELIZABETH [address] 2020-05-20 2020-05-20 Outpatient FARACH, [facility] [id number] 190 [place] 00:00:00 00:00:00 ELIZABETH [address] 2020-01-23 2020-01-23 Outpatient FARACH, [facility] [id number] 190 [place] 00:00:00 00:00:00 ELIZABETH [address] 2020-01-15 2020-01-15 Outpatient FARACH, [facility] [id number] 897 [place] 00:00:00 00:00:00 ELIZABETH [address] 2020-01-15 2020-01-15 Outpatient FARACH, [facility] [id number] 894 [place] 00:00:00 00:00:00 ELIZABETH [address] 2019-12-19 2019-12-19 Outpatient DUDLEY, [facility] [id number] 608 [place] 00:00:00 00:00:00 MEHRAN [address] 2019-12-12 2019-12-12 Outpatient DUDLEY, [facility] [id number] 467 [place] 00:00:00 00:00:00 MEHRAN 478 Method i 2019-09-13 2019-09-13 Outpatient RIYA, [facility] [id number] 887 [place] 00:00:00 00:00:00 ELIZABETH 244 Method i 2019-09-13 2019-09-13 Outpatient RIYA, [facility] [id number] 497 [place] 00:00:00 00:00:00 ELIZABETH 283 Method i 2019-08-28 2019-08-28 Outpatient RIYA, [facility] [id number] 213 [place] 00:00:00 00:00:00 ELIZABETH 376 Method i 2019-08-28 2019-08-28 Outpatient RIYA, [facility] [id number] 212 [place] 00:00:00 00:00:00 ELIZABETH 635 Method i 2019-05-17 2019-05-17 Outpatient RIYA, [facility] [id number] 065 [place] 00:00:00 00:00:00 ELIZABETH 246 Method i 2019-05-17 2019-05-17 Outpatient RIYA, [facility] [id number] 993 [place] 00:00:00 00:00:00 ELIZABETH 675 Method i 2019-05-17 2019-05-17 Outpatient RIYA, [facility] [id number] 993 [place] 00:00:00 00:00:00 ELIZABETH 632 Method i 2019-03-17 2019-03-17 Office Maricruz Serrato 1.2.840.114 [id number] 145 08:40:24 08:55:24 Visit Mandujano AMBULATOR 350.1.13.21 Y 0.2.7.2.686 [id number] 300 2019-03-08 2019-03-08 Office Maricruz Serrato 1.2.840.114 34722 699 09:12:14 10:13:48 Visit Mandujano AMBULATOR 350.1.13.21 Y 0.2.7.2.686 [id number] 300 Results Test Description Test Time Test Comments Results Result Comments Source POC creatinine 2023-01-11 16:04:00 Test Item Value Reference Range Interpretation Comme nts POC creatinine (test code = 1.1 mg/dl 0.7-1.2 [employer]or [employer] Name: Cameron [id number] SolanoSTEFANIDveorah ID: [id number] [facility] [id number] 16:04:00 Test Item Value Reference Range Interpretation Comments Estimated GFR (test 65 mL/min/1.73 m2 Catmelva bhaktay Units code = 5488) InterpretationG 1 >=90 Normal or highG 2 60-89 Mildly decrease dG3a 45-59 Mildly to moder ately gijdzvvdfB8m 30 -44 Moderately to s everely decreasedG4 15- 29 Severely decreasedG5 <15 Kidney failureThe eGFR was calculated yudy andres the Chronic Kidney Disease Epidemiology Co llaboration (CKD-EPI) equat ion. Interpretation is based on recommendations of the National Kidney Foundation-Kidn ey Disease Outcomes Qualit y Initiative (NKF-KDOQI) pub lished in 2013. [facility] [id number] 06:15:00 Test Item Value Reference Range Interpretation Comments Cholesterol, total 122 mg/dL <=200 (test code = 2093-3) HDL cholesterol 39 mg/dL See_Comment L [Automated (test code = 2084-9) message ] The system which generated this result transmitted reference range : > OR = 40. The reference range was not used to interpret this result as normal/abnormal . Triglycerides (test 78 mg/dL <=150 code = 2571-8) LDL cholesterol 67 mg/dL (calc) Reference ra nge: calculated (test <100 Desira ble code = 30993-9) range <100 m g/dL for primary prevention; <70 mg/dL for patients with C HD or diabetic patients with > or = 2 CHD risk factors. LDL-C is now calculated using the Rao-Tg calculation, which is a validated novel method angely andres better accuracy than the Friedewald equation in the estimation of LDL-C. Rao Ocampo S et al. GREGORY. 2013;310(19): 8583-0340 (http://educati on .Dermal Life[employer]ko[employer] .com/faq/VLN415 ) Cholesterol/HDL 3.1 See_Comment [Automated ratio (test code = message] The 9830-1) system which generated this result transmitted reference range : <5.0 (calc). Th e reference range was not used to interpret this result as normal/abnormal . Non-HDL cholesterol 83 See_Comment For conchis ents with (test code = diabetes plus 1 51552-8) major ASCVD ris k factor, treatin g to a non-HDL-C goal of <100 mg/dL (LDL-C of <70 mg/dL) is considered a therapeutic option. [Automated message] The system which generated this result transmitted reference range : <130 mg/dL (calc). The reference range was not used to interpret this result as normal/abnormal . LOREN (test code = FASTING:YES LOREN) FASTING: YES RAC (test code = Performing RAC) Organization Information: Site ID: [facility] Name: [facility] Address: [address] [place] [address] Director: Papa Hearn Lab Interpretation Abnormal (test code = 13899-9) [facility] [id number] 06:15:00 Test Item Value Reference Range Interpretation Comments TSH (test code = 4.63 See_Comment H [Automated 4186-3) message] The system which generated this result transmitted reference range : 0.40 - 4.50 mIU/L. The reference range was not used to interpret this result as normal/abnormal . LOREN (test code = FASTING:YES LOREN) FASTING: YES RAC (test code = Performing RAC) Organization Information: Site ID: [facility] Name: [facility] Address: [address] [place] [address] Director: Papa Hearn Lab Interpretation Abnormal (test code = 26601-7) [facility]2022-12-03 06:15:00 Test Item Value Reference Range Interpretation Comments AST (test code = 28 U/L 1920-02) LOREN (test code = FASTING:YES FASTING: YES LOREN) RAC (test code = Performing Organization RAC) Information: Site ID: [facility] Address: [address] [place] [id number] Director: Papa Hearn [facility] [id number] 16:52:00 Test Item Value Reference Range Interpretation Comments POC glucose (test code 142 mg/dL 65-99 H Opera tor Name: [place] = 26702-7) [employer]aine[facility] ID : [id number] able: No Action Neede d Lab Interpretation Abnormal (test code = 83808-8) [facility] [id number] 16:52:00 Test Item Value Reference Range Interpretation Comments POC glucose (test code 142 mg/dL 65-99 H Opera tor Name: [facility] = 16030-9) [employer] ID : [id number] able: No Action Neede d Lab Interpretation Abnormal (test code = 61746-0) [facility]2022-11-30 16:52:00 Test Item Value Reference Range Interpretation Comments POC glucose (test code 142 mg/dL 65-99 H Opera tor Name: [facility] = 40868-7) [employer] ID : [id number] able: No Action Neede d Lab Interpretation Abnormal (test code = 91360-7) [facility]2022-11-30 16:52:00 Test Item Value Reference Range Interpretation Comments POC glucose (test code 142 mg/dL 65-99 H Opera tor Name: [facility] = 34365-4) [employer] ID : [id number] able: No Action Neede d Lab Interpretation Abnormal (test code = 55746-5) [facility]2022-11-30 16:52:00 Test Item Value Reference Range Interpretation Comments POC glucose (test code 142 mg/dL 65-99 H Opera tor Name: [facility] = 86157-3) [employer] ID : [id number] able: No Action Neede d Lab Interpretation Abnormal (test code = 67128-8) [facility]2022-11-30 16:52:00 Test Item Value Reference Range Interpretation Comments POC glucose (test code 142 mg/dL 65-99 H Opera tor Name: [facility] = 52691-4) [employer] ID : [id number] able: No Action Neede d Lab Interpretation Abnormal (test code = 31896-0) [facility]2022-11-30 16:52:00 Test Item Value Reference Range Interpretation Comments POC glucose (test code 142 mg/dL 65-99 H Opera tor Name: [facility] = 59905-3) [employer] ID : [id number] able: No Action Neede d Lab Interpretation Abnormal (test code = 13443-7) [address]2022-09-02 23:42:28 Test Item Value Reference Range [...] of 06-MAR-2022 11:51,-No significant change was found- [address]2022-09-02 23:42:28 Test Item Value Reference Range [...] of 06-MAR-2022 11:51,-No significant change was found- [address]2022-09-02 23:42:28 Test Item Value Reference Range [...] of 06-MAR-2022 11:51,-No significant change was found- [address]2022-09-02 23:42:28 Test Item Value Reference Range [...] of 06-MAR-2022 11:51,-No significant change was found- [address]2022-09-02 23:42:28 Test Item Value Reference Range [...] of 06-MAR-2022 11:51,-No significant change was found- [address]2022-09-02 23:42:28 Test Item Value Reference Range [...] of 06-MAR-2022 11:51,-No significant change was found- [place] [address] [id number] 23:42:28 Test Item Value Reference Range Interpretation [...] of 06-MAR-2022 11:51,-No significant change was found- [place] [address] [id number] 23:42:28 Test Item Value Reference Range Interpretation [...] of 06-MAR-2022 11:51,-No significant [facility] was found- [facility] [id number] 19:18:00 Test Item Value Reference Range Interpretation Comments Activated clotting time 475 See_Comment H Oper ator Name: (test code = 5298) Badescu B ianca~Device ID: [id number] [Automated mess age] The system [employer] generated this result transmitted ref erence range: 96 - 152 sec. The reference r amalia was not used to interpret this result as normal/abnor mal. Lab Interpretation (test Abnormal code = 41618-5) [facility] [id number] 19:18:00 Test Item Value Reference Range Interpretation Comments Activated clotting time See_Comment H Oper ator Name: (test code = 5298) [facility] ianca~Device ID: [id number] [Automated mess age] The system [employer] generated this result transmitted ref erence range: 96 - 152 sec. The reference r amalia was not used to interpret this result as normal/abnor mal. Lab Interpretation (test Abnormal code = 40591-9) [facility] [id number] 19:18:00 Test Item Value Reference Range Interpretation Comments Activated clotting time See_Comment H Oper ator Name: (test code = 5298) [facility] ianca~Device ID: [id number] [Automated mess age] The system [employer] generated this result transmitted ref erence range: 96 - 152 sec. The reference r amalia was not used to interpret this result as normal/abnor mal. Lab Interpretation (test Abnormal code = 49805-3) [facility] [id number] 19:18:00 Test Item Value Reference Range Interpretation Comments Activated clotting time See_Comment H Oper ator Name: (test code = 5298) [facility] ianca~Device ID: [id number] [Automated mess age] The system [employer] generated this result transmitted ref erence range: 96 - 152 sec. The reference r amalia was not used to interpret this result as normal/abnor mal. Lab Interpretation (test Abnormal code = 96134-1) [facility] clotting [id number] 19:18:00 Test Item Value Reference Range Interpretation Comments Activated clotting time See_Comment H Oper ator Name: (test code = 5298) Badescu B ianca~Device ID: [id number] [Automated mess age] The system Screenleap generated this result transmitted ref erence range: 96 - 152 sec. The reference r amalia was not used to interpret this result as normal/abnor mal. Lab Interpretation (test Abnormal code = 82353-7) [facility] SouthActivated clotting [id number] 19:18:00 Test Item Value Reference Range Interpretation Comments Activated clotting time See_Comment H Oper ator Name: (test code = 5298) Badescu B ianca~Device ID: [id number] [Automated mess age] The system Screenleap generated this result transmitted ref erence range: 96 - 152 sec. The reference r amalia was not used to interpret this result as normal/abnor mal. Lab Interpretation (test Abnormal code = 77434-4) [facility] SouthActivated clotting [id number] 19:18:00 Test Item Value Reference Range Interpretation Comments Activated clotting time See_Comment H Oper ator Name: (test code = 5298) Audie beaulieua~Device ID: [id number] [Automated mess age] The system Screenleap generated this result transmitted ref erence range: 96 - 152 sec. The reference r amalia was not used to interpret this result as normal/abnor mal. Lab Interpretation (test Abnormal code = 25386-6) [facility] SouthAct[facility] clotting [id number] 19:18:00 Test Item Value Reference Range Interpretation Comments Activated clotting time 475 See_Comment H Oper ator Name: (test code = 5298) Audie beaulieua~Device ID: [id number] [Automated mess age] The system Screenleap generated this result transmitted ref erence range: 96 - 152 sec. The reference r amalia was not used to interpret this result as normal/abnor mal. Lab Interpretation (test Abnormal code = 03226-6) [facility] SouthComprehensive metabolic [id number] 10:58:00 Test Item Value Reference Range Interpretation [...] . Sodium (test code = 142 mmol/L 270-903 9421-2) Potassium (test code 4.1 mmol/L 3.5-5.3 = 2823-3) Chloride (test code 104 mmol/L 98-110 = 2075-0) CO2 (test code = 32 mmol/L 20-32 2027-9) Calcium (test code = 8.8 mg/dL 8.6-10.3 28310-6) Protein (test code = 6.5 g/dL 6.1-8.1 2885-2) Albumin, S (test 3.9 g/dL 3.6-5.1 code = 1751-7) Globulin, total 2.6 See_Comment [Automated (test code = message] The 85144-1) system which generated this result transmitted reference range : 1.9 - 3.7 g/dL (calc). The reference range was not used to interpret this result as normal/abnormal . Albumin/globulin 1.5 See_Comment [Automated ratio (test code = message] The 1750) system which generated this result transmitted reference [...] RAC) Organization Information: Site ID: RGA Name: [facility] Lab Address: [address] [place] [phone] Director: Papa Hearn Lab Interpretation Abnormal (test code = 12711-6) [facility] SouthProthrombin time with [id number] 10:58:00 Test Item Value Reference Range Interpretation Comments INR (test code = 1.1 Reference R amalia 6301-6) 0.9-1.1Moderate -i ntensity Warfar in Therapy 2.0-3.0Higher-i nt ensity Warfarin Therapy 3.0-4.0 Prothrombin time 11.5 See_Comment For additio nal (test code = information, 5902-2) please refer tohttp://educat io n.Paratek Pharmaceuticalsdiagnost MedShape/faq/FAQ10 4( This link is being provided for informational/e du cational purpos es only.) [Automat ed message] The system which generated this result transmitted reference range : 9.0 - 11.5 sec. The reference range was not used to interpr et this result as normal/abnormal . RAC (test code = Performing RAC) Organization Information: Site ID: HARDY [facility] Address: [address] [place] [phone] Director: Papa Hearn [facility]Com[facility] metabolic [id number] 10:58:00 Test Item Value Reference Range Interpretation [...] . Sodium (test code = 142 mmol/L 862-513 0323-2) Potassium (test code 4.1 mmol/L 3.5-5.3 = 2823-3) Chloride (test code 104 mmol/L 98-110 = 2075-0) CO2 (test code = 32 mmol/L 20-32 2027-9) Calcium (test code = 8.8 mg/dL 8.6-10.3 17805-2) Protein (test code = 6.5 g/dL 6.1-8.1 2885-2) Albumin, S (test 3.9 g/dL 3.6-5.1 code = 1751-7) Globulin, total See_Comment [Automated (test code = message] The 26777-1) system which generated this result transmitted reference [...] RAC) Organization Information: Site ID: RGA Name: [facility] Lab Address: [address] [place] [phone] Director: Papa Hearn Lab Interpretation Abnormal (test code = 82802-0) [facility] SouthProthrombin time with [id number] 10:58:00 Test Item Value Reference Range Interpretation Comments INR (test code = Reference R amalia 6301-6) 0.9-1.1Moderate -i ntensity Warfar in Therapy 2.0-3.0Higher-i nt ensity Warfarin Therapy 3.0-4.0 Prothrombin time See_Comment For additio nal (test code = information, 5902-2) please refer tohttp://educat io n.questdiagnost MedShape/faq/FAQ10 4( This link is being provided for informational/e du cational purpos es only.) [Automat ed message] The system which generated this result transmitted reference range : 9.0 - 11.5 sec. The reference range was not used to interpr et this result as normal/abnormal . RAC (test code = Performing RAC) Organization Information: Site ID: HARDY [facility] Address: [address] [place] [address] Director: [facility] [id number] 10:58:00 Test Item Value Reference Range Interpretation [...] . Sodium (test code = 142 mmol/L 459-361 1274-2) Potassium (test code 4.1 mmol/L 3.5-5.3 = 2823-3) Chloride (test code 104 mmol/L 98-110 = 2075-0) CO2 (test code = 32 mmol/L 20-32 2028-03) Calcium (test code = 8.8 mg/dL 8.6-10.3 58686-0) Protein (test code = 6.5 g/dL 6.1-8.1 5-2) Albumin, S (test 3.9 g/dL 3.6-5.1 code = 1751-7) Globulin, total See_Comment [Automated (test code = message] The ) system [...] RAC) Organization Information: Site ID: RGA Name: [facility] Lab Address: [address] [place] [phone] Director: Papa Hearn Lab Interpretation Abnormal (test code = 46087-4) [facility] [id number] 10:58:00 Test Item Value Reference Range Interpretation Comments INR (test code = Reference R amalia 6301-6) 0.9-1.1Moderate -i ntensity Warfar in Therapy 2.0-3.0Higher-i nt ensity Warfarin Therapy 3.0-4.0 Prothrombin time See_Comment For additio nal (test code = information, 5902-2) please refer tohttp://educat io n.Paratek Pharmaceuticalsdiagnost MedShape/faq/FAQ10 4( This link is being provided for informational/e du cational purpos es only.) [Automat ed message] The system which generated this result transmitted reference range : 9.0 - 11.5 sec. The reference range was not used to interpr et this result as normal/abnormal . RAC (test code = Performing RAC) Organization Information: Site ID: HARDY [facility] Lab Address: [address] [place] [address] Director: Papa [facility]n [facility] [id number] 10:58:00 Test Item Value Reference Range Interpretation [...] . Sodium (test code = 142 mmol/L 084-447 3703-2) Potassium (test code 4.1 mmol/L 3.5-5.3 = 2823-3) Chloride (test code 104 mmol/L 98-110 = 2075-0) CO2 (test code = 32 mmol/L 20-32 2027-9) Calcium (test code = 8.8 mg/dL 8.6-10.3 36662-4) Protein (test code = 6.5 g/dL 6.1-8.1 2885-2) Albumin, S (test 3.9 g/dL 3.6-5.1 code = 1751-7) Globulin, total See_Comment [Automated (test code = message] The 98351-7) system which generated this result transmitted reference [...] = Performing RAC) Organization Information: Site ID: [facility]: [facility] Address: [address] [place] [address] Director: Papa Hearn Lab Interpretation Abnormal (test code = 71349-3) [facility] SouthProthrombin time with [id number] 10:58:00 Test Item Value Reference Range Interpretation Comments INR (test code = Reference R amalia 6301-6) 0.9-1.1Moderate -i ntensity Warfar in Therapy 2.0-3.0Higher-i nt ensity Warfarin Therapy 3.0-4.0 Prothrombin time See_Comment For additio nal (test code = information, 5902-2) please refer tohttp://educat io n.Unruly/faq/FAQ10 4( This link is being provided for informational/e du cational purpos es only.) [Automat ed message] The system which generated this result transmitted reference range : 9.0 - 11.5 sec. The reference range was not used to interpr et this result as normal/abnormal . RAC (test code = Performing RAC) Organization Information: Site ID: [facility]: [facility] Address: [address] [place] [address] Director: Papa [facility]n [facility] [id number] 10:58:00 Test Item Value Reference Range Interpretation [...] . Sodium (test code = 142 mmol/L 002-574 7617-2) Potassium (test code 4.1 mmol/L 3.5-5.3 = 2823-3) Chloride (test code 104 mmol/L 98-110 = 2075-0) CO2 (test code = 32 mmol/L 20-32 8-9) Calcium (test code = 8.8 mg/dL 8.6-10.3 22040-0) Protein (test code = 6.5 g/dL 6.1-8.1 2885-2) Albumin, S (test 3.9 g/dL 3.6-5.1 code = 1751-7) Globulin, total See_Comment [Automated (test code = message] The 86938-1) system which generated this result transmitted reference range : 1.9 - 3.7 g/dL (calc). The reference range was not used to interpret this result as normal/abnormal . Albumin/globulin See_Comment [Automated ratio (test code = message] The 175-0) system which generated this result transmitted reference [...] RAC) Organization Information: Site ID: MADANA [facility] Address: [address] [place] [address] Director: Papa Hearn Lab Interpretation Abnormal (test code = 79503-3) [facility] SouthProthrombin time with [id number] 10:58:00 Test Item Value Reference Range Interpretation Comments INR (test code = Reference R amalia 6301-6) 0.9-1.1Moderate -i ntensity Warfar in Therapy 2.0-3.0Higher-i nt ensity Warfarin Therapy 3.0-4.0 Prothrombin time See_Comment For additio nal (test code = information, 5902-2) please refer tohttp://educat io n.Paratek PharmaceuticalsdiagnYAMAP/faq/FAQ10 4( This link is being provided for informational/e du cational purpos es only.) [Automat ed message] The system which generated this result transmitted reference range : 9.0 - 11.5 sec. The reference range was not used to interpr et this result as normal/abnormal . RAC (test code = Performing RAC) Organization Information: Site ID: MADANA [facility]: [facility] Address: [address] [place] [address] Director: Papa Hearn [facility] [id number] 10:58:00 Test Item Value Reference Range Interpretation [...] t, go to https://www.kid ne y.org/profderrickio na brayan/kdoqi/gfr%5F ca lculator [Automated message] The [...] . Sodium (test code = 142 mmol/L 762-864 6790-2) Potassium (test code 4.1 mmol/L 3.5-5.3 = 2823-3) Chloride (test code 104 mmol/L 98-110 = 2075-0) CO2 (test code = 32 mmol/L 20-32 2027-9) Calcium (test code = 8.8 mg/dL 8.6-10.3 00009-6) Protein (test code = 6.5 g/dL 6.1-8.1 2885-2) Albumin, S (test 3.9 g/dL 3.6-5.1 code = 1751-7) Globulin, total See_Comment [Automated (test code = message] The 53442-4) system which generated this result transmitted reference range : 1.9 - 3.7 g/dL (calc). The reference range was not used to interpret this result as normal/abnormal . Albumin/globulin See_Comment [Automated ratio (test code = message] The 6099-0) system which generated this result transmitted reference [...] RAC) Organization Information: Site ID: A [facility]: [facility] Address: [address] [place] [address] Director: Papa Hearn Lab Interpretation Abnormal (test code = 85800-7) [facility]Prothrombin time with [id number] 10:58:00 Test Item Value Reference Range Interpretation Comments INR (test code = Reference R amalia 6301-6) 0.9-1.1Moderate -i ntensity Warfar in Therapy 2.0-3.0Higher-i nt ensity Warfarin Therapy 3.0-4.0 Prothrombin time See_Comment For additio nal (test code = information, 5902-2) please refer tohttp://educat io n.Unruly/faq/FAQ10 4( This link is being provided for informational/e du cational purpos es only.) [Automat ed message] The system which generated this result transmitted reference range : 9.0 - 11.5 sec. The reference range was not used to interpr et this result as normal/abnormal . RAC (test code = Performing RAC) Organization Information: Site ID: A [facility]: [facility] Lab Address: [address] [place] [address] Director: Papa Hearn [facility] [id number] 10:58:00 Test Item Value Reference Range Interpretation Comments Glucose (test code = 196 mg/dL 65-99 H Fastin g 5925-7) reference interval For someone without known diabetes, [...] Cystatin Cresul t, go to https://www.kid ne y.org/proffly schmidt/kdoqi/gfr%5F ca lculator [Automated message] The system [...] . Sodium (test code = 142 mmol/L 081-982 1204-2) Potassium (test code 4.1 mmol/L 3.5-5.3 = 2823-3) Chloride (test code 104 mmol/L 98-110 = 2075-0) CO2 (test code = 32 mmol/L -32 2027-) Calcium (test code = 8.8 mg/dL 8.6-10.3 78847-8) Protein (test code = 6.5 g/dL 6.1-8.1 2885-2) Albumin, S (test 3.9 g/dL 3.6-5.1 code = 1751-7) Globulin, total See_Comment [Automated (test code = message] The 45761-6) system which generated this result transmitted reference [...] RAC) Organization Information: Site ID: RGA [facility] Address: [address] [place] [phone] Director: Papa Hearn Lab Interpretation Abnormal (test code = 22336-5) [facility] SouthProthrombin time with [id number] 10:58:00 Test Item Value Reference Range Interpretation Comments INR (test code = Reference R amalia 6301-6) 0.9-1.1Moderate -i ntensity Warfar in Therapy 2.0-3.0Higher-i nt ensity Warfarin Therapy 3.0-4.0 Prothrombin time See_Comment For additio nal (test code = information, 5902-2) please refer tohttp://educat io n.Paratek Pharmaceuticalsdiagnost MedShape/faq/FAQ10 4( This link is being provided for informational/e du cational purpos es only.) [Automat ed message] The system which generated this result transmitted reference range : 9.0 - 11.5 sec. The reference range was not used to interpr et this result as normal/abnormal . RAC (test code = Performing RAC) Organization Information: Site ID: [facility]: [facility] Address: [address] [place] [phone] Director: Papa Hearn [facility] [id number] 10:58:00 Test Item Value Reference Range Interpretation [...] . Sodium (test code = 142 mmol/L 504-477 1006-2) Potassium (test code 4.1 mmol/L 3.5-5.3 = 2823-3) Chloride (test code 104 mmol/L 98-110 = 2075-0) CO2 (test code = 32 mmol/L 20-32 2027-) Calcium (test code = 8.8 mg/dL 8.6-10.3 55253-2) Protein (test code = 6.5 g/dL 6.1-8.1 2885-2) Albumin, S (test 3.9 g/dL 3.6-5.1 code = 1751-7) Globulin, total 2.6 See_Comment [Automated (test code = message] The 39836-6) system which generated this result transmitted reference range : 1.9 - 3.7 g/dL (calc). The reference range was not used to interpret this result as normal/abnormal . Albumin/globulin 1.5 See_Comment [Automated ratio (test code = message] The 1750) system which generated this result transmitted reference [...] = Performing RAC) Organization Information: Site ID: [facility] Name: [facility] Address: [address] [place] [phone] Director: Papa Hearn Lab Interpretation Abnormal (test code = 46207-3) [facility] SouthProthrombin time with [id number] 10:58:00 Test Item Value Reference Range Interpretation Comments INR (test code = 1.1 Reference R amalia 6301-6) 0.9-1.1Moderate -i ntensity Warfar in Therapy 2.0-3.0Higher-i nt ensity Warfarin Therapy 3.0-4.0 Prothrombin time 11.5 See_Comment For additio nal (test code = information, 5902-2) please refer tohttp://educat io n.Unruly/faq/FAQ10 4( This link is being provided for informational/e du cational purpos es only.) [Automat ed message] The system which generated this result transmitted reference range : 9.0 - 11.5 sec. The reference range was not used to interpr et this result as normal/abnormal . RAC (test code = Performing RAC) Organization Information: Site ID: [facility]: [facility] Address: [address] [place] [address] Director: Papa Hearn [facility] [id number] 16:28:00 Test Item Value Reference Range Interpretation Comments POC creatinine (test 1.0 mg/dl 0.7-1.2 Operato r Name: Collazo code = 52576-5) Annie ce ID: [id number] [facility] [id number] 16:28:00 Test Item Value Reference Range Interpretation Comments POC creatinine (test 1.0 mg/dl 0.7-1.2 Operato r Name: Collazo code = 39147-0) Annie ce ID: [id number] [facility] [id number] 16:28:00 Test Item Value Reference Range Interpretation Comments POC creatinine (test 1.0 mg/dl 0.7-1.2 Operato r Name: Collazo code = 67570-1) Annie ce ID: [id number] [facility] [id number] 16:28:00 Test Item Value Reference Range Interpretation Comments POC creatinine (test 1.0 mg/dl 0.7-1.2 Operato r Name: Collazo code = 20773-0) Annie ce ID: [id number] [facility] [id number] 16:28:00 Test Item Value Reference Range Interpretation Comments POC creatinine (test 1.0 mg/dl 0.7-1.2 Operato r Name: Collazo code = 24946-7) Annie ce ID: [id number] [facility] [id number] 16:28:00 Test Item Value Reference Range Interpretation Comments POC creatinine (test 1.0 mg/dl 0.7-1.2 Operato r Name: Collazo code = 02914-1) Annie ce ID: [id number] [facility] [id number] 16:28:00 Test Item Value Reference Range Interpretation Comments POC creatinine (test 1.0 mg/dl 0.7-1.2 Operato r Name: Collazo code = 45178-8) Annie ce [facility]: [id number] [facility] [id number] 11:03:00 Test Item Value Reference Range Interpretation [...] calculated (test <100 Desira ble code = 05823-1) range <100 m g/dL for primary prevention; <70 mg/dL for patients with C HD or diabetic patients with > or = 2 CHD risk factors. LDL-C is now calculated using the Perez calculation, which is a validated novel method providin g better accuracy than the Friedewald equation in the estimation of LDL-C. Rao S S et al. GREGORY. 2013;310(19): 5373-3871 (http://educati on .HowAboutWe .com/faq/FFG429 ) Cholesterol/HDL See_Comment [Automated ratio (test code = message] The 9830-1) system which generated this result transmitted reference range : <5.0 (calc). Th e reference range was not used to interpret this result as normal/abnormal . Non-HDL cholesterol See_Comment For conchis ents with (test code = diabetes plus 1 84516-8) major ASCVD ris k factor, treatin g [...] = Performing RAC) Organization Information: Site ID: [facility]: [facility] Address: [address] [place] [address] Director: Papa Hearn Lab Interpretation Abnormal (test code = 41192-5) [facility] SouthThyroid stimulating [id number] 11:03:00 Test Item Value Reference Range Interpretation [...] code = RAC) Organization Information: Site [facility]: [facility] Address: [address] [place] [address] Director: Papa Hearn [facility] (SGOT)2022-02-18 11:03:00 Test Item Value Reference Range Interpretation Comments AST (test code = 27 U/L 10-35 1920-8) LOREN (test code = FASTING:NO FASTING: NO LOREN) RAC (test code = Performing Organization RAC) Information: Site ID: HARDY [facility] Address: [address] [place] [phone] Director: Papa Hearn [facility] SouthLipid [id number] 11:03:00 Test Item Value Reference Range Interpretation Comments Cholesterol, total 125 mg/dL See_Comment [Automat ed (test code = 2093-3) message ] The system which generated this result transmitted reference range : <=200. The reference range was not used to interpret this result as normal/abnormal . HDL cholesterol 34 mg/dL See_Comment L [Automated (test code = 5-9) message ] The system which generated this [...] calculated (test <100 Desira ble code = 05358-3) range <100 m g/dL for primary prevention; <70 mg/dL for patients with C HD or diabetic patients with > or = 2 CHD risk factors. LDL-C is now calculated using the Rao-Tg calculation, which is a validated novel method providin g better accuracy than the Friedewald equation in the estimation of LDL-C. Rao S S et al. GREGORY. 2013;310(19): 2493-4603 (http://educati on .Dermal LifeDiagnosti Skoovy .com/faq/QQQ717 ) Cholesterol/HDL See_Comment [Automated ratio (test code = message] The 9830-1) system which generated this result transmitted reference range : <5.0 (calc). Th e reference range was not used to interpret this result as normal/abnormal . Non-HDL cholesterol See_Comment For conchis ents with (test code = diabetes plus 1 75140-0) major ASCVD ris k factor, treatin g [...] = Performing RAC) Organization Information: Site ID: [facility]: [facility] Address: [address] [place] [address] Director: Papa Hearn Lab Interpretation Abnormal (test code = 72226-3) [facility] SouthThy[facility] stimulating [id number] 11:03:00 Test Item Value Reference Range Interpretation [...] code = RAC) Organization Information: Site ID: [facility] Address: [address] [place] [address] Director: Papa AndradeDunlap Memorial HospitalAST (OT)2022-02-18 11:03:00 Test Item Value Reference Range Interpretation Comments AST (test code = 27 U/L 1920-02) LOREN (test code = FASTING:NO FASTING: NO LOREN) RAC (test code = Performing Organization RAC) Information: Site ID: [facility]: [facility] Address: [address] [place], [place] [id number] Director: Papa AndradeDunlap Memorial HospitalLipid [id number] 11:03:00 Test Item Value Reference Range Interpretation Comments Cholesterol, total 125 mg/dL See_Comment [Automat ed (test code = 2092-3) message ] The system which generated this [...] calculated (test <100 Desira ble code = 04405-9) range <100 m g/dL for primary prevention; <70 mg/dL for patients with C HD or diabetic patients with > or = 2 CHD risk factors. LDL-C is now calculated using the Rao-Tg calculation, which is a validated novel method providin g better accuracy than the Friedewald equation in the estimation of LDL-C. Rao S S et al. GREGORY. 2013;310(19): 8932-2832 (http://educati on .HowAboutWe .com/faq/HFU035 ) Cholesterol/HDL See_Comment [Automated ratio (test code = message] The 9830-1) system which generated this result transmitted reference range : <5.0 (calc). Th e reference range was not used to interpret this result as normal/abnormal . Non-HDL cholesterol See_Comment For conchis ents with (test code = diabetes plus 1 32794-1) major ASCVD ris k factor, treatin g [...] RAC) Organization Information: Site ID: [facility]GA Name: [facility] Address: [address] [place] [phone] Director: Papa Hearn Lab Interpretation Abnormal (test code = 16594-1) [facility] [id number] 11:03:00 Test Item Value Reference Range Interpretation Comments TSH (test See_Comment [Automated mes clarence] code = The system [facility] h 3016-3) generated this result transmit rachel reference range : 0.40 - 4.50 mIU /L. The reference r amalia was not used to interpret this result as normal/abnormal . LOREN (test FASTING:NO FASTING: code = LOREN) NO RAC (test Performing code = RAC) Organization Information: Site ID: [facility]Y [facility] Address: [address] [place] [phone] [facility] 11:03:00 Test Item Value Reference Range Interpretation Comments AST (test code = 27 U/L 1920-02) LOREN (test code = FASTING:NO FASTING: NO LOREN) RAC (test code = Performing Organization RAC) Information: Site ID: [facility] Address: [address] [place] [phone] Director[facility] [id number] 11:03:00 Test Item Value Reference Range Interpretation [...] calculated (test <100 Desira ble code = 05014-5) range <100 m g/dL for primary prevention; <70 mg/dL for patients with C HD or diabetic patients with > or = 2 CHD risk factors. LDL-C is now calculated using the Perez calculation, which is a validated novel method providin g better accuracy than the Friedewald equation in the estimation of LDL-C. Rao S S et al. GREGORY. 2013;310(86): 8747-9310 (http://educati on .HowAboutWe .com/faq/XIX927 ) Cholesterol/HDL See_Comment [Automated ratio (test code = message] The 9830-1) system which generated this result transmitted reference range : <5.0 (calc). Th e reference range was not used to interpret this result as normal/abnormal . Non-HDL cholesterol See_Comment For conchis ents with (test code = diabetes plus 1 61000-4) major ASCVD ris k factor, treatin g [...] = Performing RAC) Organization Information: Site ID: [facility] Address: [address] [place] [address] Director: Papa Hearn Lab Interpretation Abnormal (test code = 92304-9) [facility] stimulating [id number] 11:03:00 Test Item Value Reference Range Interpretation [...] code = RAC) Organization Information: Site ID: [facility] Address: [address] [place] [address] Director: Papa Hearn [facility] ([facility]2022-02-18 11:03:00 Test Item Value Reference Range Interpretation Comments AST (test code = 27 U/L 1920-02) LOREN (test code = FASTING:NO FASTING: NO LOREN) RAC (test code = Performing Organization RAC) Information: Site ID: [facility] Address: [address] [place] [address] Director: Papa Hearn [facility] SouthLipid [id number] 11:03:00 Test Item Value Reference Range Interpretation [...] calculated (test <100 Desira ble code = 44093-2) range <100 m g/dL for primary prevention; <70 mg/dL for patients with C HD or diabetic patients with > or = 2 CHD risk factors. LDL-C is now calculated using the Rao-Tg calculation, which is a validated novel method providin g better accuracy than the Friedewald equation in the estimation of LDL-C. Rao S S et al. GREGORY. 2013;310(19): 2904-1148 (http://educati on .Dermal LifeDiagnostSessions .com/faq/YJE635 ) Cholesterol/HDL See_Comment [Automated ratio (test code = message] The 9830-1) system which generated this result transmitted reference range : <5.0 (calc). Th e reference range was not used to interpret this result as normal/abnormal . Non-HDL cholesterol See_Comment For conchis ents with (test code = diabetes plus 1 36238-5) major ASCVD ris k factor, treatin g [...] = Performing RAC) Organization Information: Site ID: [facility] Address: [address] [place] [address] Director: Papa Hearn Lab Interpretation Abnormal (test code = 30796-2) [facility] SouthThy[facility] stimulating [id number] 11:03:00 Test Item Value Reference Range Interpretation [...] code = RAC) Organization Information: Site ID: [facility] Name: [facility] Address: [address] [place] [address] Director: Papa Hearn [facility] (SGOT)2022-02-18 11:03:00 Test Item Value Reference Range Interpretation Comments AST (test code = 27 U/L 1920-02) LOREN (test code = FASTING:NO FASTING: NO LOREN) RAC (test code = Performing Organization RAC) Information: Site ID: [facility] Address: [address] [place], [place] [id number] Director: Papa Hearn [facility] SouthLipid [id number] 11:03:00 Test Item Value Reference Range Interpretation [...] calculated (test <100 Desira ble code = 07730-3) range <100 m g/dL for primary prevention; <70 mg/dL for patients with C HD or diabetic patients with > or = 2 CHD risk factors. LDL-C is now calculated using the Perez calculation, which is a validated novel method providin g better accuracy than the Friedewald equation in the estimation of LDL-C. Rao S S et al. GREGORY. 2013;310(19): 5829-9683 (http://educati on .HowAboutWe .com/faq/UTH077 ) Cholesterol/HDL See_Comment [Automated ratio (test code = message] The 9830-1) system which generated this result transmitted reference range : <5.0 (calc). Th e reference range was not used to interpret this result as normal/abnormal . Non-HDL cholesterol See_Comment For conchis ents with (test code = diabetes plus 1 01444-6) major ASCVD ris k factor, treatin g [...] = Performing RAC) Organization Information: Site ID: [facility] Address: [address] [place] [phone] Director: Papa Hearn Lab Interpretation Abnormal (test code = 27496-0) [facility] SouthThy[facility] stimulating [id number] 11:03:00 Test Item Value Reference Range Interpretation [...] code = RAC) Organization Information: Site ID: [facility] Address: [address] [place] [phone] [facility] 11:03:00 Test Item Value Reference Range Interpretation Comments AST (test code = 27 U/L 1920-02) LOREN (test code = FASTING:NO FASTING: NO LOREN) RAC (test code = Performing Organization RAC) Information: Site ID: RGA [facility] Address: [address] [place] [phone] Director: [facility]Lip[facility] [id number] 11:03:00 Test Item Value Reference Range Interpretation Comments Cholesterol, total 125 mg/dL <=200 (test code = 3-3) HDL cholesterol 34 mg/dL See_Comment L [Automated (test code = 2085-03) message ] The system which generated this result transmitted reference range : > OR = 40. The reference range was not used to interpret this result as normal/abnormal . Triglycerides (test 126 mg/dL <=150 code = 2571-8) LDL cholesterol 70 mg/dL (calc) Reference ra nge: calculated (test <100 Desira ble code = 19680-7) range <100 m g/dL for primary prevention; <70 mg/dL for patients with C HD or diabetic patients with > or = 2 CHD risk factors. LDL-C is now calculated using the Rao-Tg calculation, which is a validated novel method providin g better accuracy than the Friedewald equation in the estimation of LDL-C. Rao S S et al. GREGORY. 2013;310(19): 5971-1022 (http://educati on .QuestDiagnosti Skoovy .com/faq/KPK723 ) Cholesterol/HDL 3.7 See_Comment [Automated ratio (test code = message] The 9830-1) system which generated this result transmitted reference range : <5.0 (calc). Th e reference range was not used to interpret this result as normal/abnormal . Non-HDL cholesterol 91 See_Comment For conchis ents with (test code = diabetes plus 1 40339-4) major ASCVD ris k factor, treatin g [...] = Performing RAC) Organization Information: Site ID: [facility]: [facility] Address: [address] [place] [address] Director: Papa Hearn Lab Interpretation Abnormal (test code = 26111-2) [facility] SouthThy[facility] stimulating [id number] 11:03:00 Test Item Value Reference Range Interpretation Comments TSH (test 2.81 See_Comment [Automated mes clarence] code = The system [facility] h 3016-3) generated this result transmit rachel reference range : 0.40 - 4.50 mIU /L. The reference r amalia was not used to interpret this result as normal/abnormal . LOREN (test FASTING:NO FASTING: code = LOREN) NO RAC (test Performing code = RAC) Organization Information: Site ID: [facility] Address: [address] [place] [address] Director: Papa Hearn [facility] ([facility]2022-02-18 11:03:00 Test Item Value Reference Range Interpretation Comments AST (test code = 27 U/L 1920-02) LOREN (test code = FASTING:NO FASTING: NO LOREN) RAC (test code = Performing Organization RAC) Information: Site ID: [facility] Address: [address] [place] [address] Director: Papa Hearn [facility] SouthAFB [id number] 06:13:29 Test Item Value Reference Range Interpretation Comments AFB culture No growth Specimen isolate (test after 6 weeks InformationSp ecimen code = 543-9) of Source: Bronch ial alveolar incubation. lavageSpecimen Site: Lung: RIGHT UPPER LOB E BRONCHOALVEOLAR LAVAGE - Please add: Belen erobic and Aerobic Culture [facility] SouthFungus [id number] 06:15:29 Test Item Value Reference Range Interpretation Comments Fungus culture No growth Specimen isolate (test after 4 weeks InformationSp ecimen code = 1441) of Source: Bronchi al alveolar incubation. lavageSpecimen Site: Lung: RIGHT UPPER LOB E BRONCHOALVEOLAR LAVAGE - Please add: Belen erobic and Aerobic Culture [facility]Res[facility] [id number] 16:28:06 Test Item Value Reference Range Interpretation Comments Respiratory No growth Specimen culture isolate after 2 InformationS pecimen (test code = days. [place]: [place] [address]-5) alveolar lavage Specimen Site: Lung: RIG HT UPPER LOBE BRONCHOALV EOLAR LAVAGE - Please add: Anaerobic and A erobic Culture [facility] pathology [id number] 00:07:40 Test Item Value Reference Range Interpretation Comments Case number (test code = [id number]) Surgical pathology See link below for report (test code = PDF Lab Report 2255) Result status (test code This is Final Report = [id number]) for [id number] [facility]Fungus [id number] 21:00:30 Test Item Value Reference Range Interpretation Comments Fungus smear No fungi Specimen (test code = observed. InformationSpec imen Source: 1443) Bronchial alveo lar lavageSpecimen Site: Lung: RIGHT UPPER LOB E BRONCHOALVEOLAR LAVAGE - Please add: Belen erobic and Aerobic Culture [facility] HospitalCytology (non-gynecological) [id number] 20:58:41 Test Item Value Reference Range Interpretation Comments Case number (test code = [id number]) Cytology See link below for (non-gynecological) PDF Lab Report report (test code = 1178) Result status (test code This is Final Report = [id number]) for [id number] [facility] HospitalAFB [id number] 12:06:44 Test Item Value Reference Range Interpretation Comments AFB stain No acid fast Specimen (test code = bacilli (AFB) InformationSpe cimen 676-7) seen. Source: Bronchi al alveolar lavageSpecimen Site: Lung: RIGHT UPPER LOB E BRONCHOALVEOLAR LAVAGE - Please add: Belen erobic and Aerobic Culture [facility] HospitalGram [id number] 17:31:26 Test Item Value Reference Range Interpretation Comments Gram stain No WBC's or Specimen isolate (test organisms seen. Information Specimen code = 1469) Source: Bronchi al alveolar lavage Specimen Site: Lung: RIG HT UPPER LOBE BRONCHOALV EOLAR LAVAGE - Please add: Anaerobic and A erobic Culture [facility] HospitalABO and Rh [id number] 18:40:00 Test Item Value Reference Range Interpretation Comments ABO grouping (test code = 883-9) O Rh type (test code = 23912-8) NEG [facility] HospitalCOVID-19 qualitative [id number] 19:19:41 Test Item Value Reference Range Interpretation Comments Interpretation (test Negative results do code = 9647399) not preclude 2019-nCoV infection and should not be used as the sole basis for treatment or other patient management decisions. Negative results must be combined with clinical observations, patient history, and epidemiological information. COVID-19 qualitative Not-Detected Not-Detected RT-PCR result (test code = 88764-0) COVID-19 qualitative See link below for C ase Number: RT-PCR (test code = PDF Lab Report [id number]) [facility] HospitalType and [id number] 17:30:00 Test Item Value Reference Range Interpretation Comments ABO grouping (test code = 883-9) O Rh type (test code = 97470-5) NEG Antibody screen (gel) (test code = NEG 890-4) [facility] ZebmuqsgCYEN-CjR-9 (COVID-19) RNA [Presence] in Respiratory specimen by RUDI with probe [id number] 13:19:30 Test Item Value Reference Range Interpretation Comments SARS-CoV-2 (COVID-19) RNA Not detected Not-Detected [Presence] in Respiratory specimen by RUDI with probe detection (test code = 12877-6) Whether patient is employed in a healthcare setting (test code = 13446-0) Whether the patient has symptoms related to condition of interest (test code = 26588-2) Patient was hospitalized because of this condition (test code = 08089-7) Whether the patient was admitted to intensive care unit (ICU) for condition of interest (test code = 30726-9) Whether patient resides in a congregate care setting (test code = 67872-5) LD [facility] [id number] 15:52:47 Test Item Value Reference Range Interpretation Comments POC glucose (test code = 115 mg/dL 65-99 H Ope rator Name: Anupam 94035-8) CarriDevice ID: [id number] able: No Action Neede d Lab Interpretation (test Abnormal code = 47983-0) [facility]
--- NOTE | 2023-01-21 14:03 | RAD REPORT ---
EXAM DESCRIPTION: RAD - Chest Pa And Lat (2 Views) - 01/21/2023 1:58 pm CLINICAL HISTORY: COUGH Chest pain. COMPARISON: Chest Single View dated 11/03/2022; Chest Single View dated 03/17/2022; Chest Pa And Lat (2 Views) dated 12/06/2018; Chest Single View dated 04/15/2018 FINDINGS: There is a moderate opacity in the medial right lung base posteriorly compatible with pneu monia. The lungs are otherwise mildly emphysematous. The heart is normal in size. No displaced fractu res. IMPRESSION: Moderate pneumonia medial right lung base posteriorly.
[2023-01-21] MEDS ORDERED: AMOX/K CLAV 875 MG TAB ONE (15:42)
[2023-01-21] MEDS ORDERED: DOXYCYCLINE 100 MG CAP PO ONE (15:42)
--- NOTE | 2023-01-21 16:27 | ER ---
Nurse's Notes [facility] Name: Arturo Forrest Age: 77 yrs Sex: Male : 1945 Arrival Date: 01/21/2023 Time: 12:38 Bed 19 Private MD: Diagnosis: Community acquired pneumonia Presentation: 01/21 12:53 Chief complaint: Patient states: Fatigue, malaise, body aches, SOB with exertion since ll1 Wednesday. + chills, no known fever. states he thrashes around in bed at night at talks gibberish when sleeping the past two nights. Coronavirus screen: Vaccine status: Patient reports receiving the 2nd dose of the covid vaccine. Client denies travel out of the [place] in the last 14 days. difficulty breathing, fatigue, fever, headache, shortness of breath. Ebola Screen: Patient denies travel to an Ebola-affected area in the 21 days before illness onset. Initial Sepsis Screen: Does the patient meet any 2 criteria? HR > 90 bpm. No. Patient's initial sepsis screen is negative. Does the patient have a suspected source of infection? Yes: Productive cough/pneumonia. Risk Assessment: Do you want to hurt yourself or someone else? Patient reports no desire to harm self or others. Onset of symptoms was January 19, 2023. 12:53 Method Of Arrival: Ambulatory ll1 12:53 Acuity: ESE 3 ll1 Triage Assessment: 15:28 Respiratory: Onset: The symptoms/episode began/occurred gradually, the patient has mild ap3 shortness of breath. 15:28 General: Appears in no apparent distress. Respiratory: Reports shortness of breath. ap3 Historical: - Allergies: 12:51 No Known Allergies; ll1 - PMHx: 12:51 Atrial Fib; Hyperlipidemia; Cancer; Hypertension; TIA; COPD; ll1 - PSHx: 12:51 retina eye shots; heart stent; hip replacement; cataract SX B eyes; ll1 - Immunization history:: Client reports receiving the 2nd dose of the Covid vaccine. - Social history:: Smoking status: Patient/guardian denies using tobacco, the patient reports quitting approximately 15 years ago. Screenin:27 [facility] ED Fall Risk Assessment (Adult) History of falling in the last 3 months, ap3 including since admission No falls in past 3 months (0 pts). Abuse screen: Denies threats or abuse. Nutritional screening: No deficits noted. Tuberculosis screening: No symptoms or risk factors identified. Assessment: 15:27 Pain: Complains of pain in generalized body aches. Cardiovascular: Patient's skin is ap3 warm and dry. Rhythm is regular. Respiratory: Airway is patent Respiratory effort is even, unlabored. 15:27 General: Appears in no apparent distress. Behavior is calm, cooperative. Neuro: Level ap3 of Consciousness is awake, alert, obeys commands, Oriented to person, place, time. Respiratory: Vital Signs: 12:53 BP 152 / 100; Pulse 95; Resp 20; Temp 97.3; Pulse Ox 97% on R/A; Weight 93.44 kg; ll1 Height 5 ft. 8 in. ; Pain 7/10; 15:28 BP 156 / 79; Pulse 92; Pulse Ox 94% on R/A; ap3 12:53 Body Mass Index 31.32 (93.44 kg, 172.72 cm) ll1 12:53 Pain Scale: Adult ll1 ED Course: 12:43 Patient arrived in ED. im 12:54 Liza Davis MD is Attending Physician. sd2 12:55 Triage completed. ll1 13:17 Flores Lopez, DARA is Primary Nurse. ap3 14:00 XRAY Chest Pa And Lat (2 Views) In Process Unspecified. EDMS 15:28 Arm band placed on right wrist. ap3 15:28 Patient has correct armband on for positive identification. Bed in low position. Call ap3 light in reach. Side rails up X2. 16:22 ED physician to see patient. ap3 16:22 Provided Education on: medications prior to administration. ap3 16:22 No provider procedures requiring assistance completed. ap3 16:33 Patient did not have IV access during this emergency room visit. ap3 Administered Medications: 15:42 Drug: Amoxicillin-Clavulanate PO 875 mg Route: PO; ap3 16:33 Follow up: Response: No adverse reaction ap3 15:42 Drug: Doxycycline PO 100 mg Route: PO; ap3 16:33 Follow up: Response: No adverse reaction ap3 Medication: 15:28 VIS not applicable for this client. ap3 Outcome: 16:26 Discharge ordered by . sd2 16:33 Discharged to home with family. ap3 16:33 Condition: good 16:33 Discharge instructions given to patient, Instructed on discharge instructions, follow up and referral plans. medication usage, Demonstrated understanding of instructions, follow-up care, medications, Prescriptions given X 2. 16:34 Patient left the ED. ap3 Signatures: Dispatcher [employer] EDFlores Chisholm RN RN ap3 Daniela Nair RN RN ll1 Liza Davis MD MD id2 Lise Jeong Corrections: (The following items were deleted from the chart) 12:53 12:51 PSHx: Coronary artery bypass graft; ll1 ll1
--- NOTE | 2023-01-21 16:27 | EDPHYS ---
Physician Documentation [facility] Name: Arturo Forrest Age: 77 yrs Sex: Male : 1945 Arrival Date: 01/21/2023 Time: 12:38 Bed 19 Private MD: ED Physician Liza Davis HPI: 01/21 13:05 This 77 yrs old Male presents to ER via Ambulatory with complaints of Shortness Of sd2 Breath, Pain All Over, Flu Symptoms. 13:05 77 yo M presents with CC of flu-like symptoms for 2 days with associated body aches, sd2 chills, cough, sore throat and shortness of breath. Pt denies any known sick contacts and had a negative COVID test at home. Per chart review, patient diagnosed in October with pneumonia. Pt also has a history of a lung nodule for which he had a follow up CT scan for just last week which he states was told was normal and unchanged. . Historical: - Allergies: 12:51 No Known Allergies; ll1 - PMHx: 12:51 Atrial Fib; Hyperlipidemia; Cancer; Hypertension; TIA; COPD; ll1 - PSHx: 12:51 retina eye shots; heart stent; hip replacement; cataract SX B eyes; ll1 - Immunization history:: Client reports receiving the 2nd dose of the Covid vaccine. - Social history:: Smoking status: Patient/guardian denies using tobacco, the patient reports quitting approximately 15 years ago. ROS: 13:05 Constitutional: Negative for fever and weight loss, Positive for chills Eyes: Negative sd2 for injury, pain, redness, and discharge, Cardiovascular: Negative for chest pain, palpitations, and edema, Respiratory: Positive for shortness of breath, cough, negative for wheezing. Abdomen/GI: Negative for abdominal pain, nausea, vomiting, diarrhea. MS/Extremity: Negative for injury and deformity, Skin: Negative for injury, rash, and discoloration, Neuro: Negative for headache, numbness and tingling. Exam: 13:05 Constitutional: This is a well developed, well nourished patient who is awake, alert, sd2 and in no acute distress. Head/Face: Normocephalic, atraumatic. Eyes: EOMI, normal conjunctiva bilaterally Chest/axilla: Normal chest wall appearance and motion. Nontender with no deformity. Cardiovascular: Irregularly irregular rate and rhythm with a normal S1 and S2. No gallops, murmurs, or rubs. 2+ distal pulses. Respiratory: Lungs have equal breath sounds bilaterally, clear to auscultation and percussion. No rales, rhonchi or wheezes noted. No increased work of breathing, no retractions or nasal flaring. Abdomen/GI: Soft, non-tender, with normal bowel sounds. No guarding or rebound. No evidence of tenderness throughout. Skin: Warm, dry with normal turgor. Normal color with no rashes, no lesions, and no evidence of cellulitis. MS/ Extremity: Pulses equal, no cyanosis. Neurovascular intact. Full, normal range of motion. Ambulatory without difficulty. Psych: Awake, alert, with orientation to person, place and time. Behavior, mood, and affect are within normal limits. Vital Signs: 12:53 BP 152 / 100; Pulse 95; Resp 20; Temp 97.3; Pulse Ox 97% on R/A; Weight 93.44 kg; ll1 Height 5 ft. 8 in. ; Pain 7/10; 15:28 BP 156 / 79; Pulse 92; Pulse Ox 94% on R/A; ap3 12:53 Body Mass Index 31.32 (93.44 kg, 172.72 cm) ll1 12:53 Pain Scale: Adult ll1 MDM: 13:05 Differential diagnosis: Differential diagnosis includes but is not limited to: Viral sd2 URI, acute otitis media, acute otitis externa, pneumonia, UTI, COVID, flu, herpangina among others. Data reviewed: vital signs, nurses notes. 13:23 Patient medically screened. sd2 16:23 Data reviewed: lab test result(s), radiologic studies, plain films. I considered the sd2 following discharge prescriptions or medication management in the emergency department Medications were administered in the Emergency Department. See MAR. Counseling: I had a detailed discussion with the patient and/or guardian regarding: the historical points, exam findings, and any diagnostic results supporting the discharge/admit diagnosis, lab results, radiology results, the need for outpatient follow up, to return to the emergency department if symptoms worsen or persist or if there are any questions or concerns that arise at home. ED course: Discussed results with patient. Will discharge on oral CAP antibiotics. First dose given in ER. Pt and at BS verbalize understanding of discharge plan and strict return precautions. . 01/21 13:05 Order name: COVID-19 SARS RT PCR; Complete Time: 16:22 sd2 01/21 13:05 Order name: Flu; Complete Time: 14:36 sd2 01/21 13:05 Order name: RSV; Complete Time: 14:36 sd2 01/21 13:05 Order name: XRAY Chest Pa And Lat (2 Views); Complete Time: 14:36 sd2 Administered Medications: 15:42 Drug: Amoxicillin-Clavulanate PO 875 mg Route: PO; ap3 16:33 Follow up: Response: No adverse reaction ap3 15:42 Drug: Doxycycline PO 100 mg Route: PO; ap3 16:33 Follow up: Response: No adverse reaction ap3 Disposition Summary: 01/21/23 16:26 Discharge Ordered Location: Home sd2 Problem: new sd2 Symptoms: have improved sd2 Condition: Stable sd2 Diagnosis - Community acquired pneumonia sd2 Followup: sd2 - With: Private Physician - When: 2 - 3 days - Reason: Recheck today's complaints, Continuance of care, Re-evaluation by your physician Discharge Instructions: - Discharge Summary Sheet sd2 - Community-Acquired Pneumonia, Adult sd2 Forms: - Medication Reconciliation Form sd2 - Thank You Letter sd2 - Antibiotic Education sd2 - Prescription Opioid Use sd2 - Patient Portal Instructions sd2 Prescriptions: - Augmentin 875-125 mg Oral Tablet - take 1 tablet by ORAL route every 12 hours for 10 days; 20 tablet; Refills: 0, sd2 Product Selection Permitted - Doxycycline Hyclate 100 mg Oral Tablet - take 1 tablet by ORAL route every 12 hours; 20 tablet; Refills: 0, Product sd2 Selection Permitted Signatures: Dispatcher [employer] Flores Galarza RN RN ap3 Daniela Nair RN RN ll1 Liza Davis MD MD sd2 Corrections: (The following items were deleted from the chart) 12:53 12:51 PSHx: Coronary artery bypass graft; ll1 ll1
[2023-01-21 16:42] VITALS: TEMP 97.3
[2023-01-21 16:44] VITALS: BP 156/79; O2SAT 94
== END 2023-01-21 16:34 | disposition home or self-care (01) ==
LOC: ER 12:38
DX: J18.9 Pneumonia, unspecified organism (principal); Z20.822 Contact with and (suspected) exposure to COVID-19; I10 Essential (primary) hypertension; J44.9 Chronic obstructive pulmonary disease, unspecified; Z95.818 Presence of other cardiac implants and grafts
CPT/HCPCS: 71046; 87635; 87804; 87807; 99283

== ENCOUNTER 2024-03-09 08:57 | Emergency (ER) | payer OTHER ==
[2024-03-09] MEDS ORDERED: hydrOXYzine HCL 25 MG TAB ONE (09:47)
[2024-03-09] MEDS ORDERED: NA CHLORIDE 0.9% 500 ML ONE (09:47)
--- NOTE | 2024-03-09 09:50 | RAD REPORT ---
EXAM DESCRIPTION: RAD - Chest Single View - 03/09/2024 9:46 am CLINICAL HISTORY: DYSPNEA Chest pain. COMPARISON: Chest Pa And Lat (2 Views) dated 09/14/2023; Chest Pa And Lat (2 Views) dated 04/27/2023; Chest Pa And Lat (2 Views) dated 02/08/2023; Chest Pa And Lat (2 Views) dated 01/21/2023 FINDINGS: Portable technique limits examination quality. The lungs are grossly clear. The heart is mildly enlarged in size. No displaced fractures. IMPRESSION: No acute intrathoracic process suspected.
[2024-03-09 10:14] LABS: Absolute Eosinophils 0.1 K/uL (0-0.5); Absolute Lymphocytes (CBC) 0.8 K/uL (0.7-4.9); Absolute Monocytes 0.6 K/uL (0.1-1.3); Absolute Neutrophil 9.7 K/uL (1.8-8.0); Basophils % 0.4 % (0-1.3); Eosinophils % 0.8 % (0-4.4); Hematocrit 34.3 % (39.6-49.0); Hemoglobin 10.9 g/dL (13.6-17.9); Lymphocytes % 7.1 % (15.3-44.8); MCH 29.8 pg (27.0-35.0); MCHC 31.8 g/dL (32.0-36.0); MCV 93.8 fL (80-100); MPV 8.1 fL (7.6-11.3); Monocytes % 5.4 % (3.3-12.3); Neutrophils % 86.3 % (41.7-73.7); Nucleated Red Blood Cells % 0.1 % (0-0); Platelets 496 thou/uL (152-406); RBC Red Blood Cell Count 3.66 M/uL (4.33-5.43)
[2024-03-09 10:29] LABS: Albumin 3.3 g/dL (3.4-5.0); Albumin/Globulin Ratio 0.8 (1.1-1.8); Anion Gap 12.9 mEq/L (5.0-15.0); Bilirubin Total 1.2 mg/dL (0.2-1.0); Globulin 4.2 g/dL (2.3-3.5); Magnesium 2.7 mg/dL (1.6-2.4); Potassium 4.9 mEq/L (3.5-5.1); Protein, Total 7.5 g/dL (6.4-8.2)
[2024-03-09 11:25] LABS: Blood Morphology Comment NOTED (NOT SEEN); Platelet Estimate INCR; Polychromasia 1+; White Blood Cell Scan OK (OK)
--- NOTE | 2024-03-09 12:25 | RAD REPORT ---
EXAM DESCRIPTION: US - Abdomen Exam Limited - 03/09/2024 12:15 pm CLINICAL HISTORY: elevated alk phos and bili Abdominal pain COMPARISON: Chest Angio dated 12/22/2023 FINDINGS: The gallbladder demonstrates no gallstones. There is mild thickening of the gallbladder wa ll measuring up 3-4 mm. The common bile duct is normal measuring 4 mm. The liver demonstrates no findings of intrahepatic biliary dilatation. IMPRESSION: No gallstones or biliary dilatation evident. Mild nonspecific gallbladder wall thickening is seen.
--- NOTE | 2024-03-09 13:36 | EDPHYS ---
Physician Documentation [facility] Name: Arturo Forrest Age: 78 yrs Sex: Male : 1945 Arrival Date: 03/09/2024 Time: 08:57 Bed 16 Private MD: ED Physician Prem Mota HPI: 03/09 11:22 This 78 yrs old Male presents to ER via EMS with complaints of Itching, Shortness Of rn Breath. 11:22 Patient reports 3 weeks of generalized itching. No focal rash or discoloration. Had harness installer stent placed 3 weeks ago and feels like this started around the same time. No known renal problems. States had blood work without clear etiology for itching. Has seen his doctor for this as well without clear etiology. No fever or chills. Patient also reports chronic COPD with chronic dyspnea that has not changed acutely. Does not feel sick. No fever or chills.. Onset: The symptoms/episode began/occurred 3 week(s) ago. Severity of symptoms: At their worst the symptoms were moderate in the emergency department the symptoms have improved. The patient has experienced similar episodes in the past. Patient denies any itching at this time. Historical: - Allergies: 09:18 No Known Allergies; ko1 - Home Meds: 09:18 Eliquis 5 mg Oral tab 1 tab 2 times per day [Active]; metoprolol tartrate 50 mg Oral ko1 tablet [Active]; diazepam 5 mg Oral tablet as needed [Active]; atorvastatin 80 mg Oral tablet [Active]; furosemide 40 mg Oral tablet every morning [Active]; Klor-Con 10 10 mEq Oral tablet daily [Active]; Trelegy Ellipta inhalation [Active]; dorzolamide ophthalmic (eye) [Active]; - PMHx: 09:18 Atrial Fib; Cancer; COPD; Hyperlipidemia; Hypertension; TIA; ko1 - PSHx: 09:18 cataract SX B eyes; heart stent; hip replacement; retina eye shots; ko1 - Immunization history:: Adult Immunizations unknown. - Infectious Disease History:: Denies. - Social history:: Smoking status: Patient/guardian denies using tobacco, but has a distant history of tobacco abuse. - Family history:: not pertinent. - Hospitalizations: : Patient was recently seen at. ROS: 11:22 Constitutional: Negative for fever, chills, and weight loss, Neck: Negative for injury, rn pain, and swelling, Cardiovascular: Negative for chest pain, palpitations, and edema, Respiratory: Mild shortness of breath, no hemoptysis or productive cough Abdomen/GI: Negative for abdominal pain, nausea, vomiting, diarrhea, and constipation, MS/Extremity: Negative for injury and deformity, Skin: Negative for rash, positive for itching diffusely Neuro: Negative for headache, weakness, numbness, tingling, and seizure, Exam: 11:22 Constitutional: This is a well developed, well nourished patient who is awake, alert, rn and in no acute distress. Cardiovascular: Regular rate and rhythm. No pulse deficits. Respiratory: Speaking full sentences, unlabored. No increased work of breathing, no retractions or nasal flaring. Skin: Dry skin throughout, no focal rash, no petechiae, no erythema or warmth. Neuro: Awake and alert, GCS 15 14:30 ECG was reviewed by the Attending Physician. rn Vital Signs: 09:00 BP 147 / 97; Pulse 88; Resp 19; Temp 97; Pulse Ox 100% on R/A; ko1 10:49 BP 136 / 80; Pulse 80; Resp 17; Pulse Ox 98% on R/A; rs5 12:20 BP 128 / 79; Pulse 71; Resp 16; Pulse Ox 99% on R/A; rs5 13:36 BP 130 / 77; Pulse 77; Resp 17; Pulse Ox 99% on R/A; rs5 MDM: 09:09 Patient medically screened. rn 13:33 Differential Diagnosis Anemia, liver dysfunction, renal insufficiency, electrolyte rn disorder, metabolic disorder. Data reviewed: vital signs, nurses notes, lab test result(s), radiologic studies, ultrasound, and as a result, I will discharge patient. Counseling: I had a detailed discussion with the patient and/or guardian regarding the historical points, exam findings, and any diagnostic results supporting the discharge/admit diagnosis, lab results, the need for outpatient follow up, to return to the emergency department if symptoms worsen or persist or if there are any questions or concerns that arise at home. Special discussion: I discussed with the patient/guardian in detail that at this point there is no indication for admission to the hospital. It is understood, however, that if the symptoms persist or worsen the patient needs to return immediately for re-evaluation. Based on the history and exam findings, there is no indication for further emergent testing or inpatient evaluation. I discussed with the patient/guardian the need to see the primary care provider for further evaluation of the symptoms. ED course: No acute findings and workup today. LFTs elevated but actually improved compared to earlier in February. Ultrasound obtained and shows nonspecific thickening of gallbladder wall but no acute finding otherwise. Alk phos was 454 February 13 and now down but still elevated. Patient has outpatient PET scan ordered for tomorrow. After long discussion with patient and spouse will discharge home with hydroxyzine, hydrated here with fluids, and recommend follow-up and to get the PET scan because malignancy might be one of the causes of his generalized symptoms. Also recommend GI follow-up as well.. 03/09 09:32 Order name: CBC with Diff; Complete Time: 11:40 ll1 03/09 09:32 Order name: CMP; Complete Time: 11:40 ll1 03/09 09:32 Order name: Magnesium; Complete Time: 11:40 ll1 03/09 10:17 Order name: CBC Smear Scan; Complete Time: 11:40 EDMS 03/09 09:19 Order name: XRAY Chest (1 view) rn 03/09 11:41 Order name: US Abdomen Limited rn 03/09 09:32 Order name: IV Start; Complete Time: 10:21 ll1 03/09 09:32 Order name: EKG - Nurse/Tech; Complete Time: 10:21 ll1 EC:30 Rate is 87 beats/min. Rhythm is irregularly irregular. QRS [place] is Normal. QRS interval rn is normal. QT interval is normal. No Q waves. T waves are Normal. No ST changes noted. Clinical impression: Atrial Flutter. Interpreted by me. Reviewed by me. Administered Medications: 09:45 Drug: hydrOXYzine PO 50 mg PO once Route: PO; rs5 11:01 Follow up: Response: No adverse reaction rs5 09:45 Drug: NS 0.9% IV 500 ml IV at bolus once Route: IV; Rate: bolus; Site: right rs5 antecubital; 10:20 Follow up: IV Status: Completed infusion rs5 Disposition Summary: 03/09/24 13:35 Discharge Ordered Notes: Location: Home rn Problem: an ongoing problem rn Symptoms: have improved rn Condition: Stable rn Diagnosis - Other pruritus rn - Anorexia rn Followup: rn - With: Private Physician - When: As needed - Reason: Recheck today's complaints, Re-evaluation by your physician Discharge Instructions: - Discharge Summary Sheet rn - Pruritus rn Forms: - Medication Reconciliation Form rn - Antibiotic graduate rn - Prescription Opioid Use rn - Patient Portal Instructions rn - Leadership Thank You Letter rn Prescriptions: - Hydroxyzine HCl 50 mg Oral Tablet - take 1 tablet ORAL route every 8 hours As needed; 20 tablet; Refills: 0, rn Product Selection Permitted Signatures: Dispatcher [employer] EDMS Prem Mota MD MD rn Lewis, Lynsay RN RN ll1 Pamela Pollack RN RN ko1 Vishal Lemus RN RN rs5 Corrections: (The following items were deleted from the chart) 09:19 09:19 Chest Single View+RAD.RAD.[email or web address] ordered. [facility]
--- NOTE | 2024-03-09 13:36 | ER ---
Nurse's Notes [facility] Name: Arturo Forrest Age: 78 yrs Sex: Male : 1945 Arrival Date: 03/09/2024 Time: 08:57 Bed 16 Private MD: Diagnosis: Other pruritus;Anorexia Presentation: 03/09 09:00 Chief complaint: EMS states: patient thinks he is having an allergic reaction to new ko1 meds, he has itching to his back and some shortness of breath but the shortness of breath has been an ongoing issue for a year. He recently had a stent placed to his kidney, he is on eliquis and they started him on plavix as well. Coronavirus screen: At this time, the client does not indicate any symptoms associated with coronavirus-19. Ebola Screen: No symptoms or risks identified at this time. Initial Sepsis Screen: Does the patient meet any 2 criteria? No. Patient's initial sepsis screen is negative. Does the patient have a suspected source of infection? No. Patient's initial sepsis screen is negative. Risk Assessment: Do you want to hurt yourself or someone else? Patient reports no desire to harm self or others. Onset of symptoms was March 09, 2024. 09:00 Method Of Arrival: EMS: [facility] ko1 09:00 Acuity: ESE 3 ko1 Triage Assessment: 09:18 General: Appears in no apparent distress. uncomfortable, Behavior is calm, cooperative, ko1 appropriate for age. Pain: Denies pain. Historical: - Allergies: :18 No Known Allergies; ko1 - Home Meds: :18 Eliquis 5 mg Oral tab 1 tab 2 times per day [Active]; metoprolol tartrate 50 mg Oral ko1 tablet [Active]; diazepam 5 mg Oral tablet as needed [Active]; atorvastatin 80 mg Oral tablet [Active]; furosemide 40 mg Oral tablet every morning [Active]; Klor-Con 10 10 mEq Oral tablet daily [Active]; Trelegy Ellipta inhalation [Active]; dorzolamide ophthalmic (eye) [Active]; - PMHx: 09:18 Atrial Fib; Cancer; COPD; Hyperlipidemia; Hypertension; TIA; ko1 - PSHx: 09:18 cataract SX B eyes; heart stent; hip replacement; retina eye shots; ko1 - Immunization history:: Adult Immunizations unknown. - Infectious Disease History:: Denies. - Social history:: Smoking status: Patient/guardian denies using tobacco, but has a distant history of tobacco abuse. - Family history:: not pertinent. - Hospitalizations: : Patient was recently seen at. Screenin:10 [facility] ED Fall Risk Assessment (Adult) History of falling in the last 3 months, rs5 including since admission No falls in past 3 months (0 pts) Confusion or Disorientation No (0 pts) Intoxicated or Sedated No (0 pts) Impaired Gait Yes (1 pt) Mobility Assist Device Used Yes (1 pt) Altered Elimination No (0 pt) Score/Fall Risk Level 0 - 2 = Low Risk Oriented to surroundings, Maintained a safe environment. Abuse screen: Denies threats or abuse. Nutritional screening: No deficits noted. Tuberculosis screening: No symptoms or risk factors identified. Assessment: 09:10 General: Appears in no apparent distress. uncomfortable, Behavior is calm, cooperative. rs5 Pain: Denies pain. Neuro: Level of Consciousness is awake, alert, obeys commands, Oriented to person, place, time, situation. Cardiovascular: Patient's skin is warm and dry. Respiratory: Airway is patent Respiratory effort is even, unlabored, Respiratory pattern is regular, symmetrical. GI: Abdomen is round non-distended, Abd is soft and non tender X 4 quads. : No signs and/or symptoms were reported regarding the genitourinary system. EENT: No signs and/or symptoms were reported regarding the EENT system. Derm: Skin is intact, Skin is pink, warm \\T\\ dry. pt states "I feel itchy all over" no rash or redness noted to skin. 09:10 Musculoskeletal: Range of motion: intact in all extremities. rs5 10:20 Reassessment: Patient and/or family updated on plan of care and expected duration. Pain rs5 level reassessed. Patient is alert, oriented x 3, equal unlabored respirations, skin warm/dry/pink. Patient states feeling better. 11:33 Reassessment: Patient and/or family updated on plan of care and expected duration. Pain rs5 level reassessed. Patient is alert, oriented x 3, equal unlabored respirations, skin warm/dry/pink. Patient denies pain at this time. Patient states feeling better. 11:33 Reassessment: pt denies itchiness . rs5 12:34 Reassessment: Patient and/or family updated on plan of care and expected duration. Pain rs5 level reassessed. Patient is alert, oriented x 3, equal unlabored respirations, skin warm/dry/pink. 13:36 Reassessment: No changes from previously documented assessment. rs5 Vital Signs: 09:00 BP 147 / 97; Pulse 88; Resp 19; Temp 97; Pulse Ox 100% on R/A; ko1 10:49 BP 136 / 80; Pulse 80; Resp 17; Pulse Ox 98% on R/A; rs5 12:20 BP 128 / 79; Pulse 71; Resp 16; Pulse Ox 99% on R/A; rs5 13:36 BP 130 / 77; Pulse 77; Resp 17; Pulse Ox 99% on R/A; rs5 ED Course: 09:09 Patient arrived in ED. ko1 09:09 Prem Mota MD is Attending Physician. rn 09:10 Patient has correct armband on for positive identification. Placed in gown. Bed in low rs5 position. Call light in reach. Side rails up X2. 09:10 No provider procedures requiring assistance completed. rs5 09:18 Triage completed. ko1 09:18 Arm band placed on right wrist. Patient placed in an exam room, on a stretcher, on ko1 conveyor monitor, on pulse oximetry, Patient notified of wait time. 09:24 Vishal Lemus, RN is Primary Nurse. rs5 09:40 Inserted saline lock: 24 gauge in right antecubital area, using aseptic technique. rs5 Blood collected. Flushed with 10 mL NS. 09:48 XRAY Chest (1 view) In Process Unspecified. EDMS 12:12 US Abdomen Limited In Process Unspecified. EDMS 13:45 IV discontinued, intact, bleeding controlled, No redness/swelling at site. Pressure rs5 dressing applied. Administered Medications: 09:45 Drug: hydrOXYzine PO 50 mg PO once Route: PO; rs5 11:01 Follow up: Response: No adverse reaction rs5 09:45 Drug: NS 0.9% IV 500 ml IV at bolus once Route: IV; Rate: bolus; Site: right rs5 antecubital; 10:20 Follow up: IV Status: Completed infusion rs5 Medication: 10:49 VIS not applicable for this client. rs5 Outcome: 13:35 Discharge ordered by . rn 13:45 Discharged to home ambulatory, rs5 13:45 Condition: stable rs5 13:45 Discharge instructions given to patient, family, Instructed on discharge instructions, follow up and referral plans. medication usage, Demonstrated understanding of instructions, follow-up care, medications, Prescriptions given X 1, 13:48 Patient left the ED. rs5 Signatures: Dispatcher [employer] EDVA Prem Mota MD MD rn Oliver, Kathy, RN RN ko1 Vishal Lemus RN RN rs5 Corrections: (The following items were deleted from the chart) 16:29 13:45 Discharge instructions given to patient, family, Instructed on discharge rs5 instructions, follow up and referral plans. Demonstrated understanding of instructions, follow-up care, rs5
[2024-03-09 14:06] VITALS: TEMP 97
[2024-03-09 14:08] VITALS: BP 130/77; O2SAT 99
--- NOTE | 2024-03-10 14:41 | EKG ---
Test Date: 2024-03-09 Test Time: 10:11:18 Certified Maintenance Welder: CORINNA MEASUREMENT RESULTS: Intervals: Rate: 87 ME: QRSD: 84 QT: 394 QTc: 474 [place]: P: ME: QRS: 267 T: 60 INTERPRETIVE STATEMENTS: Atrial fibrillation Prolonged QT Abnormal ECG Compared to ECG 11/03/2022 14:10:35 Prolonged QT interval now present Left-axis deviation no longer present Myocardial infarct finding no longer present Electronically Signed On 03-10-24 14:39:00 CDT by Jesse Diamond
== END 2024-03-09 13:48 | disposition home or self-care (01) ==
LOC: ER 08:57
DX: L29.8 Other pruritus (principal); R63.0 Anorexia; I10 Essential (primary) hypertension; I48.91 Unspecified atrial fibrillation; J44.9 Chronic obstructive pulmonary disease, unspecified; Z95.818 Presence of other cardiac implants and grafts; Z79.01 Long term (current) use of anticoagulants; Z86.73 Personal history of transient ischemic attack (TIA), and cerebral infarction without residual deficits
CPT/HCPCS: 93005; 85025; 36415; 83735; 80053; 71045; 76705; 96360; 99285; J7040

== ENCOUNTER 2024-04-21 18:15 | Emergency (ER) | payer OTHER ==
[2024-04-21 18:48] LABS: Absolute Basophils 0.3 K/uL (0-0.5); Absolute Eosinophils 0.2 K/uL (0-0.5); Absolute Lymphocytes (CBC) 0.5 K/uL (0.7-4.9); Absolute Monocytes 0.7 K/uL (0.1-1.3); Absolute Neutrophil 5.1 K/uL (1.8-8.0); Basophils % 3.9 % (0-1.3); Hematocrit 34.2 % (39.6-49.0); Hemoglobin 10.8 g/dL (13.6-17.9); Lymphocytes % 7.9 % (15.3-44.8); MCH 25.2 pg (27.0-35.0); MCHC 31.5 g/dL (32.0-36.0); MCV 80.2 fL (80-100); MPV 7.6 fL (7.6-11.3); Monocytes % 9.8 % (3.3-12.3); Neutrophils % 75.4 % (41.7-73.7); Platelets 415 thou/uL (152-406); RBC Red Blood Cell Count 4.27 M/uL (4.33-5.43); Red Cell Distribution Width 19.6 % (12.1-15.2)
--- NOTE | 2024-04-21 19:00 | RAD REPORT ---
Procedure: Chest Single View History: Chest pain Comparison: December 2023. Findings: The patient's previously described right upper lobe opacity not clearly seen on this exam. Presumably it has decreased in size. However, it may be obscured by overlying ribs and vessels. The lungs appear clear of acute infiltrate. Small bilateral pleural effusions. The heart is normal size. IMPRESSION: No acute abnormality is displayed.
[2024-04-21 19:12] LABS: Albumin 3.3 g/dL (3.4-5.0); Albumin/Globulin Ratio 0.9 (1.1-1.8); Anion Gap 10.9 mEq/L (5.0-15.0); Bilirubin Direct 0.5 mg/dL (0-0.2); Bilirubin Indirect, Calculated 0.6 mg/dL (0.2-0.8); Bilirubin Total 1.1 mg/dL (0.2-1.0); Globulin 3.7 g/dL (2.3-3.5); Potassium 3.9 mEq/L (3.5-5.1); Troponin High Sensitivity 15.1 pg/mL (<58.9)
--- NOTE | 2024-04-21 19:53 | RAD REPORT ---
EXAMINATION: CT ABDOMEN AND PELVIS WITH CONTRAST CLINICAL INDICATION: Abdominal pain TECHNIQUE: CT abdomen and pelvis was performed, after the administration of 100 cc Isovue-300.. Sagit antwon and coronal reconstructions were obtained. One or more of the following dose reduction techniques were used: Automated exposure control, adjustment of the mA and/or kV according to patien t size, and/or iterative reconstruction. Unless otherwise specified, incidental findings do not require dedicated imaging follow-up. [id number]. Oral contrast was not given which limits evaluation of b owel and appendix. COMPARISON: 2019 FINDINGS: Small bilateral pleural effusions. Small pericardial effusion. Mild fatty liver. Gallbladder wall appears thickened. spleen, pancreas, adrenals and kidneys appear unremarkable There is no evidence of diverticulitis Small amount of ascites. Right hip prosthesis present. Artifact from the prosthesis limits evaluation of portions of the pelvis. Normal appendix. Left testicle appears to lie within the left inguinal canal : IMPRESSION: Wall of the gallbladder appears mildly thickened. This could be secondary to inflammation or hypoalbu minemia
[2024-04-21 19:59] LABS: Atypical Lymphocytes 1 %; Blood Morphology Comment NOT SEEN (NOT SEEN); Differential Total Cells Count 100; Eosinophils 1 % (0-3); Lymphocytes 11 % (15-42); Monocytes 5 % (0-10); Platelet Estimate INCR; Segmented Neutrophils 82 % (40-80)
--- NOTE | 2024-04-21 21:17 | RAD REPORT ---
EXAM: Right upper quadrant ultrasound. CLINICAL HISTORY: COMPARISON: CT April 21, 2024 FINDINGS: A gallstone is not seen. Mild gallbladder wall thickening. Biliary tree normal caliber IMPRESSION: Mild gallbladder wall thickening could be secondary to hypoalbuminemia or cholecystitis
--- NOTE | 2024-04-21 22:15 | EDPHYS ---
Physician Documentation [facility] Name: Arturo Forrest Age: 78 yrs Sex: Male : 1945 Arrival Date: 04/21/2024 Time: 18:15 Bed 18 Private MD: ED Physician Oscar Rogel HPI: 04/21 18:49 This 78 yrs old Male presents to ER via EMS with complaints of DIFFICULTY SWALLOWING. rt 18:49 Patient presents to the ED with difficulty swallowing. Patient states that when he rt swallows, he feels that it catches at the lower part of the chest causing pain, shortness of breath. Patient states that this is not uncommon for him but he has not yet seen a GI doctor for this. The patient states that the episode that was lasting longer today. States that is resolved, denies any difficulty breathing, chest pain currently. Symptoms are moderate severity, no other aggravating or alleviating factors.. Historical: - Allergies: 18:16 No Known Allergies; mb9 - PMHx: 18:16 Atrial Fib; Cancer; COPD; Hyperlipidemia; Hypertension; TIA; mb9 - PSHx: 18:16 cataract SX B eyes; heart stent; hip replacement; retina eye shots; mb9 - Immunization history:: Adult Immunizations up to date. - Infectious Disease History:: Denies. - Social history:: Smoking status: Patient denies any tobacco usage or history of. - Family history:: not pertinent. ROS: 18:49 Constitutional: Negative for fever, chills, and weight loss, Abdomen/GI: Negative for rt abdominal pain, nausea, vomiting, diarrhea, and constipation, MS/Extremity: Negative for injury and deformity, Skin: Negative for injury, rash, and discoloration, Neuro: Negative for headache, weakness, numbness, tingling, and seizure, 18:49 Cardiovascular: Positive for chest pain, Negative for edema, 18:49 Respiratory: Positive for shortness of breath, Negative for cough, Exam: 18:49 Constitutional: This is a well developed, well nourished patient who is awake, alert, rt and in no acute distress. Head/Face: Normocephalic, atraumatic. Chest/axilla: Normal chest wall appearance and motion. Nontender with no deformity. No lesions are appreciated. Cardiovascular: Regular rate and rhythm with a normal S1 and S2. No gallops, murmurs, or rubs. Normal PMI, no JVD. No pulse deficits. Respiratory: Lungs have equal breath sounds bilaterally, clear to auscultation and percussion. No rales, rhonchi or wheezes noted. No increased work of breathing, no retractions or nasal flaring. Abdomen/GI: Soft, non-tender, with normal bowel sounds. No distension or tympany. No guarding or rebound. No evidence of tenderness throughout. Skin: Warm, dry with normal turgor. Normal color with no rashes, no lesions, and no evidence of cellulitis. MS/ Extremity: Pulses equal, no cyanosis. Neurovascular intact. Full, normal range of motion. Neuro: Awake and alert, GCS 15, oriented to person, place, time, and situation. Cranial nerves II-XII grossly intact. Motor strength 5/5 in all extremities. Sensory grossly intact. Cerebellar exam normal. Normal gait. 18:49 ECG was reviewed by the Attending Physician. Vital Signs: 18:34 BP 181 / 107; Pulse 86; Resp 18; Temp 97.8; Pulse Ox 98% on R/A; Weight 83.91 kg; mb9 Height 5 ft. 8 in. ; 19:07 BP 175 / 103; Pulse 88; Resp 18; Pulse Ox 96% on R/A; mb9 20:52 BP 128 / 81; Pulse 112; Resp 15; Pulse Ox 95% on R/A; jb4 21:30 BP 168 / 115; Pulse 92; Resp 16; Pulse Ox 90% on R/A; jb4 22:30 BP 117 / 55; Pulse 96; Resp 16; Pulse Ox 95% on R/A; jb4 18:34 Body Mass Index 28.13 (83.91 kg, 172.72 cm) mb9 MDM: 18:16 Patient medically screened. rt 04/22 04:39 Differential Diagnosis altered mental status, sepsis, flu, Abdominal discomfort . Data sp4 reviewed: vital signs, nurses notes, old medical records, lab test result(s), EKG, radiologic studies. 04:41 ED course: EXAM: Right upper quadrant ultrasound. CLINICAL HISTORY: COMPARISON: CT sp4 April 21, 2024 FINDINGS: A gallstone is not seen. Mild gallbladder wall thickening. Biliary tree normal caliber IMPRESSION: Mild gallbladder wall thickening could be secondary to hypoalbuminemia or cholecystitis . ED course: EXAMINATION: CTABDOMEN AND PELVIS WITH CONTRAST CLINICAL INDICATION: Abdominal pain TECHNIQUE: CT abdomen and pelvis was performed, after the administration of 100 cc Isovue-300.. Sagittal and coronal reconstructions were obtained. One or more of the following dose reduction techniques were used: Automated exposure control, adjustment of the mA and/or kV according to patient size, and/or iterative reconstruction. Unless otherwise specified, incidental findings do not require dedicated imaging follow-up. [id number]. Oral contrast was not given which limits evaluation of bowel and appendix. COMPARISON: 2018 FINDINGS: Small bilateral pleural effusions. Small pericardial effusion. Mild fatty liver. Gallbladder wall appears thickened. spleen, pancreas, adrenals and kidneys appear unremarkable There is no evidence of diverticulitis Small amount of ascites. Right hip prosthesis present. Artifact from the prosthesis limits evaluation of portions of the pelvis. Normal appendix. Left testicle appears to lie within the left inguinal canal : IMPRESSION: Wall of the gallbladder appears mildly thickened. This could be secondary to inflammation or hypoalbuminemia . ED course: Procedure: Chest Single View History: Chest pain Comparison: December 2023. Findings: The patient's previously described right upper lobe opacity not clearly seen on this exam. Presumably it has decreased in size. However, it may be obscured by overlying ribs and vessels. The lungs appear clear of acute infiltrate. Small bilateral pleural effusions. The heart is normal size. IMPRESSION: No acute abnormality is displayed.. 04:42 Consideration of Admission/Observation Escalation of care including sp4 admission/observation considered. ED course: Patient was offered consultation with general surgeon here. However patient decides she would like to go home and seek consultation for cholecystectomy with his own surgeon at [facility]. . 04/21 18:30 Order name: Basic Metabolic Panel; Complete Time: 19:13 rt 04/21 18:30 Order name: CBC with Diff; Complete Time: 20:00 rt 04/21 18:30 Order name: LFT's; Complete Time: 19:13 rt 04/21 18:30 Order name: Troponin HS; Complete Time: 19:13 rt 04/21 20:00 Order name: Manual Differential; Complete Time: 20:00 EDMS 04/21 18:30 Order name: XRAY Chest (1 view); Complete Time: 19:13 rt 04/21 18:30 Order name: CT Abd/Pelvis - IV Contrast Only; Complete Time: 19:56 rt 04/21 20:13 Order name: US Abdomen Limited; Complete Time: 21:57 rt 04/21 18:30 Order name: EKG; Complete Time: 18:30 rt 04/21 18:30 Order name: Cardiac monitoring; Complete Time: 18:32 rt 04/21 18:30 Order name: EKG - Nurse/Tech; Complete Time: 18:32 rt 04/21 18:30 Order name: IV Saline Lock; Complete Time: 18:32 rt 04/21 18:30 Order name: Labs collected and sent; Complete Time: 18:32 rt 04/21 18:30 Order name: O2 Per Protocol; Complete Time: 18:32 rt 04/21 18:30 Order name: O2 Sat Monitoring; Complete Time: 18:32 rt EC/11 18:49 Rate is 90 beats/min. Rhythm is regular, A fib with No ectopy. QRS [place] is Normal. QRS rt interval is normal. QT interval is normal. No Q waves. T waves are Normal. No ST changes noted. Interpreted by me. Administered Medications: No medications were administered Disposition Summary: 04/21/24 22:14 Discharge Ordered Problem: new sp4 Symptoms: have improved sp4 Condition: Stable sp4 Diagnosis - Cholecystitis, unspecified sp4 Followup: sp4 - With: Private Physician - When: 5 - 6 days - Reason: Recheck today's complaints Discharge Instructions: - Discharge Summary Sheet sp4 - Cholecystitis sp4 Forms: - Patient Portal Instructions sp4 Prescriptions: - Tramadol 50 mg Oral tablet - take 1 tablet ORAL route every 8 hours as needed; 20 tablet; Refills: 0, sp4 Product Selection Permitted - ondansetron 8 mg Oral Tablet,disintegrating - take 1 tablet ORAL route every 8 hours PRN nausea; 30 tablet; Refills: 0, sp4 Product Selection Permitted Signatures: Dispatcher [employer] Denisse Hook RN RN mb9 Bentley Dubose MD MD rt Oscar Rogel MD MD sp4 Corrections: (The following items were deleted from the chart) 18:31 18:30 BASIC METABOLIC PANEL+C.LAB.BRZ ordered. EDMS EDMS 18:31 18:30 CBC+H.LAB.BRZ ordered. EDMS EDMS 18:30 HEPATIC FUNCTION+C.LAB.BRZ ordered. EDMS EDMS 18:30 Troponin High Sensitivity+C.LAB.BRZ ordered. EDMS EDMS
--- NOTE | 2024-04-21 22:15 | ER ---
Nurse's Notes [facility] Name: Arturo Forrest Age: 78 yrs Sex: Male : 1945 Arrival Date: 04/21/2024 Time: 18:15 Bed 18 Private MD: Diagnosis: Cholecystitis, unspecified Presentation: 04/21 18:16 Chief complaint: EMS states: "toned out for CP and SOB while eating. Pts states he mb9 grabbed chest all of a sudden and vomited.". Coronavirus screen: At this time, the client does not indicate any symptoms associated with coronavirus-19. Ebola Screen: No symptoms or risks identified at this time. Initial Sepsis Screen: Does the patient meet any 2 criteria? No. Patient's initial sepsis screen is negative. Does the patient have a suspected source of infection? No. Patient's initial sepsis screen is negative. Risk Assessment: Do you want to hurt yourself or someone else? Patient reports no desire to harm self or others. Onset of symptoms was April 21, 2024. 18:16 Acuity: ESE 2 mb9 18:16 Method Of Arrival: EMS: [facility] mb9 Triage Assessment: 18:32 General: Appears uncomfortable, Behavior is cooperative. Pain: Complains of pain in mb9 abdomen Quality of pain is described as pressure, Pain began 2-3 days ago. EENT: Throat is clear. Neuro: Angel Agitation-Sedation Scale (RASS): 0 - Alert and Calm Level of Consciousness is awake, alert, obeys commands, Oriented to person, place, time, situation, Appropriate for age Reports difficulty swallowing when eating for the past 6 months. Cardiovascular: Denies chest pain, Patient's skin is warm and dry. Respiratory: Airway is patent Respiratory effort is even, unlabored, Respiratory pattern is regular, symmetrical. GI: Abdomen is round non-distended, Bowel sounds present X 4 quads. Abd is soft Abdomen is tender to palpation in epigastric area Reports nausea. : No signs and/or symptoms were reported regarding the genitourinary system. Derm: Skin is pink, warm \\T\\ dry. Musculoskeletal: Range of motion: intact in all extremities. Historical: - Allergies: 18:16 No Known Allergies; mb9 - PMHx: 18:16 Atrial Fib; Cancer; COPD; Hyperlipidemia; Hypertension; TIA; mb9 - PSHx: 18:16 cataract SX B eyes; heart stent; hip replacement; retina eye shots; mb9 - Immunization history:: Adult Immunizations up to date. - Infectious Disease History:: Denies. - Social history:: Smoking status: Patient denies any tobacco usage or history of. - Family history:: not pertinent. Screenin:34 [facility] ED Fall Risk Assessment (Adult) History of falling in the last 3 months, mb9 including since admission No falls in past 3 months (0 pts) Confusion or Disorientation No (0 pts) Intoxicated or Sedated No (0 pts) Impaired Gait No (0 pts) Mobility Assist Device Used No (0 pt) Altered Elimination No (0 pt) Score/Fall Risk Level 0 - 2 = Low Risk Oriented to surroundings, Maintained a safe environment, Educated pt \\T\\ family on fall prevention, incl call for assistance when getting out of bed. Abuse screen: Denies threats or abuse. Nutritional screening: No deficits noted. Tuberculosis screening: No symptoms or risk factors identified. Assessment: 18:34 Reassessment: see triage assessment. mb9 19:00 Reassessment: Patient appears in no apparent distress at this time. Patient and/or jb4 family updated on plan of care and expected duration. Pain level reassessed. Patient is alert, oriented x 3, equal unlabored respirations, skin warm/dry/pink. 20:00 Reassessment: Patient appears in no apparent distress at this time. Patient and/or jb4 family updated on plan of care and expected duration. Pain level reassessed. Patient is alert, oriented x 3, equal unlabored respirations, skin warm/dry/pink. 21:00 Reassessment: Patient appears in no apparent distress at this time. Patient and/or jb4 family updated on plan of care and expected duration. Pain level reassessed. Patient is alert, oriented x 3, equal unlabored respirations, skin warm/dry/pink. Pt took 1 5mg eliquis and 1 50mg Metoprolol Succ ER from home. ED physician Okayed pt to take home meds. 22:42 Reassessment: Patient appears in no apparent distress at this time. Patient and/or jb4 family updated on plan of care and expected duration. Pain level reassessed. Patient is alert, oriented x 3, equal unlabored respirations, skin warm/dry/pink. Vital Signs: 18:34 BP 181 / 107; Pulse 86; Resp 18; Temp 97.8; Pulse Ox 98% on R/A; Weight 83.91 kg; mb9 Height 5 ft. 8 in. ; 19:07 BP 175 / 103; Pulse 88; Resp 18; Pulse Ox 96% on R/A; mb9 20:52 BP 128 / 81; Pulse 112; Resp 15; Pulse Ox 95% on R/A; jb4 21:30 BP 168 / 115; Pulse 92; Resp 16; Pulse Ox 90% on R/A; jb4 22:30 BP 117 / 55; Pulse 96; Resp 16; Pulse Ox 95% on R/A; jb4 18:34 Body Mass Index 28.13 (83.91 kg, 172.72 cm) mb9 ED Course: 18:16 Patient arrived in ED. mb9 18:16 Bentley Dubose MD is Attending Physician. rt 18:18 Triage completed. mb9 18:18 Arm band placed on. mb9 18:18 Maintain EMS IV. Dressing intact. Good blood return noted. Site clean \\T\\ dry. Gauge \\T\\ mb 9 site: 22 g right hand. Flushed with 10 mL NS. 18:31 EKG done, by ED staff, reviewed by Bentley Dubose MD. mb9 18:32 Denisse Dukes RN is Primary Nurse. mb9 18:34 Bed in low position. Call light in reach. Side rails up X 1. Provided Education on: mb9 press call light if needing anything. Client placed on continuous cardiac and pulse oximetry monitoring. NIBP monitoring applied. telecommunications administrator on. Door closed. Noise minimized. Warm blanket given. Pillow given. 18:35 No provider procedures requiring assistance completed. mb9 18:45 XRAY Chest (1 view) In Process Unspecified. EDMS 19:13 Report given to DARA Duncan. mb9 19:43 CT Abd/Pelvis - IV Contrast Only In Process Unspecified. EDMS 20:19 Attending Physician role handed off by Bentley Dubose MD sp4 20:19 Oscar Rogel MD is Attending Physician. sp4 20:49 US Abdomen Limited In Process Unspecified. EDMS 22:40 IV discontinued, intact, bleeding controlled, No redness/swelling at site. Pressure jb4 dressing applied. Administered Medications: No medications were administered Medication: 18:34 VIS not applicable for this client. ish9 Outcome: 22:14 Discharge ordered by . rosario 22:40 Discharged to home via wheelchair, with family, jb4 22:40 Condition: stable 22:40 Discharge instructions given to patient, family, Instructed on discharge instructions, follow up and referral plans. medication usage, Demonstrated understanding of instructions, follow-up care, medications, Prescriptions given X 2, :42 Patient left the ED. jb4 Signatures: Dispatcher [employer] EDLinocln Khan RN RN jb4 Denisse Dukes RN RN mb9 Bentley Dubose MD MD rt Potepalov, Sergey, MD MD sp4
[2024-04-22 02:02] VITALS: TEMP 97.8
[2024-04-22 02:05] VITALS: BP 128/81; O2SAT 95
--- NOTE | 2024-04-27 12:15 | EKG ---
Test Date: 2024-04-21 Test Time: 18:26:35 Pediatric Intensive Physician: MB MEASUREMENT RESULTS: Intervals: Rate: 90 GA: QRSD: 84 QT: 380 QTc: 464 [place]: P: GA: QRS: 254 T: 73 INTERPRETIVE STATEMENTS: Atrial fibrillation Prolonged QT Abnormal ECG Compared to ECG 03/09/2024 10:11:18 No significant changes Electronically Signed On 04-27-24 12:00:53 CDT by Jesse Diamond
== END 2024-04-21 22:42 | disposition home or self-care (01) ==
LOC: ER 18:15
DX: K81.9 Cholecystitis, unspecified (principal); I10 Essential (primary) hypertension; J44.9 Chronic obstructive pulmonary disease, unspecified; I48.91 Unspecified atrial fibrillation
CPT/HCPCS: 93005; 85025; 80048; 36415; 80076; 84484; 74177; 71045; 76705; Q9967; 99284

== ENCOUNTER 2024-05-25 14:28 | Inpatient (IN) | payer OTHER ==
[2024-05-25 15:26] LABS: SARS-CoV-2 Antigen CONTROL BLUE LINE VIS/BG OK; SARS-CoV-2 Antigen Rapid Res Negative (Negative)
[2024-05-25] MEDS ORDERED: METHYLPREDNISOLONE 125 MG INJ ONE (15:27)
[2024-05-25] MEDS ORDERED: LEVALBUTEROL 1.25 MG/3 ML NEB ONE (15:27)
[2024-05-25 15:56] LABS: Absolute Basophils 0.1 K/uL (0-0.5); Absolute Eosinophils 0.2 K/uL (0-0.5); Absolute Lymphocytes (CBC) 0.8 K/uL (0.7-4.9); Absolute Monocytes 0.6 K/uL (0.1-1.3); Basophils % 0.7 % (0-1.3); Hematocrit 33.2 % (39.6-49.0); Hemoglobin 10.3 g/dL (13.6-17.9); MCH 24.1 pg (27.0-35.0); MCV 77.8 fL (80-100); MPV 7.4 fL (7.6-11.3); Neutrophils % 77.3 % (41.7-73.7); Nucleated Red Blood Cells % 0.1 % (0-0); Platelets 575 thou/uL (152-406); RBC Red Blood Cell Count 4.27 M/uL (4.33-5.43); Red Cell Distribution Width 20.5 % (12.1-15.2)
--- NOTE | 2024-05-25 16:01 | RAD REPORT ---
EXAMINATION: ONE VIEW CHEST XR CLINICAL INDICATION: Male, 78 years old.,DYSPNEA TECHNIQUE: Frontal chest projection is submitted. Examination is limited by patient positioning and t echnique. COMPARISON: 04/21/2024 FINDINGS: Medial right basilar airspace opacity progressive since the prior exam. No pneumothorax or sizable ef fusion. The heart is normal in size. Mediastinal contours are unremarkable. IMPRESSION: Progressive medial right basilar airspace opacity. Pneumonia should be considered.
[2024-05-25 16:08] LABS: PT Prothrombin Time 32.5 SECONDS (9.4-12.5); PTT, Activated Partial Thromb 46.2 SECONDS (24.3-36.9)
[2024-05-25] MEDS ORDERED: MORPHINE 4 MG/ML SYR ONE (16:11)
[2024-05-25] MEDS ORDERED: ONDANSETRON 4 MG/2 ML VIAL ONE (16:11)
[2024-05-25 16:17] LABS: Albumin 3.2 g/dL (3.4-5.0); Albumin/Globulin Ratio 0.8 (1.1-1.8); Anion Gap 14.1 mEq/L (5.0-15.0); Globulin 3.8 g/dL (2.3-3.5); Potassium 4.1 mEq/L (3.5-5.1)
[2024-05-25] MEDS ORDERED: CEFTRIAXONE 1000 MG/VIAL ONE (16:27)
[2024-05-25] MEDS ORDERED: AZITHROMYCIN 500 MG INJ IVPB ONE (16:27)
[2024-05-25] MEDS ORDERED: NA CHLORIDE 0.9% 250 ML ONE (16:27)
[2024-05-25] MEDS ORDERED: NA CHLORIDE 0.9% 500 ML ONE (16:34)
--- NOTE | 2024-05-25 17:02 | ER ---
Nurse's Notes [facility] Name: Arturo Forrest Age: 78 yrs Sex: Male : 1945 Arrival Date: 05/25/2024 Time: 14:28 Bed 18 Private MD: Diagnosis: Pneumonia, unspecified organism;Severe sepsis without septic shock;COPD/ Chronic obstructive pulmonary disease with acute lower respiratory infection;Hypoxemia Presentation: 05/25 14:35 Acuity: ESE 2 aa5 14:35 Chief complaint: Patient states: sent here by Dr. Costello (surgeon) for SOB. Pt currently me1 reports SOB, able to speak in full sentences. 14:35 Coronavirus screen: shortness of breath. Ebola Screen: [facility] denies [facility] to an [facility] in the 21 days before illness onset. Initial Sepsis Screen: Does the patient meet any 2 criteria? HR > 90 bpm. Does the patient have a suspected source of infection? No. Patient's initial sepsis screen is negative. Risk Assessment: Do you want to hurt yourself or someone else? Patient reports no desire to harm self or others. Onset of symptoms was 2023. 14:35 Method Of Arrival: Wheelchair aa5 Historical: - Allergies: 14:35 No Known Allergies; aa5 - PMHx: 14:35 Atrial Fib; Cancer; COPD; Hyperlipidemia; Hypertension; TIA; aa5 - PSHx: 14:35 cataract SX B eyes; heart stent; hip replacement; retina eye shots; aa5 - Immunization history:: Adult Immunizations up to date. - Infectious Disease History:: Denies. - Family history:: not pertinent. - Social history:: Smoking status: Patient/guardian denies using tobacco, but has a distant history of tobacco abuse. - Hospitalizations: : No recent hospitalization is reported. Screenin:02 [facility] ED Fall Risk Assessment (Adult) History of falling in the last 3 months, me1 including since admission No falls in past 3 months (0 pts) Confusion or Disorientation No (0 pts) Intoxicated or Sedated No (0 pts) Impaired Gait Yes (1 pt) Mobility Assist Device Used Yes (1 pt) Altered Elimination No (0 pt) Score/Fall Risk Level 0 - 2 = Low Risk Maintained a safe environment, Provided non-skid footwear, Hourly rounding (assess needs \\T\\ fall precautionary measures) done. Abuse screen: Denies threats or abuse. Nutritional screening: No deficits noted. Tuberculosis screening: No symptoms or risk factors identified. Assessment: 15:02 General: Appears uncomfortable, well groomed, well developed, well nourished, Behavior me1 is calm, cooperative, appropriate for age, Reports sent here by Dr. Costello (surgeon) for SOB. Pt currently reports SOB, able to speak in full sentences. Pain: Denies pain. Neuro: Level of Consciousness is awake, alert, obeys commands, Oriented to person, place, time, situation, Appropriate for age. Cardiovascular: Patient's skin is warm and dry. Respiratory: Airway is patent Respiratory effort is even, labored, Respiratory pattern is regular, tachypnea. Respiratory: Reports shortness of breath at rest on exertion. GI: No signs and/or symptoms were reported involving the gastrointestinal system. : No signs and/or symptoms were reported regarding the genitourinary system. EENT: No signs and/or symptoms were reported regarding the EENT system. Derm: Skin is intact, Skin is dry, Skin is pale. Musculoskeletal: No signs and/or symptoms reported regarding the musculoskeletal system. Vital Signs: 14:35 BP 153 / 108; Pulse 109; Resp 20 S; Temp 97.9(O); Weight 81.65 kg (R); Height 5 ft. 8 aa5 in. (R); 14:58 Pulse Ox 91% on 3 lpm NC; aa5 15:30 BP 156 / 110; Pulse 94; Resp 23; Pulse Ox 98% on 2 lpm NC; me1 16:29 Pain 3/10; me1 16:35 Resp 24; rn 16:47 BP 140 / 87; Pulse 93; Resp 22; Temp 97.7; Pulse Ox 96% on R/A; nh2 17:15 BP 152 / 106; Pulse 90; Resp 16; Pulse Ox 85% on 2 lpm NC; me1 17:15 Pulse Ox 91% on 3 lpm NC; me1 18:00 BP 145 / 101; Pulse 94; Resp 12; Pulse Ox 97% on 2 lpm NC; me1 19:00 BP 118 / 107; Pulse 100; Resp 12; Pulse Ox 100% 1 lpm ; me1 14:35 Body Mass Index 27.37 (81.65 kg, 172.72 cm) aa5 16:29 Pain Scale: Adult me1 14:35 Unable to obtain O2 sat reading at this time, pt states "they always have a hard time aa5 getting my oxygen level" ED Course: 14:31 Patient arrived in ED. mg5 14:33 Prem Mota MD is Attending Physician. rn 14:35 Arm band placed on. aa5 14:38 Anna Simmons, RN is Primary Nurse. me1 14:52 SARS-COV-2 Antigen Rapid Sent. me1 14:52 Flu Sent. me1 14:52 COVID swab sent to lab. Flu and/or RSV swab sent to lab. me1 14:55 Triage completed. aa5 15:02 No provider procedures requiring assistance completed. me1 15:02 Patient has correct armband on for positive identification. Bed in low position. Call me1 light in reach. Side rails up X2. Provided Education on: POC. Verbalized understanding.. Client placed on continuous cardiac and pulse oximetry monitoring. NIBP monitoring applied. child monitor on. Pulse ox on. NIBP on. 15:05 Chest Single View XRAY In Process Unspecified. EDMS 15:48 Inserted saline lock: 22 gauge in right antecubital area, using aseptic technique. aa5 Flushed with 10 mL NS. 15:49 EKG done, by ED staff, reviewed by Prem Mota MD. me1 15:56 BNP Sent. me1 15:56 Blood Culture Adult (2) Sent. me1 15:56 CBC with Diff Sent. me1 15:56 CMP Sent. me1 15:56 Lactate w/ 2H reflex if indic. Sent. me1 15:56 Protime (+inr) Sent. me1 15:56 Ptt, Activated Sent. me1 16:05 Inserted saline lock: 20 gauge in right hand, using aseptic technique. Flushed with 10 aa5 mL NS. 16:34 Chest Abd Pelvis Wo Con In Process Unspecified. EDMS 17:02 Karla Gamboa MD is Hospitalizing Provider. rn 18:18 1818 CM met with and his Amanda at the bedside in the ED exam room. ane Patient identified by name and . Demographic sheet confirmed. PCP is AYDEE Mcdowell. MPOA is in place. Patient states lives at home with his , in a single story home. He reports that prior to admission, he typically performs ADLs independently with use of a walker. Recently, in the last 2-3 weeks, Amanda reports that patient has had increased weakness and SOB. Other DME in the home, includes a shower chair, and a handicapped equipped bathroom. When the patient started experiencing increased weakness, he stopped reporting to [facility] [address], [place] [address] , where he was participating in PT. No HH, no home oxygen. Patient's preferred plan is to return home upon discharge. Amanda states she will be 's transportation home. CM team will continue to follow and coordinate care during this hospital stay. 19:05 Patient admitted, IV remains in place. me1 19:42 Urinalysis w/ reflexes Sent. me1 19:43 Urine collected: clean catch specimen, cloudy. me1 Administered Medications: 15:29 Drug: Levalbuterol Inhalation 1.25 mg Inhalation once Route: Inhalation; me1 15:55 Follow up: Response: No adverse reaction me1 15:48 Drug: MethylPrednisoLONE IVP 125 mg IVP once Route: IVP; Site: right antecubital; me1 15:56 Follow up: Response: No adverse reaction me1 16:16 Drug: Ondansetron IVP 4 mg IVP once; over 2 minutes Route: IVP; Site: right hand; me1 16:29 Follow up: Response: No adverse reaction; Nausea is decreased me1 16:17 Drug: morphine IVP or IV 2 mg IVP once over 4 mins Route: IVP; Infused Over: 4 mins; me1 Site: right hand; 16:29 Follow up: Pain 3/10 Adult; Response: No adverse reaction; Pain is decreased me1 16:45 Drug: Rocephin IV 1 grams IV at calculated rate once; Given slow IV push per pharmacy me1 instructions Route: IV; Rate: calculated rate; Site: right hand; 16:46 Follow up: IV Status: Completed infusion me1 16:45 Drug: Zithromax IVPB 500 mg IVPB once over 1 hrs; mix in 250 mL NS Route: IVPB; Infused me1 Over: 1 hrs; Site: right hand; 18:49 Follow up: Response: No adverse reaction; IV Status: Completed infusion; IV Intake: me1 250ml 16:45 Drug: NS 0.9% IV 500 ml 500 ml IV at 1 bolus once; to be given as a bolus over 30 me1 minutes Volume: 500 ml; Route: IV; Rate: 1 bolus; Site: right hand; 18:49 Follow up: Response: No adverse reaction; IV Status: Completed infusion; IV Intake: me1 500ml Medication: 15:02 VIS not applicable for this client. me1 Intake: 18:49 IV: 500ml; Total: 500ml. me1 18:49 IV: 250ml; Total: 750ml. me1 Outcome: 17:02 Decision to Hospitalize by Provider. rn 19:05 Admitted to Med/surg accompanied by tech, via wheelchair, room 206, with chart, Report me1 called to faxed, receipt confirmed with Yanique 19:05 Condition: stable 19:05 Instructed on the need for admit, 19:55 Patient left the ED. me1 Signatures: Dispatcher [employer] EDPrem Camarena MD MD rn Calderon, Audri RN RN [id number] Anna Simmons RN RN me1 Karlene Cortes 5 Kamila Green RN RN ane Hernandez Jr, [facility] Corrections: (The following items were deleted from the chart) 14:55 14:37 Arm band placed on aa5 aa5 15:02 14:35 Chief complaint: Patient states: sent here by Dr. Costello (surgeon) for SOB. Pt me1 currently reports SOB, able to speak in full sentences. aa5 16:29 16:00 Inserted saline lock: 22 gauge in right antecubital area, using aseptic aa5 technique. Flushed with 10 mL NS aa5
--- NOTE | 2024-05-25 17:03 | EDPHYS ---
Physician Documentation [facility] Name: Arturo Forrest Age: 78 yrs Sex: Male : 1945 Arrival Date: 05/25/2024 Time: 14:28 Bed 18 Private MD: ED Physician Prem Mota HPI: 05/25 15:08 This 78 yrs old Male presents to ER via Wheelchair with complaints of SENT BY DR. fletcher 15:08 The patient has shortness of breath at rest, with light activity. Onset: The rn symptoms/episode began/occurred at an unknown time. The patient's shortness of breath is aggravated by exertion, light activity. Severity of symptoms: At their worst the symptoms were moderate in the emergency department the symptoms are unchanged. The patient has experienced similar episodes in the past. Patient sent over from Dr. Costello's office for shortness of breath and generalized weakness. Denies fever or recent illness. Has history of COPD and atrial fibrillation. States compliant with medication. Has been using his inhaler a lot frequently helps for short-term but becomes short of breath again. No hemoptysis. No history of DVT or PE. Denies chest pain or abdominal pain. Was seeing Dr. Costello for distended gallbladder on imaging recently.. Historical: - Allergies: 14:35 No Known Allergies; aa5 - PMHx: 14:35 Atrial Fib; Cancer; COPD; Hyperlipidemia; Hypertension; TIA; aa5 - PSHx: 14:35 cataract SX B eyes; heart stent; hip replacement; retina eye shots; aa5 - Immunization history:: Adult Immunizations up to date. - Infectious Disease History:: Denies. - Family history:: not pertinent. - Social history:: Smoking status: Patient/guardian denies using tobacco, but has a distant history of tobacco abuse. - Hospitalizations: : No recent hospitalization is reported. ROS: 15:08 Constitutional: Negative for fever, chills Eyes: Negative for injury, pain, redness, rn and discharge, Neck: Negative for injury, pain, and swelling, Cardiovascular: Negative for chest pain Respiratory: Positive for shortness of breath Abdomen/GI: Negative for abdominal pain, nausea, vomiting, diarrhea, and constipation, MS/Extremity: Negative for injury and deformity, Skin: Negative for injury, rash, and discoloration, Neuro: Positive for generalized weakness and malaise Exam: 15:08 Constitutional: This is a well developed, well nourished patient who is awake, alert, rn wheeled to room and wheelchair, mild tachypnea Head/Face: Normocephalic, atraumatic. ENT: Dry mucous membranes, no stridor Cardiovascular: Irregular rhythm, tachycardic. No pulse deficits. Respiratory: Mild tachypnea, diminished breath sounds at bases, faint wheezing bilaterally Abdomen/GI: Soft, nontender MS/ Extremity: Pulses equal, no cyanosis. Neuro: Awake and alert, GCS 15 15:36 ECG was reviewed by the Attending Physician. rn Vital Signs: 14:35 BP 153 / 108; Pulse 109; Resp 20 S; Temp 97.9(O); Weight 81.65 kg (R); Height 5 ft. 8 aa5 in. (R); 14:58 Pulse Ox 91% on 3 lpm NC; aa5 15:30 BP 156 / 110; Pulse 94; Resp 23; Pulse Ox 98% on 2 lpm NC; me1 16:29 Pain 3/10; me1 16:35 Resp 24; rn 16:47 BP 140 / 87; Pulse 93; Resp 22; Temp 97.7; Pulse Ox 96% on R/A; nh2 17:15 BP 152 / 106; Pulse 90; Resp 16; Pulse Ox 85% on 2 lpm NC; me1 17:15 Pulse Ox 91% on 3 lpm NC; me1 18:00 BP 145 / 101; Pulse 94; Resp 12; Pulse Ox 97% on 2 lpm NC; me1 19:00 BP 118 / 107; Pulse 100; Resp 12; Pulse Ox 100% 1 lpm ; me1 14:35 Body Mass Index 27.37 (81.65 kg, 172.72 cm) aa5 16:29 Pain Scale: Adult me1 14:35 Unable to obtain O2 sat reading at this time, pt states "they always have a hard time aa5 getting my oxygen level" MDM: 14:34 Medical Screening Exam initiated rn 16:37 Differential diagnosis: CHF exacerbation, pneumonia, Pneumothorax pulmonary edema, COPD rn exacerbation, A-fib with RVR. Data reviewed: vital signs, nurses notes, lab test result(s), EKG, radiologic studies, plain films, and as a result, I will admit patient. Consideration of Admission/Observation Patient was admitted/placed on observation. Escalation of care including admission/observation considered. Independent interpretation of the following test(s) in the Emergency Department X-Ray: My interpretation is Chest x-ray images show right sided pneumonia per my interpretation. Care significantly affected by the following chronic conditions: Chronic Obstructive Pulmonary Disease. Counseling: I had a detailed discussion with the patient and/or guardian regarding the historical points, exam findings, and any diagnostic results supporting the discharge/admit diagnosis, lab results, radiology results, the need for further work-up and treatment in the hospital. Response to treatment: the patient's symptoms have mildly improved after treatment, and as a result, I will admit patient. ED course: Patient with elevated lactic acid, chest x-ray shows possible pneumonia. No evidence of shock and lactic acid less than 4. Does not require 30/kg bolus at this time. Antibiotics ordered after blood culture and lactic acid sent. Sepsis reevaluation complete. Will admit to hospitalist service for further care. ED course: I personally spent 35 minutes engaged in work directly related to the individual patient's care. This does not include any time spent performing procedures. The patient has been deemed critically ill because of severe sepsis, pneumonia in the setting of A-fib with RVR and multiple comorbidities, requiring multiple reevaluations, organization of admission to hospital in consultation.. 05/25 14:42 Order name: Blood Culture Adult (2) 05/25 14:42 Order name: CBC with Diff 05/25 14:42 Order name: CMP; Complete Time: 16:18 05/25 14:42 Order name: Lactate w/ 2H reflex if indic.; Complete Time: 16:36 05/25 14:42 Order name: Protime (+inr); Complete Time: 16:12 05/25 14:42 Order name: Ptt, Activated; Complete Time: 16:12 05/25 14:42 Order name: Urinalysis w/ reflexes 05/25 14:42 Order name: Troponin HS; Complete Time: 16:18 05/25 14:42 Order name: BNP; Complete Time: 16:18 05/25 14:43 Order name: Flu; Complete Time: 15:28 05/25 14:43 Order name: SARS-COV-2 Antigen Rapid; Complete Time: 15:28 05/25 18:15 Order name: CBC Smear Scan EDMS 05/25 18:23 Order name: Ghost Lactate-NO COLLECT Timer EDMS 05/25 18:43 Order name: CBC with Automated Diff EDMS 05/25 18:43 Order name: CBC with Automated Diff EDMS 05/25 18:43 Order name: Comprehensive Metabolic Panel EDMS 05/25 18:43 Order name: Comprehensive Metabolic Panel EDMS 05/25 18:43 Order name: Protime (+INR) EDMS 05/25 18:43 Order name: Protime (+INR) EDMS 05/25 18:43 Order name: PTT, Activated Partial Thromb EDMS 05/25 18:43 Order name: PTT, Activated Partial Thromb EDMS 05/25 18:43 Order name: Troponin High Sensitivity EDMS 05/25 18:43 Order name: Troponin High Sensitivity EDMS 05/25 19:25 Order name: Lactate Sepsis 2 HR Follow-up EDMS 05/25 14:42 Order name: Chest Single View XRAY; Complete Time: 16:12 rn 05/25 16:22 Order name: Chest Abd Pelvis Wo Con; Complete Time: 17:09 EDMS 05/25 18:43 Order name: CONS Physician Consult EDMS 05/25 14:42 Order name: Accucheck; Complete Time: 19:14 rn 05/25 14:42 Order name: Cardiac monitoring; Complete Time: 15:48 rn 05/25 14:42 Order name: EKG - Nurse/Tech; Complete Time: 15:48 rn 05/25 14:42 Order name: IV Saline Lock - Large Bore; Complete Time: 15:48 rn 05/25 14:42 Order name: Labs collected and sent; Complete Time: 15:48 rn 05/25 14:42 Order name: O2 Per Protocol; Complete Time: 15:02 rn 05/25 14:42 Order name: O2 Sat Monitoring; Complete Time: 15:02 rn 05/25 14:42 Order name: Vital Signs; Complete Time: 15:02 rn 05/25 14:42 Order name: IV Saline Lock; Complete Time: 15:56 rn EC:36 Rate is 103 beats/min. Rhythm is irregularly irregular. QRS [place] is Normal. QRS rn interval is normal. QT interval is normal. No Q waves. T waves are Normal. No ST changes noted. Clinical impression: Atrial Fibrillation. Interpreted by me. Reviewed by me. Administered Medications: 15:29 Drug: Levalbuterol Inhalation 1.25 mg Inhalation once Route: Inhalation; me1 15:55 Follow up: Response: No adverse reaction me1 15:48 Drug: MethylPrednisoLONE IVP 125 mg IVP once Route: IVP; Site: right antecubital; me1 15:56 Follow up: Response: No adverse reaction me1 16:16 Drug: Ondansetron IVP 4 mg IVP once; over 2 minutes Route: IVP; Site: right hand; me1 16:29 Follow up: Response: No adverse reaction; Nausea is decreased me1 16:17 Drug: morphine IVP or IV 2 mg IVP once over 4 mins Route: IVP; Infused Over: 4 mins; me1 Site: right hand; 16:29 Follow up: Pain 3/10 Adult; Response: No adverse reaction; Pain is decreased me1 16:45 Drug: Rocephin IV 1 grams IV at calculated rate once; Given slow IV push per pharmacy me1 instructions Route: IV; Rate: calculated rate; Site: right hand; 16:46 Follow up: IV Status: Completed infusion me1 16:45 Drug: Zithromax IVPB 500 mg IVPB once over 1 hrs; mix in 250 mL NS Route: IVPB; Infused me1 Over: 1 hrs; Site: right hand; 18:49 Follow up: Response: No adverse reaction; IV Status: Completed infusion; IV Intake: me1 250ml 16:45 Drug: NS 0.9% IV 500 ml 500 ml IV at 1 bolus once; to be given as a bolus over 30 me1 minutes Volume: 500 ml; Route: IV; Rate: 1 bolus; Site: right hand; 18:49 Follow up: Response: No adverse reaction; IV Status: Completed infusion; IV Intake: me1 500ml Disposition: 16:39 Critical Care:. rn Disposition Summary: 05/25/24 17:02 Hospitalization Ordered Notes: Hospitalization Status: Inpatient Admission rn Provider: Karla Gamboa rn Location: Telemetry/[facility] (Inpatient) rn Condition: Stable rn Problem: new rn Symptoms: have improved rn Bed/Room Type: Standard rn Room Assignment: 206(05/25/24 18:48) em1 Diagnosis - Pneumonia, unspecified organism rn - Severe sepsis without septic shock rn - COPD/ Chronic obstructive pulmonary disease with acute lower respiratory infection rn - Hypoxemia rn Forms: - Medication Reconciliation Form rn - SBAR form rn - Leadership Thank You Letter rn neonatal time excluding procedures: 16:39 Critical care time: Bedside Care: 35 minutes. Total time: 35 minutes rn Signatures: Dispatcher [employer] EDMS Prem Mota MD MD rn Martinez, Eric em1 Madiha Bonilla RN RN aa5 Anna Simmons RN RN me1 Corrections: (The following items were deleted from the chart) 14:43 14:43 BLOOD CULTURE*+BA.LAB.BRZ ordered. EDMS EDMS 14:43 14:43 CBC+H.LAB.BRZ ordered. EDMS EDMS 14:43 14:43 COMPREHENSIVE METABOLIC PANEL+C.LAB.BRZ ordered. EDMS EDMS 14:43 14:43 LACTATE+C.LAB.BRZ ordered. EDMS EDMS 14:43 14:43 PROTIME (+INR)+COAG.LAB.BRZ ordered. EDMS EDMS 14:43 14:43 PTT, ACTIVATED+COAG.LAB.BRZ ordered. EDMS EDMS 14:43 14:43 Urinalysis+U.LAB.BRZ ordered. EDMS EDMS 14:43 14:43 Troponin High Sensitivity+C.LAB.BRZ ordered. EDMS EDMS 14:43 14:43 PROBNP+C.LAB.BRZ ordered. EDMS EDMS 14:43 14:43 Chest Single View+RAD.RAD.BRZ ordered. EDMS EDMS 16:22 15:57 Angio Aorta For Dissection+CT.RAD.BRZ ordered. EDMS EDMS 18:48 17:02 rn em1
--- NOTE | 2024-05-25 17:08 | RAD REPORT ---
EXAM: CT CHEST, ABDOMEN AND PELVIS WITHOUT CONTRAST CLINICAL INDICATION: Male, 78 years old. [facility] MAIN chest/abd pain/back pain, HTN Bed Name: 18 TECHNIQUE: CT chest, abdomen and pelvis was performed, without IV contrast, as per department protoco l. Axial, sagittal and coronal reconstructions were obtained. One or more of the following dose reduction techniques were used: Automated exposure control, adjustment of the mA and/or kV according to the patient size, and/or iterative reconstruction. Unless otherwise specified, incidental findings do not require dedicated imaging follow-up. COMPARISON: 1224 chest. 04/21/2024 CT abdomen and pelvis FINDINGS: The lack of intravenous contrast limits the sensitivity of this exam for evaluation of solid visceral organs, vascular structures, and retroperitoneum. Chest: LOWER NECK/CHEST WALL: Visualized thyroid gland and soft tissues are normal. LUNGS AND AIRWAYS: Airways are clear. Wedge-shaped/branching right upper lobe opacity medially is sta ble, measuring 2.5 cm in greatest axial dimension, approximately 8 mm in thickness, again favored to represent postinfectious or posttreatment sequelae. Moderate to advanced centrilobular emphysematous changes again seen. No nodules. PLEURA: Small layering bilateral pleural effusions. No pneumothorax. Hemidiaphragms are normally posi tioned. MEDIASTINUM AND LYMPH NODES: Mild pericardial effusion. No mediastinal mass or fluid collection. The heart is upper limit of normal in size. Normal size mediastinal, hilar, and axillary lymph nodes. THORACIC AORTA: Normal caliber and configuration. PULMONARY ARTERIES: Normal caliber. Abdomen/Pelvis LIVER: Normal in size and contour. No focal lesion. GALLBLADDER/BILE DUCTS: No biliary ductal dilatation. PANCREAS: No mass, ductal dilation, or [place]-pancreatic fluid. SPLEEN: Normal size. No focal lesion. ADRENALS: Normal; no mass. KIDNEYS AND URETERS: Normal size and contour. No hydronephrosis. Few punctate nonobstructing calculi not exceeding 2 mm GASTROINTESTINAL TRACT: Stomach is non-dilated. Small bowel has normal course and caliber. No colonic wall thickening or pericolonic inflammatory changes. PERITONEUM: Mild free ascites. LYMPH NODES: No lymphadenopathy. ABDOMINAL AORTA AND OTHER VESSELS: Normal caliber aorta and IVC. URINARY BLADDER: Normal contour. REPRODUCTIVE ORGANS: No pathologic process. MUSCULOSKELETAL: No acute or suspicious osseous abnormality. ADDITIONAL FINDINGS: Moderate body wall edema IMPRESSION: Findings suggesting moderate anasarca or fluid overload. Nonobstructing punctate renal calculi, not exceeding 2 mm. Heart is upper limit of normal in size. Stable wedge-shaped/branching right upper lobe opacity, again favored to represent postinfectious or post treatment sequelae.
[2024-05-25 18:15] LABS: Anisocytosis 1+; Blood Morphology Comment NOTED (NOT SEEN); Platelet Estimate ADEQ; Poikilocytosis 2+; White Blood Cell Scan OK (OK)
--- NOTE | 2024-05-25 18:28 | P.HP ---
Certification for Inpatient Patient admitted to: Inpatient With expected LOS: >2 Midnights Patient will require the following post-hospital care: None Practitioner: I am a practitioner with admitting privileges, knowledge of patient current condition, hospital course, and medical plan of care. Services: Services provided to patient in accordance with Admission requirements found in Title 42 Section 412.3 of the Code of Federal Regulations Patient History Date of Service: 05/25/24 Reason for admission: Hypoxemia/weakness/myopathy History of Present Illness: Patient is a 78-year-old gentleman who had gone to see a general surgeon as he was having abdominal pain. There was concern that patient had biliary dyskinesia. However, apparently the HIDA scan did not reflect this. Patient was recently told that he had pulmonary hypertension. Patient has had a lot of chronic medical issues, including hypertension and CAD. Patient also had recent procedure with vascular surgery as he had injury to his femoral artery that needed repair. Since that time patient has developed more weakness according to the . He gets really short of breath just from talking few sentences. When he was over at the general surgery office they were concerned because of his respiratory status so he was sent into the emergency room for further evaluation. In the ER, patient was found to be severely hypoxic with room air O2 sats in the 70s. Patient was also with acute renal insufficiency, anemia, and coagulopathy. Patient has a thrombocytosis along with a microcytic, hypochromic anemia. Patient does not know the severity of the pulmonary hypertension. Apparently the echocardiogram was unable to be completed. At this time patient will be admitted to the hospital for further evaluation. Allergies No Known Allergies Allergy (Verified 03/14/13 09:44) Home Medications: Aspirin [Aspirin EC 81 MG] 81 mg PO DAILY WITH BREAKFAST 03/14/13 Atorvastatin Calcium [Lipitor*] 10 mg PO BEDTIME 03/14/13 Losartan Potassium [Cozaar*] 50 mg PO DAILY WITH BREAKFAST 03/14/13 traMADol HCL [Ultram*] 50 mg PO Q6H PRN 03/14/13 Hydrocodone 7.5/APAP 325 [[place] 7.5/325 mg*] 1 - 2 tab PO Q4HP PRN #50 tab 03/20/13 Iron/FA/Vit B-Com W/C [Hemocyte Plus*] 1 tab PO DAILY #30 tab 03/20/13 Rivaroxaban [Xarelto*] 10 mg PO DAILY #10 tablet 03/20/13 - Past Medical/Surgical History Diabetic: No -: COPD -: CAD -: HTN -: Hyperlipidemia -: Femoral artery injury - Family History Father Family History: Reviewed- Non-Contributory - Social History Smoking Status: Former smoker Alcohol use: No CD- Drugs: No Caffeine use: Yes Review of Systems 10-point ROS is otherwise unremarkable Physical Examination - Vital Signs Temperature: 98 F Blood Pressure: 140/80 Pulse: 80 Respirations: 18 Pulse Ox (%): 95 - Physical Exam General: Alert, In no apparent distress, Oriented x3 HEENT: Atraumatic, PERRLA, Mucous membr. moist/pink, EOMI, Sclerae nonicteric Neck: Supple, 2+ carotid pulse no bruit, No LAD, Without JVD or thyroid abnormality Respiratory: Diminished, Expiratory wheezes Cardiovascular: Regular rate/rhythm, Normal S1 S2, Systolic murmur Gastrointestinal: Normal bowel sounds, Soft and benign, Non-distended, No tender ness Musculoskeletal: No clubbing, No swelling, No tenderness Integumentary: No rashes Neurological: Normal gait, Normal speech, Normal strength at 5/5 x4 extr, Normal tone, Sensation intact, Cranial nerves 3-12 intact, Normal affect Lymphatics: No axilla or inguinal lymphadenopathy - Studies Laboratory Data (last 24 hrs) 05/25/24 05/25/24 05/25/24 15:43 15:43 15:43 WBC 7.70 Hgb 10.3 L Hct 33.2 L Plt Count 575 H PT 32.5 H INR 3.00 APTT 46.2 H Sodium 140 Potassium 4.1 BUN 41 H Creatinine 2.19 H Glucose 109 H Total Bilirubin 1.0 AST 33 ALT 25 Alkaline Phosphatase 216 H Microbiology Data (last 24 hrs): 05/25/24 14:50 Nasopharnyx Influenza Type A Antigen Screen - Final 05/25/24 14:50 Nasopharnyx Influenza Type B Antigen Screen - Final Assessment & Plan - Problems (Diagnosis) (1) Shortness of breath Current Visit: Yes Status: Acute (2) Hypoxemia Current Visit: Yes Status: Acute (3) Severe pulmonary hypertension Current Visit: Yes Status: Acute (4) Abdominal pain Current Visit: Yes Status: Acute (5) Lactic acidosis Current Visit: Yes Status: Acute (6) Microcytic anemia Current Visit: Yes Status: Acute (7) Reactive thrombocytosis Current Visit: Yes Status: Acute (8) Acute prerenal azotemia Current Visit: Yes Status: Acute - Plan Plan: 1. Patient with severe hypoxemia with dyspnea and severe pulmonary hypertension; pulmonary consultation. Patient may benefit from PDE inhibitor; echocardiogram pending. Gentle hydration as patient was lactic acidosis 2. Patient with lactic acidosis; patient lactic acidosis most likely related to hypoxemia. 3. Acute renal insufficiency; most likely dehydration although patient's BNP is elevated this could be related to pulmonary hypertension with right atrial and ventricular dilatation-will get echo 4. Abdominal pain; HIDA scan was negative according to the family. Further workup as indicated. Currently labs look stable. No evidence of any acute intr a-abdominal abnormality. 5. GI DVT prophylaxis Discharge Plan: Home Plan to discharge in: Greater than 2 days - Advance Directives Does patient have a Living Will: No Does patient have a Durable POA for Healthcare: No - Code Status/Comfort Care Code Status Assessed: Yes Code Status: Full Code Critical Care: No Time Spent Managing PTS Care (In Minutes): 45
[2024-05-25 20:06] LABS: Specific Gravity 1.012 (1.005-1.030); Sqamous Epithelial <5 /HPF (None Seen); Urine Bacteria <20 /HPF (<20); Urine Bilirubin NEGATIVE (Negative); Urine Blood Negative (Negative); Urine Clarity Turbid (Clear); Urine Color Light-Yellow (Yellow); Urine Culture Reflex Order NOT NEEDED; Urine Glucose NEGATIVE (Negative); Urine Ketones NEGATIVE (Negative); Urine Microscopic Reflex YN ORDER UMIC; Urine Mucus 1+ /HPF (None Seen); Urine Nitrite NEGATIVE (Negative); Urine Protein NEGATIVE (Negative); Urine RBC <5 /HPF (None Seen); Urine Urobilinogen Normal (Normal); Urine WBC <5 /HPF (<5)
[2024-05-25] MEDS: ALBUTEROL 2.5 MG/3 ML NEB SOL NEB SCH (20:45)
[2024-05-25] MEDS: IPRATROPIUM BROM 0.5MG/2.5ML NEB SCH (20:45)
[2024-05-25] MEDS: NA CHLORIDE 0.9% 1,000 ML IV SCH (21:30)
[2024-05-25] MEDS: MORPHINE 2 MG/ML SYR IV PRN (22:47)
[2024-05-25] MEDS: ONDANSETRON 4 MG/2 ML VIAL IV PRN (22:53)
[2024-05-26] MEDS: HOME MED 1 EA UNK (Hydroxyzine Hcl [Atarax] 10 MG Tablet) PO SCH (01:00)
[2024-05-26] MEDS: hydrOXYzine HCL 25 MG TAB PO ONE (03:58)
[2024-05-26 04:47] LABS: Percent Reticulocyte Count 1.89 % (0.4-2.05); RBC Red Blood Cell Count 3.97 M/uL (4.33-5.43)
[2024-05-26 04:49] LABS: Absolute Lymphocytes (CBC) 0.4 K/uL (0.7-4.9); Hematocrit 30.7 % (39.6-49.0); Hemoglobin 9.6 g/dL (13.6-17.9); MCH 24.4 pg (27.0-35.0); MCHC 31.2 g/dL (32.0-36.0); MCV 78.1 fL (80-100); MPV 7.4 fL (7.6-11.3); Nucleated Red Blood Cells % 0.2 % (0-0); Platelets 541 thou/uL (152-406); RBC Red Blood Cell Count 3.93 M/uL (4.33-5.43); Red Cell Distribution Width 19.8 % (12.1-15.2)
[2024-05-26 04:53] LABS: PT Prothrombin Time 25.8 SECONDS (9.4-12.5); PTT, Activated Partial Thromb 41.2 SECONDS (24.3-36.9); Protime INR 2.36
[2024-05-26 05:03] LABS: Albumin/Globulin Ratio 0.9 (1.1-1.8); Anion Gap 15.5 mEq/L (5.0-15.0); Bilirubin Total 0.7 mg/dL (0.2-1.0); Globulin 3.5 g/dL (2.3-3.5); Potassium 4.5 mEq/L (3.5-5.1); Protein, Total 6.5 g/dL (6.4-8.2); Troponin High Sensitivity 20.2 pg/mL (<58.9)
[2024-05-26 05:27] LABS: Thyroid Stimulating Hormone 2.93 uIU/mL (0.358-3.740)
[2024-05-26] MEDS: FLU (Fluarix Triv) TS24-25(6MOS UP)/PF 45 MCG/0.5 ML Syringe IM ONE (07:15)
[2024-05-26 09:06] LABS: Anisocytosis 1+; Blood Morphology Comment NOTED (NOT SEEN); Differential Total Cells Count 100; Hypochromasia 1+; Lymphocytes 12 % (15-42); Monocytes 0 % (0-10); Platelet Estimate INCR; Poikilocytosis 1+; Segmented Neutrophils 88 % (40-80)
[2024-05-26] MEDS: hydrOXYzine HCL 25 MG TAB PO PRN (09:57)
[2024-05-26] MEDS: ramipriL 5 MG CAP PO SCH (09:57)
--- NOTE | 2024-05-26 11:47 | P.CNS ---
Date of Consult: 05/26/24 Reason for Consult: Abnormal CT scan dyspnea possible pulmonary hypertension Chief Complaint: Shortness of breath History of Present Illness: Patient is 78 years of age with a history of mild COPD admitted with progressive dyspnea positive to bronchodilators he was seen by cardiology was with pulmonary hypertension he has had progressive lower extremity edema according to the he is unable to ambulate to the bathroom denies any fever or chills patient has a history of A-fib is fully anticoagulated Allergies No Known Allergies Allergy (Verified 03/14/13 09:44) Home Medications: Aspirin [Aspirin EC 81 MG] 81 mg PO DAILY WITH BREAKFAST 03/14/13 Atorvastatin Calcium [Lipitor*] 10 mg PO BEDTIME 03/14/13 Losartan Potassium [Cozaar*] 50 mg PO DAILY WITH BREAKFAST 03/14/13 traMADol HCL [Ultram*] 50 mg PO Q6H PRN 03/14/13 Hydrocodone 7.5/APAP 325 [[place] 7.5/325 mg*] 1 - 2 tab PO Q4HP PRN #50 tab 03/20/13 Iron/FA/Vit B-Com W/C [Hemocyte Plus*] 1 tab PO DAILY #30 tab 03/20/13 Rivaroxaban [Xarelto*] 10 mg PO DAILY #10 tablet 03/20/13 Doxepin HCl [Sinequan] 10 mg PO BEDTIME 05/25/24 Furosemide 40 mg PO DAILY 05/25/24 Hydroxyzine HCl [Atarax] 50 mg PO PRN 05/25/24 Metformin HCl [Glucophage*] BID 05/25/24 Ramipril [Altace] 10 mg PO 05/25/24 - Past Medical/Surgical History Diabetic: No -: COPD -: CAD -: HTN -: Hyperlipidemia -: Femoral artery injury - Family History Father Family History: Reviewed- Non-Contributory - Social History Smoking Status: Former smoker Alcohol use: No CD- Drugs: No Caffeine use: Yes Review of Systems General: Weakness Respiratory: Shortness of Breath Cardiovascular: Edema Physical Examination Temp Pulse Resp BP Pulse Ox 98.0 F 108 H 16 138/82 99 05/26/24 08:00 05/26/24 09:57 05/26/24 08:00 05/26/24 09:57 05/26/24 08:00 General: Alert, Moderate distress Neck: Supple Cardiovascular: Edema (2+ edema) Gastrointestinal: Normal bowel sounds, Soft and benign Musculoskeletal: No clubbing Integumentary: No rashes, No breakdown Laboratory Data (last 24 hrs) 05/25/24 05/25/24 05/25/24 15:43 15:43 15:43 WBC 7.70 Hgb 10.3 L Hct 33.2 L Plt Count 575 H PT 32.5 H INR 3.00 APTT 46.2 H Sodium 140 Potassium 4.1 BUN 41 H Creatinine 2.19 H Glucose 109 H Total Bilirubin 1.0 AST 33 ALT 25 Alkaline Phosphatase 216 H - Problems (1) Shortness of breath Current Visit: Yes Status: Acute Plan: Patient is 78 years of age admitted with progressive dyspnea he has bilateral pleural effusions I suspect he may be diastolic heart failure pulmonary hypertension is most likely secondary have added some Lasix patient has renal dysfunction baseline mild renal insufficiency CT scan chest x-ray reviewed he does have a right upper lobe opacity otherwise vital signs oxygenation stable see IV fluids. 2D echo report (2) Abnormal CT scan of lung Current Visit: Yes Status: Acute Plan: Patient has a right upper lobe opacity he did have a nodule dating back to 2019 patient has had empiric radiation therapy right side in addition to her recent biopsy no history of lung cancer (3) Atrial fibrillation Current Visit: Yes Status: Acute Plan: Patient has atrial fibrillation will need to be started on beta-blockers and resume his anticoagulation Qualifiers: Atrial fibrillation type: unspecified Qualified Code(s): I48.91 - Unspecified atrial fibrillation
--- NOTE | 2024-05-26 12:09 | P.PN ---
Date of Service: 05/26/24 subjective Plan for echo today, will eval for room air sats Review of Systems e 10-point ROS is otherwise unremarkable Physical Examination - Vital Signs Reviewed - Physical Exam General: Alert, Oriented x3, no acute distress noted HEENT: Atraumatic, PERRLA, Mucous membr. moist/pink, Neck: Supple, 2+ carotid pulse no bruit, No LAD, Without JVD or thyroid abnormality Respiratory: Diminished, Expiratory wheezes Cardiovascular: iregular rate/rhythm, Systolic murmur Gastrointestinal: Normal bowel sounds, Soft and benign, Non-distended, No tenderness Musculoskeletal: No clubbing, No swelling, No tenderness Integumentary: No rashes Neurological: Normal gait, Normal speech, Normal strength at 5/5 x4 extr, Normal tone, Cranial nerves 3-12 intact, Assessment & Plan - Problems (Diagnosis) (1) acute hypoxic respiratory failure secondary to pneumonia Current Visit: Yes Status: Acute (2) Hypoxemia Current Visit: Yes Status: Acute (3) Severe pulmonary hypertension Current Visit: Yes Status: Acute (4) A-fib RVR uncontrolled Current Visit: Yes Status: Acute (4) Abdominal pain secondary to constipation Current Visit: Yes Status: Acute (5) Lactic acidosis Current Visit: Yes Status: Acute (6) Microcytic anemia Current Visit: Yes Status: Acute (7) Reactive thrombocytosis Current Visit: Yes Status: Acute (8) Acute prerenal azotemia Current Visit: Yes Status: Acute - Plan Plan: 1. Patient with severe hypoxemia with dyspnea and severe pulmonary hypertension; pulmonary consultation. Patient may benefit from PDE inhibitor; echocardiogram pending. Gentle hydration as patient was lactic acidosis 2. Patient with lactic acidosis; patient lactic acidosis most likely related to hypoxemia. 3. Acute renal insufficiency; most likely dehydration although patient's BNP is elevated this could be related to pulmonary hypertension with right atrial and ventricular dilatation-will get echo 4. Abdominal pain; HIDA scan was negative according to the family. Further workup as indicated. Currently labs look stable. No evidence of any acute intra-abdominal abnormality. 5. Pulmonary consult, inhalers, 6. Cardiology consult A-fib RVR, resume home medication 7. Microcytic anemia, iron infusion 8. Stool softeners, for constipation, abdominal in imaging, GI DVT prophylaxis Discharge Plan: Home Plan to discharge in: Greater than 2 days - Advance Directives Does patient have a Living Will: No Does patient have a Durable POA for Healthcare: No - Code Status/Comfort Care Code Status Assessed: Yes Code Status: Full Code Critical Care: No Time Spent Managing PTS Care (In Minutes): 35 <Ewelina Cates - Last Filed: 05/28/24 19:52> Chart has been reviewed. Events of the last 24 hours have been noted. Case discussed with [facility]. I performed a substantial part of the MDM during this patient's care today. I personally made or approved the documented management plan and acknowledge its risk of complications. I agree with the findings and documentation provided in the ZACH's notes Patient continues to improve. Clinical symptoms are stable. <Karla Gamboa - Last Filed: 05/31/24 04:28>
[2024-05-26] MEDS ORDERED: DIPHENHYDRAMINE 50 MG/ML VIAL IV ONE (12:15)
[2024-05-26] MEDS: LORazepam 2 MG/ML VIAL IV ONE (13:16)
[2024-05-26] MEDS: FUROSEMIDE 40 MG/4 ML VIAL IV SCH (13:17)
[2024-05-26] MEDS: ENSURE ENLIVE 237 ML CAN PO SCH (21:00)
[2024-05-26] MEDS: ATORVASTATIN 10 MG TAB PO SCH (21:30)
[2024-05-27] MEDS: METHYLPREDNISOLONE 40 MG INJ IV SCH ×2 (00:28→21:19)
--- NOTE | 2024-05-27 08:48 | P.DS ---
Admission Date: 05/25/24 Discharge Date: 05/27/24 Disposition: DC HOME/HOME HEALTH CARE Reason for Admission: Shortness of breath Brief History of Present Illness: Patient is a 78-year-old gentleman who had gone to see a general surgeon as he was having abdominal pain. There was concern that patient had biliary dyskinesia. However, apparently the HIDA scan did not reflect this. Patient was recently told that he had pulmonary hypertension. Patient has had a lot of chronic medical issues, including hypertension and CAD. Patient also had recent procedure with vascular surgery as he had injury to his femoral artery that needed repair. Since that time patient has developed more weakness according to the . He gets really short of breath just from talking few sentences. When he was over at the general surgery office they were concerned because of his respiratory status so he was sent into the emergency room for further evaluation. In the ER, patient was found to be severely hypoxic with room air O2 sats in the 70s. Patient was also with acute renal insufficiency, anemia, and coagulopathy. Patient has a thrombocytosis along with a microcytic, hypochromic anemia. Patient does not know the severity of the pulmonary hypertension. Apparently the echocardiogram was unable to be completed. At this time patient will be admitted to the hospital for further evaluation. - Physical Exam General: Alert, In no apparent distress, Oriented x3 HEENT: Atraumatic, PERRLA, Mucous membr. moist/pink, EOMI, Sclerae nonicteric Neck: Supple, 2+ carotid pulse no bruit, No LAD, Without JVD or thyroid abnormality Respiratory: Diminished, Expiratory wheezes Cardiovascular: Regular rate/rhythm, Normal S1 S2, Systolic murmur Gastrointestinal: Normal bowel sounds, Soft and benign, Non-distended, No tenderness Musculoskeletal: No clubbing, No swelling, No tenderness Integumentary: No rashes Neurological: Normal gait, Normal speech, Normal strength at 5/5 x4 extr, Normal tone, Sensation intact, Cranial nerves 3-12 intact, Normal affect Lymphatics: No axilla or inguinal lymphadenopathy Hospital Course: Patient is a 78-year-old gentleman who had gone to see a general surgeon as he was having abdominal pain. There was concern that patient had biliary dyskinesia. However, apparently the HIDA scan did not reflect this. Patient was recently told that he had pulmonary hypertension. Patient has had a lot of chronic medical issues, including hypertension and CAD. Patient also had recent procedure with vascular surgery as he had injury to his femoral artery that needed repair. Since that time patient has developed more weakness according to the . He gets really short of breath just from talking few sentences. When he was over at the general surgery office they were concerned because of his respiratory status so he was sent into the emergency room for further evaluation. In the ER, patient was found to be severely hypoxic with room air O2 sats in the 70s. Patient was also with acute renal insufficiency, anemia, and coagulopathy. Patient has a thrombocytosis along with a microcytic, hypochromic anemia. Patient does not know the severity of the pulmonary hypertension. Apparently the prior echocardiogram was unable to be completed. At this time patient will be admitted to the hospital for further evaluation. He was evaluated by pulmonary while inpatient, home O2 was arranged. Assessment COPD exacerbation Acute hypoxic respiratory failure-treated with Solu-Medrol, nebulized while inpatient, flu vaccine given Lactic acidosis-improved with IV fluid Diastolic heart failure-treated with Lasix 40 twice daily, A-fib Chronic anticoagulation Protein calorie malnutrition Ensure supplement Lower extremity edema Pulmonary nodule GOAL: Clear understanding of disease process INSTRUCTIONS: Physician Discharge Instructions: -Follow-up with PCP in 1 to 2 weeks -Please call Dr. Gamboa at [phone] if any questions regarding hospital stay -Please call nursing station at [phone] if any nursing or medication questions -Return to the emergency room if symptoms worsen Diet: ADA, low sodium Activity: Fall precautions Continue home medicines as previously prescribed GOAL: Clear understanding of disease process INSTRUCTIONS: Physician Discharge Instructions: -Follow-up with pulmonary after discharge -Follow-up with PCP in 1 to 2 weeks -Please call Dr. Gamboa at [phone] if any questions regarding hospital stay -Please call nursing station at [phone] if any nursing or medication questions -Return to the emergency room if symptoms worsen Diet: ADA, low sodium Activity: Fall precautions Vital Signs/Physical Exam: Temp Pulse Resp BP Pulse Ox 97.1 F 116 H 16 166/102 H 96 05/27/24 04:00 05/27/24 04:00 05/27/24 04:00 05/27/24 04:00 05/27/24 04:00 Laboratory Data at Discharge: WBC 4.40 thou/uL (4.3-10.9) 05/26/24 04:24 Hgb 9.6 g/dL (13.6-17.9) L 05/26/24 04:24 Hct 30.7 % (39.6-49.0) L 05/26/24 04:24 Plt Count 541 thou/uL (152-406) H 05/26/24 04:24 PT 25.8 SECONDS (9.4-12.5) H 05/26/24 04:24 INR 2.36 05/26/24 04:24 APTT 41.2 SECONDS (24.3-36.9) H 05/26/24 04:24 Sodium 140 mEq/L (136-145) 05/26/24 04:26 Potassium 4.5 mEq/L (3.5-5.1) 05/26/24 04:26 BUN 48 mg/dL (7-18) H 05/26/24 04:26 Creatinine 2.20 mg/dL (0.70-1.30) H 05/26/24 04:26 Glucose 228 mg/dL (74-106) H 05/26/24 04:26 Total Bilirubin 0.7 mg/dL (0.2-1.0) 05/26/24 04:26 AST 27 U/L (15-37) 05/26/24 04:26 ALT 24 U/L (16-61) 05/26/24 04:26 Alkaline Phosphatase 206 U/L (45-117) H 05/26/24 04:26 Triglycerides 68 mg/dL (<150) 05/26/24 04:26 Cholesterol 73 mg/dL (<200) 05/26/24 04:26 HDL Cholesterol 27 mg/dL (40-60) L 05/26/24 04:26 Cholesterol/HDL Ratio 2.70 05/26/24 04:26 Lipase 25 U/L (13-75) 05/26/24 04:26 Home Medications: Aspirin [Aspirin EC 81 MG] 81 mg PO DAILY WITH BREAKFAST 03/14/13 Atorvastatin Calcium [Lipitor*] 10 mg PO BEDTIME 03/14/13 Losartan Potassium [Cozaar*] 50 mg PO DAILY WITH BREAKFAST 03/14/13 traMADol HCL [Ultram*] 50 mg PO Q6H PRN 03/14/13 Hydrocodone 7.5/APAP 325 [[place] 7.5/325 mg*] 1 - 2 tab PO Q4HP PRN #50 tab 03/20/13 Iron/FA/Vit B-Com W/C [Hemocyte Plus*] 1 tab PO DAILY #30 tab 03/20/13 Rivaroxaban [Xarelto*] 10 mg PO DAILY #10 tablet 03/20/13 Doxepin HCl [Sinequan] 10 mg PO BEDTIME 05/25/24 Furosemide 40 mg PO DAILY 05/25/24 Hydroxyzine HCl [Atarax] 50 mg PO PRN 05/25/24 Metformin HCl [Glucophage*] BID 05/25/24 Ramipril [Altace] 10 mg PO 05/25/24 Followup: Brooke Robledo [Primary Care Provider] -
--- NOTE | 2024-05-27 10:31 | P.PN ---
Subjective Date of Service: 05/27/24 Chief Complaint: Shortness of breath Subjective: Improving (Patient is doing a little bit better he is able to ambulate) Review of Systems General: Weakness Respiratory: Shortness of Breath Physical Examination - Vital Signs Temperature: 97.4 F Blood Pressure: 162/93 Pulse: 118 Respirations: 18 Pulse Ox (%): 98 - Physical Exam General: Alert, Oriented x3 Respiratory: Clear to auscultation bilaterally Cardiovascular: Regular rate/rhythm, Edema Assessment And Plan - Current Problems (Diagnosis) (1) Shortness of breath Current Visit: Yes Status: Acute Plan: Patient admitted with worsening dyspnea he now has atrial fibrillation add a beta-sarina continue with anticoagulation I suspect he has significant diastolic heart failure increase Lasix to 80 mg daily patient has chronic renal insufficiency (2) Abnormal CT scan of lung Current Visit: Yes Status: Acute Plan: Patient has a right upper lobe opacity he did have a nodule dating back to 2019 patient has had empiric radiation therapy right side in addition to her recent biopsy no history of lung cancer (3) COPD (chronic obstructive pulmonary disease) Current Visit: Yes Status: Acute Plan: Patient only has mild COPD avoid high doses of steroid Qualifiers: COPD type: unspecified COPD Qualified Code(s): J44.9 - Chronic obstructive pulmonary disease, unspecified (4) Atrial fibrillation Current Visit: Yes Status: Acute Plan: Patient has atrial fibrillation will need to be started on beta-blockers and resume his anticoagulation Qualifiers: Atrial fibrillation type: unspecified Qualified Code(s): I48.91 - Unspecified atrial fibrillation (5) Microcytic anemia Current Visit: Yes Status: Acute Plan: I have ordered iron studies
[2024-05-27 11:27] LABS: Ferritin 25.8 ng/mL (26-388)
[2024-05-27] MEDS: FUROSEMIDE 40 MG/4 ML VIAL IV SCH (13:11)
[2024-05-27] MEDS: METOPROLOL XL 25 MG TAB PO SCH (13:11)
[2024-05-27] MEDS: RIVAROXABAN 15 MG TABLET PO SCH (19:32)
--- NOTE | 2024-05-28 03:21 | RAD REPORT ---
EXAM: Ultrasound abdomen complete CLINICAL DATA: 78 years Male Left upper quadrant abdominal pain TECHNICAL DATA: Sonographic imaging of the abdomen was performed. This study was performed on 05/28/2024 at 1:13 AM. COMPARISONS: CT chest and abdomen report from 05/25/2024. The images were not available for review. FINDINGS: The liver is normal in size and configuration. The liver demonstrates similar echogenicity relative t o the right kidney. Underlying fatty infiltration is not excluded. No focal hepatic abnormalities are identified. Doppler imaging reveals patency of the portal vein and normal hepatopedal flow. The spleen is normal in size and configuration. No focal splenic abnormalities are identified. The pancreas is not well visualized due to adjacent overlying bowel gas. The gallbladder is relatively well distended. The gallbladder wall measures approximately 4 mm in tanika meter and there is evidence of gallbladder wall edema. This appearance can be related to the presence of ascites. There is no evidence of cholelithiasis. The common bile duct measures approximat dorothy 3 mm in diameter. There is no biliary ductal dilatation. The kidneys are grossly normal in size, shape and echogenicity without hydronephrosis or definite nep hrolithiasis. The right kidney measures 9.3 x 6.0 x 4.2 cm. The left kidney measures 8.8 x 5.5 x 5.2 cm. The proximal aorta is grossly unremarkable. The mid and distal portions of the aorta are obscured by bowel gas. There is a small volume of ascites. There are bilateral pleural effusions. IMPRESSION: 1. Small volume of ascites and bilateral pleural effusions. 2. There is gallbladder wall edema and gallbladder wall thickening which is nonspecific but can be seen with the presence of ascites. There is no evidence of cholelithiasis or biliary ductal dilatation. 3. Similar echogenicity of the liver and right kidney which may be due to mild hepatic steatosis. 4. Otherwise, unremarkable abdominal ultrasound. Electronically signed by: Destinee Duggan DO 05/28/2024 03:07 AM [facility] Due to temporary technical issues with the PACS/[employer] reporting system, reports are being sign ed by the in-house radiologist without review as a courtesy to ensure prompt reporting the interpreting rad iologist is fully responsible for the content of the report. Transcribed Date/Time: 05/28/2024 3:21 AM
[2024-05-28] MEDS: TICAGRELOR 90 MG TABLET PO SCH (08:16)
[2024-05-28] MEDS: APIXABAN 5 MG TABLET PO SCH (08:16)
[2024-05-28] MEDS: METOPROLOL TARTRATE 5 MG/5 ML INJ IV STA ×2 (08:25→13:32)
[2024-05-28] MEDS: DIGOXIN 0.25 MG/ML AMP IV ONE (08:25)
[2024-05-28] MEDS: SOD FERRIC GLUC COMPLX/SUCROSE 125 MG in NA CHLORIDE 0.9% 100 ML IV SCH (08:28)
[2024-05-28] MEDS: TIOTROPIUM BR IH SCH (08:29)
[2024-05-28] MEDS: OLODATEROL HCL MIST IH SCH (08:29)
[2024-05-28] MEDS: [UNRECOGNIZED DRUG - OTHER] IH SCH (08:29)
--- NOTE | 2024-05-28 08:55 | RAD REPORT ---
Procedure: Chest Single View HISTORY: Shortness of breath COMPARISON: May 25, 2024 FINDINGS: Lung bases have become more hazy. Patient's known right upper lobe opacity without obvious change. Left upper lobe clear Heart is normal size IMPRESSION: Lung bases have become more hazy which may be secondary to a combination of pleural effusion and atel ectasis.
[2024-05-28] MEDS: MINERAL OIL 30 ML UCUP PO ONE (09:12)
[2024-05-28] MEDS: LACTULOSE 20 GM/30 ML UCUP PO ONE (09:12)
[2024-05-28] MEDS: HYDROMORPHONE HCL 0.5 MG/0.5 ML INJ IV PRN (10:03)
[2024-05-28 11:05] LABS: Albumin 3.3 g/dL (3.4-5.0); Albumin/Globulin Ratio 0.9 (1.1-1.8); Anion Gap 12.9 mEq/L (5.0-15.0); Bilirubin Total 1.2 mg/dL (0.2-1.0); Globulin 3.5 g/dL (2.3-3.5); Potassium 3.9 mEq/L (3.5-5.1); Protein, Total 6.8 g/dL (6.4-8.2); Troponin High Sensitivity 24.6 pg/mL (<58.9)
[2024-05-28] MEDS ORDERED: cloNIDine HCL 0.1 MG TAB PO PRN (11:11)
[2024-05-28] MEDS: METOPROLOL XL 25 MG TAB PO ONE ×2 (13:06→13:08)
--- NOTE | 2024-05-28 13:46 | P.PN ---
Date of Service: 05/28/24 Subjective Patient with numerous complaints overnight. He had a significant amount of abdominal pain overnight. He is feeling constipated and he stated that he has not had a bowel movement for the last 3 to 4 days. Continue laxatives. Patient also had rapid ventricular rate and is in atrial fibrillation. He has a history of cardiac disease and follows up with Dr. Rashid at [facility]. He has had multiple diagnostic procedures done over there and was currently found to have pulmonary hypertension. He is admitted here with a pneumonia. 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 His long-term prognosis is very poor. Pulmonary consulted. Cardiology consulted as well. With current plan of care at this time. Physical Examination - Vital Signs Reviewed - Physical Exam General: Alert, In no apparent distress, Oriented x3 Respiratory: Diminished, Expiratory wheezes Cardiovascular: Regular rate/rhythm, Normal S1 S2, Systolic murmur Gastrointestinal: Normal bowel sounds, Soft and benign, Non-distended, No tenderness Musculoskeletal: No clubbing, No swelling, No tenderness Integumentary: No rashes Neurological: No focal deficits Assessment & Plan - Problems (Diagnosis) (1) Shortness of breath secondary to pneumonia Current Visit: Yes Status: Acute (2) Hypoxemia Current Visit: Yes Status: Acute (3) Severe pulmonary hypertension Current Visit: Yes Status: Acute (4) Abdominal pain secondary to constipation Current Visit: Yes Status: Acute (5) Lactic acidosis Current Visit: Yes Status: Acute (6) Microcytic anemia Current Visit: Yes Status: Acute (7) Reactive thrombocytosis Current Visit: Yes Status: Acute (8) Acute prerenal azotemia Current Visit: Yes Status: Acute - Plan Plan: 1. Patient with hypoxemia with dyspnea secondary to pneumonia and severe pulmonary hypertension; pulmonary consultation appreciated. Patient may benefit from PDE inhibitor; echocardiogram pending. Gentle hydration as patient was lactic acidosis. With antibiotic therapy 2. Patient with lactic acidosis; patient lactic acidosis most likely related to hypoxemia. Monitor oxygenation closely 3. Acute renal insufficiency; most likely dehydration although patient's BNP is elevated this could be related to pulmonary hypertension with right atrial and ventricular dilatation-will get echo 4. Abdominal pain; HIDA scan was negative according to the family. Further workup as indicated. Currently labs look stable. No evidence of any acute intra-abdominal abnormality. This is most likely related to constipation and laxative given. 5. Atrial fibrillation with rapid ventricular response; continue with medication for rate control 6. GI DVT prophylaxis Discharge Plan: Home Plan to discharge in: Greater than 2 days - Advance Directives Does patient have a Living Will: No Does patient have a Durable POA for Healthcare: No - Code Status/Comfort Care Code Status Assessed: Yes Code Status: Full Code Critical Care: No Time Spent Managing PTS Care (In Minutes): 45
[2024-05-28] MEDS ORDERED: ALBUTEROL 2.5 MG/3 ML NEB SOL NEB PRN (13:49)
[2024-05-28] MEDS ORDERED: IPRATROPIUM BROM 0.5MG/2.5ML NEB PRN (13:51)
[2024-05-28] MEDS ORDERED: AMIODARONE HCL 450 MG in D5W 241 ML IV SCH (14:00)
[2024-05-28] MEDS ORDERED: LEVALBUTEROL 1.25 MG/3 ML NEB NEB PRN (14:04)
[2024-05-28] MEDS: AMIODARONE HCL 150 MG in D5W 100 ML IV STA (14:20)
[2024-05-28] MEDS ORDERED: NA CHLORIDE 0.9% 250 ML IV PRN (14:31)
--- NOTE | 2024-05-28 15:05 | RAD REPORT ---
EXAM: CT brain without contrast HISTORY: Alteration of consciousness/confusion COMPARISON: None TECHNIQUE: Multiple contiguous axial images were obtained and a CT of the brain without contrast.. Sagittal and coronal reconstruction performed. Automated exposure control, adjustment of the mA and/or kV according to patient size, and/or iterative reconstruction. Unless otherwise specified, incidental f indings do not require dedicated imaging follow-up FINDINGS: An intracranial bleed is not seen Ventricles are normal caliber No extra-axial fluid collection noted No significant hypodensity within the brain No fluid within the visualized sinuses or mastoids noted. IMPRESSION: No acute intracranial abnormality noted. If the patient's symptoms persist MRI of the brain would be recommended.
--- NOTE | 2024-05-28 15:42 | RAD REPORT ---
EXAM: CT CHEST, ABDOMEN AND PELVIS WITHOUT CONTRAST CLINICAL INDICATION: Chest and abdominal pain TECHNIQUE: CT chest, abdomen and pelvis was performed, without IV contrast, as per department protoco l. Axial, sagittal and coronal reconstructions were obtained. One or more of the following dose reduction techniques were used: Automated exposure control, adjustment of the mA and/or kV according to the patient size, and/or iterative reconstruction. Unless otherwise specified, incidental findings do not require dedicated imaging follow-up. The lack of IV and oral contrast limits evaluation of the mediastinum, aniyah, vessels, organs and asha l. COMPARISON: May 25, 2024 FINDINGS: [id number] bilateral pleural effusions with bibasilar atelectasis. Right upper lobe opacity unchanged. This probably is post treatment change. No mediastinal or hilar lymphadenopathy seen. Small pericardial effusion. Liver, spleen, pancreas, adrenals kidneys and bladder appear grossly normal There is no evidence of diverticulitis Large amount of edema within subcutaneous tissues. Small amount of ascites. Right hip prosthesis. 2.5 cm calcified structure lies adjacent to the left proximal humeral diaphysis. IMPRESSION: [id number] bilateral pleural effusions with bibasilar atelectasis Anasarca 2.5 cm calcified structure adjacent to the proximal left humerus probably benign. Follow-up x-ray in 3 months recommended to assess stability
[2024-05-28] MEDS: METOPROLOL TAR 50 MG TAB PO ONE (15:59)
[2024-05-28] MEDS ORDERED: METOPROLOL XL 50 MG TAB PO SCH (18:00)
[2024-05-28] MEDS: ARFORMOTEROL TARTRATE 15 MCG/2 ML VIAL.NEB NEB SCH (19:00)
--- NOTE | 2024-05-28 20:18 | P.PN ---
Date of Service: 05/27/24 subjective Abdominal pain, stool softeners for constipation, Review of Systems e 10-point ROS is otherwise unremarkable Physical Examination - Vital Signs Reviewed - Physical Exam General: Alert, Oriented x3, afebrile HEENT: Atraumatic, PERRLA, Mucous membr. moist/pink, Neck: Supple, 2+ carotid pulse no bruit, No LAD, Without JVD or thyroid abnormality Respiratory: Diminished, Expiratory wheezes, O2 per nasal cane Cardiovascular: ieregular rate/rhythm, Systolic murmur Gastrointestinal: Hypoactive bowel sounds, abdominal distention Musculoskeletal: No clubbing, No swelling, No tenderness Integumentary: No rashes Neurological: Normal speech, Normal strength at 5/5 x4 extr, Assessment & Plan - Problems (Diagnosis) (1) acute hypoxic respiratory failure secondary to pneumonia Current Visit: Yes Status: Acute (2) Hypoxemia Current Visit: Yes Status: Acute (3)elevated BNP Current Visit: Yes Status: Acute (4) Severe pulmonary hypertension Current Visit: Yes Status: Acute (5) A-fib RVR uncontrolled Current Visit: Yes Status: Acute (6) Abdominal pain secondary to constipation Current Visit: Yes Status: Acute (7) Lactic acidosis Current Visit: Yes Status: Acute (8) Microcytic anemia Current Visit: Yes Status: Acute (9) Reactive thrombocytosis Current Visit: Yes Status: Acute (10) Acute prerenal azotemia Current Visit: Yes Status: Acute - Plan Plan: 1. Patient with severe hypoxemia with dyspnea and severe pulmonary hypertension; pulmonary consultation. Patient may benefit from PDE inhibitor; echocardiogram pending. Gentle hydration as patient was lactic acidosis 2. Patient with lactic acidosis; patient lactic acidosis most likely related to hypoxemia. 3. Acute renal insufficiency; most likely dehydration although patient's BNP is elevated this could be related to pulmonary hypertension with right atrial and ventricular dilatation-will get echo 4. Abdominal pain; HIDA scan was negative according to the family. Further workup as indicated. Currently labs look stable. No evidence of any acute in tra-abdominal abnormality. 5. Pulmonary consult, inhalers, 6. Cardiology consult A-fib RVR, resume home medication, diuretics for elevated BNP 7. Microcytic anemia, iron infusion 8. Stool softeners, for constipation, abdominal in imaging, 9. Elevated BNP diuretics, echo ordered GI DVT prophylaxis Discharge Plan: Home Plan to discharge in: Greater than 2 days - Advance Directives Does patient have a Living Will: No Does patient have a Durable POA for Healthcare: No - Code Status/Comfort Care Code Status Assessed: Yes Code Status: Full Code Critical Care: No Time Spent Managing PTS Care (In Minutes): 30 <Ewelina Cates - Last Filed: 05/28/24 20:18> Chart has been reviewed. Events of the last 24 hours have been noted. Case discussed with ZACH. I performed a substantial part of the MDM during this patient's care today. I personally made or approved the documented management plan and acknowledge its risk of complications. I agree with the findings and documentation provided in the ZACH's notes Patient continues with shortness of breath on minimal ambulation. Abdominal pain is persistent most likely related to constipation. <Karla Gamboa - Last Filed: 05/31/24 04:27>
[2024-05-28] MEDS: METOPROLOL TAR 50 MG TAB PO SCH (20:49)
[2024-05-29 06:01] LABS: Absolute Lymphocytes (CBC) 0.4 K/uL (0.7-4.9); Absolute Monocytes 0.5 K/uL (0.1-1.3); Absolute Neutrophil 11.6 K/uL (1.8-8.0); Basophils % 0.2 % (0-1.3); Hematocrit 37.4 % (39.6-49.0); Hemoglobin 11.5 g/dL (13.6-17.9); Lymphocytes % 3.5 % (15.3-44.8); MCH 23.9 pg (27.0-35.0); MCHC 30.6 g/dL (32.0-36.0); MCV 77.9 fL (80-100); MPV 7.3 fL (7.6-11.3); Neutrophils % 92.3 % (41.7-73.7); Platelets 616 thou/uL (152-406); Red Cell Distribution Width 21.5 % (12.1-15.2)
[2024-05-29 06:11] LABS: Albumin 3.1 g/dL (3.4-5.0); Albumin/Globulin Ratio 0.8 (1.1-1.8); Anion Gap 6.6 mEq/L (5.0-15.0); Bilirubin Total 1.2 mg/dL (0.2-1.0); Globulin 3.8 g/dL (2.3-3.5); Potassium 3.6 mEq/L (3.5-5.1); Protein, Total 6.9 g/dL (6.4-8.2)
[2024-05-29] MEDS: NA CHLORIDE 0.9% 0 ML ONE (07:59)
[2024-05-29] MEDS: EZETIMIBE 10 MG TAB PO SCH (08:11)
[2024-05-29 08:47] LABS: Anisocytosis 1+; Blood Morphology Comment NOTED (NOT SEEN); Microcytosis 1+; Ovalocytes 1+; Platelet Estimate INCR; White Blood Cell Scan OK (OK)
[2024-05-29] MEDS ORDERED: METOPROLOL XL 50 MG TAB PO SCH (09:00)
[2024-05-29] MEDS: OLODATEROL HCL MIST IH SCH (09:00)
[2024-05-29] MEDS: TIOTROPIUM BR IH SCH (09:00)
[2024-05-29] MEDS: TAMSULOSIN 0.4 MG SR CAP PO ONE ×2 (10:15→14:23)
[2024-05-29] MEDS: LACTULOSE 20 GM/30 ML UCUP PO SCH (10:15)
[2024-05-29] MEDS: DIGOXIN 0.25 MG/ML AMP IV ONE (10:16)
[2024-05-29] MEDS: SOTALOL HCL 80 MG TAB PO SCH (12:09)
--- NOTE | 2024-05-29 12:15 | P.PN ---
Subjective Date of Service: 05/29/24 Chief Complaint: Shortness of breath Patient was transferred to the ICU due to rapid A-fib lower extremity edema has improved planes of left upper quadrant severe abdominal discomfort Review of Systems Respiratory: Shortness of Breath Gastrointestinal: Abdominal Pain Physical Examination - Vital Signs Temperature: 98.1 F Blood Pressure: 114/69 Pulse: 91 Respirations: 14 Pulse Ox (%): 100 - Physical Exam General: Alert, Oriented x3, Mild distress Neck: Supple Respiratory: Clear to auscultation bilaterally Cardiovascular: Edema (Plus edema) Gastrointestinal: Tenderness (Patient has tenderness in the left upper quadrant) Assessment And Plan - Current Problems (Diagnosis) (1) Shortness of breath Current Visit: Yes Status: Acute Plan: Patient's dyspnea has somewhat improved eating echocardiogram report currently he has severe pulmonary hypertension renal function is improved also add low- dose spironolactone for now (2) Abnormal CT scan of lung Current Visit: Yes Status: Acute Plan: Patient has a right upper lobe opacity he did have a nodule dating back to 2019 patient has had empiric radiation therapy right side in addition to her recent biopsy no history of lung cancer (3) COPD (chronic obstructive pulmonary disease) Current Visit: Yes Status: Acute Plan: Patient only has mild COPD avoid high doses of steroid Qualifiers: COPD type: unspecified COPD Qualified Code(s): J44.9 - Chronic obstructive pulmonary disease, unspecified (4) Atrial fibrillation Current Visit: Yes Status: Acute Plan: Patient has atrial fibrillation will need to be started on beta-blockers and resume his anticoagulation Qualifiers: Atrial fibrillation type: unspecified Qualified Code(s): I48.91 - Unspecified atrial fibrillation (5) Microcytic anemia Current Visit: Yes Status: Acute Plan: Patient has iron deficiency anemia has been started on IV iron
--- NOTE | 2024-05-29 12:25 | P.CNS ---
Date of Consult: 05/29/24 Chief Complaint: Shortness of breath History of Present Illness: Patient with PMH of heart failure, CAD, HTN, atrial fibrillation, pulmonary HTN, recent lower extremity stenting due to access complications, renal stent and renal A. denervation, presented as admission from surgery office due to concerns about heart status and breathing, report chronic GERARDO, no palpitations, no chest pain. Allergies No Known Allergies Allergy (Verified 03/14/13 09:44) Home medications list reviewed: Yes Home Medications: Atorvastatin Calcium [Lipitor*] 80 mg PO BEDTIME 03/14/13 traMADol HCL [Ultram*] 50 mg PO BID 03/14/13 Doxepin HCl [Sinequan] 10 mg PO BEDTIME 05/25/24 Furosemide 40 mg PO DAILY 05/25/24 Hydroxyzine HCl [Atarax] 50 mg PO Q8H PRN 05/25/24 Metformin HCl [Glucophage*] 500 mg PO BID 05/25/24 Ramipril [Altace] 10 mg PO DAILY 05/25/24 Acetaminophen [Tylenol Extra Strength] 500 mg PO BID 05/27/24 Albuterol Sulfate [Albuterol Sulfate Hfa] 2 puff IH Q4H PRN 05/27/24 Apixaban [Eliquis] 5 mg PO BID 05/27/24 Brinzolamide [Azopt] 1 drop EACH EYE DAILY 05/27/24 Dapagliflozin Propanediol [Farxiga] 5 mg PO BID 05/27/24 Diphenhydramine [Benadryl Tab/Cap] 25 mg PO TID PRN 05/27/24 Ezetimibe 10 mg PO DAILY 05/27/24 Meloxicam 15 mg PO DAILY 05/27/24 Metoprolol Succinate [Toprol Xl] 50 mg PO DAILY 05/27/24 Potassium Chloride 10 meq PO DAILY 05/27/24 Promethazine HCl 25 mg PO Q4H PRN 05/27/24 Ticagrelor [Brilinta*] 90 mg PO BID 05/27/24 Tiotropium Br/Olodaterol HCl [Stiolto Respimat Inhaler (10)] 2 puff IH DAILY 05/27/24 Torsemide [Demadex] 20 mg PO DAILY 05/27/24 Vit C/E/Zn/Coppr/Lutein/Zeaxan [Preservision Areds 2 Chew Tab] 1 each PO BID 05/27/24 cloNIDine HCL [Clonidine HCl] 0.1 mg PO TID PRN 05/27/24 levETIRAcetam [Levetiracetam] 500 mg PO BID 05/27/24 - Past Medical/Surgical History Diabetic: No -: COPD -: CAD -: HTN -: Hyperlipidemia -: Femoral artery injury - Family History Father Family History: Reviewed- Non-Contributory - Social History Smoking Status: Former smoker Alcohol use: No CD- Drugs: No Caffeine use: Yes Review of Systems 10-point ROS is otherwise unremarkable Physical Examination Temp Pulse Resp BP Pulse Ox 98.1 F 91 H 14 114/69 100 05/29/24 12:15 05/29/24 12:15 05/29/24 12:15 05/29/24 12:15 05/29/24 12:15 General: Alert, In no apparent distress HEENT: Atraumatic, PERRLA, Mucous membr. moist/pink, EOMI, Sclerae nonicteric Neck: Supple, 2+ carotid pulse no bruit, No LAD, Without JVD or thyroid abnormality Respiratory: Clear to auscultation bilaterally, Normal air movement Cardiovascular: Edema, Irregular heart rate/rhythm Gastrointestinal: Normal bowel sounds, No tenderness Musculoskeletal: No tenderness Integumentary: No rashes Neurological: Normal gait, Normal speech, Normal tone, Normal affect Lymphatics: No axilla or inguinal lymphadenopathy - Problems (1) Acute on chronic heart failure Current Visit: Yes Status: Acute Plan: agree with Lasix 80 mg IV daily monitor input and output and electrolytes. (2) CAD (coronary artery disease) Current Visit: Yes Status: Acute Plan: stable, denies chest pain continue Brilinta, patient is allergic to plavix. (3) Atrial fibrillation Current Visit: Yes Status: Acute Plan: patient did not repspond well to amiodarone start Sotalol 80 mg po BID continue Eliqiuis 5 mg po BID Qualifiers: Atrial fibrillation type: unspecified Qualified Code(s): I48.91 - Unspecified atrial fibrillation
[2024-05-29] MEDS: SPIRONOLACTONE 25 MG TABLET PO SCH (12:38)
--- NOTE | 2024-05-29 17:21 | EKG ---
Test Date: 2024-05-28 Test Time: 08:01:18 Repair Service Dispatcher: BRAYDON MEASUREMENT RESULTS: Intervals: Rate: 118 [place]: QRSD: 82 QT: 294 QTc: 412 [place]: P: AK: QRS: -70 T: 89 INTERPRETIVE STATEMENTS: Atrial fibrillation with rapid ventricular response Left axis deviation Pulmonary disease pattern Abnormal ECG Compared to ECG 05/28/2024 01:05:21 T-wave abnormality no longer present Electronically Signed On 05-29-24 17:20:12 VALUE STREAM LEADER by Graham Betancourt
--- NOTE | 2024-05-29 17:22 | EKG ---
Test Date: 2024-05-28 Test Time: 01:57:02 Laundry Presser: RASHAAD MEASUREMENT RESULTS: Intervals: Rate: 127 [place]: QRSD: 82 QT: 326 QTc: 473 [place]: P: VT: QRS: 250 T: 125 INTERPRETIVE STATEMENTS: Suspect arm lead reversal, interpretation assumes no reversal Atrial fibrillation with rapid ventricular response Right superior axis deviation Pulmonary disease pattern Nonspecific ST and T wave abnormality, probably digitalis effect Abnormal ECG Compared to ECG 05/28/2024 01:05:21 Right superior axis now present ST (T wave) deviation now present Left-axis deviation no longer present T-wave abnormality no longer present Electronically Signed On 05-29-24 17:20:46 LIFE CONSULTANT by Graham Betancourt
--- NOTE | 2024-05-29 17:22 | EKG ---
Test Date: 2024-05-28 Test Time: 01:55:59 I&C Technician: RASHAAD MEASUREMENT RESULTS: Intervals: Rate: 125 [place]: QRSD: 82 QT: 334 QTc: 482 [place]: P: [place]: QRS: 247 T: 103 INTERPRETIVE STATEMENTS: Atrial fibrillation with rapid ventricular response Right superior axis deviation Pulmonary disease pattern Nonspecific ST and T wave abnormality, probably digitalis effect Abnormal ECG Compared to ECG 05/28/2024 01:05:21 Right superior axis now present ST (T wave) deviation now present Left-axis deviation no longer present T-wave abnormality no longer present Electronically Signed On 05-29-24 17:20:59 LANDSCAPE ARCHITECTURE TEACHER by Graham Betancourt
--- NOTE | 2024-05-29 17:23 | EKG ---
Test Date: 2024-05-28 Test Time: 01:05:21 Technology Methodology Consultant: RASHAAD MEASUREMENT RESULTS: Intervals: Rate: 129 [place]: QRSD: 86 QT: 330 QTc: 483 [place]: P: NC: QRS: -41 T: 120 INTERPRETIVE STATEMENTS: Atrial fibrillation with rapid ventricular response Left axis deviation Pulmonary disease pattern Nonspecific T wave abnormality, probably digitalis effect Abnormal ECG Compared to ECG 05/25/2024 15:35:13 Left-axis deviation now present T-wave abnormality now present Myocardial infarct finding no longer present ST (T wave) deviation no longer present Possible ischemia no longer present Electronically Signed On 05-29-24 17:21:09 INSPECTOR SHEET METAL PARTS by Graham Betancourt
--- NOTE | 2024-05-29 17:32 | EKG ---
Test Date: 2024-05-25 Test Time: 15:35:13 Plasterer Maintenance: MEASUREMENT RESULTS: Intervals: Rate: 103 [place]: QRSD: 64 QT: 284 QTc: 372 [place]: P: WI: QRS: 241 T: 209 INTERPRETIVE STATEMENTS: Atrial fibrillation with rapid ventricular response Low voltage QRS Anterolateral infarct, age undetermined ST & T wave abnormality, consider inferior ischemia Abnormal ECG Compared to ECG 04/21/2024 18:26:35 Low QRS voltage now present Myocardial infarct finding now present ST (T wave) deviation now present Possible ischemia now present Prolonged QT interval no longer present Electronically Signed On 05-29-24 17:23:48 SHELL COREMAKER by Graham Betancourt
[2024-05-29] MEDS: TAMSULOSIN 0.4 MG SR CAP PO SCH (20:16)
[2024-05-29] MEDS: ACETAMINOPHEN 500 MG TAB PO PRN (23:47)
--- NOTE | 2024-05-30 08:01 | ECHO ---
HEIGHT: 5 ft 8 in WEIGHT: 180 lb 3.2 oz DATE OF STUDY: 05/26/[address]: Karla Gamboa MD 2-DIMENSIONAL: YES M.MODE: YES DOPPLER: YES COLOR FLOW: YES TDS: NO PORTABLE: YES DEFINITY: NO BUBBLE STUDY: NO DIAGNOSIS: PULMONARY HYPERTENSION CARDIAC HISTORY: CATHERIZATION: SURGERY: PROSTHETIC VALVE: PACEMAKER: MEASUREMENTS (cm) DIASTOLIC (NORMALS) SYSTOLIC (NORMALS) IVSd 1.0 (0.6-1.2) LA Diam 3.9 (1.9-4.0) LVEF >60% LVIDd 2.9 (3.5-5.7) LVIDs 1.6 (2.0-3.5) %FS 44% LVPWd 1.3 (0.6-1.2) Ao Diam (2.0-3.7) 2 DIMENSIONAL ASSESSMENT: RIGHT ATRIUM: NORMAL LEFT ATRIUM: ENLARGED RIGHT VENTRICLE: NOT SEEN WELL LEFT VENTRICLE: NORMAL TRICUSPID VALVE: MILD TRICUSPID REGURGITATION MITRAL VALVE: NORMAL PULMONIC VALVE: NOT SEEN AORTIC VALVE: NORMAL PERICARDIAL EFFUSION: NONE AORTIC ROOT: NORMAL LEFT VENTRICULAR WALL MOTION: NORMAL. DOPPLER/COLOR FLOW: SEE BELOW. COMMENTS: 1. POOR QUALITY ECHO. 2. LEFT ATRIAL ENLARGEMENT. 3. NORMAL LEFT VENTRICULAR EJECTION FRACTION >60%. 4. PULMONARY HYPERTENSION WITH RIGHT VENTRICULAR SYSTOLIC PRESSURE OF 50-55 mmHg. TECHNOLOGIST: DAVIDSON SALGADO, TAHMINA NICHOLAS
--- NOTE | 2024-05-30 13:56 | RAD REPORT ---
EXAMINATION: ONE VIEW CHEST XR CLINICAL INDICATION: Male, 78 years old.,pneumonia TECHNIQUE: Frontal chest projection is submitted. Examination is limited by patient positioning and t echnique. COMPARISON: 05/28/2024 FINDINGS: The lungs are well inflated. Mild central interstitial prominence, progressive since the prior exam. No pneumothorax or sizable effusion. The heart is normal in size. Mediastinal contours are unremarkable. IMPRESSION: Mild central interstitial prominence, may reflect mild central congestion or CHF, progressive since t he prior exam.
--- NOTE | 2024-05-30 14:41 | RAD REPORT ---
EXAM: XR Abdomen 1 View (KUB) HISTORY: [facility] MAIN Abd pain COMPARISON: CT abdomen and pelvis 05/28/2024 FINDINGS: Single view of the abdomen shows moderate gaseous small bowel distention probably stable co mpared to prior CT with reduced stool burden. No suspicious calcifications are seen. The bones are unremarkable. IMPRESSION: Stable moderate gaseous small bowel distention with reduced stool burden.
[2024-05-31] MEDS: NA CHLORIDE 0.9% 500 ML IV ONE (01:35)
[2024-05-31] MEDS: ALBUMIN HUMAN 25% 100 ML IV ONE (01:35)
[2024-05-31] MEDS: ALBUMIN HUMAN 25% 50 ML IV ONE (02:45)
--- NOTE | 2024-05-31 04:36 | P.PN ---
Date of Service: 05/29/24 Subjective Patient still with abdominal pain. Started patient on lactulose.Repeat abdominal films and x-ray to further evaluate. Physical Examination - Vital Signs Reviewed - Physical Exam General: Alert, In no apparent distress, Oriented x3; emaciated and disheveled Respiratory: Diminished, Expiratory wheezes Cardiovascular: Regular rate/rhythm, Normal S1 S2, Systolic murmur Gastrointestinal: Tenderness in the bilateral lower quadrants with no rebound or guarding; Musculoskeletal: No clubbing, No swelling, No tenderness Neurological: No focal deficits; Cachectic Assessment & Plan - Problems (Diagnosis) (1) Shortness of breath secondary to pneumonia Current Visit: Yes Status: Acute (2) Hypoxemia Current Visit: Yes Status: Acute (3) Severe pulmonary hypertension Current Visit: Yes Status: Acute (4) Abdominal pain secondary to constipation Current Visit: Yes Status: Acute (5) Lactic acidosis Current Visit: Yes Status: Acute (6) Microcytic anemia Current Visit: Yes Status: Acute (7) Reactive thrombocytosis Current Visit: Yes Status: Acute (8) Acute prerenal azotemia Current Visit: Yes Status: Acute - Plan Continue with plan of care as mentioned below: 1. Patient with hypoxemia with dyspnea secondary to pneumonia and severe pulmonary hypertension; pulmonary consultation appreciated. Pulmonary consulted; echocardiogram reviewed. Continue with antibiotic therapy. 2. Patient with lactic acidosis; patient lactic acidosis most likely related to hypoxemia. Monitor oxygenation closely; Resolved 3. Acute renal insufficiency; Renal function has stabilized. 4. Abdominal pain; Secondary to constipation and fecal impaction. Also concern for mesenteric ischemia. Will continue to monitor and repeat imaging studies if no improvement. 5. Atrial fibrillation with rapid ventricular response; rate controlled; continue with anticoagulation 6. GI DVT prophylaxis Discharge Plan: Home Plan to discharge in: Greater than 2 days - Advance Directives Does patient have a Living Will: No Does patient have a Durable POA for Healthcare: No - Code Status/Comfort Care Code Status Assessed: Yes Code Status: Full Code Critical Care: YES Time Spent Managing PTS Care (In Minutes): 35
--- NOTE | 2024-05-31 04:51 | P.PN ---
Date of Service: 05/30/24 Subjective Patient was given a soapsuds enema and had a large bowel movement x 2. Patient is feeling a little bit better. However, patient has become hypotensive. Spoke to the nurse and they tell me that patient may have a living will. We may need to get our social service people to assist us in obtaining this. Patient's prognosis is poor. Physical Examination - Vital Signs Reviewed - Physical Exam General: Alert, In no apparent distress, Oriented x3; emaciated and disheveled Respiratory: Diminished, Expiratory wheezes Cardiovascular: Regular rate/rhythm, Normal S1 S2, Systolic murmur Gastrointestinal: Tenderness in the bilateral lower quadrants with no rebound or guarding; Musculoskeletal: No clubbing, No swelling, No tenderness Neurological: No focal deficits; cachectic Assessment & Plan - Problems (Diagnosis) (1) Shortness of breath secondary to pneumonia Current Visit: Yes Status: Acute (2) Hypoxemia Current Visit: Yes Status: Acute (3) Severe pulmonary hypertension Current Visit: Yes Status: Acute (4) Abdominal pain secondary to constipation Current Visit: Yes Status: Acute (5) Lactic acidosis Current Visit: Yes Status: Acute (6) Microcytic anemia Current Visit: Yes Status: Acute (7) Reactive thrombocytosis Current Visit: Yes Status: Acute (8) Acute prerenal azotemia Current Visit: Yes Status: Acute - Plan Continue with plan of care as mentioned below: 1. Patient with hypoxemia with dyspnea secondary to pneumonia and severe pulmonary hypertension; pulmonary consultation appreciated. Pulmonary consulted; echocardiogram reviewed. Continue with antibiotic therapy.Patient clinical symptoms are not really improving. Prognosis remains poor. 2. Patient with lactic acidosis; resolved 3. Acute renal insufficiency; renal function has stabilized. Patient's renal function continues to improve. 4. Abdominal pain; secondary to constipation and fecal impaction. Also concern for mesenteric ischemia. Patient had a large bowel movement x 2. Feeling a little bit better. Continue monitoring clinical symptoms. 5. Atrial fibrillation with rapid ventricular response; rate controlled; continue with anticoagulation. Cardiology started sotalol and continue with Eliquis. 6. GI DVT prophylaxis Discharge Plan: Home Plan to discharge in: Greater than 2 days - Advance Directives Does patient have a Living Will: No Does patient have a Durable POA for Healthcare: No - Code Status/Comfort Care Code Status Assessed: Yes Code Status: Full Code Critical Care: YES Time Spent Managing PTS Care (In Minutes): 35
[2024-05-31] MEDS: WATER FOR INJ,STERILE 0 ML ONE (05:21)
[2024-05-31] MEDS: HYDROCORTISONE SUC 100 MG INJ IV ONE (05:30)
[2024-05-31 07:18] LABS: Absolute Eosinophils 0.1 K/uL (0-0.5); Absolute Lymphocytes (CBC) 0.2 K/uL (0.7-4.9); Absolute Monocytes 0.6 K/uL (0.1-1.3); Absolute Neutrophil 5.7 K/uL (1.8-8.0); Basophils % 0.2 % (0-1.3); Hematocrit 30.2 % (39.6-49.0); Hemoglobin 9.5 g/dL (13.6-17.9); Lymphocytes % 2.9 % (15.3-44.8); MCH 24.2 pg (27.0-35.0); MCHC 31.5 g/dL (32.0-36.0); MCV 76.7 fL (80-100); MPV 7.7 fL (7.6-11.3); Monocytes % 9.6 % (3.3-12.3); Neutrophils % 86.3 % (41.7-73.7); Nucleated Red Blood Cells % 0.1 % (0-0); Platelets 460 thou/uL (152-406); RBC Red Blood Cell Count 3.93 M/uL (4.33-5.43); Red Cell Distribution Width 20.6 % (12.1-15.2)
[2024-05-31 07:25] LABS: Albumin 2.3 g/dL (3.4-5.0); Albumin/Globulin Ratio 0.8 (1.1-1.8); Anion Gap 12.6 mEq/L (5.0-15.0); Bilirubin Total 1.9 mg/dL (0.2-1.0); Magnesium 2.4 mg/dL (1.6-2.4); Potassium 3.6 mEq/L (3.5-5.1); Protein, Total 5.3 g/dL (6.4-8.2)
--- NOTE | 2024-05-31 07:57 | RAD REPORT ---
EXAMINATION: ONE VIEW CHEST XR CLINICAL INDICATION: pneumonia TECHNIQUE: Frontal chest projection is submitted. Examination is limited by patient positioning and t echnique. COMPARISON: 05/30/2024 FINDINGS: Hazy opacities in both lung bases demonstrate mild improvement since comparison study. The heart is m ildly enlarged in size. No displaced fractures identified. IMPRESSION: Mild improvement in lung base aeration seen since comparison study.
--- NOTE | 2024-05-31 08:06 | RAD REPORT ---
EXAM: XR of the abdomen HISTORY: Abdominal pain Abd pain COMPARISON: 05/30/2024 FINDINGS: XR of the abdomen shows a prominent gaseous distention of bowel loops with significant stoo l retention. Bowel findings appear similar to comparison study.. Linear air density is seen adjacent to the left lobe of the liver are seen in the upper abdomen suggesting pneumoperitoneum. No suspicious calcifications are seen. The bones are unremarkable. IMPRESSION: Prominent diffuse distention of bowel is again seen with stool retention. Findings suspicious for pneumoperitoneum noted. Recommend CT for further evaluation. The findings were communicated with Karla Gamboa MD at 05/31/2024 8:03 AM by telephone.
[2024-05-31 08:41] LABS: Band Neutrophils 22 % (0-1); Differential Total Cells Count 100; Eosinophils 1 % (0-3); Lymphocytes 1 % (15-42); Monocytes 11 % (0-10); Segmented Neutrophils 65 % (40-80)
[2024-05-31 08:42] LABS: Platelet Estimate INCR; Platelets Clumped MANY; Platelets, Giant NOTED; Smudge Cells NOTED
[2024-05-31 08:43] LABS: Anisocytosis 1+; Blood Morphology Comment NOTED (NOT SEEN); Hypochromasia 1+; Microcytosis 1+
[2024-05-31] MEDS: HYDROCORTISONE SUC 100 MG INJ IV SCH (09:00)
[2024-05-31] MEDS: PIPER TAZO 3.375 GM in NA CHLORIDE 0.9% 100 ML IV SCH (09:00)
[2024-05-31] MEDS: MIDODRINE HCL 5 MG TABLET PO SCH (09:45)
--- NOTE | 2024-05-31 10:13 | RAD REPORT ---
EXAM: CT CHEST, ABDOMEN AND PELVIS WITHOUT CONTRAST CLINICAL INDICATION: abdominal pain, possible free air TECHNIQUE: CT chest, abdomen and pelvis was performed without contrast, as per department protocol. A xial, sagittal and coronal reconstructions were obtained. One or more of the following dose reduction techniques were used: Automated exposure control, adjustment of the mA and/or kV according to patient size, and/or iterative reconstruction. Unless otherwise specified, incidental findings do not require dedicated imaging follow-up. Examination is limited by the lack of intravenous contrast material. COMPARISON: Prior studies reviewed. FINDINGS: LUNGS: There is mild atelectasis in both lung bases, greater on the left. PLEURA: Small bilateral pleural effusions. Small amount of pericardial fluid also seen. MEDIASTINUM AND LYMPH NODES: No mediastinal mass or fluid collection. Normal size mediastinal, hilar, and axillary lymph nodes. OSSEOUS STRUCTURES AND CHEST WALL: Intact. LIVER: Subtle linear densities are noted in the region of the caudate lobe which could represent port al venous air. PANCREAS: No mass, ductal dilation, or fransisco-pancreatic fluid. SPLEEN: Normal size. No focal lesion. ADRENALS: Normal; no mass. KIDNEYS: Normal size and contour. No hydronephrosis. URINARY BLADDER: Normal contour. GASTROINTESTINAL TRACT: Free intraperitoneal air is seen anteriorly. There is also moderate fluid in the peritoneum. Small of fluid is somewhat dense anteriorly along the upper quadrant. Probable pneumatosis is present in the colon as well. Air is present small veins adjacent to the cecum as well . APPENDIX: Normal appendix. LYMPH NODES: No lymphadenopathy. MUSCULOSKELETAL: No acute or suspicious osseous abnormality. OTHER: Prominent aortoiliac atherosclerosis. IMPRESSION: Free intraperitoneal air is present. There is [id number] free fluid also noted in the abdomen. Findings likely indicate hollow viscus perforation, although clear defect cannot be discerned, favored to originate in the colon. Pneumatosis coli is present particularly involving the right colon. Subtle caudate lobe portal venous gas also seen. Combination of findings suggests ischemic bowel. The findings were communicated with Karla Gamboa MD at 05/31/2024 10:10 AM by telephone.
[2024-05-31] MEDS: Meropenem 1,000 MG in NA CHLORIDE 0.9% 100 ML IV SCH (11:33)
[2024-05-31] MEDS: NA CHLORIDE 0.9% 1,000 ML IV SCH (11:33)
--- NOTE | 2024-05-31 12:43 | P.PN ---
Subjective Date of Service: 05/31/24 Chief Complaint: Shortness of breath no change still dyspnea/KUB shows air in the abdomen/patient elected no treatment wants to go to hospice care patient complains of abdominal pain Review of Systems General: Weakness Respiratory: Shortness of Breath Gastrointestinal: Abdominal Pain Physical Examination - Vital Signs Temperature: 97.7 F Blood Pressure: 105/62 Pulse: 85 Respirations: 14 Pulse Ox (%): 99 - Physical Exam General: Alert, Moderate distress Neck: Supple Respiratory: Clear to auscultation bilaterally, Diminished Cardiovascular: No edema Gastrointestinal: Hypoactive, Tenderness, Rebound - Studies Microbiology Data (last 24 hrs): 05/25/24 15:54 Blood - Blood Aerobic Blood Culture - Final No growth in 5 days. 05/25/24 15:54 Blood - Blood Anaerobic Blood Culture - Final No growth in 5 days. 05/25/24 15:43 Blood - Blood Aerobic Blood Culture - Final No growth in 5 days. 05/25/24 15:43 Blood - Blood Anaerobic Blood Culture - Final No growth in 5 days. Assessment And Plan - Current Problems (Diagnosis) (1) Shortness of breath Current Visit: Yes Status: Acute Plan: Patient continues to experience dyspnea no change patient is on IV Lasix renal function is a little worse blood pressure is controlled A-fib is also controlled reduce the dose of IV Lasix to 40 mg daily DC steroid (2) Abnormal CT scan of lung Current Visit: Yes Status: Acute Plan: Patient has a right upper lobe opacity he did have a nodule dating back to 2019 patient has had empiric radiation therapy right side in addition to her recent biopsy no history of lung cancer (3) COPD (chronic obstructive pulmonary disease) Current Visit: Yes Status: Acute Plan: Patient only has mild COPD avoid high doses of steroid Qualifiers: COPD type: unspecified COPD Qualified Code(s): J44.9 - Chronic obstructive pulmonary disease, unspecified (4) Atrial fibrillation Current Visit: Yes Status: Acute Plan: Patient has atrial fibrillation will need to be started on beta-blockers and resume his anticoagulation Qualifiers: Atrial fibrillation type: unspecified Qualified Code(s): I48.91 - Unspecified atrial fibrillation (5) Microcytic anemia Current Visit: Yes Status: Acute Plan: Patient has iron deficiency anemia has been started on IV iron (6) Bowel perforation Current Visit: Yes Status: Acute Plan: Patient has bowel perforation refused surgery patient has signs of pneumoperitoneum on chest x-ray with very well-defined right sided hemidiaphragm his chest x-ray is clear
--- NOTE | 2024-05-31 15:36 | P.PN ---
Subjective Date of Service: 05/31/24 Chief Complaint: Shortness of breath Subjective: Worsening (CT of abdomen and pelvis and chest was performed for suspicion for pneumoperitoneum it turned out to be patient has a perforation of bowel, ischemic colitis, pneumatosis coli) The patient is complaining of diffuse abdominal pain and distention, but no nausea and vomiting or diarrhea or hematochezia. The at the bedside informing that patient only wants comfort care and she also agreed with him. Review of Systems Other: Consitutional; fever(-), chills (-), rigor(-), night sweat(-), unintentional weight loss(-) HEENT; epistaxis (-), otorrhea (-), otalgia (-) Respiratory; shortness of breath (+), wheezing (-), cough (-), sputum (-), pleuritic chest pain (-) Cardiovascular; chest pain (-), peripheral edema (-), paroxysmal nocturnal dyspnea (-), orthopnea (-) Gastrointestinal; nausea (-), vomiting (-), abdominal pain (+), diarrhea (-), constipation (-), melena (-), hematochezia (-) Urinary; urinary frequency (-), dysuria (-), urgency (-), flank pain (-), gross hematuria (-) Skin; rash (-), 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 General: Chronic ill- looking, in mild distress. HEENT: Normocephalic, atraumatic,. Neck: Supple, without JVD or goiter or thyroid mass. Respiratory: Normal breathing effort, clear to auscultation bilaterally, no crackles no wheezing or rhonchi. Cardiovascular: Distant heart sounds, irregularly irregular heart rate. Gastrointestinal: Decreased bowel sound with intermittent metallic sound, dist ended, mild direct tenderness, tympanic, , No masses, no hepatosplenomegaly. Musculoskeletal: No clubbing, No peripheral edema. Integumentary: No rashes. Lymphatics: No axilla or cervical lymphadenopathy. Neurology; alert awake oriented x3, no focal neurologic deficit - Studies Microbiology Data (last 24 hrs): 05/25/24 15:54 Blood - Blood Aerobic Blood Culture - Final No growth in 5 days. 05/25/24 15:54 Blood - Blood Anaerobic Blood Culture - Final No growth in 5 days. 05/25/24 15:43 Blood - Blood Aerobic Blood Culture - Final No growth in 5 days. 05/25/24 15:43 Blood - Blood Anaerobic Blood Culture - Final No growth in 5 days. Assessment And Plan - Plan This is 78 years old gentleman with multiple comorbidity including pneumonia rule out lung mass in the right upper lobe fecal infection, heart failure with bilateral pleural effusion, A-fib with rapid ventricular response and admitted in MICU, today simple abdomen shows multiple bowel loops dilatation with concern for pneumoperitoneum, CT scan of chest, abdomen pelvis performed which confirmed pneumoperitoneum, perforated colon likely due to ischemic colitis complicated by pneumatosis coli #1 presumed ischemic colitis complicated by perforation and pneumatosis coli #2 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 Patient and his family decided to proceed with comfort care only. I will consult social worker school for hospice, transfer the patient to general medical floor, patient CODE STATUS has changed to DNR/DNI
--- NOTE | 2024-05-31 16:51 | P.PN ---
Subjective Date of Service: 05/31/24 Chief Complaint: Shortness of breath Subjective: No new changes, No C/O voiced, Tolerating diet, Ambulating, Improving Review of Systems 10-point ROS is otherwise unremarkable Physical Examination - Vital Signs Temperature: 97.7 F Blood Pressure: 109/58 Pulse: 88 Respirations: 10 Pulse Ox (%): 91 - Physical Exam General: Alert, In no apparent distress HEENT: Atraumatic, PERRLA, EOMI Neck: Supple, JVD not distended Respiratory: Clear to auscultation bilaterally, Normal air movement Cardiovascular: Regular rate/rhythm, Normal S1 S2 Gastrointestinal: Normal bowel sounds, No tenderness Musculoskeletal: No tenderness Integumentary: No rashes Neurological: Normal speech, Normal tone, Normal affect Lymphatics: No axilla or inguinal lymphadenopathy - Studies Microbiology Data (last 24 hrs): 05/25/24 15:54 Blood - Blood Aerobic Blood Culture - Final No growth in 5 days. 05/25/24 15:54 Blood - Blood Anaerobic Blood Culture - Final No growth in 5 days. 05/25/24 15:43 Blood - Blood Aerobic Blood Culture - Final No growth in 5 days. 05/25/24 15:43 Blood - Blood Anaerobic Blood Culture - Final No growth in 5 days. Medications List Reviewed: Yes Assessment And Plan - Current Problems (Diagnosis) (1) Acute on chronic heart failure Current Visit: Yes Status: Acute Plan: switch lasix to 40 mg po daily continue aldactone 25 mg daily monitor input and output and electrolytes. (2) CAD (coronary artery disease) Current Visit: Yes Status: Acute Plan: stable, denies chest pain continue Brilinta, patient is allergic to plavix. (3) Atrial fibrillation Current Visit: Yes Status: Acute Plan: patient did not repspond well to amiodarone continue Sotalol 80 mg po BID continue Eliqiuis 5 mg po BID Qualifiers: Atrial fibrillation type: unspecified Qualified Code(s): I48.91 - Unspecified atrial fibrillation
[2024-05-31] MEDS: Mupirocin NASAL 2 APPL/1 GM TUBE NAS SCH (22:09)
--- NOTE | 2024-05-31 22:37 | CON ---
Date of Consultation: 05/31/2024 Reason For Consultation: Pneumoperitoneum. History Of Present Illness: The patient is a 78-year-old gentleman who I saw for chronic abdominal pain in my office last week. We were discussing the patient's condition regarding his reason for referral. He was in respiratory distress. I evaluated him and felt that he needed to be taken to the emergency room as soon as possible. We took the patient from our office to the ER and the patient was diagnosed with pneumonia. He was admitted and during the admission, he was managed by the bridal gown fitter as well as the hospitalist team and he had some issues with constipation. He was given enemas a couple of days ago and started having increasing abdominal pain yesterday, which became worse today and an abdominal x-ray was ordered, which showed free air and a CAT scan was done, which showed large amount of free air with ischemic origin more than likely. The CAT scan was done without IV contrast so the vasculature status could not be clearly identified. The patient has significant comorbidities including pulmonary hypertension, increasing debility and weakness, difficulty breathing at home, and other issues as well. The patient feels very tired and when I saw him today, he is awake and he is alert. He was in mild respiratory discomfort. No acute distress. He did complain of some abdominal pain and a little bit of nausea, but no vomiting. He did have a large bowel movement a couple of days ago and yesterday when I was in his room talking to him, he had another bowel movement. The patient denies any sore throat, runny nose, cough, headaches, or dizziness. No chest pain. No fever or chills. He is also on anticoagulation for coronary artery disease as well as atherosclerotic disease of his arterial anatomy. Review of Systems: Otherwise unremarkable. Past Medical History: Significant for COPD, coronary artery disease, hypertension, pulmonary hypertension, hyperlipidemia, atrial fibrillation. Past Surgical History: Femoral artery injury. He has had cataract surgery, heart stent placement, right hip replacement. Allergies: NO ALLERGIES. Social History: He had denies smoking currently and a distant history of tobacco use and does drink alcohol. Family History: Noncontributory. Physical Examination: Vital Signs: This morning were stable. Respiratory rate was 10 and he was afebrile. His O2 saturation was 91. General: He is awake, alert, oriented x3. Head and Neck: No JVD. Throat clear. Neck: Supple. Chest: Clear. Heart: S1, S2. Abdomen: Distended. Hypoactive bowel sounds. Tenderness with rebound and involuntary guarding. Extremities: Adequately perfused, nontender. Neuro: Nonfocal. Diagnostic Data: CT of the abdomen and pelvis reviewed with the radiologist, which revealed free intraperitoneal air, mid to moderate free fluid noted in the abdomen, likely indicates hollow viscus perforation, although clear defect cannot be discerned, favor origin to be the colon. Pneumatosis coli is present, particularly involving the right colon. Subtle caudate lobe portal venous gas is also seen. The combination of findings suggest ischemic bowel. Laboratory Data: Showed a white count of 6.6, H and H of 9.5 and 30.2, platelets of 460 with a left shift. INR of 2.36. Chemistry reviewed. BUN is 54, creatinine is 2.55, which is markedly increased from admission of 41 and 2.19. Total bilirubin is 1.9. Alkaline phosphatase is 135. Procalcitonin is 15.35. Assessment: A 78-year-old gentleman with multiple medical problems, on anticoagulation with pneumoperitoneum and peritonitis. I discussed all options with the patient and family including surgery, with colon resection, ileostomy versus comfort care and hospice. Family was waiting for the son. The son came in from out of town and they discussed it and I went back and talked to the family again. The patient wishes to not proceed with surgery given all the risks. He did understand the risks which included but not limited to-- infection, bleeding, injury to adjacent structure, pneumonia, stroke, heart attack, prolonged intubation, prolonged hospital stay and . Based on all the information provided to the patient and family, they have opted to proceed with palliative care. Social Service consult was put in to initiate that and I discussed the case with Dr. Gamboa as well. I will be available should the patient and family change their mind, but at this time, I believe palliative care is the appropriate decision in this setting. JOE/DONNA Voice ID: [id number] Report ID: [id number] JORGE
[2024-06-01 05:26] VITALS: BMI 28.7
[2024-06-01] MEDS: FUROSEMIDE 40 MG/4 ML VIAL IV SCH (08:52)
[2024-06-01 09:27] VITALS: O2SAT 99
[2024-06-01 10:07] VITALS: TEMP 97.1
--- NOTE | 2024-06-01 10:47 | P.PN ---
Subjective Date of Service: 06/01/24 Chief Complaint: Shortness of breath Subjective: No new changes The patient is complaining of shortness of breath but no chest pain or cough. He reported his abdominal pain and distention seem to be improving on pain medication.. Review of Systems Other: Consitutional; fever(-), chills (-), rigor(-), night sweat(-), unintentional weight loss(-) HEENT; epistaxis (-), otorrhea (-), otalgia (-) Respiratory; shortness of breath (+), wheezing (-), cough (-), sputum (-), pleuritic chest pain (-) Cardiovascular; chest pain (-), peripheral edema (-), paroxysmal nocturnal dyspnea (-), orthopnea (-) Gastrointestinal; nausea (-), vomiting (-), abdominal pain (+), diarrhea (-), constipation (-), melena (-), hematochezia (-) Urinary; urinary frequency (-), dysuria (-), urgency (-), flank pain (-), gross hematuria (-) Skin; rash (-), 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 General: Chronic ill- looking, in mild distress. HEENT: Normocephalic, atraumatic,. Neck: Supple, without JVD or goiter or thyroid mass. Respiratory: Normal breathing effort, clear to auscultation bilaterally, no crackles no wheezing or rhonchi. Cardiovascular: Distant heart sounds, irregularly irregular heart rate. Gastrointestinal: No bowel sounds, distended, mild direct tenderness, tympanic, , No masses, no hepatosplenomegaly. Musculoskeletal: No clubbing, No peripheral edema. Integumentary: No rashes. Lymphatics: No axilla or cervical lymphadenopathy. Neurology; alert awake oriented x3, no focal neurologic deficit - Studies Medications List Reviewed: Yes Assessment And Plan - Plan This is 78 years old gentleman with multiple comorbidity including pneumonia rule out lung mass in the right upper lobe fecal infection, heart failure with bilateral pleural effusion, A-fib with rapid ventricular response and admitted i n MICU, today simple abdomen shows multiple bowel loops dilatation with concern for pneumoperitoneum, CT scan of chest, abdomen pelvis performed which confirmed pneumoperitoneum, perforated colon likely due to ischemic colitis complicated by pneumatosis coli #1 presumed ischemic colitis complicated by perforation, secondary peritonitis and pneumatosis coli #2 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 He is DNR/DNI, he and his family want comfort care only. Home hospice has been requested. Transfer order to general medical floor has been placed.
--- NOTE | 2024-06-01 11:46 | P.DS ---
Admission Date: 05/25/24 Discharge Date: 06/01/24 Disposition: DC HOME/HOME HEALTH CARE Discharge Condition: CRITICAL Reason for Admission: Shortness of breath Brief History of Present Illness: This is 78 years old gentleman with multiple comorbidity including pneumonia rule out lung mass in the right upper lobe fecal infection, heart failure with bilateral pleural effusion, A-fib with rapid ventricular response and admitted in MICU, Hospital Course: His heart which was controlled with sotalol. He was complaining of persistent abdominal pain and simple abdomen showed multiple bowel loops dilatation with concern for pneumoperitoneum, CT scan of chest, abdomen pelvis performed which confirmed pneumoperitoneum, perforated colon likely due to ischemic colitis complicated by pneumatosis coli. He was treated with broad-spectrum antibiotics meropenem, n.p.o., IV fluid, pain control with Dilaudid. General surgery was consulted but patient was deemed not a good candidate for surgery, palliative care was appropriate. Patient himself and his family agreed to comfort care only. He was placed DNR/DNI. He was discharged home with home hospice. 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 General: Chronic ill- looking, in mild distress. HEENT: Normocephalic, atraumatic,. Neck: Supple, without JVD or goiter or thyroid mass. Respiratory: Normal breathing effort, clear to auscultation bilaterally, no crackles no wheezing or rhonchi. Cardiovascular: Distant heart sounds, irregularly irregular heart rate. Gastrointestinal: No bowel sounds, distended, mild direct tenderness, tympanic, , No masses, no hepatosplenomegaly. Musculoskeletal: No clubbing, No peripheral edema. Integumentary: No rashes. Lymphatics: No axilla or cervical lymphadenopathy. Neurology; alert awake oriented x3, no focal neurologic deficit Laboratory Data at Discharge: WBC 6.60 thou/uL (4.3-10.9) 05/31/24 06:48 Hgb 9.5 g/dL (13.6-17.9) L 05/31/24 06:48 Hct 30.2 % (39.6-49.0) L 05/31/24 06:48 Plt Count 460 thou/uL (152-406) H 05/31/24 06:48 PT 25.8 SECONDS (9.4-12.5) H 05/26/24 04:24 INR 2.36 05/26/24 04:24 APTT 41.2 SECONDS (24.3-36.9) H 05/26/24 04:24 Sodium 136 mEq/L (136-145) 05/31/24 06:48 Potassium 3.6 mEq/L (3.5-5.1) 05/31/24 06:48 BUN 54 mg/dL (7-18) H 05/31/24 06:48 Creatinine 2.55 mg/dL (0.70-1.30) H 05/31/24 06:48 Glucose 166 mg/dL (74-106) H 05/31/24 06:48 Magnesium 2.4 mg/dL (1.6-2.4) 05/31/24 06:48 Total Bilirubin 1.9 mg/dL (0.2-1.0) H 05/31/24 06:48 AST 16 U/L (15-37) 05/31/24 06:48 ALT 18 U/L (16-61) 05/31/24 06:48 Alkaline Phosphatase 135 U/L (45-117) H 05/31/24 06:48 Triglycerides 68 mg/dL (<150) 05/26/24 04:26 Cholesterol 73 mg/dL (<200) 05/26/24 04:26 HDL Cholesterol 27 mg/dL (40-60) L 05/26/24 04:26 Cholesterol/HDL Ratio 2.70 05/26/24 04:26 Lipase 25 U/L (13-75) 05/26/24 04:26 Home Medications: traMADol HCL [Ultram*] 50 mg PO BID 03/14/13 Metoprolol Succinate [Toprol Xl*] 50 mg PO DAILY 05/27/24 levETIRAcetam [Levetiracetam] 500 mg PO BID 05/27/24 Sotalol HCl [Betapace*] 80 mg PO BID 6AM 6PM tab 06/01/24 Followup: Brooke Robledo [Primary Care Provider] -
[2024-06-01 13:04] VITALS: BP 92/59
--- NOTE | 2024-06-05 12:15 | EKG ---
Test Date: 2024-05-30 Test Time: 06:45:24 Machine Packager: MONIKA MEASUREMENT RESULTS: Intervals: Rate: 76 MD: QRSD: 90 QT: 396 QTc: 445 [place]: P: MD: QRS: 266 T: -78 INTERPRETIVE STATEMENTS: Atrial fibrillation Right superior axis deviation Nonspecific T wave abnormality, probably digitalis effect Abnormal ECG Compared to ECG 05/28/2024 08:01:18 Right superior axis now present T-wave abnormality now present Left-axis deviation no longer present Electronically Signed On 06-05-24 12:06:58 [employer] by Jesse Diamond
--- NOTE | 2024-06-05 12:15 | EKG ---
Test Date: 2024-05-30 Test Time: 06:47:13 Facility Supervisor: MONIKA MEASUREMENT RESULTS: Intervals: Rate: 87 [place]: QRSD: 88 QT: 372 QTc: 447 [place]: P: [place]: QRS: 263 T: 108 INTERPRETIVE STATEMENTS: Atrial fibrillation Right superior axis deviation Nonspecific ST and T wave abnormality, probably digitalis effect Abnormal ECG Compared to ECG 05/28/2024 08:01:18 Right superior axis now present ST (T wave) deviation now present Left-axis deviation no longer present Electronically Signed On 06-05-24 12:06:52 NET APPLICATION SUPPORT SPECIALIST by Jesse Diamond
== END 2024-06-01 12:45 | disposition hospice, home (50) | DRG 871 ==
LOC: ER 14:28 → ERHOLD 18:39 → 2ND 19:12 → 3RD-ICU 05-28 15:00
PROVIDERS: ADMIT Hospitalist; ATTEND Internal Medicine
PROC: 02HV33Z Insertion of Infusion Device into Superior Vena Cava, Percutaneous Approach (ICD-10-PCS; principal; 2024-05-25)
DX: A41.9 Sepsis, unspecified organism (principal); G93.41 Metabolic encephalopathy; I50.43 Acute on chronic combined systolic (congestive) and diastolic (congestive) heart failure; J18.9 Pneumonia, unspecified organism; J96.01 Acute respiratory failure with hypoxia; K63.1 Perforation of intestine (nontraumatic); K65.9 Peritonitis, unspecified; N17.9 Acute kidney failure, unspecified; E87.20 Acidosis, unspecified; J44.0 Chronic obstructive pulmonary disease with (acute) lower respiratory infection; D68.9 Coagulation defect, unspecified; K55.9 Vascular disorder of intestine, unspecified; C34.11 Malignant neoplasm of upper lobe, right bronchus or lung; R65.20 Severe sepsis without septic shock; I11.0 Hypertensive heart disease with heart failure; I48.91 Unspecified atrial fibrillation; E86.0 Dehydration; K59.00 Constipation, unspecified; E78.5 Hyperlipidemia, unspecified; K63.89 Other specified diseases of intestine; N28.9 Disorder of kidney and ureter, unspecified; D75.838 Other thrombocytosis; D50.9 Iron deficiency anemia, unspecified; I27.20 Pulmonary hypertension, unspecified; I25.10 Atherosclerotic heart disease of native coronary artery without angina pectoris; Z66 Do not resuscitate; Z95.5 Presence of coronary angioplasty implant and graft; Z86.73 Personal history of transient ischemic attack (TIA), and cerebral infarction without residual deficits; Z79.82 Long term (current) use of aspirin; Z79.01 Long term (current) use of anticoagulants; Z96.649 Presence of unspecified artificial hip joint; Z87.891 Personal history of nicotine dependence; Z79.899 Other long term (current) drug therapy
CPT/HCPCS: 36415; 70450; 71045; 71250; 74018; 74176; 76700; 80053; 80061; 81001; 82607; 82728; 82947; 83540; 83605; 83690; 83735; 83880; 84145; 84439; 84443; 84466; 84484; 85025; 85044; 85610; 85730; 87040; 87804; 87811; 93005; 93306; 94640; 97110; 97116; 97161; 97530; 99285; J0282; J0696; J1160; J1171; J1720; J1940; J2185; J2270; J2405; J2543; J2916; J2919; J7030; J7040; J7050; J7605; J7613; J7614; J7644; P9047